=== PATIENT | female | born 1955 | race Caucasian/White ===

== ENCOUNTER → 2017-04-18 | Outpatient (CLI) | payer MEDICARE ==
--- NOTE | 2017-04-18 15:35 | US ---
EXAMINATION TYPE: US venous doppler duplex LE DATE OF EXAM: 04/18/2017 2:37 PM COMPARISON: Right lower extremity venous ultrasound April 27, 2015 CLINICAL HISTORY: M79.604 Pain In Limb. Patient on Plavix, history of stroke. Wound right anterior sh in near foot for 3 weeks LOWER EXTREMITY VENOUS INSUFFICIENCY SIDE PERFORMED: bilateral 1) Color flow is present and patency is documented in the following vessels. No DVT or SVT is noted . EIV Common Femoral Vein Deep Femoral Vein Femoral Vein Popliteal Vein Proximal Calf Veins Greater Saph Vein Upper Small Saph Vein 2) There is venous reflux noted at the following venous levels: no evidence of reflux IMPRESSION: No ultrasound evidence for acute DVT or SVT in either lower extremity. No venous reflux o bserved bilaterally.
--- NOTE | 2017-04-25 10:07 | P.ARTDOP ---
Arterial Doppler LOWER EXTREMITY ARTERIAL DOPPLER: DATE OF SERVICE: 04/18/2017 Reason for study: Right lower leg ulcer. Doppler waveforms: Multiphasic bilaterally throughout. Pulse volume recording: Normal configuration. Pressure gradients: None except at the foot level. Ankle-brachial indices: Greater than 1 on the right and 0.97 on the left.. Toe pressures: 67 on the right, 74 on the left Impression: Fairly mild distal disease. Perfusion probably adequate for healing..
== END | disposition home or self-care (01) ==
LOC: RADUSWWP 13:55
PROVIDERS: ATTEND Internal Medicine Infectious Disease
DX: M79.604 Pain in right leg (principal)
CPT/HCPCS: 93923; 93970

== ENCOUNTER → 2017-12-19 | Outpatient (CLI) | payer MEDICARE ==
--- NOTE | 2017-12-20 12:15 | MR ---
EXAMINATION TYPE: MR lumbar spine wo con DATE OF EXAM: 12/19/2017 COMPARISON: HISTORY: low back pain TECHNIQUE: Multiplanar, multisequence images of the lumbar spine were acquired. L1-L2: Normal disc appearance without desiccation. No herniation, protrusion or disc bulging. No ca nal stenosis is present. There is facet arthropathy with hypertrophy of the ligamentum flavum encroac tremaine on the lateral recesses. Foramina are patent bilaterally. L2-L3: Normal disc appearance without desiccation. No herniation, protrusion or disc bulging. No ca nal stenosis is present. There is facet arthropathy with hypertrophy of the ligamentum flavum encroac tremaine on the lateral recesses. Foramina are patent bilaterally. L3-L4: Loss of disc height and signal is present, there is vacuum phenomenon. Extruded fragment is pr esent in the right posterior paracentral location extending posterior to the L4 vertebral body and to wards the right neural foramen of L4, there is anterior mass effect on the thecal sac. Fragment measu res a partially 17 x 11 x 16 mm. There is facet arthropathy hypertrophy ligamentum flavum causing pos terior lateral mass effect on the thecal sac, encroachment on the lateral recesses. There is mild par acentral stenosis of the canal, trefoil appearance. Anterolisthesis grade 1 L3-4. L4-L5: Vacuum phenomenon present in L4-5 level. There is loss of disc desiccation. Facet arthropathy with hypertrophy ligamentum flavum encroaches on the lateral recesses, right-sided foraminal encroach ment due to sequestered disc fragment. L5-S1: Normal disc appearance without desiccation. No herniation, protrusion or disc bulging. No ca nal stenosis is present. Foramina are patent bilaterally. Lumbar segments are intact. No paraspinal masses are identified. Conus medullaris has a normal appe arance. Multilevel spondylosis with endplate discogenic marrow signal change is noted. Mild spinal cu rvature. IMPRESSION: Sequestered disc fragment as described extending towards the right L4 neural foramen and likely origi nating at the L3-4 disc space. Degenerative disc disease.
== END | disposition home or self-care (01) ==
LOC: RADMRIMAIN 17:25
PROVIDERS: ATTEND Internal Medicine
DX: M51.16 Intervertebral disc disorders with radiculopathy, lumbar region (principal)
CPT/HCPCS: 72148

== ENCOUNTER → 2018-02-13 | Outpatient (CLI) | payer MEDICARE ==
[2018-02-12 17:00] VITALS: BMI 28.8
[2018-02-13 14:18] VITALS: BP 157/93; PULSE 98; RESP 16
--- NOTE | 2018-02-13 15:04 | P.PAINPG ---
Subjective Progress Note Date: 02/13/18 Principal diagnosis: Back pain, right buttock pain, right leg pain This a very pleasant 52-year-old woman with a history of back pain right buttock pain and right leg pain. She presents today for evaluation. She was referred by her spine surgeon to our clinic for epidural steroid injections. She reports that she began experiencing pain in August for no clear inciting reason. She has trialed conservative management since marked including 2 rounds of physical therapy as well as treatment with a chiropractor and using ice and heat. None of these have significantly helped her. She does take Plavix and aspirin secondary to having 4 different strokes. It was concluded that she does have some sort of coagulation disorder and is hypercoagulable. She feels as though her strength is decreased. She did have pain in her back which radiated down her leg and into her anterior rosales and foot however the radicular component has mostly resolved except for pain radiating into her buttock and upper leg. She does report having some urgency with urination that is new however she denies any loss of control of her bladder. She denies any loss of bowel control. Objective - Vital Signs Vital signs: Vital Signs Temp Pulse 98 02/13/18 14:07 Resp 16 02/13/18 14:07 BP 157/93 02/13/18 14:07 Pulse Ox 95 02/13/18 14:07 Intake & Output 02/12/18 02/13/18 02/13/18 18:59 06:59 18:59 Weight 88.451 kg - Exam General: The patient is alert and oriented. Patient is not sedated Patient answers all question appropriately. She is frequently tearful during this conversation. She does walk with a walker for assistance. Cardiac: Heart is regular in rate and rhythm Respiratory: Clear to auscultation. No audible wheezes. Abdomen: Soft nontender nondistended. Lower extremities: Strength is normal bilaterally. Sensation is normal bilaterally. Reflexes are preserved and symmetric bilaterally. Straight leg raise is positive on the right. Assessment and Plan Plan: Plan of Care 1. Medications: She will continue with her Isaac for radicular symptom control. 2. Interventions: I had a long conversation with the patient and her family regarding anticoagulants and the risks of discontinuing them for an elective procedure in someone who has had 4 different strokes. I told her I'm very concerned that she may have severe complications. I think she should exhaust all conservative measures first. I have encouraged him to dissipate in a water therapy program to help with strengthening and pain reduction. 3. Referrals: I refer them to physical therapy for water therapy. 4. Testing: Patient does have an MRI of her lumbar spine dated 12/19/2017 which reveals a herniated disc with extruded fragment at L3 4. There is anterior mass effect on the thecal sac. There is also encroachment of the lateral recess and right foraminal encroachment due to the sequestered disc fragment at L4 5. 5. Follow-up: The patient will follow up in 1 month to discuss results of her water therapy. We will also have a discussion regarding moving forward with lumbar epidural steroid injection. PQRS Measure Charge Sheet Measure #130: Documentation of Current Meds in Medical Chart: Patient's medications documented in chart Measure #226: Tobacco Use: Screen & Cessation Intervention: Pt not a tobacco user Measure #111: Pneumonia Vaccination: Pneumococcal vaccine NOT administered or previously given Measure #47: Advance Care Plan: Advance care planning discussed & documented, pt chose/unable to give Measure #412: Opioid Treatment Agreement: No documentation of signed opioid treatment agreement Measure #408: Opioid Therapy Follow-up Evaluation: Patient had NO f/u eval minimum every 3 months during opioid therapy Measure #317: Preventitive Care & Scrn High Bld Press & F/U: Normal blood pressure, f/u not required Measure #128: Body Mass Index (BMI) Screening & Follow-up: BMI documented ABOVE normal parameters - f/u documented Measure #131: Pain Assessment & Follow-up: Pain positive & plan documented Measure #431: Unhealthy Alcohol Use Preventative Care & Scrn: Patient not identified as an unhealthy alcohol user PQRS Narrative: Smoking Status Never smoker Do You Want the Pneumonia No Vaccine AT THIS TIME? Blood Pressure 157/93 Pain Intensity [Lower Back] 8 Scale Used Numeric (1 - 10) Hx Alcohol Use (MH) No Home Medications: Ambulatory Orders Atorvastatin [Lipitor] 5 mg PO HS 08/14/15 Ca/D3/Mag/Zinc/Carl/Tye/Mgbor [Caltrate 600+D3+Min Chew Tab] 1 tab PO DAILY 05/19 Cholecalciferol [Vitamin D3] 600 unit PO DAILY 08/14/15 Clopidogrel [Plavix] 75 mg PO DAILY 08/14/15 Enalapril [Vasotec] 10 mg PO DAILY 08/14/15 Folic Acid 0.4 mg PO DAILY 08/14/15 Insulin Aspart [NovoLOG (formulary)] 25 unit SQ TID 08/14/15 Insulin Glargine [Lantus] 30 unit SQ HS 08/14/15 Levothyroxine Sodium [Tirosint] 150 mcg PO DAILY 04/05/17 Aspirin 81 mg PO DAILY 02/12/18 Dextromethorphan HBr/Quinidine [Nuedexta 20-10 mg Capsule] 1 each PO DAILY 02/12 Pregabalin [Lyrica] 100 mg PO HS 02/12/18 Controlled Substance Measures - Controlled Substance Measures Is patient prescribed a controlled substance at discharge?: No
== END | disposition home or self-care (01) ==
LOC: PNWHC3 13:22
PROVIDERS: ATTEND Pain Medicine Pain Medicine
DX: M51.26 Other intervertebral disc displacement, lumbar region (principal); G95.89 Other specified diseases of spinal cord; Z86.73 Personal history of transient ischemic attack (TIA), and cerebral infarction without residual deficits; Z79.02 Long term (current) use of antithrombotics/antiplatelets; Z79.82 Long term (current) use of aspirin
CPT/HCPCS: 99211

== ENCOUNTER 2018-06-25 10:31 | Observation (INO) | payer MEDICARE ==
--- NOTE | 2018-06-25 11:06 | ED ---
General Adult HPI - General Chief complaint: Weakness Stated complaint: Fall,weakness, poss UTI Time Seen by Provider: 06/25/18 10:35 Source: patient, EMS, RN notes reviewed Mode of arrival: EMS Limitations: no limitations - History of Present Illness Initial comments: This is a 62-year-old female presents emergency department for generalized weakness. Patient states he got up to go to bathroom and her legs got weak and she slowly went to the ground. Patient denies any injury. Patient states she has no pain anywhere else. Patient denies any headache denies lightheadedness or dizziness. Patient denies chest pain or palpitations. Patient denies any difficulty breathing first breath. Patient denies abdominal pain patient denies nausea vomiting diarrhea. Patient states for the last 3 weeks she has had a little bit of a cold and a cough but no sputum production. Patient states she's not short of breath either. Patient states she has been on an antibiotic. Patient denies any swelling to the legs or calf tenderness. Patient states while she is lying in bed she feels okay. - Related Data Home Medications Medication Instructions Recorded Confirmed Atorvastatin [Lipitor] 10 mg PO HS 08/14/15 06/25/18 Ca/D3/Mag/Zinc/Carl/Tye/Mgbor 1 tab PO DAILY 08/14/15 06/25/18 [Caltrate 600-D3-Min Chew Tab] Clopidogrel [Plavix] 75 mg PO DAILY 08/14/15 06/25/18 Enalapril [Vasotec] 10 mg PO DAILY 08/14/15 06/25/18 Insulin Aspart [NovoLOG 25 unit SQ AC-TID 08/14/15 06/25/18 (formulary)] Insulin Glargine [Lantus] 35 unit SQ QAM 08/14/15 06/25/18 Levothyroxine Sodium [Tirosint] 150 mcg PO DAILY 04/05/17 06/25/18 Aspirin 81 mg PO DAILY 02/12/18 06/25/18 Dextromethorphan HBr/Quinidine 1 cap PO DAILY 02/12/18 06/25/18 [Nuedexta 20-10 mg Capsule] Folic Acid 1 mg PO DAILY 06/25/18 06/25/18 Pregabalin [Lyrica] 150 mg PO HS 06/25/18 06/25/18 Solifenacin Succinate [Vesicare] 5 mg PO DAILY 06/25/18 06/25/18 Allergies Allergy/AdvReac Type Severity Reaction Status Date / Time ibuprofen [From Motrin] Allergy Unknown Verified 06/25/18 11:07 naproxen [From Aleve] Allergy Unknown Verified 06/25/18 11:07 Review of Systems ROS Statement: Those systems with pertinent positive or pertinent negative responses have been documented in the HPI. ROS Other: All systems not noted in ROS Statement are negative. Past Medical History Past Medical History: Cancer, CVA/TIA, Diabetes Mellitus, Hyperlipidemia, Hypertension, Skin Disorder, Thyroid Disorder Additional Past Medical History / Comment(s): hx CVA -problems with balance. hx thyroid cancer History of Any Multi-Drug Resistant Organisms: None Reported Past Surgical History: Hysterectomy, Orthopedic Surgery Additional Past Surgical History / Comment(s): thyroidectomy, parotid gland surgery, left shoulder (rotator cuff sx) Past Anesthesia/Blood Transfusion Reactions: Postoperative Nausea & Vomiting ( PONV) Past Psychological History: No Psychological Hx Reported Smoking Status: Never smoker Past Alcohol Use History: None Reported Past Drug Use History: None Reported - Past Family History Mother Family Medical History: No Reported History Father Family Medical History: Cancer Additional Family Medical History / Comment(s): open heart surgery when he was 48, aortic aneurysm when he was around 63 General Exam - General Exam Comments Initial Comments: GENERAL: Patient is well-developed and well-nourished. Patient is nontoxic and well- hydrated and is in no acute distress. ENT: Neck is soft and supple. No significant lymphadenopathy is noted. Oropharynx is clear. Moist mucous membranes. Neck has full range of motion without eliciting any pain. EYES: The sclera were anicteric and conjunctiva were pink and moist. Extraocular movements were intact and pupils were equal round and reactive to light. Eyelids were unremarkable. PULMONARY: Unlabored respirations. Good breath sounds bilaterally. No audible rales rhonchi or wheezing was noted. CARDIOVASCULAR: There is a regular rate and rhythm without any murmurs gallops or rubs. ABDOMEN: Soft and nontender with normal bowel sounds. No palpable organomegaly was noted. There is no palpable pulsatile mass. SKIN: Skin is clear with no lesions or rashes and otherwise unremarkable. NEUROLOGIC: Patient is alert and oriented x3. Cranial nerves II through XII are grossly intact. Motor and sensory are also intact. Normal speech, volume and content. Symmetrical smile. MUSCULOSKELETAL: Normal extremities with adequate strength and full range of motion. No lower extremity swelling or edema. No calf tenderness. LYMPHATICS: No significant lymphadenopathy is noted PSYCHIATRIC: Normal psychiatric evaluation. Limitations: no limitations Course Vital Signs 06/25/18 06/25/18 06/25/18 10:33 11:30 12:00 Temperature 98.5 F Pulse Rate 89 Pulse Rate [ Right Sitting Highway Commissioner ] Pulse Rate [ Right Standing Highway Commissioner ] Pulse Rate [ Right Supine Highway Commissioner ] Respiratory 18 18 18 Rate Blood Pressure 127/69 128/75 104/56 Blood Pressure [Right Arm Sitting] Blood Pressure [Right Arm Standing] Blood Pressure [Right Arm Supine] O2 Sat by Pulse 97 98 98 Oximetry 06/25/18 06/25/18 06/25/18 12:30 13:00 13:30 Temperature Pulse Rate 85 Pulse Rate [ Right Sitting Highway Commissioner ] Pulse Rate [ Right Standing Highway Commissioner ] Pulse Rate [ Right Supine Highway Commissioner ] Respiratory 18 18 Rate Blood Pressure 107/61 112/77 112/77 Blood Pressure [Right Arm Sitting] Blood Pressure [Right Arm Standing] Blood Pressure [Right Arm Supine] O2 Sat by Pulse 95 99 99 Oximetry 06/25/18 06/25/18 06/25/18 13:40 14:00 14:30 Temperature Pulse Rate 87 81 Pulse Rate [ [address] ] Pulse Rate [ [address] ] Pulse Rate [ [address] ] Respiratory 18 18 Rate Blood Pressure 143/71 109/80 Blood Pressure 138/72 [Right Arm Sitting] Blood Pressure 145/75 [Right Arm Standing] Blood Pressure 121/61 [Right Arm Supine] O2 Sat by Pulse Oximetry Medical Decision Making - Medical Decision Making EKG shows normal sinus rhythm at 80 bpm GA interval 172 QRS is 90 QT interval 382 QTC is 440. Patient's EKG shows no ST segment elevation or depression or T wave normalities are noted. came in later and indicated to me that the patient fallen 3 times the last couple of weeks. He also states she seems to be much weaker with exertion. Chest x-ray shows no acute abnormality. Dr. Daniels accepted the patient's admission. I wrote admitting orders - Lab Data Result diagrams: 06/25/18 12:07 06/25/18 12:07 Lab Results 06/25/18 06/25/18 06/25/18 Range/Units 12:07 12:07 12:07 WBC 10.1 (3.8-10.6) k/uL RBC 4.74 (3.80-5.40) m/uL Hgb 14.2 (11.4-16.0) gm/dL Hct 43.7 (34.0-46.0) % MCV 92.2 (80.0-100.0) fL MCH 30.1 (25.0-35.0) pg MCHC 32.6 (31.0-37.0) g/dL RDW 14.0 (11.5-15.5) % Plt Count 219 (150-450) k/uL Neutrophils % 69 % Lymphocytes % 22 % Monocytes % 5 % Eosinophils % 2 % Basophils % 1 % Neutrophils # 7.0 (1.3-7.7) k/uL Lymphocytes # 2.2 (1.0-4.8) k/uL Monocytes # 0.5 (0-1.0) k/uL Eosinophils # 0.2 (0-0.7) k/uL Basophils # 0.1 (0-0.2) k/uL PT (9.0-12.0) sec INR (<1.2) APTT (22.0-30.0) sec Sodium 141 (137-145) mmol/L Potassium 4.5 (3.5-5.1) mmol/L Chloride 107 (98-107) mmol/L Carbon Dioxide 27 (22-30) mmol/L Anion Gap 7 mmol/L BUN 25 H (7-17) mg/dL Creatinine 0.47 L (0.52-1.04) mg/dL Est GFR (CKD-EPI)AfAm >90 (>60 ml/min/1.73 sqM) Est GFR (CKD-EPI)NonAf >90 (>60 ml/min/1.73 sqM) Glucose 119 H (74-99) mg/dL POC Glucose (mg/dL) (75-99) mg/dL POC Glu Extractions Technologist ID Plasma Lactic Acid Hilario (0.7-2.0) mmol/L Calcium 9.3 (8.4-10.2) mg/dL Magnesium 1.9 (1.6-2.3) mg/dL Total Bilirubin 1.3 (0.2-1.3) mg/dL AST 43 H (14-36) U/L ALT 28 (9-52) U/L Alkaline Phosphatase 71 (38-126) U/L Total Creatine Kinase 78 (30-135) U/L CK-MB (CK-2) 1.2 (0.0-2.4) ng/mL CK-MB (CK-2) Rel Index 1.5 Troponin I <0.012 (0.000-0.034) ng/mL NT-Pro-B Natriuret Pep pg/mL Total Protein 7.4 (6.3-8.2) g/dL Albumin 4.3 (3.5-5.0) g/dL Urine Color Urine Appearance (Clear) Urine pH (5.0-8.0) Ur Specific [place] (1.001-1.035) Urine Protein (Negative) Urine Glucose (UA) (Negative) Urine Ketones (Negative) Urine Blood (Negative) Urine Nitrite (Negative) Urine Bilirubin (Negative) Urine Urobilinogen (<2.0) mg/dL Ur Leukocyte Esterase (Negative) Urine WBC (0-5) /hpf Ur Squamous Epith Cells (0-4) /hpf Urine Bacteria (None) /hpf Urine Mucus (None) /hpf 06/25/18 06/25/18 06/25/18 Range/Units 12:07 12:07 12:07 WBC (3.8-10.6) k/uL RBC (3.80-5.40) m/uL Hgb (11.4-16.0) gm/dL Hct (34.0-46.0) % MCV (80.0-100.0) fL MCH (25.0-35.0) pg MCHC (31.0-37.0) g/dL RDW (11.5-15.5) % Plt Count (150-450) k/uL Neutrophils % % Lymphocytes % % Monocytes % % Eosinophils % % Basophils % % Neutrophils # (1.3-7.7) k/uL Lymphocytes # (1.0-4.8) k/uL Monocytes # (0-1.0) k/uL Eosinophils # (0-0.7) k/uL Basophils # (0-0.2) k/uL PT 10.6 (9.0-12.0) sec INR 1.0 (<1.2) APTT 22.2 (22.0-30.0) sec Sodium (137-145) mmol/L Potassium (3.5-5.1) mmol/L Chloride (98-107) mmol/L Carbon Dioxide (22-30) mmol/L Anion Gap mmol/L BUN (7-17) mg/dL Creatinine (0.52-1.04) mg/dL Est GFR (CKD-EPI)AfAm (>60 ml/min/1.73 sqM) Est GFR (CKD-EPI)NonAf (>60 ml/min/1.73 sqM) Glucose (74-99) mg/dL POC Glucose (mg/dL) (75-99) mg/dL POC Glu Extractions Technologist ID Plasma Lactic Acid Hilario 1.7 (0.7-2.0) mmol/L Calcium (8.4-10.2) mg/dL Magnesium (1.6-2.3) mg/dL Total Bilirubin (0.2-1.3) mg/dL AST (14-36) U/L ALT (9-52) U/L Alkaline Phosphatase (38-126) U/L Total Creatine Kinase (30-135) U/L CK-MB (CK-2) (0.0-2.4) ng/mL CK-MB (CK-2) Rel Index Troponin I (0.000-0.034) ng/mL NT-Pro-B Natriuret Pep 34 pg/mL Total Protein (6.3-8.2) g/dL Albumin (3.5-5.0) g/dL Urine Color Urine Appearance (Clear) Urine pH (5.0-8.0) Ur Specific [place] (1.001-1.035) Urine Protein (Negative) Urine Glucose (UA) (Negative) Urine Ketones (Negative) Urine Blood (Negative) Urine Nitrite (Negative) Urine Bilirubin (Negative) Urine Urobilinogen (<2.0) mg/dL Ur Leukocyte Esterase (Negative) Urine WBC (0-5) /hpf Ur Squamous Epith Cells (0-4) /hpf Urine Bacteria (None) /hpf Urine Mucus (None) /hpf 06/25/18 06/25/18 Range/Units 12:14 13:56 WBC (3.8-10.6) k/uL RBC (3.80-5.40) m/uL Hgb (11.4-16.0) gm/dL Hct (34.0-46.0) % MCV (80.0-100.0) fL MCH (25.0-35.0) pg MCHC (31.0-37.0) g/dL RDW (11.5-15.5) % Plt Count (150-450) k/uL Neutrophils % % Lymphocytes % % Monocytes % % Eosinophils % % Basophils % % Neutrophils # (1.3-7.7) k/uL Lymphocytes # (1.0-4.8) k/uL Monocytes # (0-1.0) k/uL Eosinophils # (0-0.7) k/uL Basophils # (0-0.2) k/uL PT (9.0-12.0) sec INR (<1.2) APTT (22.0-30.0) sec Sodium (137-145) mmol/L Potassium (3.5-5.1) mmol/L Chloride (98-107) mmol/L Carbon Dioxide (22-30) mmol/L Anion Gap mmol/L BUN (7-17) mg/dL Creatinine (0.52-1.04) mg/dL Est GFR (CKD-EPI)AfAm (>60 ml/min/1.73 sqM) Est GFR (CKD-EPI)NonAf (>60 ml/min/1.73 sqM) Glucose (74-99) mg/dL POC Glucose (mg/dL) 127 H (75-99) mg/dL POC Glu Extractions Technologist ID Lithia Abraham Plasma Lactic Acid Hilario (0.7-2.0) mmol/L Calcium (8.4-10.2) mg/dL Magnesium (1.6-2.3) mg/dL Total Bilirubin (0.2-1.3) mg/dL AST (14-36) U/L ALT (9-52) U/L Alkaline Phosphatase (38-126) U/L Total Creatine Kinase (30-135) U/L CK-MB (CK-2) (0.0-2.4) ng/mL CK-MB (CK-2) Rel Index Troponin I (0.000-0.034) ng/mL NT-Pro-B Natriuret Pep pg/mL Total Protein (6.3-8.2) g/dL Albumin (3.5-5.0) g/dL Urine Color Yellow Urine Appearance Cloudy H (Clear) Urine pH 5.5 (5.0-8.0) Ur Specific [place] 1.024 (1.001-1.035) Urine Protein Trace H (Negative) Urine Glucose (UA) Negative (Negative) Urine Ketones Negative (Negative) Urine Blood Negative (Negative) Urine Nitrite Positive H (Negative) Urine Bilirubin Negative (Negative) Urine Urobilinogen <2.0 (<2.0) mg/dL Ur Leukocyte Esterase Moderate H (Negative) Urine WBC 33 H (0-5) /hpf Ur Squamous Epith Cells 1 (0-4) /hpf Urine Bacteria Many H (None) /hpf Urine Mucus Moderate H (None) /hpf Disposition Clinical Impression: Urinary tract infection, Generalized weakness, Multiple falls Disposition: ADMITTED IP TO THIS HOSP Referrals: Xu Hatfield MD [Primary Care Provider] - 1-2 days Time of Disposition: 15:46
[2018-06-25] MEDS ORDERED: SODIUM CHLORIDE 0.9% 500 ML 500 ML IV STA (11:57)
[2018-06-25 12:18] LABS: Glucose,Whole Blood 127 mg/dL (75-99)
[2018-06-25 12:42] LABS: Basophils # (A) 0.1 k/uL (0-0.2); Basophils % (A) 1 %; Eosinophils # (A) 0.2 k/uL (0-0.7); Eosinophils % (A) 2 %; HCT 43.7 % (34.0-46.0); HGB 14.2 gm/dL (11.4-16.0); Lymphocytes # (A) 2.2 k/uL (1.0-4.8); Lymphocytes % (A) 22 %; MCH 30.1 pg (25.0-35.0); MCHC 32.6 g/dL (31.0-37.0); MCV 92.2 fL (80.0-100.0); Mean Platelet Volume 8.3; Monocytes # (A) 0.5 k/uL (0-1.0); Monocytes % (A) 5 %; Neutrophils % (A) 69 %; Platelet Count 219 k/uL (150-450); RBC 4.74 m/uL (3.80-5.40); WBC 10.1 k/uL (3.8-10.6)
--- NOTE | 2018-06-25 12:53 | XR ---
EXAMINATION TYPE: XR chest 2V DATE OF EXAM: 06/25/2018 COMPARISON: Prior chest x-ray 08/14/2015 HISTORY: Weakness TECHNIQUE: Frontal and lateral views of the chest are obtained. FINDINGS: Lung volumes are low, patient is rotated. There is no focal air space opacity, pleural effu yair, or pneumothorax seen. The cardiac silhouette size is stable accounting for differences in tech nique. The osseous structures are intact. IMPRESSION: No acute cardiopulmonary process.
[2018-06-25 12:55] LABS: Partial Thromboplastin Time 22.2 sec (22.0-30.0); Prothrombin Time 10.6 sec (9.0-12.0)
[2018-06-25 13:02] LABS: ALT 28 U/L (9-52); AST 43 U/L (14-36); Albumin 4.3 g/dL (3.5-5.0); Alkaline Phosphatase 71 U/L (38-126); Anion Gap 7 mmol/L; Blood Urea Nitrogen 25 mg/dL (7-17); Calcium 9.3 mg/dL (8.4-10.2); Carbon Dioxide 27 mmol/L (22-30); Chloride 107 mmol/L (98-107); Glucose 119 mg/dL (74-99); Magnesium 1.9 mg/dL (1.6-2.3); Sodium 141 mmol/L (137-145); Total Bilirubin 1.3 mg/dL (0.2-1.3); Total Protein 7.4 g/dL (6.3-8.2)
[2018-06-25 13:04] LABS: Creatine Kinase 78 U/L (30-135)
[2018-06-25 13:11] LABS: Potassium 4.5 mmol/L (3.5-5.1)
[2018-06-25 13:16] LABS: Creatine Kinase MB 1.2 ng/mL (0.0-2.4); Troponin I <0.012 ng/mL (0.000-0.034)
[2018-06-25 14:28] LABS: Appearance,Urine Cloudy (Clear); Bacteria,Urine Many /hpf; Bilirubin,Urine Negative (Negative); Blood,Urine Negative (Negative); Color,Urine Yellow; Glucose,Urine (UA) Negative (Negative); Ketones,Urine Negative (Negative); Leukocyte Esterase,Urine Moderate (Negative); Mucus,Urine Moderate /hpf; Nitrite,Urine Positive (Negative); PH, Urine 5.5 (5.0-8.0); Protein,Urine Trace (Negative); Specific Gravity,Urine 1.024 (1.001-1.035); Squamous Epithelial Cell,Urine 1 /hpf (0-4); Urobilinogen,Urine <2.0 mg/dL (<2.0); WBC,Urine 33 /hpf (0-5)
[2018-06-25] MEDS ORDERED: SODIUM CHLORIDE 0.9% 1,000 ML IV ONE (15:47)
[2018-06-25 17:51] LABS: Glucose,Whole Blood 95 mg/dL (75-99)
[2018-06-25] MEDS ORDERED: ONDANSETRON 4 MG/2 ML VIAL IVP PRN (18:00)
[2018-06-25] MEDS ORDERED: SODIUM CHLORIDE 0.9% 1,000 ML IV SCH (18:00)
[2018-06-25] MEDS ORDERED: NALOXONE 0.4 MG/ML 1 ML VIAL IV PRN (18:00)
--- NOTE | 2018-06-25 18:22 | P.HPIM ---
History of Present Illness H&P Date: 06/25/18 Chief Complaint: weakness Patient is a 62-year-old female past medical history of multiple strokes including one hemorrhagic, hypertension, diabetes, prior thyroid cancer , and arthritis who is the emergency department after a fall. In the emergency department she underwent an extensive evaluation. Her initial vital signs were within normal limits. Initial laboratory analysis showed slightly elevated BUN of 25. EKG was unremarkable. Chest x-ray was negative. She was found to have a urinary tract infection with treatment dose of Rocephin. She had positive orthostatic vital signs was started on IV fluids. Arrangements were made for admission for observation. Patient seen and examined at bedside emergency department. She states that she has been having generalized weakness and falls. She has fallen 3 times total. She does not believe that she fainted passes out becomes off balance and trips or lowers herself to the ground. She states that for the last 2-3 weeks she has been struggling with a cold. She went to the urgent care approximately a week ago was told she had a virus. There she was started on a steroid pack, Mucinex, and one additional medication. She reports that she initially had a productive cough with sputum but now has a dry cough. She felt feverish but has not taken her temperature. She initially desired shortness of breath however family reports that she's been extremely winded with walking and wheezes. Patient denies wheezing. She states that she has noticed dark urine but denied any changes in her urine such as dysuria, urinary frequency, and incontinence. After a long discussion with her daughter patient has been struggling with urinary incontinence at home. She does report that her appetite has been decreased with her illness. She states that today her blood sugar was in the 90s at 4 PM which is very low for her and she feels symptomatic with anything less than 100. She states she thinks her last A1c was 7 and that her sugars have been running around 200. Her steroid pack and it yesterday. She denies any focal neuro deficits. She states she just feels as though both her legs are weak. She does have some chronic left upper extremity weakness from a prior stroke which is unchanged, she denies any numbness or tingling. She has struggled with disequilibrium her quite some time since her last stroke. She denies any other changes. She was started on Vesicare approximately 3 months ago but has had no other medication changes recently. Daughter reports that she has not been checking her sugars at home frequently. She also reports that she has tried home health in the past and has not had success. She has had continual downhill decline over the last 3 months. Has been using a walker recently but used to have a cane. Has a life alert system in place. Review of Systems Pertinent positives and negatives as discussed in HPI, a complete review of systems was performed and all other systems are negative. 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 hx thyroid cancer. MTHFR. History of Any Multi-Drug Resistant Organisms: None Reported Past Surgical History: Hysterectomy, Orthopedic Surgery Additional Past Surgical History / Comment(s): thyroidectomy, parotid gland surgery, left shoulder (rotator cuff sx) X 2 Past Anesthesia/Blood Transfusion Reactions: Postoperative Nausea & Vomiting ( PONV) Past Psychological History: No Psychological Hx Reported Smoking Status: Never smoker Past Alcohol Use History: None Reported Past Drug Use History: None Reported Additional History: Lives with her , uses a walker and a cane at baseline , has a life alert system. Daughter comes out 3-4 times weekly and is a nurse. - Past Family History Mother Family Medical History: No Reported History Father Family Medical History: Cancer Additional Family Medical History / Comment(s): open heart surgery when he was 50, aortic aneurysm when he was around 63 Medications and Allergies Home Medications Medication Instructions Recorded Confirmed Type RX: Atorvastatin [Lipitor] 10 mg PO HS 08/14/15 06/25/18 History RX: Ca/D3/Mag/Zinc/Carl/Tye/Mgbor 1 tab PO DAILY 08/14/15 06/25/18 History [Caltrate 600-D3-Min Chew Tab] RX: Clopidogrel [Plavix] 75 mg PO DAILY 08/14/15 06/25/18 History RX: Enalapril [Vasotec] 10 mg PO DAILY 08/14/15 06/25/18 History RX: Insulin Aspart [NovoLOG 25 unit SQ AC-TID 08/14/15 06/25/18 History (formulary)] RX: Insulin Glargine [Lantus] 35 unit SQ QAM 08/14/15 06/25/18 History Levothyroxine Sodium [Tirosint] 150 mcg PO DAILY 04/05/17 06/25/18 History Dextromethorphan HBr/Quinidine 1 cap PO DAILY 02/12/18 06/25/18 History [Nuedexta 20-10 mg Capsule] RX: Aspirin 81 mg PO DAILY 02/12/18 06/25/18 History Folic Acid 1 mg PO DAILY 06/25/18 06/25/18 History Pregabalin [Lyrica] 150 mg PO HS 06/25/18 06/25/18 History Solifenacin Succinate [Vesicare] 5 mg PO DAILY 06/25/18 06/25/18 History Allergies Allergy/AdvReac Type Severity Reaction Status Date / Time ibuprofen [From Motrin] Allergy Unknown Verified 06/25/18 11:07 naproxen [From Aleve] Allergy Unknown Verified 06/25/18 11:07 Physical Exam Osteopathic Statement: *. No significant issues noted on an osteopathic structural exam other than those noted in the History and Physical/Consult. Vitals: Vital Signs Temp Pulse Pulse Pulse Pulse Resp BP 06/25/18 17:30 98 18 139/63 06/25/18 14:30 81 18 109/80 06/25/18 14:00 87 18 143/71 06/25/18 13:40 98 113 H 88 06/25/18 13:30 85 18 112/77 06/25/18 13:00 18 112/77 06/25/18 12:30 107/61 06/25/18 12:00 18 104/56 06/25/18 11:30 18 128/75 06/25/18 10:33 98.5 F 89 18 127/69 BP BP BP Pulse Ox 06/25/18 17:30 06/25/18 14:30 06/25/18 14:00 06/25/18 13:40 138/72 145/75 121/61 06/25/18 13:30 99 06/25/18 13:00 99 06/25/18 12:30 95 06/25/18 12:00 98 06/25/18 11:30 98 06/25/18 10:33 97 Intake and Output 01/22/19 01/22/19 01/22/19 06:59 14:59 22:59 Other: Weight 88.451 kg General: non toxic, no distress, appears at stated age, Obese Derm: no unusual rashes/lesions no unusual ecchymoses, warm, dry Head: atraumatic, normocephalic, symmetric Eyes: EOMI, no lid lag, anicteric sclera, pupils equal round reactive to light ENT: Nose and ears atraumatic, no thrush, + pharyngeal erythema Neck: No thyromegaly, no cervical lymphadenopathy, trachea midline, supple Mouth: no lip lesion, mucus membranes dry Cardiovascular: S1S2 irreg, no murmur, positive posterior tibial pulse bilateral , no edema, capillary refill less than 2 seconds Lungs: CTA bilateral, no rhonchi, no rales , no accessory muscle use Abdominal: soft, nontender to palpation, no guarding, no appreciable organomegaly, normal bowel sounds Ext: no gross muscle atrophy, muscle strength 5 out of 5 in all RUE, LLE, and RLE grossly- 4/5 in LUE, no contractures, Neuro: CN II-XI grossly intact, light touch intact all 4 extremities, finger to nose within normal limits, Psych: Alert, oriented, appropriate affect Results CBC & Chem 7: 06/25/18 12:07 06/25/18 12:07 Labs: Abnormal Lab Results - Last 24 Hours (Table) 06/25/18 06/25/18 06/25/18 Range/Units 12:07 12:14 13:56 BUN 25 H (7-17) mg/dL Creatinine 0.47 L (0.52-1.04) mg/dL Glucose 119 H (74-99) mg/dL POC Glucose (mg/dL) 127 H (75-99) mg/dL AST 43 H (14-36) U/L Urine Appearance Cloudy H (Clear) Urine Protein Trace H (Negative) Urine Nitrite Positive H (Negative) Ur Leukocyte Esterase Moderate H (Negative) Urine WBC 33 H (0-5) /hpf Urine Bacteria Many H (None) /hpf Urine Mucus Moderate H (None) /hpf Comments: EKG- NSR at 80, IA 172, QRS 90, QTC 440 Chest x-ray: report reviewed, image reviewed Thrombosis Risk Factor Assmnt - DVT/VTE Prophylaxis DVT/VTE Prophylaxis: Mechanical Prophylaxis ordered Assessment and Plan Assessment: UTI, POA - rocephin - await cultures - hold vesicar DM 2 with relative symptomatic hypoglycemia - SSI, Decreased scheduled novolog, Levemir - Check A1c - Accucheck ACHS and 2 am Dehydration with prerenal azotemia - IVF - repeat orthostaics in AM (+ for increased HR) Weakness with frequent falls - likely related to UTI, but could be progression of prior stroke symptoms vs valvular disease - echo, tele - fall precautions - PT/OT consult - May benefit from rehab placement, family states that home health with ineffective Urinary incontinence/freequency - resume vesicare once TX for UTI - Out patient urology consult HTN, controlled - enalapril - follow BP HLD - statin Hx of multiple CVA - ASA and plavix - Nudexta for pseudobulbar sx The patient is admitted as inpatient with an anticipated greater than 2 midnight stay for UTI, weakness and falls. Surrogate decision maker: Tha and daughter Olivia CODE STATUS:Full DVT prophylaxis: SCDs Discussed with: Patient, family, nursing, Anticipated discharge date: 1-[address]: A total of [] minutes was spent on the care of this complex patient more than 50 % of the time was spent in counseling and care coordination.
[2018-06-25 20:52] LABS: Glucose,Whole Blood 144 mg/dL (75-99)
[2018-06-25] MEDS: INSULIN ASPART 100 UNIT/ML 1 ML 10 ML VIAL SQ SCH (20:55)
[2018-06-25] MEDS: PREGABALIN 75 MG CAP PO SCH (21:01)
[2018-06-25] MEDS: ATORVASTATIN 10 MG TAB PO SCH (21:01)
[2018-06-26 02:41] LABS: Glucose,Whole Blood 107 mg/dL (75-99)
[2018-06-26] MEDS: LEVOTHYROXINE 75 MCG TAB PO SCH (05:40)
[2018-06-26] MEDS: ACETAMINOPHEN TAB 325 MG TAB PO PRN ×2 (05:40→21:50)
[2018-06-26 06:41] LABS: Glucose,Whole Blood 156 mg/dL (75-99)
[2018-06-26] MEDS ORDERED: INSULIN ASPART 100 UNIT/ML 1 ML 10 ML VIAL SQ SCH (07:30)
[2018-06-26] MEDS: CLOPIDOGREL 75 MG TAB PO SCH (08:28)
[2018-06-26] MEDS: ASPIRIN 81 MG PO SCH (08:28)
[2018-06-26] MEDS: LISINOPRIL 20 MG TAB PO SCH (08:28)
[2018-06-26] MEDS: INSULIN DETEMIR 100 UNIT/ML 10 ML VIAL SQ SCH (08:28)
[2018-06-26] MEDS: INSULIN ASPART 100 UNIT/ML 1 ML 10 ML VIAL SQ SCH ×7 (08:29→21:51)
[2018-06-26 09:07] LABS: Anion Gap 8 mmol/L; Blood Urea Nitrogen 16 mg/dL (7-17); Calcium 8.4 mg/dL (8.4-10.2); Carbon Dioxide 28 mmol/L (22-30); Chloride 106 mmol/L (98-107); Glucose 173 mg/dL (74-99); Magnesium 1.8 mg/dL (1.6-2.3); Potassium 4.3 mmol/L (3.5-5.1); Sodium 142 mmol/L (137-145)
[2018-06-26] MEDS: QUINIDINE PO SCH (09:15)
[2018-06-26] MEDS: DEXTROMETHORPHAN HBR PO SCH (09:15)
[2018-06-26 09:16] LABS: HCT 42.1 % (34.0-46.0); HGB 13.6 gm/dL (11.4-16.0); MCH 30.3 pg (25.0-35.0); MCHC 32.4 g/dL (31.0-37.0); MCV 93.5 fL (80.0-100.0); Mean Platelet Volume 8.2; Platelet Count 210 k/uL (150-450); RDW 14.1 % (11.5-15.5); WBC 9.8 k/uL (3.8-10.6)
--- NOTE | 2018-06-26 10:14 | ECHOF ---
Referral Reason:shortness of breath MEASUREMENTS -------- HEIGHT: 175.3 cm WEIGHT: 88.5 kg BP: RVIDd: 2.7 cm (< 3.3) IVSd: 1.3 cm (0.6 - 1.1) LVIDd: 3.8 cm (3.9 - 5.3) LVPWd: 1.3 cm (0.6 - 1.1) IVSs: 1.5 cm LVIDs: 2.3 cm LVPWs: 1.6 cm LA Diam: 3.5 cm (2.7 - 3.8) Ao Diam: 2.7 cm (2.0 - 3.7) AV Cusp: 1.5 cm (1.5 - 2.6) LA Diam: 4.6 cm (2.7 - 3.8) EPSS: 0.6 cm MV E Alexx: 0.37 m/s MV DecT: 194 ms MV A Alexx: 0.59 m/s MV E/A Ratio: 0.62 RAP: 5.00 mmHg RVSP: 15.39 mmHg MV EF SLOPE: 62.46 mm/s (70 - 150) MV EXCURSION: 1.50 cm (> 18.000) FINDINGS -------- Sinus rhythm. This was a technically good study. The left ventricular size is normal. There is mild concentric left ventricular hypertrophy. Overa ll left ventricular systolic function is normal with, an EF between 55 - 60 %. The right ventricle is normal in size. The left atrial size is normal. The right atrial size is normal. The aortic valve is trileaflet, and appears structurally normal. No aortic stenosis or regurgitation. Mild mitral annular calcification present. No mitral regurgitation. Mild tricuspid regurgitation present. There is no evidence of pulmonary hypertension. The right v entricular systolic pressure, as measured by Doppler, is 15.39mmHg. There is no pulmonic regurgitation present. The aortic root size is normal. There is no pericardial effusion. CONCLUSIONS -------- 1. The left ventricular size is normal. 2. There is mild concentric left ventricular hypertrophy. 3. Overall left ventricular systolic function is normal with, an EF between 55 - 60 %. 4. The right ventricle is normal in size. 5. The left atrial size is normal. 6. The right atrial size is normal. 7. The aortic valve is trileaflet, and appears structurally normal. No aortic stenosis or regurgitati on. 8. Mild mitral annular calcification present. 9. No mitral regurgitation. 10. Mild tricuspid regurgitation present. 11. There is no evidence of pulmonary hypertension. 12. The right ventricular systolic pressure, as measured by Doppler, is 15.39mmHg. 13. There is no pulmonic regurgitation present. 14. The aortic root size is normal. 15. There is no pericardial effusion. BOOK ILLUSTRATOR: Lisa Durán RDCS
[2018-06-26 10:52] LABS: Glucose,Whole Blood 214 mg/dL (75-99)
--- NOTE | 2018-06-26 12:37 | P.PN ---
Subjective Progress Note Date: 06/26/18 Principal diagnosis: weakness Patient is a 62-year-old female past medical history of multiple strokes including one hemorrhagic, hypertension, diabetes, prior thyroid cancer , and arthritis who is the emergency department after a fall. In the emergency department she underwent an extensive evaluation. Her initial vital signs were within normal limits. Initial laboratory analysis showed slightly elevated BUN of 25. EKG was unremarkable. Chest x-ray was negative. She was found to have a urinary tract infection with treatment dose of Rocephin. She had positive orthostatic vital signs was started on IV fluids. Arrangements were made for admission. She was maintained on IV fluids due to prerenal azotemia and signs of clinical dehydration. The next morning her BUN improved and she was feeling better. She worked with physical therapy who recommended subacute rehab. She underwent an echocardiogram which showed mild LVH but no significant valvular disease. Patient seen and examined at bedside. She reports she is feeling about the same as yesterday. She reports that she was able to walk with physical therapy and her balance seems somewhat better. She denies any chest pain or shortness of breath. She is still having her chronic cough. She has no other complaints currently. Objective - Vital Signs Vital signs: Vital Signs Temp 98.2 F 06/26/18 11:40 Pulse 82 06/26/18 11:40 Resp 18 06/26/18 05:27 BP 123/63 06/26/18 11:40 Pulse Ox 94 L 06/26/18 11:40 Intake & Output 06/25/18 06/26/18 06/26/18 18:59 06:59 18:59 Intake Total 1680 Balance 1680 Weight 88.451 kg Intake: Intake, IV Titration 1200 Amount Sodium Chloride 0.9% 1, 1200 000 ml @ 100 mls/hr IV . Q10H ONE Rx#:[id number] Oral 480 Other: Voiding Method Toilet Bedside Commode Incontinent # Voids 2 - Labs CBC & Chem 7: 06/26/18 08:35 06/26/18 08:35 Labs: Abnormal Lab Results - Last 24 Hours (Table) 06/25/18 06/25/18 06/25/18 Range/Units 12:07 13:56 20:50 BUN 25 H (7-17) mg/dL Creatinine 0.47 L (0.52-1.04) mg/dL Glucose 119 H (74-99) mg/dL POC Glucose (mg/dL) 144 H (75-99) mg/dL AST 43 H (14-36) U/L Urine Appearance Cloudy H (Clear) Urine Protein Trace H (Negative) Urine Nitrite Positive H (Negative) Ur Leukocyte Esterase Moderate H (Negative) Urine WBC 33 H (0-5) /hpf Urine Bacteria Many H (None) /hpf Urine Mucus Moderate H (None) /hpf 06/26/18 06/26/18 06/26/18 Range/Units 02:39 06:40 08:35 BUN (7-17) mg/dL Creatinine (0.52-1.04) mg/dL Glucose 173 H (74-99) mg/dL POC Glucose (mg/dL) 107 H 156 H (75-99) mg/dL AST (14-36) U/L Urine Appearance (Clear) Urine Protein (Negative) Urine Nitrite (Negative) Ur Leukocyte Esterase (Negative) Urine WBC (0-5) /hpf Urine Bacteria (None) /hpf Urine Mucus (None) /hpf 06/26/18 Range/Units 10:51 BUN (7-17) mg/dL Creatinine (0.52-1.04) mg/dL Glucose (74-99) mg/dL POC Glucose (mg/dL) 214 H (75-99) mg/dL AST (14-36) U/L Urine Appearance (Clear) Urine Protein (Negative) Urine Nitrite (Negative) Ur Leukocyte Esterase (Negative) Urine WBC (0-5) /hpf Urine Bacteria (None) /hpf Urine Mucus (None) /hpf Microbiology - Last 24 Hours (Table) 06/25/18 15:25 Urine Culture - Preliminary Urine,Voided Assessment and Plan Assessment: UTI, POA - rocephin - await cultures - hold vesicar DM 2 with relative symptomatic hypoglycemia - SSI, scheduled novolog, Levemir - A1c pending - Accucheck ACHS and 2 am Dehydration with prerenal azotemia, improved - stop iVF - repeat orthostatic negative Weakness with frequent falls - likely related to UTI, but could be progression of prior stroke symptoms - echo with mild LVH, tele - fall precautions - PT/OT recs - May benefit from rehab placement, family states that home health was ineffective Urinary incontinence/freequency - resume vesicare once [place] for UTI - Out patient urology consult HTN, controlled - enalapril - follow BP HLD - statin Hx of multiple CVA - ASA and plavix - Nudexta for pseudobulbar sx Left message for daughter glo DVT prophylaxis: SCDs, hsx of hemorrhagic stroke Discussed with: Patient, family, nursing, Anticipated discharge date: [address]: A total of [35] minutes was spent on the care of this complex patient more than 50% of the time was spent in counseling and care coordination.
[2018-06-26] MEDS: CALCIUM CARB-VIT D 500MG-200UN 1 EACH TAB PO SCH (12:52)
[2018-06-26] MEDS: FOLIC ACID 1 MG TAB PO SCH (12:52)
[2018-06-26 17:08] LABS: Glucose,Whole Blood 65 mg/dL (75-99)
[2018-06-26 17:21] LABS: Glucose,Whole Blood 81 mg/dL (75-99)
[2018-06-26 17:32] LABS: Hemoglobin A1C 7.9 % (4.0-6.0)
[2018-06-26 20:40] LABS: Glucose,Whole Blood 225 mg/dL (75-99)
[2018-06-26] MEDS: ATORVASTATIN 10 MG TAB PO SCH (21:49)
[2018-06-26] MEDS: PREGABALIN 75 MG CAP PO SCH (21:50)
[2018-06-27 02:11] LABS: Glucose,Whole Blood 128 mg/dL (75-99)
[2018-06-27] MEDS: LEVOTHYROXINE 75 MCG TAB PO SCH (05:54)
[2018-06-27 06:02] VITALS: RESP 16
[2018-06-27 07:03] LABS: Glucose,Whole Blood 203 mg/dL (75-99)
[2018-06-27] MEDS: ASPIRIN 81 MG PO SCH (07:57)
[2018-06-27] MEDS: INSULIN DETEMIR 100 UNIT/ML 10 ML VIAL SQ SCH (07:57)
[2018-06-27] MEDS: CLOPIDOGREL 75 MG TAB PO SCH (07:58)
[2018-06-27] MEDS: LISINOPRIL 20 MG TAB PO SCH (07:58)
[2018-06-27] MEDS: INSULIN ASPART 100 UNIT/ML 1 ML 10 ML VIAL SQ SCH ×7 (08:10→21:05)
[2018-06-27] MEDS ORDERED: INSULIN ASPART 100 UNIT/ML 1 ML 10 ML VIAL SQ ONE ×2 (09:03→17:54)
[2018-06-27 10:47] LABS: Glucose,Whole Blood 227 mg/dL (75-99)
[2018-06-27 12:47] LABS: Glucose,Whole Blood 239 mg/dL (75-99)
[2018-06-27] MEDS: CALCIUM CARB-VIT D 500MG-200UN 1 EACH TAB PO SCH (12:59)
[2018-06-27] MEDS: FOLIC ACID 1 MG TAB PO SCH (12:59)
[2018-06-27] MEDS: DEXTROMETHORPHAN HBR PO SCH (14:21)
[2018-06-27] MEDS: QUINIDINE PO SCH (14:21)
--- NOTE | 2018-06-27 15:30 | P.PN ---
Subjective Progress Note Date: 06/27/18 Principal diagnosis: weakness Patient is a 62-year-old female past medical history of multiple strokes including one hemorrhagic, hypertension, diabetes, prior thyroid cancer , and arthritis who is the emergency department after a fall. In the emergency department she underwent an extensive evaluation. Her initial vital signs were within normal limits. Initial laboratory analysis showed slightly elevated BUN of 25. EKG was unremarkable. Chest x-ray was negative. She was found to have a urinary tract infection with treatment dose of Rocephin. She had positive orthostatic vital signs was started on IV fluids. Arrangements were made for admission. She was maintained on IV fluids due to prerenal azotemia and signs of clinical dehydration. The next morning her BUN improved and she was feeling better. She worked with physical therapy who recommended subacute rehab. She underwent an echocardiogram which showed mild LVH but no significant valvular disease. She improved with IVF. Patient seen and examined at bedside. Feeling better than yesterday. Patient was able to feel when her sugar was slightly low. States that she thinks her sugars go low in the afternoon. She has not been good about maintaining a regular diet and fixed times of insulin injections. States that while she was slightly easier today. No dysuria, urine is lightening. No nausea, vomiting, or diarrhea. No chest pain or shortness of breath. Breathing was easier when she was up and walking. Objective - Vital Signs Vital signs: Vital Signs Temp 97.1 F L 06/27/18 13:37 Pulse 83 06/27/18 13:37 Resp 16 06/27/18 13:37 BP 134/60 06/27/18 13:37 Pulse Ox 95 06/27/18 13:37 Intake & Output 06/26/18 06/27/18 06/27/18 18:59 06:59 18:59 Intake Total 1780 1080 240 Balance 1780 1080 240 Intake: Intake, IV Titration 600 Amount Sodium Chloride 0.9% 1, 600 000 ml @ 100 mls/hr IV . Q10H ONE Rx#:[id number] Oral 1180 1080 240 Other: Voiding Method Bedside Commode Bedside Commode Bedside Commode # Voids 1 2 3 - Exam General: non toxic, no distress, appears older than stated age, obese Derm: warm, dry Head: atraumatic, normocephalic, symmetric Eyes: EOMI, no lid lag, anicteric sclera Mouth: no lip lesion, mucus membranes moist Cardiovascular: S1S2 reg, no murmur, faint posterior tibial pulse bilateral, Lungs: decreased bs bilateral, no rhonchi, no rales , no accessory muscle use Abdominal: soft, nontender to palpation, no guarding, no appreciable organomegaly Ext: no gross muscle atrophy, no edema, no contractures Neuro: CN II-XI grossly intact, no focal neuro deficits Psych: Alert, oriented, appropriate affect - Labs CBC & Chem 7: 06/26/18 08:35 06/26/18 08:35 Labs: Abnormal Lab Results - Last 24 Hours (Table) 06/26/18 06/26/18 06/26/18 Range/Units 08:35 17:03 20:37 POC Glucose (mg/dL) 65 L 225 H (75-99) mg/dL Hemoglobin A1c 7.9 H (4.0-6.0) % 06/27/18 06/27/18 06/27/18 Range/Units 02:09 07:02 10:45 POC Glucose (mg/dL) 128 H 203 H 227 H (75-99) mg/dL Hemoglobin A1c (4.0-6.0) % 06/27/18 Range/Units 12:35 POC Glucose (mg/dL) 239 H (75-99) mg/dL Hemoglobin A1c (4.0-6.0) % Microbiology - Last 24 Hours (Table) 06/25/18 15:25 Urine Culture - Preliminary Urine,Voided Gram Neg Bacilli Aerococcus urinae 06/25/18 15:15 Blood Culture - Preliminary Blood No Growth after 24 hours Assessment and Plan Assessment: Aerococcus Urinae and gram negative UTI, POA - rocephin - await sensitivities - hold vesicar DM 2 with relative symptomatic hypoglycemia again on 06/27 - SSI, scheduled novolog decreased, Levemir - A1c 7.9 - Accucheck ACHS and 2 am Weakness with frequent falls - likely related to UTI, but could be progression of prior stroke symptoms - echo with mild LVH, tele without incident - fall precautions - PT/OT recs Urinary incontinence/frequency - resume vesicare once [place] for UTI - Out patient urology consult HTN, controlled - enalapril - follow BP HLD - statin Hx of multiple CVA - ASA and plavix - Nudexta for pseudobulbar sx Dehydration with prerenal azotemia, improved DVT prophylaxis: SCDs, hsx of hemorrhagic stroke Discussed with: Patient, family, nursing, Anticipated discharge date: [address]: A total of 35 minutes was spent on the care of this complex patient more than 50 % of the time was spent in counseling and care coordination.
[2018-06-27 17:18] LABS: Glucose,Whole Blood 137 mg/dL (75-99)
[2018-06-27 19:56] LABS: Glucose,Whole Blood 249 mg/dL (75-99)
[2018-06-27] MEDS: ATORVASTATIN 10 MG TAB PO SCH (21:04)
[2018-06-27] MEDS: PREGABALIN 75 MG CAP PO SCH (21:04)
[2018-06-28 03:12] LABS: Glucose,Whole Blood 151 mg/dL (75-99)
[2018-06-28] MEDS: LEVOTHYROXINE 75 MCG TAB PO SCH (05:35)
[2018-06-28 05:37] VITALS: BP 135/74; TEMP 97.7
[2018-06-28 06:45] LABS: Glucose,Whole Blood 211 mg/dL (75-99)
[2018-06-28] MEDS ORDERED: INSULIN ASPART 100 UNIT/ML 1 ML 10 ML VIAL SQ SCH ×2 (07:30→12:30)
[2018-06-28 07:38] VITALS: PULSE 72
[2018-06-28] MEDS: INSULIN ASPART 100 UNIT/ML 1 ML 10 ML VIAL SQ SCH ×2 (08:28→12:08)
[2018-06-28] MEDS: QUINIDINE PO SCH (08:29)
[2018-06-28] MEDS: ASPIRIN 81 MG PO SCH (08:29)
[2018-06-28] MEDS: DEXTROMETHORPHAN HBR PO SCH (08:29)
[2018-06-28] MEDS: LISINOPRIL 20 MG TAB PO SCH (08:29)
[2018-06-28] MEDS: CLOPIDOGREL 75 MG TAB PO SCH (08:29)
[2018-06-28] MEDS: CALCIUM CARB-VIT D 500MG-200UN 1 EACH TAB PO SCH (08:32)
[2018-06-28] MEDS: FOLIC ACID 1 MG TAB PO SCH (08:32)
[2018-06-28] MEDS ORDERED: INSULIN DETEMIR 100 UNIT/ML 10 ML VIAL SQ SCH (09:00)
[2018-06-28 11:08] LABS: Glucose,Whole Blood 328 mg/dL (75-99)
--- NOTE | 2018-06-28 12:13 | P.DS ---
Providers Date of admission: 06/25/18 16:00 Expected date of discharge: 06/28/18 Attending physician: Mamie Daniels DO Primary care physician: Xu Hatfield [facility] Course: Discharge Diagnosis: Aerococcus Urinae and Kelbsiella PNA UTI, POA DM 2 with hypoglycemia Weakness with frequent falls Urinary incontinence with frequency HTN, controlled HLD HX of recurrent multiple CVA Hospital Course: Patient is a 62-year-old female past medical history of multiple strokes including one hemorrhagic, hypertension, diabetes, prior thyroid cancer , and arthritis who is the emergency department after a fall. In the emergency department she underwent an extensive evaluation. Her initial vital signs were within normal limits. Initial laboratory analysis showed slightly elevated BUN of 25. EKG was unremarkable. Chest x-ray was negative. She was found to have a urinary tract infection with treatment dose of Rocephin. She had positive orthostatic vital signs was started on IV fluids. Arrangements were made for admission. She was maintained on IV fluids due to prerenal azotemia and signs of clinical dehydration. The next morning her BUN improved and she was feeling better. She worked with physical therapy who recommended subacute rehab. She underwent an echocardiogram which showed mild LVH but no significant valvular disease. She improved with IVF. She continued to struggle with urinary frequency and liable blood sugars throughout her hospitalization. Adjustments were made in her insulin regiments throughout her stay. She was determine stable to discharge to SNF. She will complete oral augment therapy and get a dose of diflucan on her last day of antibiotics. She will stay off vesicare until augment is complete. I have recommended for her to follow with urology. She will need accucheck QACHS and 2 am to optimize her insulin regiment. She will also follow with her PCP after discharge from [facility]. Patient seen and examined at bedside. Feeling much improved. breathing is better , urine is getting top collar baster in color. Still very weak and having a hard time standing. Vital signs reviewed and stable. General: non toxic, no distress, appears at stated age Derm: warm, dry Head: atraumatic, normocephalic, symmetric Eyes: EOMI, no lid lag, anicteric sclera Mouth: no lip lesion, mucus membranes moist Cardiovascular: S1S2 reg, no murmur, positive posterior tibial pulse bilateral, Lungs: CTA bilateral, no rhonchi, no rales , no accessory muscle use Abdominal: soft, nontender to palpation, no guarding, no appreciable organomegaly Ext: no gross muscle atrophy, no edema, no contractures Neuro: CN II-XI grossly intact, no focal neuro deficits Psych: Alert, oriented, appropriate affect A total of 25 minutes of time were spent preparing this complex discharge summary . Pertinent Studies: ECHO- EF 55-60% Patient Condition at Discharge: Stable Plan - Discharge Summary Discharge Rx Participant: No New Discharge Prescriptions: New Amoxic-Pot Clav 875-125Mg [Augmentin 875-125] 1 tab PO Q12HR #4 tablet Insulin Aspart [NovoLOG (formulary)] 12 unit SQ AC-TID #0 vial Insulin Aspart [NovoLOG (formulary)] 0 unit SQ ACHS vial Continue Ca/D3/Mag/Zinc/Carl/Tye/Mgbor [Caltrate 600-D3-Min Chew Tab] 1 tab PO DAILY Clopidogrel [Plavix] 75 mg PO DAILY Atorvastatin [Lipitor] 10 mg PO HS Enalapril [Vasotec] 10 mg PO DAILY Levothyroxine Sodium [Tirosint] 150 mcg PO DAILY Dextromethorphan HBr/Quinidine [Nuedexta 20-10 mg Capsule] 1 cap PO DAILY Aspirin 81 mg PO DAILY Folic Acid 1 mg PO DAILY Pregabalin [Lyrica] 150 mg PO HS Changed Insulin Glargine [Lantus] 38 unit SQ QAM #0 Discontinued Insulin Aspart [NovoLOG (formulary)] 25 unit SQ AC-TID Solifenacin Succinate [Vesicare] 5 mg PO DAILY Discharge Medication List Atorvastatin [Lipitor] 10 mg PO HS 08/14/15 [History] Ca/D3/Mag/Zinc/Carl/Tye/Mgbor [Caltrate 600-D3-Min Chew Tab] 1 tab PO DAILY 05/19 [History] Clopidogrel [Plavix] 75 mg PO DAILY 08/14/15 [History] Enalapril [Vasotec] 10 mg PO DAILY 08/14/15 [History] Levothyroxine Sodium [Tirosint] 150 mcg PO DAILY 04/05/17 [History] Aspirin 81 mg PO DAILY 02/12/18 [History] Dextromethorphan HBr/Quinidine [Nuedexta 20-10 mg Capsule] 1 cap PO DAILY [History] Folic Acid 1 mg PO DAILY 06/25/18 [History] Pregabalin [Lyrica] 150 mg PO HS 06/25/18 [History] Amoxic-Pot Clav 875-125Mg [Augmentin 875-125] 1 tab PO Q12HR #4 tablet 06/28/18 [Rx] Insulin Aspart [NovoLOG (formulary)] 0 unit SQ ACHS vial 06/28/18 [Rx] Insulin Aspart [NovoLOG (formulary)] 12 unit SQ AC-TID #0 vial 06/28/18 [Rx] Insulin Glargine [Lantus] 38 unit SQ QAM #0 06/28/18 [Rx] Follow up Appointment(s)/Referral(s): Xu Hatfield MD [Primary Care Provider] - 1-2 days Facundo Donaldson MD [STAFF PHYSICIAN] - 1 Week Activity/Diet/Wound Care/Special Instructions: Carb consistent diet Activity as tolerated fall precuations Accucheck qACHS and 2 am Recheck Urinalysis in 1 week DX: UTI Administer diflucan on last day of antibiotic therapy. Discharge Disposition: TRANSFER TO SNF/ECF
== END 2018-06-28 14:37 ==
LOC: EC 10:31 → 3NMEDONC 16:00
PROVIDERS: ADMIT Internal Medicine; ATTEND Internal Medicine
DX: N39.0 Urinary tract infection, site not specified (principal); B96.1 Klebsiella pneumoniae [K. pneumoniae] as the cause of diseases classified elsewhere; B96.89 Other specified bacterial agents as the cause of diseases classified elsewhere; E11.649 Type 2 diabetes mellitus with hypoglycemia without coma; R29.6 Repeated falls; R32 Unspecified urinary incontinence; R35.0 Frequency of micturition; E86.0 Dehydration; I10 Essential (primary) hypertension; E78.5 Hyperlipidemia, unspecified; J00 Acute nasopharyngitis [common cold]; R06.2 Wheezing; E89.0 Postprocedural hypothyroidism; W19.XXXA Unspecified fall, initial encounter; Z79.02 Long term (current) use of antithrombotics/antiplatelets; Z79.4 Long term (current) use of insulin; Z79.82 Long term (current) use of aspirin; Z79.890 Hormone replacement therapy; Z79.899 Other long term (current) drug therapy; Z85.850 Personal history of malignant neoplasm of thyroid; Z88.8 Allergy status to other drugs, medicaments and biological substances; Z82.49 Family history of ischemic heart disease and other diseases of the circulatory system; Z80.9 Family history of malignant neoplasm, unspecified; I69.354 Hemiplegia and hemiparesis following cerebral infarction affecting left non-dominant side; E87.8 Other disorders of electrolyte and fluid balance, not elsewhere classified; E72.12 Methylenetetrahydrofolate reductase deficiency; E66.9 Obesity, unspecified; Z68.28 Body mass index [BMI] 28.0-28.9, adult; R79.89 Other specified abnormal findings of blood chemistry
CPT/HCPCS: 96361 ×3; 96366 ×2; 96365; 99285; 36415; 93005; 93306; 97116 ×2; 97162; 97535 ×2; 97166; 83880; 80053; 80048; 84443; 82607; 82550; 82553; 83605; 83735 ×2; 84484; 85025; 85027; 85610; 85730; 81001; 87040; 87086; 87077; 87186; 83036; 71046; G0378 ×4; J0696 ×3

== ENCOUNTER 2018-11-29 14:19 | Emergency (ER) | payer MEDICARE ==
[2018-11-29] MEDS ORDERED: SODIUM CHLORIDE 0.9% 1,000 ML IV STA (15:27)
--- NOTE | 2018-11-29 15:53 | ED ---
Dizziness HPI - General Chief Complaint: Dizziness Stated Complaint: Dizziness, confusion, sent by Dr Pruitt Seen by Provider: 11/29/18 15:11 Source: patient Mode of arrival: ambulatory Limitations: no limitations - History of Present Illness Initial Comments: Patient is a 63-year-old female presenting to the emergency Department with complaints of dizziness 2 days. Patient's daughter is here with her now. Patient has medical history of multiple CVA episodes with the last one being in 2016, currently on Plavix. Patient does admit to falling last week onto both knees and hurting her right foot. Patient admits to walking with a walker. Patient denies hitting her head, but daughter states that she has been keeping information from her daughter, such as the fall. Patient went to urgent care today for her right foot pain and then found evidence of UTI, so they sent her here. Patient reports that the x-rays were negative for fractures in her right foot/ankle. Patient states that there has been increase in redness of her right foot the last 24 hours. Patient's daughter states that her mother has been having dizzy episodes for the last week, mostly when she turns her head fast, and states that the last 24 hours she has not been herself. Patient denies any fever, chills, abdominal pain, no urinary symptoms, chest pain, shortness of b reath. Patient has no other complaints at this time. - Related Data Home Medications Medication Instructions Recorded Confirmed Atorvastatin [Lipitor] 10 mg PO HS 08/14/15 11/29/18 Ca/D3/Mag/Zinc/Carl/Tye/Mgbor 1 tab PO DAILY 08/14/15 11/29/18 [Caltrate 600-D3-Min Chew Tab] Clopidogrel [Plavix] 75 mg PO DAILY 08/14/15 11/29/18 Enalapril [Vasotec] 10 mg PO DAILY 08/14/15 11/29/18 Aspirin 81 mg PO DAILY 02/12/18 11/29/18 Dextromethorphan HBr/Quinidine 1 cap PO DAILY 02/12/18 11/29/18 [Nuedexta 20-10 mg Capsule] Folic Acid 1 mg PO DAILY 06/25/18 11/29/18 Pregabalin [Lyrica] 150 mg PO HS 06/25/18 11/29/18 INSULIN ASPART (NovoLOG) [NovoLOG 25 unit SQ AC-TID 11/29/18 11/29/18 (formulary)] Insulin Glargine [Lantus] 35 unit SQ HS 11/29/18 11/29/18 Levothyroxine Sodium [Synthroid] 150 mcg PO DAILY 11/29/18 11/29/18 Previous Rx's Medication Instructions Recorded Cephalexin [Keflex] 500 mg PO Q12HR 7 Days #14 cap 11/29/18 Fluconazole [Diflucan] 150 mg PO ONCE #2 tab 11/29/18 Allergies Allergy/AdvReac Type Severity Reaction Status Date / Time ibuprofen [From Motrin] AdvReac Unknown Verified 11/29/18 15:35 naproxen [From Aleve] AdvReac Unknown Verified 11/29/18 15:35 NSAIDS (Non-Steroidal AdvReac Unknown Verified 11/29/18 15:35 Anti-Inflamma Review of Systems ROS Statement: Those systems with pertinent positive or pertinent negative responses have been documented in the HPI. ROS Other: All systems not noted in ROS Statement are negative. 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 hx thyroid cancer. MTHFR. History of Any Multi-Drug Resistant Organisms: None Reported Past Surgical History: Hysterectomy, Orthopedic Surgery Additional Past Surgical History / Comment(s): thyroidectomy, parotid gland surgery, left shoulder (rotator cuff sx) X 2 Past Anesthesia/Blood Transfusion Reactions: Postoperative Nausea & Vomiting (PONV) Past Psychological History: No Psychological Hx Reported Smoking Status: Never smoker Past Alcohol Use History: None Reported Past Drug Use History: None Reported - Past Family History Mother Family Medical History: No Reported History Father Family Medical History: Cancer Additional Family Medical History / Comment(s): open heart surgery when he was 50, aortic aneurysm when he was around 63 General Exam - General Exam Comments Initial Comments: GENERAL: Well-appearing, well-nourished and in no acute distress. HEAD: Atraumatic, normocephalic. EYES: Pupils equal round and reactive to light, extraocular movements intact, sclera anicteric, conjunctiva are normal. ENT: TMs normal, nares patent, oropharynx clear without exudates. Moist mucous membranes. NECK: Normal range of motion, supple without lymphadenopathy or JVD. LUNGS: Breath sounds clear to auscultation bilaterally and equal. No wheezes rales or rhonchi. HEART: Regular rate and rhythm without murmurs, rubs or gallops. ABDOMEN: Soft, nontender, normoactive bowel sounds. No guarding, no rebound. No masses appreciated. : Deferred EXTREMITIES: Right foot has erythema from the toes up to the ankle. Patient reports pain upon palpation of the right foot. There is bruising and to the right toes and along the lateral aspect of the foot. There is mild swelling ar ound the ankle joint. NEUROLOGICAL: Cranial nerves II through XII grossly intact. Normal speech. No ataxia. PSYCH: Normal mood, normal affect. SKIN: Warm, Dry, normal turgor, no rashes or lesions noted. Limitations: no limitations Neurological exam: Present: alert, oriented X3 Expanded Cranial nerves: EOM's Intact: Normal, Facial Sensation: Normal Course Vital Signs 11/29/18 11/29/18 15:03 19:17 Temperature 98.3 F 97.8 F Pulse Rate 96 83 Respiratory 18 17 Rate Blood Pressure 117/63 135/73 O2 Sat by Pulse 93 L 96 Oximetry Medical Decision Making - Medical Decision Making Patient is a 63-year-old female who was sent to the ER by urgent care after they found a UTI with patient complains of dizziness. Patient went to urgent care for right foot pain after falling 1 week ago onto both knees. Patient denies hitting her head. Patient states x-rays were negative for right foot fractures but then they found evidence of UTI. Patient states there has been an increase in redness of her right foot in the last 24 hours. Patient started here with her and states that she seems "off and not her normal self" for the last 24 hours. Patient has no complaints other than feeling dizzy when she moves her head too fast. Patient is afebrile. Patient's exam is unremarkable except for ecchymosis, mild swelling, erythema of her right foot. CBC shows slightly elevated white count of 11, likely reactive. Lactic acid is 2.5. UA reveals positive nitrate, trace protein, 3+ glucose, 1+ ketones, moderate leukocyte Estrace, 55 WBC. Blood cultures and urine cultures were obtained. Patient was given 2 g of Rocephin and fluids. CT of the brain reveals no acute bleeds. Case was discussed with Dr. Cervantes. Patient feels improvement. Vital signs have been stable during her stay. There are no signs of ataxia. Patient will be discharged home with keflex. Patient and daughter feel comfortable with this plan. - Lab Data Result diagrams: 11/29/18 16:03 11/29/18 16:03 Lab Results 11/29/18 11/29/18 11/29/18 Range/Units 16:03 16:03 16:03 WBC 11.0 H (3.8-10.6) k/uL RBC 4.56 (3.80-5.40) m/uL Hgb 13.5 (11.4-16.0) gm/dL Hct 42.5 (34.0-46.0) % MCV 93.1 (80.0-100.0) fL MCH 29.7 (25.0-35.0) pg MCHC 31.9 (31.0-37.0) g/dL RDW 14.6 (11.5-15.5) % Plt Count 267 (150-450) k/uL Neutrophils % 74 % Lymphocytes % 18 % Monocytes % 4 % Eosinophils % 2 % Basophils % 0 % Neutrophils # 8.1 H (1.3-7.7) k/uL Lymphocytes # 2.0 (1.0-4.8) k/uL Monocytes # 0.4 (0-1.0) k/uL Eosinophils # 0.2 (0-0.7) k/uL Basophils # 0.0 (0-0.2) k/uL PT 10.1 (9.0-12.0) sec INR 0.9 (<1.2) APTT 23.8 (22.0-30.0) sec Sodium 140 (137-145) mmol/L Potassium 4.5 (3.5-5.1) mmol/L Chloride 101 (98-107) mmol/L Carbon Dioxide 28 (22-30) mmol/L Anion Gap 11 mmol/L BUN 18 H (7-17) mg/dL Creatinine 0.59 (0.52-1.04) mg/dL Est GFR (CKD-EPI)AfAm >90 (>60 ml/min/1.73 sqM) Est GFR (CKD-EPI)NonAf >90 (>60 ml/min/1.73 sqM) Glucose 224 H (74-99) mg/dL Lactic Ac Sepsis Rflx Plasma Lactic Acid Hilario (0.7-2.0) mmol/L Calcium 9.2 (8.4-10.2) mg/dL Total Bilirubin 1.1 (0.2-1.3) mg/dL AST 40 H (14-36) U/L ALT 17 (9-52) U/L Alkaline Phosphatase 85 (38-126) U/L Total Protein 7.5 (6.3-8.2) g/dL Albumin 4.5 (3.5-5.0) g/dL Urine Color Urine Appearance (Clear) Urine pH (5.0-8.0) Ur Specific [place] (1.001-1.035) Urine Protein (Negative) Urine Glucose (UA) (Negative) Urine Ketones (Negative) Urine Blood (Negative) Urine Nitrite (Negative) Urine Bilirubin (Negative) Urine Urobilinogen (<2.0) mg/dL Ur Leukocyte Esterase (Negative) Urine RBC (0-5) /hpf Urine WBC (0-5) /hpf Ur Squamous Epith Cells (0-4) /hpf Urine Bacteria (None) /hpf Urine Mucus (None) /hpf 11/29/18 11/29/18 11/29/18 Range/Units 16:03 16:45 16:47 WBC (3.8-10.6) k/uL RBC (3.80-5.40) m/uL Hgb (11.4-16.0) gm/dL Hct (34.0-46.0) % MCV (80.0-100.0) fL MCH (25.0-35.0) pg MCHC (31.0-37.0) g/dL RDW (11.5-15.5) % Plt Count (150-450) k/uL Neutrophils % % Lymphocytes % % Monocytes % % Eosinophils % % Basophils % % Neutrophils # (1.3-7.7) k/uL Lymphocytes # (1.0-4.8) k/uL Monocytes # (0-1.0) k/uL Eosinophils # (0-0.7) k/uL Basophils # (0-0.2) k/uL PT (9.0-12.0) sec INR (<1.2) APTT (22.0-30.0) sec Sodium (137-145) mmol/L Potassium (3.5-5.1) mmol/L Chloride (98-107) mmol/L Carbon Dioxide (22-30) mmol/L Anion Gap mmol/L BUN (7-17) mg/dL Creatinine (0.52-1.04) mg/dL Est GFR (CKD-EPI)AfAm (>60 ml/min/1.73 sqM) Est GFR (CKD-EPI)NonAf (>60 ml/min/1.73 sqM) Glucose (74-99) mg/dL Lactic Ac Sepsis Rflx Y Plasma Lactic Acid Hilario 2.5 H* (0.7-2.0) mmol/L Calcium (8.4-10.2) mg/dL Total Bilirubin (0.2-1.3) mg/dL AST (14-36) U/L ALT (9-52) U/L Alkaline Phosphatase (38-126) U/L Total Protein (6.3-8.2) g/dL Albumin (3.5-5.0) g/dL Urine Color Yellow Urine Appearance Cloudy H (Clear) Urine pH 5.5 (5.0-8.0) Ur Specific [place] 1.032 (1.001-1.035) Urine Protein Trace H (Negative) Urine Glucose (UA) 3+ H (Negative) Urine Ketones 1+ H (Negative) Urine Blood Negative (Negative) Urine Nitrite Positive H (Negative) Urine Bilirubin Negative (Negative) Urine Urobilinogen <2.0 (<2.0) mg/dL Ur Leukocyte Esterase Moderate H (Negative) Urine RBC 1 (0-5) /hpf Urine WBC 55 H (0-5) /hpf Ur Squamous Epith Cells 4 (0-4) /hpf Urine Bacteria Few H (None) /hpf Urine Mucus Moderate H (None) /hpf Disposition Clinical Impression: Dehydration, Urinary tract infection, Dizzy spells Disposition: HOME SELF-CARE Condition: Stable Instructions (If sedation given, give patient instructions): Urinary Tract Infection in Older Adults (ED) Additional Instructions: Please return to the Emergency Department if symptoms worsen or any other co ncerns. Follow-up with PCP. Prescriptions: Fluconazole [Diflucan] 150 mg PO ONCE #2 tab Cephalexin [Keflex] 500 mg PO Q12HR 7 Days #14 cap Is patient prescribed a controlled substance at d/c from ED?: No Referrals: Klaus Ramires DO [Primary Care Provider] - 1-2 days
[2018-11-29 16:19] LABS: Basophils % (A) 0 %; Eosinophils # (A) 0.2 k/uL (0-0.7); Eosinophils % (A) 2 %; HCT 42.5 % (34.0-46.0); HGB 13.5 gm/dL (11.4-16.0); Lymphocytes % (A) 18 %; MCH 29.7 pg (25.0-35.0); MCHC 31.9 g/dL (31.0-37.0); MCV 93.1 fL (80.0-100.0); Mean Platelet Volume 8.2; Monocytes # (A) 0.4 k/uL (0-1.0); Monocytes % (A) 4 %; Neutrophils # (A) 8.1 k/uL (1.3-7.7); Neutrophils % (A) 74 %; Platelet Count 267 k/uL (150-450); RBC 4.56 m/uL (3.80-5.40); RDW 14.6 % (11.5-15.5)
[2018-11-29 16:29] LABS: INR 0.9 (<1.2); Partial Thromboplastin Time 23.8 sec (22.0-30.0); Prothrombin Time 10.1 sec (9.0-12.0)
[2018-11-29 16:31] LABS: ALT 17 U/L (9-52); AST 40 U/L (14-36); African American GFR (CKD) >90 (>60 ml/min/1.73 sqM); Albumin 4.5 g/dL (3.5-5.0); Alkaline Phosphatase 85 U/L (38-126); Anion Gap 11 mmol/L; Blood Urea Nitrogen 18 mg/dL (7-17); Calcium 9.2 mg/dL (8.4-10.2); Carbon Dioxide 28 mmol/L (22-30); Chloride 101 mmol/L (98-107); Glucose 224 mg/dL (74-99); Potassium 4.5 mmol/L (3.5-5.1); Sodium 140 mmol/L (137-145); Total Bilirubin 1.1 mg/dL (0.2-1.3); Total Protein 7.5 g/dL (6.3-8.2)
[2018-11-29 17:14] LABS: Appearance,Urine Cloudy (Clear); Bacteria,Urine Few /hpf; Bilirubin,Urine Negative (Negative); Blood,Urine Negative (Negative); Color,Urine Yellow; Glucose,Urine (UA) 3+ (Negative); Ketones,Urine 1+ (Negative); Leukocyte Esterase,Urine Moderate (Negative); Mucus,Urine Moderate /hpf; Nitrite,Urine Positive (Negative); PH, Urine 5.5 (5.0-8.0); Protein,Urine Trace (Negative); RBC,Urine 1 /hpf (0-5); Specific Gravity,Urine 1.032 (1.001-1.035); Squamous Epithelial Cell,Urine 4 /hpf (0-4); Urobilinogen,Urine <2.0 mg/dL (<2.0)
--- NOTE | 2018-11-29 17:25 | CT ---
EXAMINATION: CT brain wo con DATE AND TIME: 11/29/2018 4:55 PM CLINICAL INDICATION: PHH; fall, thinners, dizzy TECHNIQUE: Standard departmental protocol.; ; COMPARISON: 08/14/2015 FINDINGS: The calvarium is intact. There is no intracranial hemorrhage. There is no intracranial mass or mass e ffect. No definite new intra-axial attenuation defect. The previously seen danielson radiata and centrum semiovale nonspecific low attenuation is redemonstrated, greater on the right. The paranasal sinuses, middle ear cavities, and mastoid sinus air cells are clear. The orbits are unremarkable. IMPRESSION: No definite acute process.
[2018-11-29 19:20] VITALS: BP 135/73; PULSE 83; RESP 17; TEMP 97.8
== END 2018-11-29 19:59 | disposition home or self-care (01) ==
LOC: EC 14:19
DX: E86.0 Dehydration (principal); N39.0 Urinary tract infection, site not specified; R42 Dizziness and giddiness; M79.671 Pain in right foot; E11.9 Type 2 diabetes mellitus without complications; E78.5 Hyperlipidemia, unspecified; I10 Essential (primary) hypertension; E07.9 Disorder of thyroid, unspecified; Z85.850 Personal history of malignant neoplasm of thyroid; Z79.4 Long term (current) use of insulin; Z79.82 Long term (current) use of aspirin; Z79.01 Long term (current) use of anticoagulants; Z79.899 Other long term (current) drug therapy; Z88.6 Allergy status to analgesic agent; Z88.5 Allergy status to narcotic agent
CPT/HCPCS: 36415; 80053; 83605; 85025; 85610; 85730; 81001; 87040; 87086; 70450; 99284; 96365; 96361 ×3; J0696

== ENCOUNTER → 2019-04-09 | Outpatient (CLI) | payer MEDICARE ==
--- NOTE | 2019-04-09 13:48 | MM ---
Reason for exam: screening (asymptomatic). Last mammogram was performed 3 years ago. History: Patient is postmenopausal and has history of other cancer at age 56. Took estrogen for 5 years 4 months. Physical Findings: A clinical breast exam by your physician is recommended on an annual basis and results should be correlated with mammographic findings. MG 3D Screening Mammo W/Cad Bilateral CC and MLO view(s) were taken. Prior study comparison: March 30, 2016, bilateral MG 3d screening mammo w/cad. March 19, 2015, bilateral MG screening mammo w CAD. There are scattered fibroglandular densities. No suspicious abnormality. No significant changes when compared with prior studies. ASSESSMENT: Negative, BI-RAD 1 RECOMMENDATION: Routine screening mammogram of both breasts in 1 year.
== END | disposition home or self-care (01) ==
LOC: RADMAMWWP 10:42
PROVIDERS: ATTEND Family Medicine
DX: Z12.31 Encounter for screening mammogram for malignant neoplasm of breast (principal)
CPT/HCPCS: 77063; 77067

== ENCOUNTER → 2019-07-23 | Outpatient (CLI) | payer MEDICARE ==
--- NOTE | 2019-07-23 12:15 | FL ---
MODIFIED SWALLOW / DEGLUTITION STUDY DATE OF EXAM: 07/23/2019 CLINICAL HISTORY: 64-year-old female dysphasia, possible strokes and change in swallowing. Assess for aspiration. TECHNIQUE: Deglutition study is performed utilizing thin liquid barium, honey and nectar thick liqui d barium, barium thick applesauce, and barium coated cracker. COMPARISON: None. FINDINGS: There is delayed AP transit of bolus and delayed initiation of swallow. Inconsistent transient penetration of thin liquids is noted with one episode of deep penetration to t he level of the vocal cords. No improvement with chin tuck maneuver. No other penetration or aspiration seen with the other tested consistencies. Mild vallecular residuals with solid consistency. IMPRESSION: 1. Delayed AP transit and delayed initiation of swallow. 2. Inconsistent transient penetration of thin liquids with one episode of deep penetration to the voc al folds. 3. No aspiration seen. Please refer to speech therapist notes for further details if necessary.
== END | disposition home or self-care (01) ==
LOC: RADFLMAIN 11:00
PROVIDERS: ATTEND Family Medicine
DX: R13.10 Dysphagia, unspecified (principal)
CPT/HCPCS: 74230

== ENCOUNTER → 2019-10-23 | Outpatient (CLI) | payer MEDICARE ==
--- NOTE | 2019-10-23 09:57 | US ---
LOWER EXTREMITY VENOUS INSUFFICIENCY CLINICAL HISTORY: E11.621 Type 2 diabetes mellitus with foot ulcer. Non healing wound left great toe SIDE PERFORMED: Bilateral 1) Color flow is present and patency is documented in the following vessels. No DVT or SVT is noted . EIV Common Femoral Vein Deep Femoral Vein Femoral Vein Popliteal Vein Proximal Calf Veins Greater Saph Vein Upper Small Saph Vein 2) There is venous reflux noted at the following venous levels: no reflux seen IMPRESSION: 1. Left lower extremity ultrasound negative for significant venous reflux.
== END | disposition home or self-care (01) ==
LOC: RADUSWWP 07:50
PROVIDERS: ATTEND Thoracic Surgery (Cardiothoracic Vascular Surgery)
DX: E11.621 Type 2 diabetes mellitus with foot ulcer (principal); L89.892 Pressure ulcer of other site, stage 2
CPT/HCPCS: 93923; 93970

== ENCOUNTER → 2019-10-30 | Outpatient (CLI) | payer MEDICARE ==
--- NOTE | 2019-10-30 12:11 | XR ---
Left toes HISTORY: Nonhealing wound great toe 3 views of the toes Bone mineralization is reduced, digits are flexed which may limit sensitivity. The first digit shows soft tissue swelling. No periostitis to suggest osteomyelitis is evident. Degenerative change present at the interphalangeal joint. IMPRESSION: Osteopenia, osteoarthritis, soft tissue swelling, correlate for cellulitis.
== END | disposition home or self-care (01) ==
LOC: RADXRMAIN 11:33
PROVIDERS: ATTEND Family Medicine
DX: E11.621 Type 2 diabetes mellitus with foot ulcer (principal); L89.892 Pressure ulcer of other site, stage 2; E11.65 Type 2 diabetes mellitus with hyperglycemia

== ENCOUNTER → 2019-10-31 | Outpatient (CLI) | payer MEDICARE | END | disposition home or self-care (01) | LOC: LABWHC1 11:10 | PROVIDERS: ATTEND Family Medicine | DX: E11.621 Type 2 diabetes mellitus with foot ulcer (principal); L97.509 Non-pressure chronic ulcer of other part of unspecified foot with unspecified severity | CPT/HCPCS: 36415; 84134 ==

== ENCOUNTER 2019-12-01 19:04 | Inpatient (IN) | payer BC, MEDICARE ==
[2019-12-01 19:50] LABS: Glucose,Whole Blood 168 mg/dL (75-99)
[2019-12-01] MEDS ORDERED: SODIUM CHLORIDE 0.9% 500 ML 500 ML IV ONE (22:10)
[2019-12-01 22:32] LABS: Basophils # (A) 0.1 k/uL (0-0.2); Basophils % (A) 1 %; Eosinophils # (A) 0.4 k/uL (0-0.7); Eosinophils % (A) 3 %; HCT 40.5 % (34.0-46.0); HGB 12.5 gm/dL (11.4-16.0); Lymphocytes # (A) 2.9 k/uL (1.0-4.8); Lymphocytes % (A) 25 %; MCH 28.1 pg (25.0-35.0); MCHC 30.8 g/dL (31.0-37.0); MCV 91.2 fL (80.0-100.0); Mean Platelet Volume 8.2; Monocytes # (A) 0.7 k/uL (0-1.0); Monocytes % (A) 6 %; Neutrophils # (A) 7.4 k/uL (1.3-7.7); Neutrophils % (A) 64 %; Platelet Count 262 k/uL (150-450); RBC 4.44 m/uL (3.80-5.40); RDW 13.9 % (11.5-15.5); WBC 11.7 k/uL (3.8-10.6)
[2019-12-01 22:40] LABS: Appearance,Urine Cloudy (Clear); Bacteria,Urine Few /hpf; Bilirubin,Urine Negative (Negative); Blood,Urine Negative (Negative); Color,Urine Yellow; Glucose,Urine (UA) Negative (Negative); Ketones,Urine Negative (Negative); Leukocyte Esterase,Urine Large (Negative); Mucus,Urine Few /hpf; Nitrite,Urine Positive (Negative); PH, Urine 5.5 (5.0-8.0); Protein,Urine Trace (Negative); RBC,Urine 2 /hpf (0-5); Specific Gravity,Urine 1.032 (1.001-1.035); Squamous Epithelial Cell,Urine 3 /hpf (0-4); Urobilinogen,Urine <2.0 mg/dL (<2.0); WBC,Urine 122 /hpf (0-5)
[2019-12-01 22:42] LABS: ALT 17 U/L (4-34); AST 45 U/L (14-36); African American GFR (CKD) >90 (>60 ml/min/1.73 sqM); Albumin 4.4 g/dL (3.5-5.0); Alkaline Phosphatase 88 U/L (38-126); Anion Gap 10 mmol/L; Blood Urea Nitrogen 21 mg/dL (7-17); Calcium 8.9 mg/dL (8.4-10.2); Carbon Dioxide 27 mmol/L (22-30); Chloride 101 mmol/L (98-107); Glucose 184 mg/dL (74-99); Non-African American GFR(CKD) >90 (>60 ml/min/1.73 sqM); Sodium 138 mmol/L (137-145); Total Bilirubin 1.6 mg/dL (0.2-1.3); Total Protein 8.2 g/dL (6.3-8.2)
--- NOTE | 2019-12-01 23:49 | XR ---
EXAMINATION TYPE: XR toes LT DATE OF EXAM: 12/01/2019 COMPARISON: NONE HISTORY: Big toe infection TECHNIQUE: 3 views FINDINGS: There is some destructive changes involving the mid and distal aspect of the distal phalanx of the big toe. There is mild soft tissue swelling of the big toe. The metatarsals are intact. IMPRESSION: Destructive changes of the distal phalanx consistent with osteomyelitis of the big toe le ft foot.
--- NOTE | 2019-12-02 00:11 | ED ---
Skin/Abscess/FB HPI - General Chief complaint: Skin/Abscess/Foreign Body Stated complaint: toe injury Time Seen by Provider: 12/01/19 21:55 Source: patient, family Mode of arrival: wheelchair Limitations: no limitations - History of Present Illness Initial comments: 64-year-old female patient presents to the emergency department today for evaluation of pain, swelling, redness to the left great toe. Patient has been being treated at the wound care center for a wound to the left toe for the last few weeks. States that she was starting to have some redness and swelling a few days ago and did have a wound culture. She comes in tonight because symptoms seem to be worsening. She did have mildly elevated temperature at 99.3 upon arrival. She denies any known fever or chills at home. States she is having increased pain to the area. There is some drainage from the toe. The wound to the toe and originally developed after she had a procedure done cutting the tendons of the left second and third toes causing increased pressure to the toe. She does have a history of diabetes. She also has history of frequent urinary tract infections, urine has been dark and odorous. Patient denies any recent rash, cough, shortness of breath, chest pain, abdominal pain, nausea, vomiting, diarrhea, constipation, back pain, numbness, tingling, dizziness, weakness, headache, visual changes, or any other complaints. - Related Data Home Medications Medication Instructions Recorded Confirmed Atorvastatin [Lipitor] 10 mg PO HS 08/14/15 12/01/19 Ca/D3/Mag/Zinc/Carl/Tye/Mgbor 1 tab PO DAILY 08/14/15 12/01/19 [Caltrate 600-D3-Min Chew Tab] Clopidogrel [Plavix] 75 mg PO DAILY 08/14/15 12/01/19 Enalapril [Vasotec] 10 mg PO DAILY 08/14/15 12/01/19 Aspirin 81 mg PO DAILY 02/12/18 12/01/19 Dextromethorphan HBr/Quinidine 1 cap PO DAILY 02/12/18 12/01/19 [Nuedexta 20-10 mg Capsule] Insulin Glargine [Lantus] 30 unit SQ BID 11/29/18 12/01/19 Levothyroxine Sodium [Synthroid] 150 mcg PO DAILY 11/29/18 12/01/19 Folic Acid 0.4 mg PO DAILY 12/01/19 12/01/19 Insulin Aspart [NovoLOG Flexpen] 25 units SQ DAILY 12/01/19 12/01/19 Allergies Allergy/AdvReac Type Severity Reaction Status Date / Time ibuprofen [From Motrin] AdvReac Unknown Verified 12/01/19 23:44 naproxen [From Aleve] AdvReac Unknown Verified 12/01/19 23:44 NSAIDS (Non-Steroidal AdvReac Unknown Verified 12/01/19 23:44 Anti-Inflamma Review of Systems ROS Statement: Those systems with pertinent positive or pertinent negative responses have been documented in the HPI. ROS Other: All systems not noted in ROS Statement are negative. 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 hx thyroid cancer. MTHFR. History of Any Multi-Drug Resistant Organisms: None Reported Past Surgical History: Hysterectomy, Orthopedic Surgery Additional Past Surgical History / Comment(s): thyroidectomy, parotid gland surgery, left shoulder (rotator cuff sx) X 2 Past Anesthesia/Blood Transfusion Reactions: Postoperative Nausea & Vomiting (PONV) Past Psychological History: No Psychological Hx Reported Smoking Status: Never smoker Past Alcohol Use History: None Reported Past Drug Use History: None Reported - Past Family History Mother Family Medical History: No Reported History Father Family Medical History: Cancer Additional Family Medical History / Comment(s): open heart surgery when he was 50, aortic aneurysm when he was around 63 General Exam Limitations: no limitations General appearance: alert, in no apparent distress, other (Physical well- developed, well-nourished adult female patient in no acute distress. Vital signs upon presentation are temperature 99.2F, pulse 91, respirations 18, blood pressure 124/65, pulse ox 96% on room air.) Eye exam: Present: normal appearance, PERRL, EOMI. Absent: scleral icterus, conjunctival injection, periorbital swelling ENT exam: Present: normal exam, normal oropharynx, mucous membranes moist Respiratory exam: Present: normal lung sounds bilaterally. Absent: respiratory distress, wheezes, rales, rhonchi, stridor Cardiovascular Exam: Present: regular rate, normal rhythm, normal heart sounds. Absent: systolic murmur, diastolic murmur, rubs, gallop, clicks GI/Abdominal exam: Present: soft, normal bowel sounds. Absent: distended, tenderness, guarding, rebound, rigid Extremities exam: Present: full ROM, tenderness (Over the left great toe), normal capillary refill, other (There is also noted to the pad of the toe measuring approximately 2.5 x 2 cm. There is yellow drainage noted. There is surrounding swelling and erythema over the left great toe. There is left foot swelling noted. Foot is warm to touch.). Absent: normal inspection, pedal darek ma, joint swelling, calf tenderness Neurological exam: Present: alert, oriented X3, CN II-XII intact Psychiatric exam: Present: normal affect, normal mood Skin exam: Present: warm, dry, intact, normal color. Absent: rash Course Vital Signs 12/01/19 12/01/19 12/01/19 19:42 22:33 23:10 Temperature 99.2 F Pulse Rate 91 87 89 Respiratory 18 18 18 Rate Blood Pressure 124/65 140/77 127/80 O2 Sat by Pulse 96 98 93 L Oximetry Medical Decision Making - Medical Decision Making 64 year-old female patient presented to the emergency department today for evaluation of possible infection to the left great toe. Physical examination did reveal a ulcer to the left toe with surrounding erythema and swelling. There is swelling of the left foot as well. Labs reviewed and reveal mildly elevated white blood cell count. Urinalysis is positive for infection. We did send an additional culture of the toe. X-ray of the toe does reveal possible osteomyelitis. We will start Rocephin and vancomycin. Patient will be admitted to the hospital for further evaluation by wound care. - Lab Data Result diagrams: 12/01/19 22:24 12/01/19 22:24 Lab Results 12/01/19 12/01/19 12/01/19 Range/Units 19:48 22:24 22:24 WBC 11.7 H (3.8-10.6) k/uL RBC 4.44 (3.80-5.40) m/uL Hgb 12.5 (11.4-16.0) gm/dL Hct 40.5 (34.0-46.0) % MCV 91.2 (80.0-100.0) fL MCH 28.1 (25.0-35.0) pg MCHC 30.8 L (31.0-37.0) g/dL RDW 13.9 (11.5-15.5) % Plt Count 262 (150-450) k/uL Neutrophils % 64 % Lymphocytes % 25 % Monocytes % 6 % Eosinophils % 3 % Basophils % 1 % Neutrophils # 7.4 (1.3-7.7) k/uL Lymphocytes # 2.9 (1.0-4.8) k/uL Monocytes # 0.7 (0-1.0) k/uL Eosinophils # 0.4 (0-0.7) k/uL Basophils # 0.1 (0-0.2) k/uL Sodium (137-145) mmol/L Potassium (3.5-5.1) mmol/L Chloride (98-107) mmol/L Carbon Dioxide (22-30) mmol/L Anion Gap mmol/L BUN (7-17) mg/dL Creatinine (0.52-1.04) mg/dL Est GFR (CKD-EPI)AfAm (>60 ml/min/1.73 sqM) Est GFR (CKD-EPI)NonAf (>60 ml/min/1.73 sqM) Glucose (74-99) mg/dL POC Glucose (mg/dL) 168 H (75-99) mg/dL POC Glu Motor Operator ID Megan Vazquez Plasma Lactic Acid Hilario (0.7-2.0) mmol/L Calcium (8.4-10.2) mg/dL Total Bilirubin (0.2-1.3) mg/dL AST (14-36) U/L ALT (4-34) U/L Alkaline Phosphatase (38-126) U/L Total Protein (6.3-8.2) g/dL Albumin (3.5-5.0) g/dL Urine Color Yellow Urine Appearance Cloudy H (Clear) Urine pH 5.5 (5.0-8.0) Ur Specific [place] 1.032 (1.001-1.035) Urine Protein Trace H (Negative) Urine Glucose (UA) Negative (Negative) Urine Ketones Negative (Negative) Urine Blood Negative (Negative) Urine Nitrite Positive H (Negative) Urine Bilirubin Negative (Negative) Urine Urobilinogen <2.0 (<2.0) mg/dL Ur Leukocyte Esterase Large H (Negative) Urine RBC 2 (0-5) /hpf Urine WBC 122 H (0-5) /hpf Ur Squamous Epith Cells 3 (0-4) /hpf Urine Bacteria Few H (None) /hpf Urine Mucus Few H (None) /hpf 12/01/19 12/01/19 Range/Units 22:24 22:24 WBC (3.8-10.6) k/uL RBC (3.80-5.40) m/uL Hgb (11.4-16.0) gm/dL Hct (34.0-46.0) % MCV (80.0-100.0) fL MCH (25.0-35.0) pg MCHC (31.0-37.0) g/dL RDW (11.5-15.5) % Plt Count (150-450) k/uL Neutrophils % % Lymphocytes % % Monocytes % % Eosinophils % % Basophils % % Neutrophils # (1.3-7.7) k/uL Lymphocytes # (1.0-4.8) k/uL Monocytes # (0-1.0) k/uL Eosinophils # (0-0.7) k/uL Basophils # (0-0.2) k/uL Sodium 138 (137-145) mmol/L Potassium 4.0 (3.5-5.1) mmol/L Chloride 101 (98-107) mmol/L Carbon Dioxide 27 (22-30) mmol/L Anion Gap 10 mmol/L BUN 21 H (7-17) mg/dL Creatinine 0.47 L (0.52-1.04) mg/dL Est GFR (CKD-EPI)AfAm >90 (>60 ml/min/1.73 sqM) Est GFR (CKD-EPI)NonAf >90 (>60 ml/min/1.73 sqM) Glucose 184 H (74-99) mg/dL POC Glucose (mg/dL) (75-99) mg/dL POC Glu Motor Operator ID Plasma Lactic Acid Hilario 1.3 (0.7-2.0) mmol/L Calcium 8.9 (8.4-10.2) mg/dL Total Bilirubin 1.6 H (0.2-1.3) mg/dL AST 45 H (14-36) U/L ALT 17 (4-34) U/L Alkaline Phosphatase 88 (38-126) U/L Total Protein 8.2 (6.3-8.2) g/dL Albumin 4.4 (3.5-5.0) g/dL Urine Color Urine Appearance (Clear) Urine pH (5.0-8.0) Ur Specific [place] (1.001-1.035) Urine Protein (Negative) Urine Glucose (UA) (Negative) Urine Ketones (Negative) Urine Blood (Negative) Urine Nitrite (Negative) Urine Bilirubin (Negative) Urine Urobilinogen (<2.0) mg/dL Ur Leukocyte Esterase (Negative) Urine RBC (0-5) /hpf Urine WBC (0-5) /hpf Ur Squamous Epith Cells (0-4) /hpf Urine Bacteria (None) /hpf Urine Mucus (None) /hpf - Radiology Data Radiology results: report reviewed, image reviewed 3 views of the left toe was obtained. Report reviewed in its entirety. Impression by Dr. Hendricks shows instructed changes of the distal phalanx consistent with osteomyelitis of the big toe left foot. Disposition Clinical Impression: Osteomyelitis of great toe of left foot, Cellulitis of great toe, left, Open wound of left great toe, Urinary tract infection Disposition: ADMITTED IP TO THIS [facility] Condition: Serious Referrals: Klaus Ramires DO [Primary Care Provider] - 1-2 days Decision to Admit Reason: Admit from EC Decision Date: 12/02/19 Decision Time: 00:11
[2019-12-02] MEDS ORDERED: NALOXONE 0.4 MG/ML 1 ML VIAL IV PRN (01:16)
[2019-12-02] MEDS ORDERED: HYDROmorphone 0.5 MG/0.5 ML SYRINGE IVP PRN (01:16)
[2019-12-02] MEDS ORDERED: VANCOMYCIN IV PER PHARMACY 1 EACH MISC MISCELLANE PRN (01:18)
[2019-12-02] MEDS ORDERED: VANCOMYCIN 1,500 MG in SODIUM CHLORIDE 0.9% 250 ML IVPB STA (01:23)
[2019-12-02] MEDS ORDERED: PIPERACILLIN-TAZOBACTAM 3.375 GM in SODIUM CHLORIDE 0.9% 100 ML IVPB SCH (09:00)
[2019-12-02] MEDS ORDERED: PANTOPRAZOLE 40 MG/10 ML VIAL IVP SCH (11:00)
--- NOTE | 2019-12-02 11:19 | P.CONS ---
History of Present Illness - Reason for Consult Consult date: 12/02/19 wound care - History of Present Illness This is a 64-year-old pleasant female known to the wound care center being seen in the ER holding for nonhealing ulceration to the left great toe plantar aspect. Patient has had the ulceration for approximately 6 months. She was recently started seen in the wound care center approximately one month ago. Patient's last hemoglobin A1c was 7.1. Patient has noticed increased callus around the ulceration prior to visiting the wound care center. Patient's past medical history significant for CVA with balance abnormalities, diabetes mellitus, hyperlipidemia, hypertension, thyroid cancer. Patient is a nonsmoker. Patient did recently undergo a tendon release to her second and third digit of the left foot. On November 12 patient was treated for a positive culture. Review of Systems Review Of Systems: Constitutional: No fever, no chills, no night sweats. No weight change. No weakness, fatigue or lethargy. No daytime sleepiness. Integumentary:reports wounds, no lesions. No rash or pruritus. No unusual bruising. No change in hair or nails. 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 hx thyroid cancer. MTHFR. History of Any Multi-Drug Resistant Organisms: None Reported Past Surgical History: Hysterectomy, Orthopedic Surgery Additional Past Surgical History / Comment(s): thyroidectomy, parotid gland surgery, left shoulder (rotator cuff sx) X 2 Past Anesthesia/Blood Transfusion Reactions: Postoperative Nausea & Vomiting (PONV) Past Psychological History: No Psychological Hx Reported Smoking Status: Never smoker Past Alcohol Use History: None Reported Past Drug Use History: None Reported - Past Family History Mother Family Medical History: No Reported History Father Family Medical History: Cancer Additional Family Medical History / Comment(s): open heart surgery when he was 50, aortic aneurysm when he was around 65 Medications and Allergies Home Medications Medication Instructions Recorded Confirmed Type Atorvastatin [Lipitor] 10 mg PO HS 08/14/15 12/01/19 History Ca/D3/Mag/Zinc/Carl/Tye/Mgbor 1 tab PO DAILY 08/14/15 12/01/19 History [Caltrate 600-D3-Min Chew Tab] Clopidogrel [Plavix] 75 mg PO DAILY 08/14/15 12/01/19 History Enalapril [Vasotec] 10 mg PO DAILY 08/14/15 12/01/19 History Aspirin 81 mg PO DAILY 02/12/18 12/01/19 History Dextromethorphan HBr/Quinidine 1 cap PO DAILY 02/12/18 12/01/19 History [Nuedexta 20-10 mg Capsule] Insulin Glargine [Lantus] 30 unit SQ BID 11/29/18 12/01/19 History Levothyroxine Sodium [Synthroid] 150 mcg PO DAILY 11/29/18 12/01/19 History Folic Acid 0.4 mg PO DAILY 12/01/19 12/01/19 History Insulin Aspart [NovoLOG Flexpen] 25 units SQ DAILY 12/01/19 12/01/19 History Allergies Allergy/AdvReac Type Severity Reaction Status Date / Time ibuprofen [From Motrin] AdvReac Unknown Verified 12/01/19 23:44 naproxen [From Aleve] AdvReac Unknown Verified 12/01/19 23:44 NSAIDS (Non-Steroidal AdvReac Unknown Verified 12/01/19 23:44 Anti-Inflamma Physical Exam Vitals: Vital Signs Temp Pulse Resp BP Pulse Ox 12/02/19 10:36 75 16 124/66 96 12/02/19 07:24 98.4 F 89 16 150/82 97 12/02/19 05:34 99 F 74 18 119/59 95 12/02/19 01:28 99 F 76 18 103/52 95 12/01/19 23:10 89 18 127/80 93 L 12/01/19 22:33 87 18 140/77 98 12/01/19 19:42 99.2 F 91 18 124/65 96 Intake and Output 12/01/19 12/02/19 12/02/19 22:59 06:59 14:59 Other: Weight 86.183 kg Physical exam: General Appearance: Alert, cooperative, no distress, appears stated age. Skin: Grade 2 diabetic ulcer with pressure component of the left great toe plantar aspect. Measuring approximately 0.4 x 0.6 x 0.3 cm. There is fat layer exposure, no tunneling or undermining, there is a small amount of serosangu ineous drainage. The wound margin is thickened. There is a large amount of pink granulation within the wound bed. A small amount of necrotic tissue including adherent Slough. The periwound exhibits callus maceration and erythema. All other Skin color, texture, tugor normal, no rashes or lesions. Neurologic: Alert oriented x3 Results CBC & Chem 7: 12/01/19 22:24 12/01/19 22:24 Labs: Abnormal Lab Results - Last 24 Hours (Table) 12/01/19 12/01/19 12/01/19 Range/Units 19:48 22:24 22:24 WBC 11.7 H (3.8-10.6) k/uL MCHC 30.8 L (31.0-37.0) g/dL BUN (7-17) mg/dL Creatinine (0.52-1.04) mg/dL Glucose (74-99) mg/dL POC Glucose (mg/dL) 168 H (75-99) mg/dL Total Bilirubin (0.2-1.3) mg/dL AST (14-36) U/L Urine Appearance Cloudy H (Clear) Urine Protein Trace H (Negative) Urine Nitrite Positive H (Negative) Ur Leukocyte Esterase Large H (Negative) Urine WBC 122 H (0-5) /hpf Urine Bacteria Few H (None) /hpf Urine Mucus Few H (None) /hpf 12/01/19 Range/Units 22:24 WBC (3.8-10.6) k/uL MCHC (31.0-37.0) g/dL BUN 21 H (7-17) mg/dL Creatinine 0.47 L (0.52-1.04) mg/dL Glucose 184 H (74-99) mg/dL POC Glucose (mg/dL) (75-99) mg/dL Total Bilirubin 1.6 H (0.2-1.3) mg/dL AST 45 H (14-36) U/L Urine Appearance (Clear) Urine Protein (Negative) Urine Nitrite (Negative) Ur Leukocyte Esterase (Negative) Urine WBC (0-5) /hpf Urine Bacteria (None) /hpf Urine Mucus (None) /hpf Assessment and Plan (1) Diabetic foot ulcer associated with type 2 diabetes mellitus, with fat layer exposed Current Visit: Yes Status: Acute Code(s): E11.621 - TYPE 2 DIABETES MELLITUS WITH FOOT ULCER; L97.502 - NON-PRS CHRONIC ULCER OTH PRT UNSP FOOT W FAT LAYER EXPOSED SNOMED Code(s): 6522992714511 (2) Osteomyelitis of great toe of left foot Current Visit: Yes Status: Acute Code(s): M86.9 - OSTEOMYELITIS, UNSPECIFIED SNOMED Code(s): 795378807 Plan: Apply collagen silver, family moistened gauze, dry gauze, rolled gauze secured with paper tape. Change Sunday. Minimal weightbearing to the left forefoot. Discussed with patient that possible HBO therapy may be considered when return to the wound care center. Appointment to the wound care centers December 10 at 11:15 Thank you, for the consultation. Any questions please contact the wound care center . DNP note has been reviewed and discussed with Dr. Walls and the impression and plan of care has been directed as dictated.
[2019-12-02 11:38] LABS: Glucose,Whole Blood 315 mg/dL (75-99)
[2019-12-02] MEDS: LEVOTHYROXINE 75 MCG TAB PO SCH (11:56)
[2019-12-02] MEDS: ASPIRIN 81 MG PO SCH (12:00)
[2019-12-02] MEDS: CALCIUM CARB-VIT D 500MG-200UN 1 EACH TAB PO SCH (12:00)
[2019-12-02] MEDS: INSULIN DETEMIR (LEVEMIR) 100 UNIT/ML SYR SQ SCH ×2 (12:17→21:04)
[2019-12-02] MEDS: INSULIN ASPART (NovoLOG) 100 UNIT/ML VIAL SQ SCH ×4 (12:19→21:02)
[2019-12-02] MEDS: FOLIC ACID 1 MG TAB PO SCH (12:21)
[2019-12-02] MEDS: CLOPIDOGREL 75 MG TAB PO SCH (12:26)
[2019-12-02] MEDS: lisinopriL 20 MG TAB PO SCH (12:30)
[2019-12-02] MEDS: VANCOMYCIN 1,500 MG in SODIUM CHLORIDE 0.9% 250 ML IVPB SCH ×3 (12:45→21:11)
--- NOTE | 2019-12-02 16:31 | P.HPIM ---
History of Present Illness H&P Date: 12/02/19 This is a 64-year-old female with history of diabetes, hypertension, CVAs, recurrent UTIs, gait dysfunction, who follows in the wound care center for nonhealing wound of left great toe, plantar aspect, presented to the ER with wound worsening, accompanied by increased tenderness, pain, edema, redness. On admission T-max 99.3, mildly elevated WBC deny fevers or chills. X-ray suggestive of possible osteomyelitis, wound culture sent. Patient states wound occurred after undergoing a tendon release procedure. Denies any chest pain, palpitations or shortness of breath. Denies lightheadedness, dizziness or focal deficits. Positive UA. Gentle IV fluid hydration and antibiotics of Rocephin and vancomycin initiated. Review of Systems ROS Statement: Those systems with pertinent positive or pertinent negative responses have been documented in the HPI. ROS Other: All systems not noted in ROS Statement are negative. 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 hx thyroid cancer. MTHFR. History of Any Multi-Drug Resistant Organisms: None Reported Past Surgical History: Hysterectomy, Orthopedic Surgery Additional Past Surgical History / Comment(s): thyroidectomy, parotid gland surgery, left shoulder (rotator cuff sx) X 2 Past Anesthesia/Blood Transfusion Reactions: Postoperative Nausea & Vomiting (PONV) Past Psychological History: No Psychological Hx Reported Smoking Status: Never smoker Past Alcohol Use History: None Reported Past Drug Use History: None Reported - Past Family History Mother Family Medical History: No Reported History Father Family Medical History: Cancer Additional Family Medical History / Comment(s): open heart surgery when he was 50, aortic aneurysm when he was around 65 Medications and Allergies Home Medications Medication Instructions Recorded Confirmed Type Atorvastatin [Lipitor] 10 mg PO HS 08/14/15 12/01/19 History Ca/D3/Mag/Zinc/Carl/Tye/Mgbor 1 tab PO DAILY 08/14/15 12/01/19 History [Caltrate 600-D3-Min Chew Tab] Clopidogrel [Plavix] 75 mg PO DAILY 08/14/15 12/01/19 History Enalapril [Vasotec] 10 mg PO DAILY 08/14/15 12/01/19 History Aspirin 81 mg PO DAILY 02/12/18 12/01/19 History Dextromethorphan HBr/Quinidine 1 cap PO DAILY 02/12/18 12/01/19 History [Nuedexta 20-10 mg Capsule] Insulin Glargine [Lantus] 30 unit SQ BID 11/29/18 12/01/19 History Levothyroxine Sodium [Synthroid] 150 mcg PO DAILY 11/29/18 12/01/19 History Folic Acid 0.4 mg PO DAILY 12/01/19 12/01/19 History Insulin Aspart [NovoLOG Flexpen] 25 units SQ DAILY 12/01/19 12/01/19 History Allergies Allergy/AdvReac Type Severity Reaction Status Date / Time ibuprofen [From Motrin] AdvReac Unknown Verified 12/01/19 23:44 naproxen [From Aleve] AdvReac Unknown Verified 12/01/19 23:44 NSAIDS (Non-Steroidal AdvReac Unknown Verified 12/01/19 23:44 Anti-Inflamma Physical Exam Vitals: Vital Signs Temp Pulse Resp BP Pulse Ox 12/02/19 07:24 98.4 F 89 16 150/82 97 12/02/19 05:34 99 F 74 18 119/59 95 12/02/19 01:28 99 F 76 18 103/52 95 12/01/19 23:10 89 18 127/80 93 L 12/01/19 22:33 87 18 140/77 98 12/01/19 19:42 99.2 F 91 18 124/65 96 Intake and Output 12/01/19 12/02/19 12/02/19 22:59 06:59 14:59 Other: Weight 86.183 kg PHYSICAL EXAM: VITAL SIGNS: As above GENERAL: Pleasant 64-year-old female sitting up on stretcher, no acute distress HEENT: Conjunctivae normal. eyes normal. Moist nasal mucosa, no thrush NECK: Supple, No JVD. No significant thyroid enlargement. No significant LNs CARDIOVASCULAR: S1, S2 regular. No murmur, rub or click. RESPIRATION: Breath sounds diminished in the bases. No rhonchi or crackles. No bronchial breathing. ABDOMEN: Soft, nontender . No guarding. no masses palpable. No ascites, No hepatosplenomegaly.Bowel sounds heard. LEGS: No edema. no swelling PSYCHIATRY: Alert and oriented X3, mood and affect normal. NERVOUS SYSTEM: Cranial N 2-12 grossly normal. Moves all 4 limbs. Diffuse weakness No focal deficits. Strength and sensation grossly intact.. Skin: Warm and dry, left foot warm, edematous, with left toe dressing clean and dry and intact/plantar aspect of left great toe, wound measuring 2.5 x 2 cm, yellow drainage, positive redness, tenderness, erythema Lymphatic system. No LN neck axilla. Results CBC & Chem 7: 12/01/19 22:24 12/01/19 22:24 Labs: Abnormal Lab Results - Last 24 Hours (Table) 12/01/19 12/01/19 12/01/19 Range/Units 19:48 22:24 22:24 WBC 11.7 H (3.8-10.6) k/uL MCHC 30.8 L (31.0-37.0) g/dL BUN (7-17) mg/dL Creatinine (0.52-1.04) mg/dL Glucose (74-99) mg/dL POC Glucose (mg/dL) 168 H (75-99) mg/dL Total Bilirubin (0.2-1.3) mg/dL AST (14-36) U/L Urine Appearance Cloudy H (Clear) Urine Protein Trace H (Negative) Urine Nitrite Positive H (Negative) Ur Leukocyte Esterase Large H (Negative) Urine WBC 122 H (0-5) /hpf Urine Bacteria Few H (None) /hpf Urine Mucus Few H (None) /hpf 12/01/19 Range/Units 22:24 WBC (3.8-10.6) k/uL MCHC (31.0-37.0) g/dL BUN 21 H (7-17) mg/dL Creatinine 0.47 L (0.52-1.04) mg/dL Glucose 184 H (74-99) mg/dL POC Glucose (mg/dL) (75-99) mg/dL Total Bilirubin 1.6 H (0.2-1.3) mg/dL AST 45 H (14-36) U/L Urine Appearance (Clear) Urine Protein (Negative) Urine Nitrite (Negative) Ur Leukocyte Esterase (Negative) Urine WBC (0-5) /hpf Urine Bacteria (None) /hpf Urine Mucus (None) /hpf Assessment and Plan Assessment: Cellulitis with worsening chronic left great toe, plantar aspect wound,possible osteomyelitis , culture pending Acute UTI, present on admission in a patient with history of recurrent UTIs, culture pending Gait dysfunction Dehydration Diabetes mellitus type 2 Hypertension hyperlipidemia History of CVAs, involving MCA, brainstem History of thyroid cancer Plan: Continue on current medication regime ,monitoring and symptomatic treatment. Antibiotics adjusted to Zosyn for antibiotic coverage of both UTI and wound. ID consulted, with concern for osteomyelitis. PT/OT consulted r/t gait dysfunction. Home meds have been reviewed and resumed.GI and DVT prophylaxis in place. Close monitoring of blood sugars, NovoLog scale, pre-meal insulin and Levemir in place. The impression and plan of care has been dictated as directed. : I performed a history and examination of this patient, discussed the same with the dictator. I agree with the dictator's note ,documented as a scribe. Any additional findings or plans will be noted.
[2019-12-02 17:32] LABS: Glucose,Whole Blood 204 mg/dL (75-99)
[2019-12-02] MEDS: AMPICILLIN-SULBACTAM 3 GM in SODIUM CHLORIDE 0.9% 100 ML IVPB SCH (18:43)
[2019-12-02 20:26] LABS: Glucose,Whole Blood 196 mg/dL (75-99)
[2019-12-02] MEDS: ATORVASTATIN 10 MG TAB PO SCH (21:02)
[2019-12-02] MEDS: ACETAMINOPHEN TAB 325 MG TAB PO PRN (21:32)
--- NOTE | 2019-12-02 23:24 | P.CONS ---
History of Present Illness - Reason for Consult Consult date: 12/02/19 Left big toe osteomyelitis Requesting physician: Klaus Ramires - Chief Complaint Left big toe nonhealing wound more swelling and redness x the last few day - History of Present Illness Patient is a 64-year-old female with a past medical history significant for diabetes mellitus in this patient who did have chronic nonhealing wound on the plantar aspect of left big toe apparently started after the patient did have a tendon release surgery by podiatry, patient has been following at [facility] for her left big toe wound apparently recently patient was noticed to have increasing swelling redness and some discomfort more of a dull aching pain 2-3 out of 10 and no radiation patient recently did have cultures done in October was MSSA and last week has been enterococcus faecalis however it is not clear if the patient has received any antibiotics for it as a daughter mentioned no antibiotics were prescribed, with worsening symptoms the patient has been brought into the ER last night on arrival to the ER the patient did have low-grade fever of 99F patient did have elevated white count of 11.7 patient did have x-rays of her left big toe did show destructive changes in the distal phalanx suggestive of osteomyelitis patient did have local wound cultures obtained patient has been started on Rocephin and vancomycin and infectious disease was consulted for further management of antibiotic therapy Review of Systems Positive point has been mentioned in the HPI rest of the systems are negative Past Medical History Past Medical History: Cancer, CVA/TIA, Diabetes Mellitus, Hyperlipidemia, Hypertension, Skin Disorder, Thyroid Disorder Additional Past Medical History / Comment(s): hx CVA 4 with one hemorrhagic in the [place]armila area and one frontal -problems with balance. hx thyroid cancer. MTHFR. History of Any Multi-Drug Resistant Organisms: None Reported Past Surgical History: Hysterectomy, Orthopedic Surgery Additional Past Surgical History / Comment(s): thyroidectomy, parotid gland surgery, left shoulder (rotator cuff sx) X 2 Past Anesthesia/Blood Transfusion Reactions: Postoperative Nausea & Vomiting (PONV) Past Psychological History: No Psychological Hx Reported Smoking Status: Never smoker Past Alcohol Use History: None Reported Past Drug Use History: None Reported - Past Family History Mother Family Medical History: No Reported History Additional Family Medical History / Comment(s): Mother was healthy Father Family Medical History: Cancer Additional Family Medical History / Comment(s): open heart surgery when he was 48, aortic aneurysm when he was around 63 Medications and Allergies Home Medications Medication Instructions Recorded Confirmed Type Atorvastatin [Lipitor] 10 mg PO HS 08/14/15 12/01/19 History Ca/D3/Mag/Zinc/Carl/Tye/Mgbor 1 tab PO DAILY 08/14/15 12/01/19 History [Caltrate 600-D3-Min Chew Tab] Clopidogrel [Plavix] 75 mg PO DAILY 08/14/15 12/01/19 History Enalapril [Vasotec] 10 mg PO DAILY 08/14/15 12/01/19 History Aspirin 81 mg PO DAILY 02/12/18 12/01/19 History Dextromethorphan HBr/Quinidine 1 cap PO DAILY 02/12/18 12/01/19 History [Nuedexta 20-10 mg Capsule] Insulin Glargine [Lantus] 30 unit SQ BID 11/29/18 12/01/19 History Levothyroxine Sodium [Synthroid] 150 mcg PO DAILY 11/29/18 12/01/19 History Folic Acid 0.4 mg PO DAILY 12/01/19 12/01/19 History Insulin Aspart [NovoLOG Flexpen] 25 units SQ DAILY 12/01/19 12/01/19 History Allergies Allergy/AdvReac Type Severity Reaction Status Date / Time ibuprofen [From Motrin] AdvReac Unknown Verified 12/01/19 23:44 naproxen [From Aleve] AdvReac Unknown Verified 12/01/19 23:44 NSAIDS (Non-Steroidal AdvReac Unknown Verified 12/01/19 23:44 Anti-Inflamma Physical Exam Vitals: Vital Signs Temp Pulse Pulse Resp BP BP Pulse Ox 12/02/19 20:37 98.0 F 69 18 106/67 95 12/02/19 15:28 98.0 F 77 16 110/54 96 12/02/19 10:36 75 16 124/66 96 12/02/19 07:24 98.4 F 89 16 150/82 97 12/02/19 05:34 99 F 74 18 119/59 95 12/02/19 01:28 99 F 76 18 103/52 95 Intake and Output 12/02/19 12/02/19 12/03/19 14:59 22:59 06:59 Intake Total 220 Balance 220 Intake: Oral 220 Other: # Voids 1 Weight 86.183 kg GENERAL DESCRIPTION: An elderly female lying in bed, no distress. No tachypnea or accessory muscle of respiration use. HEENT: Shows Pallor , no scleral icterus. Oral mucous membrane is dry. No pharyngeal erythema or thrush NECK: Trachea central, no thyromegaly. LUNGS: Unlabored breathing. Clear to auscultation anteriorly. No wheeze or crackle. HEART: S1, S2, regular rate and rhythm. No loud murmur ABDOMEN: Soft, no tenderness , guarding or rigidity, no organomegaly EXTREMITIES: Left big toe did have significant swelling redness with a wound on the plantar aspect minimal drainage. SKIN: No rash, no masses palpable. NEUROLOGICAL: The patient is awake, alert, oriented x3, mood and affect normal. Results CBC & Chem 7: 12/01/19 22:24 12/01/19 22:24 Labs: Abnormal Lab Results - Last 24 Hours (Table) 12/02/19 12/02/19 12/02/19 Range/Units 11:34 17:29 20:25 POC Glucose (mg/dL) 315 H 204 H 196 H (75-99) mg/dL Microbiology - Last 24 Hours (Table) 12/01/19 22:33 Gram Stain - Preliminary Toe - Left First Wound Culture - Preliminary 12/01/19 22:24 Urine Culture - Preliminary Urine,Voided Assessment and Plan Assessment: 1- patient with left diabetic foot infection concerning for underlying osteomyelitis in this patient did have a chronic nonhealing wound to the plantar aspect of her left big toe recent culture has been positive for MSSA and enterococcus faecalis likely same pathogen responsible for this episode of Osteomyelitis (1) Diabetic foot ulcer associated with type 2 diabetes mellitus, with fat layer exposed Current Visit: Yes Status: Acute Code(s): E11.621 - TYPE 2 DIABETES MELLITUS WITH FOOT ULCER; L97.502 - NON-PRS CHRONIC ULCER OTH PRT UNSP FOOT W FAT LAYER EXPOSED SNOMED Code(s): 4051623126254 (2) Osteomyelitis of great toe of left foot Current Visit: Yes Status: Acute Code(s): M86.9 - OSTEOMYELITIS, UNSPECIFIED SNOMED Code(s): 822885745 Plan: 1- discontinue Rocephin 2-start the patient Unasyn 3 g every 6 hours 3-Vancomycin pharmacy to dose target trough of 15 while watching his kidney function and Vanco trough closely Patient and daughter currently do not want to have any surgical amputation and right to go for IV antibiotic therapy and possible rehab placement is discussed further with the shelter case manager with a surgical debridement on the basis of culture report We will follow on clinical condition and cultures to further adjust medication if needed Thank you for this consultation will follow this patient with you Time with Patient: Greater than 30
[2019-12-02 23:55] LABS: Hemoglobin A1C 6.3 % (4.0-6.0)
[2019-12-03] MEDS: AMPICILLIN-SULBACTAM 3 GM in SODIUM CHLORIDE 0.9% 100 ML IVPB SCH ×4 (00:09→17:19)
[2019-12-03] MEDS: VANCOMYCIN 1,500 MG in SODIUM CHLORIDE 0.9% 250 ML IVPB SCH ×2 (04:13→14:34)
[2019-12-03 06:58] LABS: Glucose,Whole Blood 121 mg/dL (75-99)
[2019-12-03 08:02] LABS: Basophils # (A) 0.1 k/uL (0-0.2); Basophils % (A) 1 %; Eosinophils # (A) 0.3 k/uL (0-0.7); Eosinophils % (A) 5 %; HGB 11.5 gm/dL (11.4-16.0); Lymphocytes # (A) 1.9 k/uL (1.0-4.8); Lymphocytes % (A) 24 %; MCH 29.5 pg (25.0-35.0); MCV 92.1 fL (80.0-100.0); Mean Platelet Volume 8.4; Monocytes # (A) 0.5 k/uL (0-1.0); Monocytes % (A) 6 %; Neutrophils # (A) 4.8 k/uL (1.3-7.7); Neutrophils % (A) 63 %; Platelet Count 208 k/uL (150-450); RDW 13.9 % (11.5-15.5); WBC 7.6 k/uL (3.8-10.6)
[2019-12-03] MEDS: INSULIN ASPART (NovoLOG) 100 UNIT/ML VIAL SQ SCH ×7 (08:03→21:58)
[2019-12-03 08:13] LABS: African American GFR (CKD) >90 (>60 ml/min/1.73 sqM); Anion Gap 5 mmol/L; Blood Urea Nitrogen 10 mg/dL (7-17); Calcium 8.2 mg/dL (8.4-10.2); Carbon Dioxide 29 mmol/L (22-30); Chloride 107 mmol/L (98-107); Glucose 108 mg/dL (74-99); Non-African American GFR(CKD) >90 (>60 ml/min/1.73 sqM); Potassium 3.9 mmol/L (3.5-5.1); Sodium 141 mmol/L (137-145)
[2019-12-03] MEDS ORDERED: Potassium Replacement Protocol 1 EACH MISC MISCELLANE PRN (08:16)
[2019-12-03] MEDS ORDERED: ASPIRIN 81 MG PO SCH (09:00)
[2019-12-03] MEDS ORDERED: CLOPIDOGREL 75 MG TAB PO SCH (09:00)
[2019-12-03] MEDS: CALCIUM CARB-VIT D 500MG-200UN 1 EACH TAB PO SCH (09:08)
[2019-12-03] MEDS: ASPIRIN 81 MG PO SCH (09:08)
[2019-12-03] MEDS: CLOPIDOGREL 75 MG TAB PO SCH (09:08)
[2019-12-03] MEDS: INSULIN DETEMIR (LEVEMIR) 100 UNIT/ML SYR SQ SCH ×2 (09:09→21:59)
[2019-12-03] MEDS: LEVOTHYROXINE 75 MCG TAB PO SCH ×2 (09:09→09:11)
[2019-12-03] MEDS: lisinopriL 20 MG TAB PO SCH (09:09)
[2019-12-03] MEDS: FOLIC ACID 1 MG TAB PO SCH (09:09)
[2019-12-03] MEDS: PANTOPRAZOLE 40 MG TABLET PO SCH (09:09)
[2019-12-03] MEDS: ACETAMINOPHEN TAB 325 MG TAB PO PRN ×2 (10:57→21:57)
[2019-12-03 11:35] LABS: Glucose,Whole Blood 184 mg/dL (75-99)
--- NOTE | 2019-12-03 11:42 | P.PN ---
Subjective Progress Note Date: 12/03/19 This is a 64-year-old female with history of diabetes, hypertension, CVAs, recurrent UTIs, gait dysfunction, who follows in the wound care center for nonhealing wound of left great toe, plantar aspect, presented to the ER with wound worsening, accompanied by increased tenderness, pain, edema, redness. On admission T-max 99.3, mildly elevated WBC deny fevers or chills. X-ray suggestive of possible osteomyelitis, wound culture sent. Patient states wound occurred after undergoing a tendon release procedure. Denies any chest pain, palpitations or shortness of breath. Denies lightheadedness, dizziness or focal deficits. Positive UA. Gentle IV fluid hydration and antibiotics of Rocephin and vancomycin initiated. 12/02/2014 on IV antibiotics, evaluated by infectious disease with recommendations noted and appreciated. Afebrile, normal WBC. Cultures pending. Blood sugars better controlled. Denies chest pain, palpitations or shortness of breath. Objective - Vital Signs Vital signs: Vital Signs Temp 98.1 F 12/03/19 07:00 Pulse 69 12/03/19 07:53 Resp 18 12/03/19 07:53 BP 104/67 12/03/19 07:00 Pulse Ox 95 12/03/19 07:00 Intake & Output 12/02/19 12/03/19 12/03/19 18:59 06:59 18:59 Intake Total 220 Balance 220 Weight 86.183 kg Intake: Oral 220 Other: Voiding Method Toilet Toilet # Voids 1 1 - Exam VITAL SIGNS: As above GENERAL: Pleasant 64-year-old female sitting up in bed, no acute distress HEENT: Conjunctivae normal. eyes normal. Moist nasal mucosa NECK: Supple, No JVD. No significant thyroid enlargement. No significant LNs CARDIOVASCULAR: S1, S2 regular. No murmur, rub or click. RESPIRATION: Breath sounds diminished in the bases. No rhonchi or crackles. No bronchial breathing. ABDOMEN: Soft, nontender . No guarding. no masses palpable. No ascites, No hepatosplenomegaly.Bowel sounds heard. LEGS: No edema. no swelling PSYCHIATRY: Alert and oriented X3, mood and affect normal. NERVOUS SYSTEM: Cranial N 2-12 grossly normal. Moves all 4 limbs. Diffuse weakness No focal deficits. Strength and sensation grossly intact.. Skin: Warm and dry, left foot warm, edematous, with left toe tenderness with dressing clean,dry and intact(plantar aspect of left great toe, wound measuring 2.5 x 2 cm) - Labs CBC & Chem 7: 12/03/19 07:04 12/03/19 07:04 Labs: Abnormal Lab Results - Last 24 Hours (Table) 12/01/19 12/02/19 12/02/19 Range/Units 22:24 11:34 17:29 Creatinine (0.52-1.04) mg/dL Glucose (74-99) mg/dL POC Glucose (mg/dL) 315 H 204 H (75-99) mg/dL Hemoglobin A1c 6.3 H (4.0-6.0) % Calcium (8.4-10.2) mg/dL 12/02/19 12/03/19 12/03/19 Range/Units 20:25 06:57 07:04 Creatinine 0.49 L (0.52-1.04) mg/dL Glucose 108 H (74-99) mg/dL POC Glucose (mg/dL) 196 H 121 H (75-99) mg/dL Hemoglobin A1c (4.0-6.0) % Calcium 8.2 L (8.4-10.2) mg/dL Microbiology - Last 24 Hours (Table) 12/01/19 22:33 Blood Culture - Preliminary Blood No Growth after 24 hours 12/01/19 22:33 Gram Stain - Preliminary Toe - Left First Wound Culture - Preliminary 12/01/19 22:24 Urine Culture - Preliminary Urine,Voided Assessment and Plan Assessment: Cellulitis with worsening chronic left great toe, plantar aspect wound,possible osteomyelitis , culture pending Acute UTI, present on admission in a patient with history of recurrent UTIs, culture pending Gait dysfunction Dehydration Diabetes mellitus type 2 Hypertension hyperlipidemia History of CVAs, involving MCA, brainstem History of thyroid cancer Plan: Continue on current medication regime ,monitoring and symptomatic t reatment. Antibiotics as per ID . Potential bone scan, defer to ID. PT/OT. consulted r/t gait dysfunction. Close monitoring of blood sugars. The impression and plan of care has been dictated as directed. : I performed a history and examination of this patient, discussed the same with the dictator. I agree with the dictator's note ,documented as a scribe. Any additional findings or plans will be noted.
[2019-12-03] MEDS: NON FORMULARY DRUG (Dextromethorphan Hbr/Quinidine [Nuedexta 20-10 Mg Capsule] 1 CAP) PO SCH (13:44)
[2019-12-03 14:54] VITALS: BMI 28.0
[2019-12-03 16:38] LABS: Glucose,Whole Blood 101 mg/dL (75-99)
[2019-12-03] MEDS ORDERED: VANCOMYCIN TROUGH DUE 1 EACH MISC MISCELLANE ONE (20:00)
[2019-12-03] MEDS ORDERED: VANCOMYCIN 1,250 MG in SODIUM CHLORIDE 0.9% 250 ML IVPB SCH ×2 (21:00→23:00)
[2019-12-03 21:42] LABS: Glucose,Whole Blood 140 mg/dL (75-99)
[2019-12-03] MEDS: ATORVASTATIN 10 MG TAB PO SCH (21:57)
--- NOTE | 2019-12-03 23:09 | PN ---
PROGRESS NOTE DATE OF SERVICE: 12/03/2019 REASON FOR FOLLOWUP: Left big toe osteomyelitis, Gram-negative. INTERVAL HISTORY: The patient is currently afebrile. The patient is breathing comfortably. The patient denies having any chest pain or shortness of breath or cough. No nausea or vomiting. No abdominal pain or pain to the left big toe. PHYSICAL EXAMINATION: Blood pressure 116/72 with a pulse of 63, temperature 98.4. She is 95% on room air. General description is an elderly female lying in bed in no distress. RESPIRATORY SYSTEM: Unlabored breathing. Clear to auscultation anteriorly. HEART: S1, S2. Regular rate and rhythm. ABDOMEN: Soft. No tenderness. Left foot big toe is currently dressed up. No obvious drainage on the dressing. LABS: White count of 7.6. Wound culture now showing Gram-negative bacilli. DIAGNOSTIC IMPRESSION AND PLAN: Patient with left big toe osteomyelitis, failing outpatient antibiotic therapy. Culture now showing Gram-negative. We will discontinue the Unasyn and the vancomycin and Zosyn, with the final discharge antibiotic depending upon the culture report and clinical response. Continue with supportive care. MMODL / IJN: [id number] /
[2019-12-04] MEDS: PIPERACILLIN-TAZOBACTAM 3.375 GM in SODIUM CHLORIDE 0.9% 100 ML IVPB SCH ×3 (00:26→15:45)
[2019-12-04 07:38] LABS: Glucose,Whole Blood 99 mg/dL (75-99)
[2019-12-04] MEDS: INSULIN ASPART (NovoLOG) 100 UNIT/ML VIAL SQ SCH ×7 (07:54→21:15)
[2019-12-04] MEDS: CALCIUM CARB-VIT D 500MG-200UN 1 EACH TAB PO SCH (08:25)
[2019-12-04] MEDS: FOLIC ACID 1 MG TAB PO SCH (08:25)
[2019-12-04] MEDS: PANTOPRAZOLE 40 MG TABLET PO SCH (08:25)
[2019-12-04] MEDS: lisinopriL 20 MG TAB PO SCH (08:25)
[2019-12-04] MEDS: ASPIRIN 81 MG PO SCH (08:26)
[2019-12-04] MEDS: CLOPIDOGREL 75 MG TAB PO SCH (08:26)
[2019-12-04] MEDS: LEVOTHYROXINE 75 MCG TAB PO SCH (08:27)
[2019-12-04] MEDS: INSULIN DETEMIR (LEVEMIR) 100 UNIT/ML SYR SQ SCH ×2 (08:27→21:20)
[2019-12-04] MEDS: NON FORMULARY DRUG (Dextromethorphan Hbr/Quinidine [Nuedexta 20-10 Mg Capsule] 1 CAP) PO SCH (08:28)
--- NOTE | 2019-12-04 09:28 | P.PN ---
Subjective Progress Note Date: 12/04/19 This is a 64-year-old female with history of diabetes, hypertension, CVAs, recurrent UTIs, gait dysfunction, who follows in the wound care center for nonhealing wound of left great toe, plantar aspect, presented to the ER with wound worsening, accompanied by increased tenderness, pain, edema, redness. On admission T-max 99.3, mildly elevated WBC deny fevers or chills. X-ray suggestive of possible osteomyelitis, wound culture sent. Patient states wound occurred after undergoing a tendon release procedure. Denies any chest pain, palpitations or shortness of breath. Denies lightheadedness, dizziness or focal deficits. Positive UA. Gentle IV fluid hydration and antibiotics of Rocephin and vancomycin initiated. 12/02/2014 on IV antibiotics, evaluated by infectious disease with recommendations noted and appreciated. Afebrile, normal WBC. Cultures pending. Blood sugars better controlled. Denies chest pain, palpitations or shortness of breath. 12/04/2019 antibiotics adjusted, currently on Zosyn as per infectious disease. Denies any nausea, vomiting or abdominal pain. wound culture reporting gram- positive cocci in clusters, urine culture gram-negative bacilli, final results/sensitivities pending. Afebrile, WBC pending, preliminary blood cultures no growth at 48 hours. Vital signs stable, maintaining O2 sats in the 90s on room air. Denies any chest pain, palpitations or shortness of breath. Nurse reported patient had depression. Upon questioning patient about her depression, she started crying but did not disclose details. Discussed initiating antidepressant Lexapro, patient was in agreement with. Objective - Vital Signs Vital signs: Vital Signs Temp 98.3 F 12/04/19 07:00 Pulse 68 12/04/19 07:00 Resp 18 12/04/19 08:38 BP 130/73 12/04/19 07:00 Pulse Ox 94 L 12/04/19 07:00 Intake & Output 12/03/19 12/04/19 12/04/19 18:59 06:59 18:59 Intake Total 550 100 440 Balance 550 100 440 Weight 86.183 kg Intake: Intake, IV Titration 100 Amount Piperacillin-Tazobactam 3 100 .375 gm In Sodium Chloride 0.9% 100 ml @ 25 mls/hr IVPB Q8HR [facility] Rx# :[id number] Oral 550 440 Other: Voiding Method Toilet Toilet Toilet # Voids 3 2 - Exam VITAL SIGNS: As above GENERAL: Pleasant 64-year-old female sitting up in chair, no acute distress, teary-eyed HEENT: Conjunctivae normal. eyes normal. Moist nasal mucosa NECK: Supple, No JVD. No significant thyroid enlargement. No significant LNs CARDIOVASCULAR: S1, S2 regular. No murmur, rub or click. RESPIRATION: Breath sounds diminished in the bases. No rhonchi or crackles. No wheezing. ABDOMEN: Soft, nontender . No guarding. no masses palpable. Bowel sounds heard. LEGS: No edema. no swelling PSYCHIATRY: Alert and oriented X3, mood and affect depressed NERVOUS SYSTEM: Cranial N 2-12 grossly normal. Moves all 4 limbs. Diffuse weakness, No focal deficits. Strength and sensation grossly intact.. Skin: Warm and dry, left foot warm, edematous, with left toe tenderness with dressing clean,dry and intact. - Labs CBC & Chem 7: 12/03/19 07:04 12/03/19 07:04 Labs: Abnormal Lab Results - Last 24 Hours (Table) 12/03/19 12/03/19 12/03/19 Range/Units 11:34 16:37 21:41 POC Glucose (mg/dL) 184 H 101 H 140 H (75-99) mg/dL Microbiology - Last 24 Hours (Table) 12/01/19 22:33 Blood Culture - Preliminary Blood No Growth after 48 hours 12/01/19 22:24 Urine Culture - Preliminary Urine,Voided Gram Neg Bacilli Assessment and Plan Assessment: Cellulitis with worsening chronic left great toe, plantar aspect osteomyelitis , failed outpatient treatment. culture reporting gram-positive cocci in clusters, final results pending Acute UTI, gram-negative bacilli, present on admission in a patient with history of recurrent UTIs Depression, Lexapro initiated. Gait dysfunction Dehydration Diabetes mellitus type 2, hemoglobin A1c 6.3 Hypertension hyperlipidemia History of CVAs, involving MCA, brainstem History of thyroid cancer Plan: Continue on current medication regime ,monitoring and symptomatic treatment. Discharge planning in progress pending final culture results. Antibiotics as per ID . Lexapro initiated for newly identified depression. Evaluated by PT/OT with home with home care recommended at discharge. PT/OT. Maintain tight control of blood sugars. The impression and plan of care has been dictated as directed. : I performed a history and examination of this patient, discussed the same with the dictator. I agree with the dictator's note ,documented as a scribe. Any additional findings or plans will be noted.
[2019-12-04] MEDS: ESCITALOPRAM 10 MG TAB PO SCH (09:47)
[2019-12-04 11:34] LABS: Basophils # (A) 0.1 k/uL (0-0.2); Basophils % (A) 1 %; Eosinophils # (A) 0.4 k/uL (0-0.7); Eosinophils % (A) 5 %; HGB 11.8 gm/dL (11.4-16.0); Lymphocytes % (A) 24 %; MCH 28.8 pg (25.0-35.0); MCV 92.8 fL (80.0-100.0); Mean Platelet Volume 8.6; Monocytes # (A) 0.4 k/uL (0-1.0); Monocytes % (A) 5 %; Neutrophils # (A) 5.5 k/uL (1.3-7.7); Neutrophils % (A) 64 %; Platelet Count 257 k/uL (150-450); RDW 13.8 % (11.5-15.5); WBC 8.6 k/uL (3.8-10.6)
[2019-12-04 11:36] LABS: Glucose,Whole Blood 176 mg/dL (75-99)
[2019-12-04 11:43] LABS: African American GFR (CKD) >90 (>60 ml/min/1.73 sqM); Anion Gap 6 mmol/L; Blood Urea Nitrogen 12 mg/dL (7-17); Calcium 8.3 mg/dL (8.4-10.2); Carbon Dioxide 29 mmol/L (22-30); Chloride 105 mmol/L (98-107); Glucose 176 mg/dL (74-99); Non-African American GFR(CKD) >90 (>60 ml/min/1.73 sqM); Potassium 3.9 mmol/L (3.5-5.1); Sodium 140 mmol/L (137-145)
[2019-12-04 16:47] LABS: Glucose,Whole Blood 164 mg/dL (75-99)
[2019-12-04 20:21] LABS: Glucose,Whole Blood 129 mg/dL (75-99)
[2019-12-04] MEDS: ATORVASTATIN 10 MG TAB PO SCH (21:20)
--- NOTE | 2019-12-04 23:26 | PN ---
PROGRESS NOTE DATE OF SERVICE: 12/04/2019 REASON FOR FOLLOWUP: Left big toe osteomyelitis. INTERVAL HISTORY: The patient is currently afebrile. The patient is breathing comfortably. The patient denies having any chest pain or shortness of breath or cough. No abdominal pain or diarrhea. PHYSICAL EXAMINATION: Blood pressure 122/70 with a pulse of 79, temperature 99.1. She is 94% on room air. General description is an elderly female lying in bed in no distress. RESPIRATORY SYSTEM: Unlabored breathing. Clear to auscultation anteriorly. HEART: S1, S2. Regular rate and rhythm. ABDOMEN: Soft. No tenderness. Left big toe swelling and redness have improved. DIAGNOSTIC IMPRESSION AND PLAN: Patient with left big toe osteomyelitis. Cultures came back negative. This patient previously has grown MSSA Enterococcus faecalis. Culture this admission has been negative. Will plan on Unasyn 3 grams for outpatient antibiotics, for which a PICC line will be placed and close outpatient followup. MMODL / IJN: [id number] /
[2019-12-05] MEDS: PIPERACILLIN-TAZOBACTAM 3.375 GM in SODIUM CHLORIDE 0.9% 100 ML IVPB SCH ×2 (00:38→08:02)
[2019-12-05 07:36] LABS: Glucose,Whole Blood 134 mg/dL (75-99)
[2019-12-05] MEDS: INSULIN ASPART (NovoLOG) 100 UNIT/ML VIAL SQ SCH ×7 (08:00→20:05)
[2019-12-05] MEDS: lisinopriL 20 MG TAB PO SCH (08:01)
[2019-12-05] MEDS: FOLIC ACID 1 MG TAB PO SCH (08:01)
[2019-12-05] MEDS: CLOPIDOGREL 75 MG TAB PO SCH (08:01)
[2019-12-05] MEDS: ASPIRIN 81 MG PO SCH (08:01)
[2019-12-05] MEDS: CALCIUM CARB-VIT D 500MG-200UN 1 EACH TAB PO SCH (08:01)
[2019-12-05] MEDS: PANTOPRAZOLE 40 MG TABLET PO SCH (08:01)
[2019-12-05] MEDS: LEVOTHYROXINE 75 MCG TAB PO SCH (08:01)
[2019-12-05] MEDS: NON FORMULARY DRUG (Dextromethorphan Hbr/Quinidine [Nuedexta 20-10 Mg Capsule] 1 CAP) PO SCH ×2 (08:03→09:00)
[2019-12-05] MEDS: INSULIN DETEMIR (LEVEMIR) 100 UNIT/ML SYR SQ SCH ×2 (08:04→20:05)
[2019-12-05] MEDS: ESCITALOPRAM 10 MG TAB PO SCH (08:04)
[2019-12-05 12:03] LABS: Glucose,Whole Blood 155 mg/dL (75-99)
--- NOTE | 2019-12-05 16:39 | PN ---
PROGRESS NOTE DATE OF SERVICE: 12/05/2019 REASON FOR FOLLOWUP: Left big toe diabetic foot infection. INTERVAL HISTORY: Patient is currently afebrile. The patient is breathing comfortably. Denies having any chest pain. No shortness of breath or cough. No nausea, no vomiting, no abdominal pain or pain to the left big toe. PHYSICAL EXAMINATION: Blood pressure 119/73, pulse 73, temperature 98.1, she is 92% on room air. The patient is an elderly female up in the chair in no distress. Respiratory system: Unlabored breathing, clear to auscultation anteriorly. Heart S1, S2. Regular rate and rhythm. Abdomen is soft, no tenderness. LABS: No new labs have been obtained today. DIAGNOSTIC IMPRESSION AND PLAN: Patient with left big toe diabetic foot infection. Culture this admission has been negative. Previous cultures were positive for MSSA, Enterococcus faecalis. We will plan on switching over to Unasyn 3 grams q.6 hours to continue in the outpatient setting for a total of 6 weeks and close outpatient followup. ( ) consult has been also obtained. MMODL / IJN: [id number] /
[2019-12-05 16:58] LABS: Glucose,Whole Blood 107 mg/dL (75-99)
[2019-12-05] MEDS: AMPICILLIN-SULBACTAM 3 GM in SODIUM CHLORIDE 0.9% 100 ML IVPB SCH ×2 (17:25→23:26)
[2019-12-05 19:58] LABS: Glucose,Whole Blood 154 mg/dL (75-99)
[2019-12-05] MEDS: ATORVASTATIN 10 MG TAB PO SCH (20:04)
[2019-12-05] MEDS: HEPARIN SODIUM,PORCINE 5,000 UNIT/ML 1 ML VIAL SQ SCH (20:04)
--- NOTE | 2019-12-05 20:51 | PN ---
PROGRESS NOTE DATE OF SERVICE: 12/05/2019 I am covering for Dr. Ramires. This 64-year-old woman was admitted with cellulitis and possible osteomyelitis of the great toe on the left, had failed outpatient treatment. Dr. Fraire is planning a PICC line and outpatient antibiotics. The patient also confused. Patient has significant gait dysfunction also. Urine culture showed E coli and the wound culture showed multiple organisms including Enterococcus faecalis, Staph aureus, diphtheroid ( ) and multiple other organisms. Previous urine culture showed E coli and Citrobacter and Klebsiella as well. Currently the patient is on Unasyn. Dr. Fraire, as mentioned, is planning prolonged antibiotic treatment at this time. PAST MEDICAL HISTORY: Reviewed. REVIEW OF SYSTEMS: CARDIOVASCULAR SYSTEM: No angina. RESPIRATORY: As mentioned earlier. GI: As mentioned earlier. : No dysuria or retention. NERVOUS SYSTEM: No numbness or weakness. CURRENT MEDICATIONS: 1. Tylenol 650 q.6h p.r.n. 2. Unasyn 3 g q.6h. 3. Aspirin 81 mg. 4. Lipitor 10 mg. 5. Os-Jone with vitamin D daily. 6. Plavix 75 mg p.o. daily. 7. Lexapro 10 mg daily. 8. Folic acid. 9. Dilaudid. 10.Levemir 30 units subcu b.i.d. 11.Synthroid 150 mcg. 12.Zestril 20 mg p.o. daily. 13.Narcan 0.2 q.2 p.r.n. 14.Protonix 40 mg p.o. daily. PHYSICAL EXAM: Patient is alert, oriented x3. Pulse 65, blood pressure 130/70, respirations 16, temperature 98.2, pulse ox 94% on room air. HEENT: Conjunctivae normal. Oral mucosa moist. NECK: No jugular venous distention. No lymph node enlargement. CARDIOVASCULAR: S1, S2, muffled. No S3, no S4, RESPIRATORY: Diminished breath sounds at the bases. A few scattered rhonchi, no crackles. ABDOMEN: Soft, nontender. LEGS: Left great toe tenderness and pain, osteomyelitis present. NERVOUS SYSTEM: No focal motor or sensory deficits. LABS: Sodium 140, glucose noted. UA noted. Cultures noted. COVID is negative. ASSESSMENT: 1. Acute osteomyelitis of the left great toe with surrounding cellulitis with failure of outpatient treatment, prolonged antibiotics. 2. Acute urinary tract infection secondary to E coli ,present on admission. 3. History of recurrent urinary tract infection with multiple organisms. 4. Depression. 5. Gait dysfunction. 6. Change in mental status, metabolic encephalopathy, acute, multifactorial. 7. Dehydration, present on admission. 8. Diabetes mellitus type 2. 9. Hypertension. 10.Hyperlipidemia. 11.History of cerebrovascular accidents including middle cerebral artery and as well as pontine hemorrhage in 2016. 12.Elevated blood glucose a glucose. 13.Elevated bilirubin. 14.Increased AST. 15.Increased WBC. 16.History of degenerative joint disease. 17.History of parotid gland surgery. 18.FULL CODE. RECOMMENDATIONS AND DISCUSSION: In this 64-year-old woman who presented with multiple medical issues, at this time we will monitor the patient closely, continue the current management, continue symptomatic treatment. Otherwise at this time, continue the IV antibiotics, plan PICC line, repeat labs. PT/OT evaluation, DVT prophylaxis. The patient has significant gait dysfunction and change in mental status also. I would supplement vitamins. The patient will definitely require PT/OT evaluation and evaluation for the ECF considering the social situation as well. Prognosis guarded. Discussed with the family at length, discussed with the patient, discussed with staff. See orders for details. Further recommendations to follow. MMODL / IJN: [id number] /
[2019-12-06] MEDS: AMPICILLIN-SULBACTAM 3 GM in SODIUM CHLORIDE 0.9% 100 ML IVPB SCH ×4 (05:29→23:29)
[2019-12-06 06:51] LABS: Glucose,Whole Blood 124 mg/dL (75-99)
[2019-12-06] MEDS: INSULIN ASPART (NovoLOG) 100 UNIT/ML VIAL SQ SCH ×7 (08:01→20:32)
[2019-12-06] MEDS: ASPIRIN 81 MG PO SCH (08:12)
[2019-12-06] MEDS: lisinopriL 20 MG TAB PO SCH (08:12)
[2019-12-06] MEDS: LEVOTHYROXINE 75 MCG TAB PO SCH (08:12)
[2019-12-06] MEDS: CLOPIDOGREL 75 MG TAB PO SCH (08:12)
[2019-12-06] MEDS: PANTOPRAZOLE 40 MG TABLET PO SCH (08:12)
[2019-12-06] MEDS: FOLIC ACID 1 MG TAB PO SCH (08:13)
[2019-12-06] MEDS: HEPARIN SODIUM,PORCINE 5,000 UNIT/ML 1 ML VIAL SQ SCH ×2 (08:14→20:30)
[2019-12-06] MEDS: CALCIUM CARB-VIT D 500MG-200UN 1 EACH TAB PO SCH (08:14)
[2019-12-06] MEDS: NON FORMULARY DRUG (Dextromethorphan Hbr/Quinidine [Nuedexta 20-10 Mg Capsule] 1 CAP) PO SCH (08:14)
[2019-12-06] MEDS: ESCITALOPRAM 10 MG TAB PO SCH (08:14)
[2019-12-06] MEDS: INSULIN DETEMIR (LEVEMIR) 100 UNIT/ML SYR SQ SCH ×2 (08:15→20:31)
--- NOTE | 2019-12-06 09:08 | XR ---
EXAMINATION TYPE: XR chest 1V portable DATE OF EXAM: 12/06/2019 COMPARISON: 06/25/2018 INDICATION: CHF TECHNIQUE: Single frontal view of the chest is obtained. FINDINGS: The heart size is normal. The pulmonary vasculature is normal. The lungs are clear. No suspicious infiltrates are evident IMPRESSION: 1. No acute pulmonary process.
[2019-12-06 09:21] LABS: Basophils # (A) 0.1 k/uL (0-0.2); Basophils % (A) 1 %; Eosinophils # (A) 0.4 k/uL (0-0.7); Eosinophils % (A) 4 %; HCT 41.3 % (34.0-46.0); HGB 13.5 gm/dL (11.4-16.0); Lymphocytes # (A) 1.8 k/uL (1.0-4.8); Lymphocytes % (A) 22 %; MCH 30.4 pg (25.0-35.0); MCHC 32.7 g/dL (31.0-37.0); MCV 93.2 fL (80.0-100.0); Mean Platelet Volume 8.5; Monocytes # (A) 0.4 k/uL (0-1.0); Monocytes % (A) 5 %; Neutrophils # (A) 5.6 k/uL (1.3-7.7); Neutrophils % (A) 68 %; Platelet Count 282 k/uL (150-450); RBC 4.43 m/uL (3.80-5.40); RDW 13.9 % (11.5-15.5); WBC 8.3 k/uL (3.8-10.6)
[2019-12-06 09:44] LABS: African American GFR (CKD) >90 (>60 ml/min/1.73 sqM); Anion Gap 6 mmol/L; Blood Urea Nitrogen 11 mg/dL (7-17); Calcium 8.6 mg/dL (8.4-10.2); Carbon Dioxide 31 mmol/L (22-30); Chloride 102 mmol/L (98-107); Glucose 168 mg/dL (74-99); Non-African American GFR(CKD) >90 (>60 ml/min/1.73 sqM); Potassium 3.8 mmol/L (3.5-5.1); Sodium 139 mmol/L (137-145)
[2019-12-06 11:33] LABS: Glucose,Whole Blood 151 mg/dL (75-99)
[2019-12-06] MEDS: MULTIVITAMINS, THERA 1 EACH TAB PO SCH (12:05)
[2019-12-06 16:49] LABS: Glucose,Whole Blood 96 mg/dL (75-99)
[2019-12-06 20:21] LABS: Glucose,Whole Blood 151 mg/dL (75-99)
[2019-12-06] MEDS: ATORVASTATIN 10 MG TAB PO SCH (20:30)
--- NOTE | 2019-12-06 21:33 | PN ---
PROGRESS NOTE DATE OF SERVICE: 12/06/2019 I am covering for Dr. Ramires. This 64-year-old woman who was admitted with significant osteomyelitis, being closely monitored. Patient started on IV antibiotics. Urine culture showed E coli. Dr. Fraire is planning a PICC line and outpatient antibiotics. The patient also had gait dysfunction also. No chest pain. No palpitations. No fever. PHYSICAL EXAMINATION: Alert and oriented x3. Pulse 62, blood pressure 116/70, respiration 17, temperature 98.2, pulse ox 94% on room air. HEENT: Conjunctivae normal. Oral mucosa moist. NECK: No jugular venous distention. No lymph node enlargement. CARDIOVASCULAR: S1, S2, muffled. No S3, no S4, RESPIRATORY: Diminished breath sounds at the bases. A few scattered rhonchi and crackles. ABDOMEN: Soft, nontender. LEGS: No edema, no swelling. Otherwise, osteomyelitis of the left big toe. NERVOUS SYSTEM: No focal motor or sensory deficits. Accu-Cheks 124, 168. ASSESSMENT: 1. Acute osteomyelitis of the left great toe with surrounding cellulitis with failure of outpatient treatment with prolonged antibiotics. 2. Acute urinary tract infection secondary to Escherichia coli, present on admission. 3. History of recurrent urinary tract infection with multiple organisms. 4. Depression. 5. Gait dysfunction. 6. Change in mental status, metabolic encephalopathy, acute, multifactorial. 7. Dehydration, present on admission. 8. Diabetes mellitus type 2. 9. Hypertension. 10.Hyperlipidemia. 11.History of cerebrovascular accident including the middle cerebral artery as well as a pontine hemorrhage in 2016. 12.Gait dysfunction. 13.Elevated glucose. 14.Elevated bilirubin. 15.Increased AST. 16.Increased WBC. 17.History of degenerative joint disease. 18.History of parotid gland surgery. 19.FULL CODE. RECOMMENDATIONS AND DISCUSSION: Recommend to continue current management and continue symptomatic treatment. Continue antibiotics. Otherwise, closely monitor. PT/OT evaluation, possible ECF rehab and long- term antibiotics. Patient has multiple medical issues as mentioned earlier. Guarded prognosis. Further recommendations to follow. MMODL / IJN: [id number] /
--- NOTE | 2019-12-06 22:18 | PN ---
PROGRESS NOTE DATE OF SERVICE: 12/06/2019 REASON FOR FOLLOWUP: Left big toe diabetic foot infection. INTERVAL HISTORY: Patient is currently afebrile. The patient is breathing comfortably. The patient denies having any chest pain. No shortness of breath or cough. No nausea, vomiting, abdominal pain. Pain to the left foot. PHYSICAL EXAMINATION: Blood pressure 131/70 with a pulse of 71, temperature 98.5. She is 94% on room air. General description is an elderly female up in the chair in no distress. Respiratory system: Unlabored breathing, clear to auscultation anteriorly. Heart S1, S2. Regular rate and rhythm. Abdomen soft, no tenderness. Left foot is currently dressed up. No obvious drainage on the dressing. LABS: Hemoglobin 13.5, white count 8.3, creatinine 0.61. DIAGNOSTIC IMPRESSION AND PLAN: Patient with left big toe diabetic foot infection with underlying osteomyelitis. The patient at this time responding to Unasyn to continue for a total of 6 weeks. Local wound care and offloading per Surgery. Continue supportive care. MMODL / IJN: [id number] /
[2019-12-07] MEDS: AMPICILLIN-SULBACTAM 3 GM in SODIUM CHLORIDE 0.9% 100 ML IVPB SCH ×4 (05:26→23:35)
[2019-12-07 07:25] LABS: Glucose,Whole Blood 111 mg/dL (75-99)
[2019-12-07] MEDS: INSULIN ASPART (NovoLOG) 100 UNIT/ML VIAL SQ SCH ×7 (07:35→20:34)
[2019-12-07] MEDS: ESCITALOPRAM 10 MG TAB PO SCH (07:48)
[2019-12-07] MEDS: lisinopriL 20 MG TAB PO SCH (07:49)
[2019-12-07] MEDS: CLOPIDOGREL 75 MG TAB PO SCH (07:49)
[2019-12-07] MEDS: NON FORMULARY DRUG (Dextromethorphan Hbr/Quinidine [Nuedexta 20-10 Mg Capsule] 1 CAP) PO SCH (07:49)
[2019-12-07] MEDS: INSULIN DETEMIR (LEVEMIR) 100 UNIT/ML SYR SQ SCH ×2 (07:49→20:34)
[2019-12-07] MEDS: ASPIRIN 81 MG PO SCH (07:49)
[2019-12-07] MEDS: HEPARIN SODIUM,PORCINE 5,000 UNIT/ML 1 ML VIAL SQ SCH ×2 (07:50→21:05)
[2019-12-07] MEDS: LEVOTHYROXINE 75 MCG TAB PO SCH (07:50)
[2019-12-07] MEDS: FOLIC ACID 1 MG TAB PO SCH (07:50)
[2019-12-07] MEDS: PANTOPRAZOLE 40 MG TABLET PO SCH (07:50)
[2019-12-07] MEDS: CALCIUM CARB-VIT D 500MG-200UN 1 EACH TAB PO SCH (07:50)
[2019-12-07 09:51] LABS: Basophils # (A) 0.1 k/uL (0-0.2); Basophils % (A) 1 %; Eosinophils # (A) 0.3 k/uL (0-0.7); Eosinophils % (A) 4 %; HCT 38.4 % (34.0-46.0); HGB 12.1 gm/dL (11.4-16.0); Lymphocytes # (A) 1.7 k/uL (1.0-4.8); Lymphocytes % (A) 21 %; MCH 28.8 pg (25.0-35.0); MCHC 31.5 g/dL (31.0-37.0); MCV 91.5 fL (80.0-100.0); Mean Platelet Volume 8.4; Monocytes # (A) 0.4 k/uL (0-1.0); Monocytes % (A) 5 %; Neutrophils # (A) 5.3 k/uL (1.3-7.7); Neutrophils % (A) 68 %; Platelet Count 257 k/uL (150-450); RBC 4.19 m/uL (3.80-5.40); RDW 13.7 % (11.5-15.5); WBC 7.8 k/uL (3.8-10.6)
[2019-12-07 10:08] LABS: African American GFR (CKD) >90 (>60 ml/min/1.73 sqM); Anion Gap 9 mmol/L; Blood Urea Nitrogen 14 mg/dL (7-17); Calcium 8.6 mg/dL (8.4-10.2); Carbon Dioxide 27 mmol/L (22-30); Chloride 101 mmol/L (98-107); Glucose 205 mg/dL (74-99); Non-African American GFR(CKD) >90 (>60 ml/min/1.73 sqM); Potassium 4.1 mmol/L (3.5-5.1); Sodium 137 mmol/L (137-145)
[2019-12-07 11:31] LABS: Glucose,Whole Blood 134 mg/dL (75-99)
[2019-12-07] MEDS: MULTIVITAMINS, THERA 1 EACH TAB PO SCH (12:02)
[2019-12-07 16:25] LABS: Glucose,Whole Blood 104 mg/dL (75-99)
[2019-12-07 19:55] VITALS: RESP 16
[2019-12-07 20:22] LABS: Glucose,Whole Blood 85 mg/dL (75-99)
[2019-12-07] MEDS: ATORVASTATIN 10 MG TAB PO SCH (21:05)
--- NOTE | 2019-12-08 01:06 | PN ---
PROGRESS NOTE DATE OF SERVICE: 12/07/2019 I am covering for Dr. Ramires. This 64-year-old woman was admitted with significant osteomyelitis as well as gait dysfunction. Being closely monitored. Urine culture showed E coli. The patient is is given broad spectrum IV antibiotics. A portable chest x-ray which was done yesterday showed no acute pulmonary process. PHYSICAL EXAMINATION: On exam, alert and oriented x3. Pulse is 60, blood pressure 102/59, respiration 18, temperature 98 degrees, pulse ox 93% on room. HEENT: Conjunctivae normal. NECK: No jugular venous distention. CARDIOVASCULAR: S1, S2 muffled. RESPIRATORY: Breath sounds diminished at the bases. No rhonchi. No crackles. ABDOMEN: Soft, nontender. LEGS: Osteomyelitis present. NERVOUS SYSTEM: No focal deficits. LABS: CBC within normal limites. Accu-Cheks 205, 134, 104. ASSESSMENT: 1. Acute osteomyelitis of the left great toe with surrounding cellulitis with failure of outpatient treatment with prolonged antibiotics. 2. Acute urinary tract infection secondary to Escherichia coli, present on admission. 3. History of recurrent urinary tract infection with multiple organisms. 4. Depression. 5. Gait dysfunction. 6. Change in mental status, metabolic encephalopathy, acute, multifactorial. 7. Dehydration, present on admission. 8. Diabetes mellitus type 2. 9. Hypertension. 10.Hyperlipidemia. 11.History of cerebrovascular accident including the middle cerebral artery as well as pontine hemorrhage in 2016. 12.Gait dysfunction. 13.Elevated glucose. 14.Elevated bilirubin. 15.Increased AST. 16.Increased WBC. 17.History of degenerative joint disease. 18.History of parotid gland surgery. 19.FULL CODE. RECOMMENDATIONS AND DISCUSSION: In this 64-year-old woman who presented with multiple complex medical issues, at this time I would recommend to continue current medication, continue symptomatic treatment, continue with the antibiotics. PT, OT evaluation, possible ECF rehab. sanitation worker cleaning equipment to address the concerns of family and home situation. Otherwise, the prognosis guarded. Further recommendations to follow. Dr. Ramires will follow tomorrow. MMJIMENEZL / IJN: [id number] /
[2019-12-08 02:46] LABS: Glucose,Whole Blood 144 mg/dL (75-99)
[2019-12-08] MEDS: AMPICILLIN-SULBACTAM 3 GM in SODIUM CHLORIDE 0.9% 100 ML IVPB SCH ×3 (05:03→17:09)
--- NOTE | 2019-12-08 06:31 | PN ---
PROGRESS NOTE DATE OF SERVICE: 12/07/2019 REASON FOR FOLLOWUP: Left big toe diabetic foot infection with underlying osteomyelitis. INTERVAL HISTORY: Patient is currently afebrile. The patient is breathing comfortably. Denies having any chest pain or shortness of breath or cough. No nausea, no vomiting. No abdominal pain or pain to the left big toe. PHYSICAL EXAMINATION: Blood pressure 121/76 with pulse of 73, temperature 98.4. She is 94% on room air. General description is an elderly female up in the chair in no distress. RESPIRATORY SYSTEM: Unlabored breathing, clear to auscultation anteriorly. HEART: S1, S2. Regular rate and rhythm. ABDOMEN: Soft, no tenderness. LABS: No new labs have been obtained today. DIAGNOSTIC IMPRESSION AND PLAN: Patient with left big toe osteomyelitis, previous outpatient culture positive for Enterococcus faecalis and MSSA. Culture since admission has has been negative. Patient has shown overall clinical improvement on Unasyn. We will continue to finish a 6-week course of therapy. Once antibiotic arranged, she will be able to go home from ID standpoint. Local care per wound care team. Continue supportive care. MMODL / IJN: [id number] /
[2019-12-08 07:03] LABS: Glucose,Whole Blood 152 mg/dL (75-99)
[2019-12-08] MEDS: LEVOTHYROXINE 75 MCG TAB PO SCH (07:47)
[2019-12-08] MEDS: lisinopriL 20 MG TAB PO SCH (07:47)
[2019-12-08] MEDS: CALCIUM CARB-VIT D 500MG-200UN 1 EACH TAB PO SCH (07:47)
[2019-12-08] MEDS: FOLIC ACID 1 MG TAB PO SCH (07:47)
[2019-12-08] MEDS: INSULIN DETEMIR (LEVEMIR) 100 UNIT/ML SYR SQ SCH (07:48)
[2019-12-08] MEDS: HEPARIN SODIUM,PORCINE 5,000 UNIT/ML 1 ML VIAL SQ SCH (07:48)
[2019-12-08] MEDS: ASPIRIN 81 MG PO SCH (07:48)
[2019-12-08] MEDS: INSULIN ASPART (NovoLOG) 100 UNIT/ML VIAL SQ SCH ×6 (07:48→17:12)
[2019-12-08] MEDS: CLOPIDOGREL 75 MG TAB PO SCH (07:48)
[2019-12-08] MEDS: PANTOPRAZOLE 40 MG TABLET PO SCH (07:48)
[2019-12-08] MEDS: NON FORMULARY DRUG (Dextromethorphan Hbr/Quinidine [Nuedexta 20-10 Mg Capsule] 1 CAP) PO SCH (07:49)
[2019-12-08] MEDS: ESCITALOPRAM 10 MG TAB PO SCH (07:49)
[2019-12-08 08:16] VITALS: TEMP 98.2
[2019-12-08] MEDS ORDERED: LIDOCAINE 1% INJ 10MG/ML (20 ML MDV) SQ ONE (09:36)
[2019-12-08 09:44] LABS: Basophils # (A) 0.1 k/uL (0-0.2); Basophils % (A) 1 %; Eosinophils # (A) 0.3 k/uL (0-0.7); Eosinophils % (A) 3 %; HCT 39.6 % (34.0-46.0); HGB 12.3 gm/dL (11.4-16.0); Lymphocytes # (A) 1.8 k/uL (1.0-4.8); Lymphocytes % (A) 23 %; MCH 28.4 pg (25.0-35.0); MCV 91.6 fL (80.0-100.0); Mean Platelet Volume 8.2; Monocytes # (A) 0.4 k/uL (0-1.0); Monocytes % (A) 5 %; Neutrophils # (A) 5.2 k/uL (1.3-7.7); Neutrophils % (A) 67 %; Platelet Count 268 k/uL (150-450); RBC 4.32 m/uL (3.80-5.40); RDW 13.8 % (11.5-15.5); WBC 7.9 k/uL (3.8-10.6)
--- NOTE | 2019-12-08 09:55 | IR ---
PICC LINE PLACEMENT: HISTORY: Infection requiring long-term antibiotic therapy PROCEDURE: Ultrasound and fluoroscopic guidance of PICC line placement. COMPLICATIONS: None ANESTHESIA: 1. 1% Lidocaine locally. FINDINGS/TECHNIQUE: The procedure was explained to the patient. The risks, complications, benefits and alternatives were discussed and any questions were answered. Informed consent was obtained. The patient was placed supine on the fluoroscopic table and prepped and draped in the usual sterile fash ion. Utilizing a 21 gauge needle and sonographic and fluoroscopic guidance, access in the left basi lic vein was achieved and there is placement of a 0.018 guidewire. The vein is patent. A 4-F sheath was placed over the guidewire. The guidewire and dilator were removed and a 4-F. PICC line was plac ed through the sheath with the tip at the level of the SVC. The sheath was removed, the catheter was flushed and sutured into position. The patient was stable throughout the procedure and remained sta ble upon discharge from the Department of Radiology. The vein puncture was patent under ultrasound. A hu scale image was obtained to document patency of the vein punctured. All elements of the maximal barrier technique were utilized. FLUOROSCOPY TIME: 0.1 and 1 images submitted IMPRESSION: Successful PICC line placement under ultrasound and fluoroscopic guidance.
[2019-12-08 09:57] LABS: African American GFR (CKD) >90 (>60 ml/min/1.73 sqM); Anion Gap 7 mmol/L; Blood Urea Nitrogen 13 mg/dL (7-17); C Reactive Protein 22.6 mg/L (<10.0); Calcium 8.7 mg/dL (8.4-10.2); Carbon Dioxide 30 mmol/L (22-30); Chloride 101 mmol/L (98-107); Glucose 199 mg/dL (74-99); Non-African American GFR(CKD) >90 (>60 ml/min/1.73 sqM); Potassium 4.1 mmol/L (3.5-5.1); Sodium 138 mmol/L (137-145)
[2019-12-08 11:18] LABS: Erythrocyte Sedimentation Rate 37 mm/hr (0-20)
[2019-12-08 11:42] LABS: Glucose,Whole Blood 142 mg/dL (75-99)
[2019-12-08] MEDS: MULTIVITAMINS, THERA 1 EACH TAB PO SCH (12:26)
--- NOTE | 2019-12-08 15:25 | PN ---
PROGRESS NOTE DATE OF SERVICE: 12/08/2019 REASON FOR FOLLOWUP: Left big toe osteomyelitis. INTERVAL HISTORY: Patient is currently afebrile. The patient is breathing comfortably. The patient denies having any chest pain. No shortness of breath. no cough. No nausea, no vomiting. No abdominal pain. No pain to the left big toe. PHYSICAL EXAMINATION: Blood pressure is 119/69 with a pulse of 72, temperature 98.2, she is 98% on room air. General description is an elderly female, lying in bed in no distress. RESPIRATORY SYSTEM: Unlabored breathing, clear to auscultation anteriorly. HEART: S1, S2. Regular rate and rhythm. ABDOMEN: No significant redness or drainage on the dressing. LABS: Hemoglobin is 12.8, white count 7.9, sed rate of 37, creatinine 0.64. DIAGNOSTIC IMPRESSION AND PLAN: Patient with left big toe osteomyelitis. Previous culture positive for enterococcus and MSSA. Patient on Unasyn. She will continue 3 g q.6 to 8 hours for a total of 6 weeks with weekly monitor CBC, BMP, and sedimentation rate and close outpatient followup. MMODL / IJN: [id number] /
[2019-12-08 16:22] VITALS: BP 126/69; PULSE 63
[2019-12-08 16:54] LABS: Glucose,Whole Blood 91 mg/dL (75-99)
--- NOTE | 2019-12-10 09:49 | CDI ---
Documentation Clarification Form Date: 12/10/19 From: Yecenia Jacques CCS Phone: If you have a question about this query, please contact Eleanor Mehta, High School Director at [phone] between 8am and 5pm. Admit Date: 12/02/19 Discharge Date: 12/08/19 Patient Name: Michelle Shepard Visit Number: [id number] ATTENTION: The Clinical Documentation Specialists (CDI) and [facility] Coding Staff appreciate your assistance in clarifying documentation. Please respond to the clarification below the line at the bottom and electronically sign. The CDI & [facility] Coding staff will review the response and follow-up if needed. Please note: Queries are made part of the Legal Health Record. If you have any questions, please contact the author of this message via ITS. Dear Dr. Ramires, The patient has diabetes with elevated glucose, as indicated on progress note 12/04-12/06: History/Risk Factors: DM, Osteomyelitis, Cellulitis, HTN Clinical Indicators: Diabetes with complications, continuous churn buttermaker insulin Glucose: 176, 168, 205, 199 Treatment: Insulin 10 unit SQ ACHS In order to capture the severity of Illness and necessary documentation specificity, please clarify: DM Type II uncontrolled with hyperglycemia Elevated glucose Other, please specify Unable to Determine Diabetes type 2 uncontrolled with hyperglycemia MTDD
--- NOTE | 2019-12-24 21:01 | P.DS ---
Providers Date of admission: 12/02/19 00:03 Expected date of discharge: 12/08/19 Attending physician: Klaus Ramires Consults: 12/02/19 08:45 Consult Physician Routine Consulting Provider: Mansoor Fraire Consult Reason/Comments: ulcer,r/o osteo Do you want consulting provider notified?: Yes Primary care physician: Klaus Ramires - Discharge Diagnosis(es) (1) Depression determined by examination Status: Acute (2) CVA (cerebral vascular accident) Status: Acute Onset Date: 08/14/15 (3) Cellulitis of great toe, left Status: Acute (4) Diabetes mellitus Status: Acute (5) Generalized weakness Status: Acute (6) History of ischemic vertebrobasilar artery brainstem stroke Status: Acute (7) Sepsis due to urinary tract infection Status: Acute (8) Diabetic foot ulcer associated with type 2 diabetes mellitus, with fat layer exposed Status: Acute Hospital Course: Patient was admitted for the above diagnosis he was treated with IV antibiotics hydration and infectious disease consultation. This felt that patient could be followed up as outpatient after being cleared by infectious disease to return to wound care. Patient Condition at Discharge: Serious Plan - Discharge Summary Discharge Rx Participant: No New Discharge Prescriptions: New Ampicillin-Sulbactam [Unasyn] 3 gm IVPB Q6HR 42 Days vial No Action Ca/D3/Mag/Zinc/Carl/Tye/Mgbor [Caltrate 600-D3-Min Chew Tab] 1 tab PO DAILY Clopidogrel [Plavix] 75 mg PO DAILY Atorvastatin [Lipitor] 10 mg PO HS Enalapril [Vasotec] 10 mg PO DAILY Dextromethorphan HBr/Quinidine [Nuedexta 20-10 mg Capsule] 1 cap PO DAILY Aspirin 81 mg PO DAILY Levothyroxine Sodium [Synthroid] 150 mcg PO DAILY Insulin Glargine [Lantus] 30 unit SQ BID Folic Acid 0.4 mg PO DAILY Insulin Aspart [NovoLOG Flexpen] 25 units SQ DAILY Discharge Medication List Atorvastatin [Lipitor] 10 mg PO HS 08/14/15 [History] Ca/D3/Mag/Zinc/Carl/Tye/Mgbor [Caltrate 600-D3-Min Chew Tab] 1 tab PO DAILY 08/14/15 [History] Clopidogrel [Plavix] 75 mg PO DAILY 08/14/15 [History] Enalapril [Vasotec] 10 mg PO DAILY 08/14/15 [History] Aspirin 81 mg PO DAILY 02/12/18 [History] Dextromethorphan HBr/Quinidine [Nuedexta 20-10 mg Capsule] 1 cap PO DAILY 02/12/18 [History] Insulin Glargine [Lantus] 30 unit SQ BID 11/29/18 [History] Levothyroxine Sodium [Synthroid] 150 mcg PO DAILY 11/29/18 [History] Folic Acid 0.4 mg PO DAILY 12/01/19 [History] Insulin Aspart [NovoLOG Flexpen] 25 units SQ DAILY 12/01/19 [History] Ampicillin-Sulbactam [Unasyn] 3 gm IVPB Q6HR 42 Days vial 12/08/19 [Rx] Follow up Appointment(s)/Referral(s): [facility], [NON-STAFF] - 12/09/19 (Your homecare nurse will be out 1st thing in the AM to start your iv antibiotic infusions.) Klaus Ramires, [Primary Care Provider] - 1-2 days [facility], [REFERRING] - ([facility] will deliver tonight 12/08/19 either at hospital or home, the special events driver will call to verify where you are.) Mansoor Fraire MD [STAFF PHYSICIAN] - 1 Week Patient Instructions/Handouts: Urinary Tract Infection in Women (DC), Type 2 Diabetes in Adults: New Diagnosis (DC), Diabetic Foot Ulcers (DC) Discharge Disposition: HOME WITH HOME HEALTH SERVICES Plan of Treatment: Patient was released after given a PICC line insertion is to receive IV antibiotics for 42 days. She is to follow-up with wound care center Dr. Fraire. He is to continue monitoring her bladder and medicines. Follow-up in one week
--- NOTE | 2019-12-25 09:26 | CDI ---
Documentation Clarification Form Date: 12/25/19 From: Yecenia Jacques CCS Phone: If you have a question about this query, please contact Eleanor Mehta, Steam Drier Operator at [phone] between 8am and 5pm. Admit Date: 12/02/19 Discharge Date:12/08/19 Patient Name: Michelle Shepard Visit Number: [id number] ATTENTION: The Clinical Documentation Specialists (CDI) and [facility] Coding Staff appreciate your assistance in clarifying documentation. Please respond to the clarification below the line at the bottom and electronically sign. The CDI & [facility] Coding staff will review the response and follow-up if needed. Please note: Queries are made part of the Legal Health Record. If you have any questions, please contact the author of this message via ITS. Dear Dr. Ramires, The diagnosis sepsis was documented int the DS but is not noted in previous documentation. History/Risk Factors: Osteomyelitis, Cellulitis, DM, UTI, Foot ulcer, HTN Clinical Indicators: Temp 99.2, RR 18, FL 89 WBC: 11.7, 7.6, 8.6 Lactic Acid: 1.3 Vitals: BP 127/80, RR 18, FL 89, Temp 99.2, O2 Sat 93 Treatment: Rocephin 1 gm IVPB Q 24HR, Zosyn 3.375 gm IVPB Q8HR, Vancomycin 1,500 mg IVPB, Q8H Other: Patient was released after given a PICC line insertion is to receive IV antibiotics for 42 days. Consult: Juno Please clarify if the sepsis was Present on admission Treated and resolved this admission (not POA) Ruled out Other, please specify Clinically unable to determine sepsis was present on adm admission MTDD
== END 2019-12-08 18:01 | disposition home health service (06) | DRG 871 ==
LOC: EC 19:04 → 4SSUR 12-02 00:03
PROVIDERS: ADMIT Family Medicine; ATTEND Family Medicine
PROC: 02HV33Z Insertion of Infusion Device into Superior Vena Cava, Percutaneous Approach (ICD-10-PCS; principal; 2019-12-08 07:30)
DX: A41.9 Sepsis, unspecified organism (principal); G93.41 Metabolic encephalopathy; N39.0 Urinary tract infection, site not specified; M86.172 Other acute osteomyelitis, left ankle and foot; E11.69 Type 2 diabetes mellitus with other specified complication; R17 Unspecified jaundice; Z11.59 Encounter for screening for other viral diseases; E11.621 Type 2 diabetes mellitus with foot ulcer; E11.628 Type 2 diabetes mellitus with other skin complications; Z79.4 Long term (current) use of insulin; E11.65 Type 2 diabetes mellitus with hyperglycemia; L03.032 Cellulitis of left toe; L97.522 Non-pressure chronic ulcer of other part of left foot with fat layer exposed; I10 Essential (primary) hypertension; E78.5 Hyperlipidemia, unspecified; E89.0 Postprocedural hypothyroidism; R26.9 Unspecified abnormalities of gait and mobility; E86.0 Dehydration; F32.9 Major depressive disorder, single episode, unspecified; B96.20 Unspecified Escherichia coli [E. coli] as the cause of diseases classified elsewhere; B95.2 Enterococcus as the cause of diseases classified elsewhere; M19.90 Unspecified osteoarthritis, unspecified site; R53.1 Weakness; B95.61 Methicillin susceptible Staphylococcus aureus infection as the cause of diseases classified elsewhere; Z71.3 Dietary counseling and surveillance; Z79.02 Long term (current) use of antithrombotics/antiplatelets; Z79.899 Other long term (current) drug therapy; Z79.82 Long term (current) use of aspirin; Z79.890 Hormone replacement therapy; Z87.440 Personal history of urinary (tract) infections; Z86.73 Personal history of transient ischemic attack (TIA), and cerebral infarction without residual deficits; Z98.890 Other specified postprocedural states; Z85.850 Personal history of malignant neoplasm of thyroid; Z90.710 Acquired absence of both cervix and uterus; Z88.6 Allergy status to analgesic agent; Z80.9 Family history of malignant neoplasm, unspecified; Z82.49 Family history of ischemic heart disease and other diseases of the circulatory system
CPT/HCPCS: 36415; 36573; 71045; 80048; 80053; 80202; 81001; 83036; 83605; 85025; 85652; 86140; 87040; 87070; 87077; 87086; 87186; 87205; 96365; 96366; 96367; 96375; 99285

== ENCOUNTER 2020-05-05 12:28 | Inpatient (IN) | payer MEDICARE ==
[2020-05-05] MEDS ORDERED: SODIUM CHLORIDE 0.9% 500 ML 500 ML IV ONE (12:53)
[2020-05-05] MEDS ORDERED: DIAZEPAM 5 MG/ML 2 ML INJ IVP STA (12:53)
[2020-05-05] MEDS ORDERED: MECLIZINE 25 MG TAB PO STA (12:53)
--- NOTE | 2020-05-05 13:05 | ED ---
General Adult HPI - General Chief complaint: Nausea/Vomiting/Diarrhea Stated complaint: Nausea&Vomiting Time Seen by Provider: 05/05/20 12:35 Source: patient, EMS, RN notes reviewed, old records reviewed Mode of arrival: EMS Limitations: no limitations - History of Present Illness Initial comments: This is a 64-year-old female presents emergency Department stating that yesterday around noon she started becoming very dizzy and then started vomiting. Patient believes the vomiting is secondary to her being very dizzy. Patient denies any similar appearance in the past. Patient states movement of her head seems to make the symptoms worse. Patient states she feels unsteady when she walks. Patient states she stairs at one spot is much improved. Patient denies any headache patient denies any blurred vision. Patient denies any chest pain palpitations difficulty breathing shortness of breath. Patient denies any recent fever chills or cough. Patient denies any abdominal pain. Patient denies any back pain. - Related Data Home Medications Medication Instructions Recorded Confirmed Atorvastatin [Lipitor] 5 mg PO HS 08/14/15 05/05/20 Ca/D3/Mag/Zinc/Carl/Tye/Mgbor 1 tab PO DAILY 08/14/15 05/05/20 [Caltrate 600-D3-Min Chew Tab] Clopidogrel [Plavix] 75 mg PO DAILY 08/14/15 05/05/20 Enalapril [Vasotec] 10 mg PO DAILY 08/14/15 05/05/20 Aspirin 81 mg PO DAILY 02/12/18 05/05/20 Dextromethorphan HBr/Quinidine 1 cap PO DAILY 02/12/18 05/05/20 [Nuedexta 20-10 mg Capsule] Levothyroxine Sodium [Synthroid] 150 mcg PO DAILY 11/29/18 05/05/20 Insulin Aspart [NovoLOG Flexpen] 25 units SQ AC-TID 12/01/19 05/05/20 Aricept (Unknown Dose) 1 tab PO DIRECTED 05/05/20 05/05/20 Escitalopram [Lexapro] 5 mg PO DAILY 05/05/20 05/05/20 Folic Acid 1 mg PO DAILY 05/05/20 05/05/20 Insulin Glargine,Hum.rec.anlog 40 unit SQ DAILY 05/05/20 05/05/20 [Lantus Solostar] Memantine [Namenda] 10 mg PO BID 05/05/20 05/05/20 Pregabalin [Lyrica] 150 mg PO DIRECTED 05/05/20 05/05/20 Allergies Allergy/AdvReac Type Severity Reaction Status Date / Time ibuprofen [From Motrin] AdvReac "BLOOD Verified 05/05/20 13:21 THINS TOO MUCH" naproxen [From Aleve] AdvReac "BLOOD Verified 05/05/20 13:21 THINS TOO MUCH" NSAIDS (Non-Steroidal AdvReac Unknown Verified 05/05/20 13:21 Anti-Inflamma Review of Systems ROS Statement: Those systems with pertinent positive or pertinent negative responses have been documented in the HPI. ROS Other: All systems not noted in ROS Statement are negative. 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 hx thyroid cancer. MTHFR. History of Any Multi-Drug Resistant Organisms: None Reported Past Surgical History: Hysterectomy, Orthopedic Surgery Additional Past Surgical History / Comment(s): thyroidectomy, parotid gland surgery, left shoulder (rotator cuff sx) X 2 Past Anesthesia/Blood Transfusion Reactions: Postoperative Nausea & Vomiting (PONV) Past Psychological History: No Psychological Hx Reported Smoking Status: Never smoker Past Alcohol Use History: None Reported Past Drug Use History: None Reported - Past Family History Mother Family Medical History: No Reported History Additional Family Medical History / Comment(s): Mother was healthy Father Family Medical History: Cancer Additional Family Medical History / Comment(s): open heart surgery when he was 48, aortic aneurysm when he was around 63 General Exam - General Exam Comments Initial Comments: GENERAL: Patient is well-developed and well-nourished. Patient is nontoxic and well- hydrated and is in mild distress. ENT: Neck is soft and supple. No significant lymphadenopathy is noted. Oropharynx is clear. Moist mucous membranes. Neck has full range of motion without eliciting any pain. EYES: The sclera were anicteric and conjunctiva were pink and moist. Extraocular movements were intact and pupils were equal round and reactive to light. Eyelids were unremarkable. PULMONARY: Unlabored respirations. Good breath sounds bilaterally. No audible rales rhonchi or wheezing was noted. CARDIOVASCULAR: There is a regular rate and rhythm without any murmurs gallops or rubs. ABDOMEN: Soft and nontender with normal bowel sounds. SKIN: Skin is clear with no lesions or rashes and otherwise unremarkable. NEUROLOGIC: Patient is alert and oriented x3. Cranial nerves II through XII are grossly intact. Motor and sensory are also intact. Normal speech, volume and content. Symmetrical smile. Finger to nose testing is normal bilaterally MUSCULOSKELETAL: Normal extremities with adequate strength and full range of motion. LYMPHATICS: No significant lymphadenopathy is noted PSYCHIATRIC: Normal psychiatric evaluation. Limitations: no limitations Course Vital Signs 05/05/20 05/05/20 05/05/20 12:32 12:41 15:38 Temperature 98.0 F Pulse Rate 87 82 Respiratory 16 16 Rate Blood Pressure 156/75 149/76 O2 Sat by Pulse 88 L 94 L 93 L Oximetry 05/05/20 18:40 Temperature Pulse Rate 91 Respiratory 16 Rate Blood Pressure 116/73 O2 Sat by Pulse 95 Oximetry Medical Decision Making - Medical Decision Making EKG shows a normal sinus rhythm at 84 bpm AR interval 284 QRS is 96 QT interval 392 QTC is 463. Patient's EKG shows no ST segment elevation or depression. CT shows bilateral infiltrates no PAC at this point time the patient was diagnosed with pneumonia and sepsis patient already received Rocephin. I spoke with Dr. Ramires he agreed to admit the patient admitted the patient wrote admitting orders - Lab Data Result diagrams: 05/05/20 13:07 05/05/20 13:07 Lab Results 05/05/20 05/05/20 05/05/20 Range/Units 13:07 13:07 13:07 WBC 12.0 H (3.8-10.6) k/uL RBC 4.73 (3.80-5.40) m/uL Hgb 14.8 (11.4-16.0) gm/dL Hct 44.0 (34.0-46.0) % MCV 93.0 (80.0-100.0) fL MCH 31.3 (25.0-35.0) pg MCHC 33.6 (31.0-37.0) g/dL RDW 13.8 (11.5-15.5) % Plt Count 268 (150-450) k/uL MPV 7.7 Neutrophils % 85 % Lymphocytes % 10 % Monocytes % 4 % Eosinophils % 0 % Basophils % 0 % Neutrophils # 10.2 H (1.3-7.7) k/uL Lymphocytes # 1.2 (1.0-4.8) k/uL Monocytes # 0.4 (0-1.0) k/uL Eosinophils # 0.1 (0-0.7) k/uL Basophils # 0.1 (0-0.2) k/uL PT 10.1 (9.0-12.0) sec INR 1.0 (<1.2) APTT 22.8 (22.0-30.0) sec D-Dimer (<0.60) mg/L FEU Sodium 135 L (137-145) mmol/L Potassium 4.3 (3.5-5.1) mmol/L Chloride 96 L (98-107) mmol/L Carbon Dioxide 29 (22-30) mmol/L Anion Gap 10 mmol/L BUN 17 (7-17) mg/dL Creatinine 0.53 (0.52-1.04) mg/dL Est GFR (CKD-EPI)AfAm >90 (>60 ml/min/1.73 sqM) Est GFR (CKD-EPI)NonAf >90 (>60 ml/min/1.73 sqM) Glucose 278 H (74-99) mg/dL Lactic Ac Sepsis Rflx Plasma Lactic Acid Hilario (0.7-2.0) mmol/L Calcium 8.9 (8.4-10.2) mg/dL Magnesium 1.7 (1.6-2.3) mg/dL Total Bilirubin 1.8 H (0.2-1.3) mg/dL AST 27 (14-36) U/L ALT 21 (4-34) U/L Alkaline Phosphatase 87 (38-126) U/L Troponin I (0.000-0.034) ng/mL Total Protein 7.9 (6.3-8.2) g/dL Albumin 4.6 (3.5-5.0) g/dL Urine Color Urine Appearance (Clear) Urine pH (5.0-8.0) Ur Specific Carver (1.001-1.035) Urine Protein (Negative) Urine Glucose (UA) (Negative) Urine Ketones (Negative) Urine Blood (Negative) Urine Nitrite (Negative) Urine Bilirubin (Negative) Urine Urobilinogen (<2.0) mg/dL Ur Leukocyte Esterase (Negative) Urine RBC (0-5) /hpf Urine WBC (0-5) /hpf Urine WBC Clumps (None) /hpf Urine Bacteria (None) /hpf Urine Mucus (None) /hpf Coronavirus (PCR) (Not Detectd) 05/05/20 05/05/20 05/05/20 Range/Units 13:07 13:27 15:12 WBC (3.8-10.6) k/uL RBC (3.80-5.40) m/uL Hgb (11.4-16.0) gm/dL Hct (34.0-46.0) % MCV (80.0-100.0) fL MCH (25.0-35.0) pg MCHC (31.0-37.0) g/dL RDW (11.5-15.5) % Plt Count (150-450) k/uL MPV Neutrophils % % Lymphocytes % % Monocytes % % Eosinophils % % Basophils % % Neutrophils # (1.3-7.7) k/uL Lymphocytes # (1.0-4.8) k/uL Monocytes # (0-1.0) k/uL Eosinophils # (0-0.7) k/uL Basophils # (0-0.2) k/uL PT (9.0-12.0) sec INR (<1.2) APTT (22.0-30.0) sec D-Dimer (<0.60) mg/L FEU Sodium (137-145) mmol/L Potassium (3.5-5.1) mmol/L Chloride (98-107) mmol/L Carbon Dioxide (22-30) mmol/L Anion Gap mmol/L BUN (7-17) mg/dL Creatinine (0.52-1.04) mg/dL Est GFR (CKD-EPI)AfAm (>60 ml/min/1.73 sqM) Est GFR (CKD-EPI)NonAf (>60 ml/min/1.73 sqM) Glucose (74-99) mg/dL Lactic Ac Sepsis Rflx Plasma Lactic Acid Hilario (0.7-2.0) mmol/L Calcium (8.4-10.2) mg/dL Magnesium (1.6-2.3) mg/dL Total Bilirubin (0.2-1.3) mg/dL AST (14-36) U/L ALT (4-34) U/L Alkaline Phosphatase (38-126) U/L Troponin I <0.012 (0.000-0.034) ng/mL Total Protein (6.3-8.2) g/dL Albumin (3.5-5.0) g/dL Urine Color Light Yellow Urine Appearance Cloudy H (Clear) Urine pH 5.5 (5.0-8.0) Ur Specific Carver 1.012 (1.001-1.035) Urine Protein Trace H (Negative) Urine Glucose (UA) 1+ H (Negative) Urine Ketones 1+ H (Negative) Urine Blood Moderate H (Negative) Urine Nitrite Negative (Negative) Urine Bilirubin Negative (Negative) Urine Urobilinogen <2.0 (<2.0) mg/dL Ur Leukocyte Esterase Large H (Negative) Urine RBC 7 H (0-5) /hpf Urine WBC 41 H (0-5) /hpf Urine WBC Clumps Many H (None) /hpf Urine Bacteria Moderate H (None) /hpf Urine Mucus Rare H (None) /hpf Coronavirus (PCR) Not Detected (Not Detectd) 05/05/20 05/05/20 05/05/20 Range/Units 15:58 15:58 16:44 WBC (3.8-10.6) k/uL RBC (3.80-5.40) m/uL Hgb (11.4-16.0) gm/dL Hct (34.0-46.0) % MCV (80.0-100.0) fL MCH (25.0-35.0) pg MCHC (31.0-37.0) g/dL RDW (11.5-15.5) % Plt Count (150-450) k/uL MPV Neutrophils % % Lymphocytes % % Monocytes % % Eosinophils % % Basophils % % Neutrophils # (1.3-7.7) k/uL Lymphocytes # (1.0-4.8) k/uL Monocytes # (0-1.0) k/uL Eosinophils # (0-0.7) k/uL Basophils # (0-0.2) k/uL PT (9.0-12.0) sec INR (<1.2) APTT (22.0-30.0) sec D-Dimer 1.09 H (<0.60) mg/L FEU Sodium (137-145) mmol/L Potassium (3.5-5.1) mmol/L Chloride (98-107) mmol/L Carbon Dioxide (22-30) mmol/L Anion Gap mmol/L BUN (7-17) mg/dL Creatinine (0.52-1.04) mg/dL Est GFR (CKD-EPI)AfAm (>60 ml/min/1.73 sqM) Est GFR (CKD-EPI)NonAf (>60 ml/min/1.73 sqM) Glucose (74-99) mg/dL Lactic Ac Sepsis Rflx Y Plasma Lactic Acid Hilario 5.1 H* (0.7-2.0) mmol/L Calcium (8.4-10.2) mg/dL Magnesium (1.6-2.3) mg/dL Total Bilirubin (0.2-1.3) mg/dL AST (14-36) U/L ALT (4-34) U/L Alkaline Phosphatase (38-126) U/L Troponin I (0.000-0.034) ng/mL Total Protein (6.3-8.2) g/dL Albumin (3.5-5.0) g/dL Urine Color Urine Appearance (Clear) Urine pH (5.0-8.0) Ur Specific Carver (1.001-1.035) Urine Protein (Negative) Urine Glucose (UA) (Negative) Urine Ketones (Negative) Urine Blood (Negative) Urine Nitrite (Negative) Urine Bilirubin (Negative) Urine Urobilinogen (<2.0) mg/dL Ur Leukocyte Esterase (Negative) Urine RBC (0-5) /hpf Urine WBC (0-5) /hpf Urine WBC Clumps (None) /hpf Urine Bacteria (None) /hpf Urine Mucus (None) /hpf Coronavirus (PCR) (Not Detectd) Critical Care Time Critical Care Time: Yes Total Critical Care Time: 35 Disposition Clinical Impression: Pneumonia, Vertigo, Urinary tract infection, Acute vomiting, Sepsis Disposition: ADMITTED IP TO THIS [facility] Referrals: Klaus Ramires DO [Primary Care Provider] - 1-2 days Time of Disposition: 18:55
[2020-05-05 13:16] LABS: Basophils # (A) 0.1 k/uL (0-0.2); Basophils % (A) 0 %; Eosinophils # (A) 0.1 k/uL (0-0.7); Eosinophils % (A) 0 %; HGB 14.8 gm/dL (11.4-16.0); Lymphocytes # (A) 1.2 k/uL (1.0-4.8); Lymphocytes % (A) 10 %; MCH 31.3 pg (25.0-35.0); MCHC 33.6 g/dL (31.0-37.0); Mean Platelet Volume 7.7; Monocytes # (A) 0.4 k/uL (0-1.0); Monocytes % (A) 4 %; Neutrophils # (A) 10.2 k/uL (1.3-7.7); Neutrophils % (A) 85 %; Platelet Count 268 k/uL (150-450); RBC 4.73 m/uL (3.80-5.40); RDW 13.8 % (11.5-15.5)
[2020-05-05] MEDS: ONDANSETRON 4 MG/2 ML VIAL IVP STA ×2 (13:19→18:43)
[2020-05-05 13:22] LABS: Partial Thromboplastin Time 22.8 sec (22.0-30.0); Prothrombin Time 10.1 sec (9.0-12.0)
[2020-05-05 13:27] LABS: ALT 21 U/L (4-34); AST 27 U/L (14-36); African American GFR (CKD) >90 (>60 ml/min/1.73 sqM); Albumin 4.6 g/dL (3.5-5.0); Alkaline Phosphatase 87 U/L (38-126); Anion Gap 10 mmol/L; Blood Urea Nitrogen 17 mg/dL (7-17); Calcium 8.9 mg/dL (8.4-10.2); Carbon Dioxide 29 mmol/L (22-30); Chloride 96 mmol/L (98-107); Glucose 278 mg/dL (74-99); Magnesium 1.7 mg/dL (1.6-2.3); Non-African American GFR(CKD) >90 (>60 ml/min/1.73 sqM); Potassium 4.3 mmol/L (3.5-5.1); Sodium 135 mmol/L (137-145); Total Bilirubin 1.8 mg/dL (0.2-1.3); Total Protein 7.9 g/dL (6.3-8.2)
--- NOTE | 2020-05-05 14:15 | XR ---
EXAMINATION TYPE: XR chest 2V DATE OF EXAM: 05/05/2020 COMPARISON: 12/06/2019 TECHNIQUE: PA and lateral views submitted. HISTORY: Chest pain FINDINGS: There is a diffuse interstitial pattern. Heart size normal. Elevated right hemidiaphragm with subsegm ental consolidation in both lung bases. Hypertrophic and degenerative change the spine. Postsurgical change right shoulder with arthropathy bilaterally and diffuse osteopenia. IMPRESSION: 1. Central interstitial pattern can be associated with interstitial pneumonitis. Although mild venous congestion is in the differential diagnosis lack of pleural fluid suggests it may be less likely, co rrelate clinically.
--- NOTE | 2020-05-05 14:30 | CT ---
EXAMINATION TYPE: CT brain wo con DATE OF EXAM: 05/05/2020 COMPARISON: 11/29/2018 HISTORY: 63-year-old female Vertigo TECHNIQUE: Examination was done in axial plane without intravenous contrast. Coronal and sagittal r econstructions performed. CT DLP: 1166.4 mGycm Automated exposure control for dose reduction was used. FINDINGS: There is no evidence of acute intracranial hemorrhage, acute ischemic changes, mass, mass-effect, or extra-axial fluid collection. There is no effacement of cerebral sulci or basal subarachnoid cister ns. There is no hydrocephalus. There is no midline shift. Morris-white matter distinction is preserv ed. Mild to moderate cerebral cortical volume loss. Moderate patchy white matter hypodensities in both ce rebral hemispheres. Old lacunar infarcts right basal ganglia and left thalamus. Chronic hypodensities within the sharmila also noted. Similar mild mucosal thickening floor of the left frontal sinus. Mild mucosal thickening posterior fl oor of the right maxillary sinus. Mastoid air cells well pneumatized. Orbits and globes are intact. IMPRESSION: Similar moderate cerebral cortical atrophy and moderate burden of chronic small vessel ischemic disea se. Lacunar infarcts in the right basal ganglia and left thalamus as well as the sharmila are unchanged. No acute intracranial abnormality seen.
[2020-05-05 15:31] LABS: Appearance,Urine Cloudy (Clear); Bacteria,Urine Moderate /hpf; Bilirubin,Urine Negative (Negative); Blood,Urine Moderate (Negative); Color,Urine Light Yellow; Glucose,Urine (UA) 1+ (Negative); Ketones,Urine 1+ (Negative); Leukocyte Esterase,Urine Large (Negative); Mucus,Urine Rare /hpf; Nitrite,Urine Negative (Negative); PH, Urine 5.5 (5.0-8.0); Protein,Urine Trace (Negative); RBC,Urine 7 /hpf (0-5); Specific Gravity,Urine 1.012 (1.001-1.035); Urobilinogen,Urine <2.0 mg/dL (<2.0); WBC,Urine 41 /hpf (0-5)
[2020-05-05] MEDS ORDERED: cefTRIAXone IN SWFI 1,000 MG/10 ML SYRINGE IVP STA (15:48)
[2020-05-05] MEDS ORDERED: SODIUM CHLORIDE 0.9% 2,000 ML IV ONE (16:48)
[2020-05-05] MEDS: SODIUM CHLORIDE 0.9% 1,000 ML IV SCH (17:02)
--- NOTE | 2020-05-05 18:13 | CT ---
EXAMINATION TYPE: CT chest angio for PE DATE OF EXAM: 05/05/2020 COMPARISON: None HISTORY: Dizziness and Vomiting, Elevated D-Dimer CT DLP: 561.4 mGycm Automated exposure control for dose reduction was used. CONTRAST: Performed with IV Contrast, patient injected with 100 mL of Isovue 370. There are 3-D post processed images. There is patchy infiltrate and atelectasis at the lung bases. There is no mediastinal adenopathy. The re are no hilar masses. Thoracic aorta is intact. There is no aneurysm or dissection. The ascending aorta measures 3.6 cm. There is normal contrast opacification of the pulmonary arteries. There are no filling defects. There are small bronchial lymph nodes measuring less than 1 cm. There is intact thoracic spine. There is no compression fracture. IMPRESSION: Lower lobe bilateral pulmonary infiltrates and atelectasis. No evidence of pulmonary embolism.
[2020-05-05] MEDS ORDERED: METOCLOPRAMIDE 5 MG/ML 2 ML VIAL IVP STA (18:56)
[2020-05-05] MEDS ORDERED: VANCOMYCIN IV PER PHARMACY 1 EACH MISC MISCELLANE PRN (18:58)
[2020-05-05] MEDS ORDERED: ONDANSETRON 4 MG/2 ML VIAL IVP PRN (19:01)
[2020-05-05] MEDS ORDERED: VANCOMYCIN 1,500 MG in SODIUM CHLORIDE 0.9% 250 ML IVPB STA (19:07)
[2020-05-05 20:25] LABS: Glucose,Whole Blood 173 mg/dL (75-99)
[2020-05-05] MEDS: INSULIN ASPART (NovoLOG) 100 UNIT/ML VIAL SQ SCH (22:50)
[2020-05-06] MEDS: METOCLOPRAMIDE 5 MG/ML 2 ML VIAL IVP SCH ×4 (02:42→18:01)
[2020-05-06] MEDS: VANCOMYCIN 1,250 MG in SODIUM CHLORIDE 0.9% 250 ML IVPB SCH ×2 (04:12→15:19)
[2020-05-06] MEDS: SODIUM CHLORIDE 0.9% 1,000 ML IV SCH ×4 (04:13→20:55)
[2020-05-06 07:52] LABS: Glucose,Whole Blood 182 mg/dL (75-99)
[2020-05-06] MEDS: INSULIN ASPART (NovoLOG) 100 UNIT/ML VIAL SQ SCH ×4 (08:12→20:55)
[2020-05-06 11:46] LABS: HCT 38.5 % (34.0-46.0); HGB 12.7 gm/dL (11.4-16.0); MCH 30.4 pg (25.0-35.0); MCV 91.9 fL (80.0-100.0); Mean Platelet Volume 7.6; Platelet Count 245 k/uL (150-450); RBC 4.19 m/uL (3.80-5.40); RDW 14.2 % (11.5-15.5)
[2020-05-06 12:08] LABS: African American GFR (CKD) >90 (>60 ml/min/1.73 sqM); Anion Gap 4 mmol/L; Blood Urea Nitrogen 10 mg/dL (7-17); Calcium 8.1 mg/dL (8.4-10.2); Carbon Dioxide 31 mmol/L (22-30); Chloride 103 mmol/L (98-107); Glucose 169 mg/dL (74-99); Magnesium 1.8 mg/dL (1.6-2.3); Non-African American GFR(CKD) >90 (>60 ml/min/1.73 sqM); Potassium 3.7 mmol/L (3.5-5.1); Sodium 138 mmol/L (137-145)
[2020-05-06 12:08] LABS: Glucose,Whole Blood 189 mg/dL (75-99)
[2020-05-06 12:48] LABS: Glucose,Whole Blood 181 mg/dL (75-99)
[2020-05-06] MEDS ORDERED: Magnesium Replacement Protocol 1 EACH MISC MISCELLANE PRN (14:08)
[2020-05-06] MEDS ORDERED: IPRATROPIUM-ALBUTEROL 3 ML NEB INHALATION PRN (14:10)
[2020-05-06] MEDS ORDERED: ARICEPT PO SCH (14:15)
--- NOTE | 2020-05-06 14:21 | P.HPIM ---
History of Present Illness H&P Date: 05/06/20 Chief Complaint: Increasing weakness, status post fall, nausea ,vomiting, di arrhea This is a 64-year-old female with history of diabetes, hypertension, CVAs, recurrent UTIs, gait dysfunction and multiple other medical issues presented to the ER with complaints of nausea vomiting diarrhea that had started the night prior, worsening weakness over the last 2 weeks, sustained a fall the night prior to admission. Reports she had been at [facility] last week. Coronavirus tested negative. Afebrile, WBC 12 on admission, currently 14. Chest x-ray reported central interstitial pattern, possible interstitial pneumonitis, mild venous congestion. Elevated d-dimer, CTA reported bilateral lower lobe pulmonary infiltrates and atelectasis, negative for PE. Brain CT reported no acute intracranial abnormality seen, similar moderate cerebral cortical atrophy, chronic small vessel ischemic disease, unchanged lacunar infarcts in the right basal ganglia and left thalamus as well as the sharmila. EKG normal sinus rhythm, incomplete right bundle branch block, septal infarct, age undetermined. Sodium 135, potassium 4.3 CO2 29, BUN 10, creatinine 0.57, magnesium 1.8, blood sugars ranging 170s to 180s. Patient is a vague historian, majority of information obtained from patient's daughter Olivia, RESPIRATORY THERAPY MANAGER at [facility], and chart. Review of Systems ROS Statement: Those systems with pertinent positive or pertinent negative responses have been documented in the HPI. ROS Other: All systems not noted in ROS Statement are negative. 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 hx thyroid cancer. MTHFR. History of Any Multi-Drug Resistant Organisms: None Reported Past Surgical History: Hysterectomy, Orthopedic Surgery Additional Past Surgical History / Comment(s): thyroidectomy, parotid gland surgery, left shoulder (rotator cuff sx) X 2 Past Anesthesia/Blood Transfusion Reactions: Postoperative Nausea & Vomiting (PONV) Past Psychological History: No Psychological Hx Reported Smoking Status: Never smoker Past Alcohol Use History: None Reported Past Drug Use History: None Reported - Past Family History Mother Family Medical History: No Reported History Additional Family Medical History / Comment(s): Mother was healthy Father Family Medical History: Cancer Additional Family Medical History / Comment(s): open heart surgery when he was 50, aortic aneurysm when he was around 63 Medications and Allergies Home Medications Medication Instructions Recorded Confirmed Type Atorvastatin [Lipitor] 5 mg PO HS 08/14/15 05/05/20 History Ca/D3/Mag/Zinc/Carl/Tye/Mgbor 1 tab PO DAILY 08/14/15 05/05/20 History [Caltrate 600-D3-Min Chew Tab] Clopidogrel [Plavix] 75 mg PO DAILY 08/14/15 05/05/20 History Enalapril [Vasotec] 10 mg PO DAILY 08/14/15 05/05/20 History Aspirin 81 mg PO DAILY 02/12/18 05/05/20 History Dextromethorphan HBr/Quinidine 1 cap PO DAILY 02/12/18 05/05/20 History [Nuedexta 20-10 mg Capsule] Levothyroxine Sodium [Synthroid] 150 mcg PO DAILY 11/29/18 05/05/20 History Insulin Aspart [NovoLOG Flexpen] 25 units SQ AC-TID 12/01/19 05/05/20 History Aricept (Unknown Dose) 1 tab PO DIRECTED 05/05/20 05/05/20 History Escitalopram [Lexapro] 5 mg PO DAILY 05/05/20 05/05/20 History Folic Acid 1 mg PO DAILY 05/05/20 05/05/20 History Insulin Glargine,Hum.rec.anlog 40 unit SQ DAILY 05/05/20 05/05/20 History [Lantus Solostar] Memantine [Namenda] 10 mg PO BID 05/05/20 05/05/20 History Pregabalin [Lyrica] 150 mg PO DIRECTED 05/05/20 05/05/20 History Allergies Allergy/AdvReac Type Severity Reaction Status Date / Time ibuprofen [From Motrin] AdvReac "BLOOD Verified 05/05/20 13:21 THINS TOO MUCH" naproxen [From Aleve] AdvReac "BLOOD Verified 05/05/20 13:21 THINS TOO MUCH" NSAIDS (Non-Steroidal AdvReac Unknown Verified 05/05/20 13:21 Anti-Inflamma Physical Exam Vitals: Vital Signs Temp Pulse Resp BP Pulse Ox 05/06/20 05:00 83 18 95 05/06/20 04:53 94 18 143/76 95 05/06/20 04:00 94 18 142/80 93 L 05/05/20 23:22 84 18 121/64 96 05/05/20 19:26 96 18 130/67 97 05/05/20 18:40 91 16 116/73 95 05/05/20 15:38 82 16 149/76 93 L 05/05/20 12:41 94 L 05/05/20 12:32 98.0 F 87 16 156/75 88 L PHYSICAL EXAM: VITAL SIGNS: As above GENERAL: Pleasant 64-year-old female sitting up on stretcher, no acute distress HEENT: Conjunctivae normal. eyes normal. Oral mucosa moist.(Denies dizziness when turning head from side to side). NECK: Supple, No JVD. No significant thyroid enlargement. No significant LNs CARDIOVASCULAR: S1, S2 regular. No murmur, rub or click. RESPIRATION: Breath sounds diminished in the bases. No rhonchi or crackles. No bronchial breathing. ABDOMEN: Soft, nontender . No guarding. no masses palpable. No ascites, No hepatosplenomegaly.Bowel sounds heard. LEGS: No edema. no swelling PSYCHIATRY: Alert and oriented X3, mood and affect normal. NERVOUS SYSTEM: Cranial N 2-12 grossly normal. Moves all 4 limbs. Diffuse weakness No focal deficits. Strength and sensation grossly intact.. Skin: Warm and dry, no rash Lymphatic system. No LN neck axilla. Results CBC & Chem 7: 05/06/20 11:12 05/06/20 11:12 Labs: Abnormal Lab Results - Last 24 Hours (Table) 05/05/20 05/05/20 05/05/20 Range/Units 13:07 13:07 15:12 WBC 12.0 H (3.8-10.6) k/uL Neutrophils # 10.2 H (1.3-7.7) k/uL D-Dimer (<0.60) mg/L FEU Sodium 135 L (137-145) mmol/L Chloride 96 L (98-107) mmol/L Glucose 278 H (74-99) mg/dL POC Glucose (mg/dL) (75-99) mg/dL Plasma Lactic Acid Hilario (0.7-2.0) mmol/L Total Bilirubin 1.8 H (0.2-1.3) mg/dL Urine Appearance Cloudy H (Clear) Urine Protein Trace H (Negative) Urine Glucose (UA) 1+ H (Negative) Urine Ketones 1+ H (Negative) Urine Blood Moderate H (Negative) Ur Leukocyte Esterase Large H (Negative) Urine RBC 7 H (0-5) /hpf Urine WBC 41 H (0-5) /hpf Urine WBC Clumps Many H (None) /hpf Urine Bacteria Moderate H (None) /hpf Urine Mucus Rare H (None) /hpf 05/05/20 05/05/20 05/05/20 Range/Units 15:58 15:58 20:24 WBC (3.8-10.6) k/uL Neutrophils # (1.3-7.7) k/uL D-Dimer 1.09 H (<0.60) mg/L FEU Sodium (137-145) mmol/L Chloride (98-107) mmol/L Glucose (74-99) mg/dL POC Glucose (mg/dL) 173 H (75-99) mg/dL Plasma Lactic Acid Hilario 5.1 H* (0.7-2.0) mmol/L Total Bilirubin (0.2-1.3) mg/dL Urine Appearance (Clear) Urine Protein (Negative) Urine Glucose (UA) (Negative) Urine Ketones (Negative) Urine Blood (Negative) Ur Leukocyte Esterase (Negative) Urine RBC (0-5) /hpf Urine WBC (0-5) /hpf Urine WBC Clumps (None) /hpf Urine Bacteria (None) /hpf Urine Mucus (None) /hpf 05/06/20 Range/Units 07:50 WBC (3.8-10.6) k/uL Neutrophils # (1.3-7.7) k/uL D-Dimer (<0.60) mg/L FEU Sodium (137-145) mmol/L Chloride (98-107) mmol/L Glucose (74-99) mg/dL POC Glucose (mg/dL) 182 H (75-99) mg/dL Plasma Lactic Acid Hilario (0.7-2.0) mmol/L Total Bilirubin (0.2-1.3) mg/dL Urine Appearance (Clear) Urine Protein (Negative) Urine Glucose (UA) (Negative) Urine Ketones (Negative) Urine Blood (Negative) Ur Leukocyte Esterase (Negative) Urine RBC (0-5) /hpf Urine WBC (0-5) /hpf Urine WBC Clumps (None) /hpf Urine Bacteria (None) /hpf Urine Mucus (None) /hpf Microbiology - Last 24 Hours (Table) 05/05/20 15:12 Urine Culture - Preliminary Urine,Voided Assessment and Plan Assessment: Sepsis secondary to bilateral lower lobe pneumonia, acute recurrent UTI, nausea ,vomiting. Coronavirus not detected. Possible BPV, nystatin is from turning head from side to side but complains of dizziness upon standing, changing positions. Status post fall Gait dysfunction Dehydration Diabetes mellitus type 2 Hypertension hyperlipidemia History of CVAs, involving MCA, brainstem History of thyroid cancer Plan: Continue current medication regime, monitoring and symptomatic treatment. Maintain IV fluid hydration, antibiotics, antiemetics. Urine culture pending. Pulmonary, PT/OT consulted. Orthostatic vital signs every shift. Close monitoring of Accu-Cheks. The impression and plan of care has been dictated as directed. : I performed a history and examination of this patient, discussed the same with the dictator. I agree with the dictator's note ,documented as a scribe. Any additional findings or plans will be noted.
[2020-05-06 16:40] LABS: Glucose,Whole Blood 129 mg/dL (75-99)
[2020-05-06] MEDS: IPRATROPIUM-ALBUTEROL 3 ML NEB INHALATION SCH ×2 (16:45→19:49)
--- NOTE | 2020-05-06 16:50 | P.CNPUL ---
History of Present Illness Consult date: 05/06/20 Requesting physician: Kirstin Loyola Chief complaint: Nausea, vomiting, diarrhea, worsening weakness, fall at home History of present illness: 64-year-old white female patient of Dr. Klaus Ramires with past medical history of diabetes mellitus type 2, hypertension, hyperlipidemia, hypothyroidism, and his history of thyroid cancer, history of CVA 4 of with one hemorrhagic in the sharmila area and one in the frontal lobe and patient has residual balance issues. Surgical history includes hysterectomy, left shoulder rotator cuff surgery 2, parotid gland surgery, thyroidectomy. Patient is a lifetime nonsmoker. Patient came into the emergency department on 2019 with complaints of feeling dizzy, then she started vomiting. She stated the vomiting is secondary to her being dizzy. Patient dates the dizziness is worse with the movement of her head. She feels very unsteady when she walks. She denied any urinary symptoms other than increased frequency, no diarrhea, no abdominal pain, no shortness of breath cough or congestion, chest x-ray showed the central interstitial pattern, hypoventilatory lungs, mild venous congestion. Brain CT showed similar moderate cerebral cortical atrophy and moderate burden of chronic small vessel ischemic disease, lacunar infarcts in the right basal ganglia and left thalamus as well as the sharmila are unchanged, no acute intracranial abnormality seen. Laboratory data showed mild leukocytosis with a white blood cell count of 12.0, hemoglobin was 14.8, INR was 1.0, d-dimer was 1.09, sodium was 135, potassium is 4.3, chloride is 96, the rest of electrolytes and renal profile were unremarkable, but sugar was 278, lactic acid is elevated at 5.1, troponin was negative at 0. 012, proBNP was normal at 94, urinalysis showed cloudy urine, with ketones, glucose, moderate blood, large amount of leuks, and increased levels of white blood cells, positive for urinary tract infection, coronavirus PCR was negative. CTA chest was obtained doing lower lobe bilateral pulmonary infi ltrates/atelectasis, no evidence of pulmonary embolism. She was fluid resuscitated, she was started on antibiotics in the form of Rocephin and vancomycin. She is feeling better today, she is currently on 2 L of oxygen and the pulse ox of 94%, breathing comfortably, no cough, no congestion, no whee zing, she is currently afebrile, blood culture has been sent, urine culture has been sent, pending at this time. Review of Systems All systems: negative Constitutional: Reports malaise, Reports poor appetite, Reports weakness, Denies chills, Denies fever Eyes: denies blurred vision, denies pain Ears, nose, mouth and throat: Denies headache, Denies sore throat Cardiovascular: Denies chest pain, Denies shortness of breath Respiratory: Reports dyspnea, Denies cough Gastrointestinal: Denies abdominal pain, Denies diarrhea, Denies nausea, Denies vomiting Genitourinary: Denies dysuria, Denies hematuria Musculoskeletal: Denies myalgias Integumentary: Denies pruritus, Denies rash Neurological: Denies numbness, Denies weakness Psychiatric: Denies anxiety, Denies depression Endocrine: Denies fatigue, Denies weight change Past Medical History Past Medical History: Cancer, CVA/TIA, Diabetes Mellitus, Hyperlipidemia, H ypertension, Skin Disorder, Thyroid Disorder Additional Past Medical History / Comment(s): hx CVA 4 with one hemorrhagic in the sharmila area and one frontal -problems with balance. hx thyroid cancer. MTHFR. History of Any Multi-Drug Resistant Organisms: None Reported Past Surgical History: Hysterectomy, Orthopedic Surgery Additional Past Surgical History / Comment(s): thyroidectomy, parotid gland s urgery, left shoulder (rotator cuff sx) X 2 Past Anesthesia/Blood Transfusion Reactions: Postoperative Nausea & Vomiting (PONV) Past Psychological History: No Psychological Hx Reported Smoking Status: Never smoker Past Alcohol Use History: None Reported Past Drug Use History: None Reported - Past Family History Mother Family Medical History: No Reported History Additional Family Medical History / Comment(s): Mother was healthy Father Family Medical History: Cancer Additional Family Medical History / Comment(s): open heart surgery when he was 50, aortic aneurysm when he was around 63 Medications and Allergies Home Medications Medication Instructions Recorded Confirmed Type Atorvastatin [Lipitor] 5 mg PO HS 08/14/15 05/05/20 History Ca/D3/Mag/Zinc/Carl/Tye/Mgbor 1 tab PO DAILY 08/14/15 05/05/20 History [Caltrate 600-D3-Min Chew Tab] Clopidogrel [Plavix] 75 mg PO DAILY 08/14/15 05/05/20 History Enalapril [Vasotec] 10 mg PO DAILY 08/14/15 05/05/20 History Aspirin 81 mg PO DAILY 02/12/18 05/05/20 History Dextromethorphan HBr/Quinidine 1 cap PO DAILY 02/12/18 05/05/20 History [Nuedexta 20-10 mg Capsule] Levothyroxine Sodium [Synthroid] 150 mcg PO DAILY 11/29/18 05/05/20 History Insulin Aspart [NovoLOG Flexpen] 25 units SQ AC-TID 12/01/19 05/05/20 History Aricept (Unknown Dose) 1 tab PO DIRECTED 05/05/20 05/05/20 History Escitalopram [Lexapro] 5 mg PO DAILY 05/05/20 05/05/20 History Folic Acid 1 mg PO DAILY 05/05/20 05/05/20 History Insulin Glargine,Hum.rec.anlog 40 unit SQ DAILY 05/05/20 05/05/20 History [Lantus Solostar] Memantine [Namenda] 10 mg PO BID 05/05/20 05/05/20 History Pregabalin [Lyrica] 150 mg PO DIRECTED 05/05/20 05/05/20 History Allergies Allergy/AdvReac Type Severity Reaction Status Date / Time ibuprofen [From Motrin] AdvReac "BLOOD Verified 05/05/20 13:21 THINS TOO MUCH" naproxen [From Aleve] AdvReac "BLOOD Verified 05/05/20 13:21 THINS TOO MUCH" NSAIDS (Non-Steroidal AdvReac Unknown Verified 05/05/20 13:21 Anti-Inflamma Physical Exam Vitals: Vital Signs Temp Pulse Pulse Resp BP BP Pulse Ox 05/06/20 15:24 89 141/76 94 L 05/06/20 14:00 90 18 05/06/20 12:00 90 18 142/72 93 L 05/06/20 08:00 98.6 F 82 18 143/76 05/06/20 05:00 83 18 95 05/06/20 04:53 94 18 143/76 95 05/06/20 04:00 94 18 142/80 93 L 05/05/20 23:22 84 18 121/64 96 05/05/20 19:26 96 18 130/67 97 05/05/20 18:40 91 16 116/73 95 Intake and Output 05/06/20 05/06/20 05/06/20 06:59 14:59 22:59 Other: Voiding Method Diaper # Voids 3 GENERAL EXAM: Alert, active, 64-year-old white female, on 2 L of oxygen and the pulse ox of 94%, comfortable in no apparent distress. HEAD: Normocephalic/atraumatic. EYES: Normal reaction of pupils, equal size. Conjunctiva pink, sclera white. NOSE: Clear with pink turbinates. THROAT: No erythema or exudates. NECK: No masses, no JVD, no thyroid enlargement, no adenopathy. CHEST: No chest wall deformity. Symmetrical expansion. LUNGS: Equal air entry with no crackles, wheeze, rhonchi or dullness. CVS: Regular rate and rhythm, normal S1 and S2, no gallops, no murmurs, no rubs ABDOMEN: Soft, nontender. No hepatosplenomegaly, normal bowel sounds, no guarding or rigidity. EXTREMITIES: No clubbing, no edema, no cyanosis, 2+ pulses and upper and lower extremities. MUSCULOSKELETAL: Muscle strength and tone normal. SPINE: No scoliosis or deformity SKIN: No rashes CENTRAL NERVOUS SYSTEM: Alert and oriented -3. No focal deficits, tone is normal in all 4 extremities. PSYCHIATRIC: Alert and oriented -3. Appropriate affect. Intact judgment and insight. Results - Laboratory Findings CBC and BMP: 05/06/20 11:12 05/06/20 11:12 PT/INR, D-dimer PT 10.1 sec (9.0-12.0) 05/05/20 13:07 INR 1.0 (<1.2) 05/05/20 13:07 D-Dimer 1.09 mg/L FEU (<0.60) H 05/05/20 15:58 Abnormal lab findings: Abnormal Labs 05/05/20 05/05/20 05/05/20 13:07 13:07 15:12 WBC 12.0 H Neutrophils # 10.2 H D-Dimer Sodium 135 L Chloride 96 L Carbon Dioxide Glucose 278 H POC Glucose (mg/dL) Plasma Lactic Acid Hilario Calcium Total Bilirubin 1.8 H Urine Appearance Cloudy H Urine Protein Trace H Urine Glucose (UA) 1+ H Urine Ketones 1+ H Urine Blood Moderate H Ur Leukocyte Esterase Large H Urine RBC 7 H Urine WBC 41 H Urine WBC Clumps Many H Urine Bacteria Moderate H Urine Mucus Rare H 05/05/20 05/05/20 05/05/20 15:58 15:58 20:24 WBC Neutrophils # D-Dimer 1.09 H Sodium Chloride Carbon Dioxide Glucose POC Glucose (mg/dL) 173 H Plasma Lactic Acid Hilario 5.1 H* Calcium Total Bilirubin Urine Appearance Urine Protein Urine Glucose (UA) Urine Ketones Urine Blood Ur Leukocyte Esterase Urine RBC Urine WBC Urine WBC Clumps Urine Bacteria Urine Mucus 05/06/20 05/06/20 05/06/20 07:50 11:12 11:12 WBC 14.0 H Neutrophils # D-Dimer Sodium Chloride Carbon Dioxide 31 H Glucose 169 H POC Glucose (mg/dL) 182 H Plasma Lactic Acid Hilario Calcium 8.1 L Total Bilirubin Urine Appearance Urine Protein Urine Glucose (UA) Urine Ketones Urine Blood Ur Leukocyte Esterase Urine RBC Urine WBC Urine WBC Clumps Urine Bacteria Urine Mucus 05/06/20 05/06/20 12:07 12:47 WBC Neutrophils # D-Dimer Sodium Chloride Carbon Dioxide Glucose POC Glucose (mg/dL) 189 H 181 H Plasma Lactic Acid Hilario Calcium Total Bilirubin Urine Appearance Urine Protein Urine Glucose (UA) Urine Ketones Urine Blood Ur Leukocyte Esterase Urine RBC Urine WBC Urine WBC Clumps Urine Bacteria Urine Mucus - Diagnostic Findings Chest x-ray: report reviewed, image reviewed CT scan - chest: report reviewed, image reviewed Additional studies: CT of the brain reviewed, EKG reviewed Assessment and Plan Plan: Assessment: #1. Acute hypoxic respiratory failure, likely related to urinary tract infection with sepsis, chest x-ray showed mild interstitial pattern, low lung volumes, no clear evidence of pneumonia, CTA chest negative for evidence of pulmonary embolism, showed atelectasis, no clear evidence of pneumonia. COVID 19 ruled out #2. Acute urinary tract infection, sepsis, and lactic acidosis improved with IV hydration #3. Severe dizziness, vomiting, improved with IV hydration. CT of the brain was completed showing chronic small vessel ischemic disease, lacunar infarcts in the right basal ganglia and left thalamus as well as the sharmila, stable in appearance, no intracranial abnormality was seen #4. Previous history of CVA 4, one with hemorrhagic stroke in the sharmila area, and one in the frontal lobe. Patient has chronic problems with balance #5. History of thyroid cancer status post thyroidectomy #6. Hypertension #7. Hyperlipidemia #8. Diabetes mellitus type 2 #9. Osteoarthritis, his history of rotator cuff surgery 2 #10. History of hysterectomy #11. Never smoker Plan: We'll simplify the antibiotics, patient can remain on Rocephin, will discontinue vancomycin, will await results of the blood and urine cultures, patient is feeling much better with the fluid resuscitation, lactic acid has improved, blood pressure is stable, dizziness has improved. Chest X-ray in the CT chest reviewed showing no clear evidence of pneumonia, and patient is not having any pulmonary symptoms, wean FiO2, and aspiration precautions, encourage deep breathing and coughing, we'll continue to follow I performed a history & physical examination of the patient and discussed their management with my nurse practitioner, Rosalinda Galan. I reviewed the nurse practitioner's note and agree with the documented findings and plan of care. Lung sounds are positive for bibasilar rales. The findings and the impression was discussed with the patient. I attest to the documentation by the nurse practitioner. Time with Patient: Greater than 30
[2020-05-06] MEDS: INSULIN DETEMIR (LEVEMIR) 100 UNIT/ML SYR SQ SCH (18:01)
[2020-05-06] MEDS: CLOPIDOGREL 75 MG TAB PO SCH (18:01)
[2020-05-06] MEDS: FOLIC ACID 1 MG TAB PO SCH (18:01)
[2020-05-06] MEDS: PANTOPRAZOLE 40 MG/10 ML VIAL IVP SCH (18:01)
[2020-05-06 20:06] LABS: Glucose,Whole Blood 326 mg/dL (75-99)
[2020-05-06] MEDS: ATORVASTATIN 10 MG TAB PO SCH (20:56)
[2020-05-06] MEDS: MEMANTINE 10 MG TAB PO SCH (20:56)
[2020-05-07] MEDS: METOCLOPRAMIDE 5 MG/ML 2 ML VIAL IVP SCH ×5 (01:28→23:14)
[2020-05-07 06:18] LABS: Glucose,Whole Blood 129 mg/dL (75-99)
[2020-05-07] MEDS: LEVOTHYROXINE 75 MCG TAB PO SCH (06:40)
[2020-05-07] MEDS: SODIUM CHLORIDE 0.9% 1,000 ML IV SCH ×2 (06:54→18:05)
[2020-05-07] MEDS: INSULIN DETEMIR (LEVEMIR) 100 UNIT/ML SYR SQ SCH (06:55)
[2020-05-07] MEDS: IPRATROPIUM-ALBUTEROL 3 ML NEB INHALATION SCH ×4 (08:31→20:37)
[2020-05-07] MEDS: INSULIN ASPART (NovoLOG) 100 UNIT/ML VIAL SQ SCH ×4 (08:49→21:26)
[2020-05-07] MEDS: FOLIC ACID 1 MG TAB PO SCH (08:50)
[2020-05-07] MEDS: MEMANTINE 10 MG TAB PO SCH ×2 (08:50→21:26)
[2020-05-07] MEDS: ASPIRIN 81 MG PO SCH (08:50)
[2020-05-07] MEDS: CALCIUM CARB-VIT D 500MG-200UN 1 EACH TAB PO SCH (08:50)
[2020-05-07] MEDS: PANTOPRAZOLE 40 MG/10 ML VIAL IVP SCH (08:50)
[2020-05-07] MEDS: CLOPIDOGREL 75 MG TAB PO SCH (08:50)
[2020-05-07] MEDS ORDERED: VANCOMYCIN TROUGH DUE 1 EACH MISC MISCELLANE ONE (11:00)
[2020-05-07 11:20] LABS: Basophils # (A) 0.1 k/uL (0-0.2); Basophils % (A) 1 %; Eosinophils # (A) 0.4 k/uL (0-0.7); Eosinophils % (A) 3 %; HCT 38.4 % (34.0-46.0); Lymphocytes # (A) 1.6 k/uL (1.0-4.8); Lymphocytes % (A) 15 %; MCH 31.1 pg (25.0-35.0); MCHC 33.8 g/dL (31.0-37.0); MCV 92.1 fL (80.0-100.0); Mean Platelet Volume 7.5; Monocytes # (A) 0.6 k/uL (0-1.0); Monocytes % (A) 6 %; Neutrophils # (A) 8.2 k/uL (1.3-7.7); Neutrophils % (A) 75 %; Platelet Count 221 k/uL (150-450); RBC 4.17 m/uL (3.80-5.40); RDW 13.7 % (11.5-15.5); WBC 11.1 k/uL (3.8-10.6)
[2020-05-07 11:28] LABS: Anion Gap 6 mmol/L; Blood Urea Nitrogen 7 mg/dL (7-17); Carbon Dioxide 31 mmol/L (22-30); Chloride 101 mmol/L (98-107); Glucose 214 mg/dL (74-99); Potassium 3.3 mmol/L (3.5-5.1); Sodium 138 mmol/L (137-145)
[2020-05-07 11:29] LABS: African American GFR (CKD) >90 (>60 ml/min/1.73 sqM); Magnesium 1.7 mg/dL (1.6-2.3); Non-African American GFR(CKD) >90 (>60 ml/min/1.73 sqM)
[2020-05-07] MEDS ORDERED: Potassium Replacement Protocol 1 EACH MISC MISCELLANE PRN (11:32)
[2020-05-07 12:02] LABS: Glucose,Whole Blood 171 mg/dL (75-99)
[2020-05-07] MEDS: POTASSIUM CHLORIDE ER 20 MEQ TAB.ER PO SCH ×2 (12:14→18:05)
[2020-05-07] MEDS: OXYBUTYNIN XL 5 MG TAB.ER.24 PO SCH (12:18)
--- NOTE | 2020-05-07 14:02 | P.PN ---
Subjective Progress Note Date: 05/07/20 Principal diagnosis: Nausea vomiting, diarrhea, weakness, dizziness 64-year-old white female patient of Dr. Klaus Ramires with past medical history of diabetes mellitus type 2, hypertension, hyperlipidemia, hypothyroidism, and his history of thyroid cancer, history of CVA 4 of with one hemorrhagic in the sharmila area and one in the frontal lobe and patient has residual balance issues. Surgical history includes hysterectomy, left shoulder rotator cuff surgery 2, parotid gland surgery, thyroidectomy. Patient is a lifetime nonsmoker. Patient came into the emergency department on 2019 with complaints of feeling dizzy, then she started vomiting. She stated the vomiting is secondary to her being dizzy. Patient dates the dizziness is worse with the movement of her head . She feels very unsteady when she walks. She denied any urinary symptoms other than increased frequency, no diarrhea, no abdominal pain, no shortness of breath cough or congestion, chest x-ray showed the central interstitial pattern, hypoventilatory lungs, mild venous congestion. Brain CT showed similar moderate cerebral cortical atrophy and moderate burden of chronic small vessel ischemic disease, lacunar infarcts in the right basal ganglia and left thalamus as well as the sharmila are unchanged, no acute intracranial abnormality seen. Laboratory data showed mild leukocytosis with a white blood cell count of 12.0, hemoglobin was 14.8, INR was 1.0, d-dimer was 1.09, sodium was 135, potassium is 4.3, chloride is 96, the rest of electrolytes and renal profile were unremarkable, but sugar was 278, lactic acid is elevated at 5.1, troponin was negative at 0.012, proBNP was normal at 94, urinalysis showed cloudy urine, with ketones, glucose, moderate blood, large amount of leuks, and increased levels of white blood cells, positive for urinary tract infection, coronavirus PCR was negative. CTA chest was obtained doing lower lobe bilateral pulmonary infiltrates/atelectasis, no evidence of pulmonary embolism. She was fluid resuscitated, she was started on antibiotics in the form of Rocephin and vancomycin. She is feeling better today, she is currently on 2 L of oxygen and the pulse ox of 94%, breathing comfortably, no cough, no congestion, no wheezing, she is currently afebrile, blood culture has been sent, urine culture has been sent, pending at this time. On 05/07/2020 patient seen in follow-up on selective care unit, her dizziness has significantly improved, weakness has improved, she has been stable overnight, on 2 L of oxygen pulse ox is 95%, denies worsening dyspnea, she's been afebrile. Her urine culture is growing a gram-negative bacilli, fungal culture is pending, blood cultures have been negative thus far, patient is covered with Rocephin for antibiotic coverage no acute events overnight, she is tolerating regular diet, remains on point normal seen in rate of 130 ml-per-hour Objective - Vital Signs Vital signs: Vital Signs Temp 99.0 F 05/07/20 08:00 Pulse 84 05/07/20 12:12 Resp 18 05/07/20 08:00 BP 100/66 05/07/20 08:00 Pulse Ox 95 05/07/20 08:00 Intake & Output 05/06/20 05/07/20 05/07/20 18:59 06:59 18:59 Intake Total 120 360 Output Total 550 1300 Balance 120 -550 -940 Weight 84.7 kg Intake: Oral 120 360 Output: Urine 550 1300 Other: Voiding Method Diaper Diaper Diaper # Voids 3 - Exam GENERAL EXAM: Alert, active, 64-year-old white female, on 2 L of oxygen and the pulse ox of 94%, comfortable in no apparent distress. HEAD: Normocephalic/atraumatic. EYES: Normal reaction of pupils, equal size. Conjunctiva pink, sclera white. NOSE: Clear with pink turbinates. THROAT: No erythema or exudates. NECK: No masses, no JVD, no thyroid enlargement, no adenopathy. CHEST: No chest wall deformity. Symmetrical expansion. LUNGS: Equal air entry with no crackles, wheeze, rhonchi or dullness. CVS: Regular rate and rhythm, normal S1 and S2, no gallops, no murmurs, no rubs ABDOMEN: Soft, nontender. No hepatosplenomegaly, normal bowel sounds, no guarding or rigidity. EXTREMITIES: No clubbing, no edema, no cyanosis, 2+ pulses and upper and lower extremities. MUSCULOSKELETAL: Muscle strength and tone normal. SPINE: No scoliosis or deformity SKIN: No rashes CENTRAL NERVOUS SYSTEM: Alert and oriented -3. No focal deficits, tone is normal in all 4 extremities. PSYCHIATRIC: Alert and oriented -3. Appropriate affect. Intact judgment and insight. - Labs CBC & Chem 7: 05/07/20 10:40 05/07/20 10:40 Labs: Abnormal Lab Results - Last 24 Hours (Table) 05/06/20 05/06/20 05/07/20 Range/Units 16:39 20:04 06:16 WBC (3.8-10.6) k/uL Neutrophils # (1.3-7.7) k/uL Potassium (3.5-5.1) mmol/L Carbon Dioxide (22-30) mmol/L Glucose (74-99) mg/dL POC Glucose (mg/dL) 129 H 326 H 129 H (75-99) mg/dL Calcium (8.4-10.2) mg/dL 05/07/20 05/07/20 05/07/20 Range/Units 10:40 10:40 11:58 WBC 11.1 H (3.8-10.6) k/uL Neutrophils # 8.2 H (1.3-7.7) k/uL Potassium 3.3 L (3.5-5.1) mmol/L Carbon Dioxide 31 H (22-30) mmol/L Glucose 214 H (74-99) mg/dL POC Glucose (mg/dL) 171 H (75-99) mg/dL Calcium 8.0 L (8.4-10.2) mg/dL Microbiology - Last 24 Hours (Table) 05/05/20 15:12 Urine Culture - Preliminary Urine,Voided Gram Neg Bacilli 05/05/20 15:58 Blood Culture - Preliminary Blood No Growth after 24 hours Assessment and Plan Plan: Assessment: #1. Acute hypoxic respiratory failure, likely related to urinary tract infection with sepsis, chest x-ray showed mild interstitial pattern, low lung volumes, no clear evidence of pneumonia, CTA chest negative for evidence of pulmonary embolism, showed atelectasis, no clear evidence of pneumonia. COVID 19 ruled out #2. Acute urinary tract infection, sepsis, and lactic acidosis improved with IV hydration, Gram stain showing gram-negative bacilli #3. Severe dizziness, vomiting, improved with IV hydration. CT of the brain was completed showing chronic small vessel ischemic disease, lacunar infarcts in the right basal ganglia and left thalamus as well as the sharmila, stable in appearance, no intracranial abnormality was seen #4. Previous history of CVA 4, one with hemorrhagic stroke in the sharmila area, and one in the frontal lobe. Patient has chronic problems with balance #5. History of thyroid cancer status post thyroidectomy #6. Hypertension #7. Hyperlipidemia #8. Diabetes mellitus type 2 #9. Osteoarthritis, his history of rotator cuff surgery 2 #10. History of hysterectomy #11. Never smoker Plan: Continue current antibiotics, await final cultures, patient is doing well, hemodynamically stable, no acute events overnight, dizziness and weakness are improving. Wean FiO2. Patient has agreed to discharge to subacute rehab at [facility]. From pulmonary perspective patient can be considered for discharge to rehab once cleared by medicine. She can the followed by Dr. Carroll at the [facility] I performed a history & physical examination of the patient and discussed their management with my nurse practitioner, Rosalinda Galan. I reviewed the nurse practitioner's note and agree with the documented findings and plan of care. Lung sounds are positive for bibasilar rales. The findings and the impression w as discussed with the patient. I attest to the documentation by the nurse practitioner. Time with Patient: Less than 30
[2020-05-07] MEDS ORDERED: DEXTROMETHORPHAN HBR PO SCH (15:02)
[2020-05-07] MEDS ORDERED: QUINIDINE PO SCH (15:02)
--- NOTE | 2020-05-07 15:56 | P.PN ---
Subjective Progress Note Date: 05/07/20 This is a 64-year-old female with history of diabetes, hypertension, CVAs, recurrent UTIs, gait dysfunction and multiple other medical issues presented to the ER with complaints of nausea vomiting diarrhea that had started the night prior, worsening weakness over the last 2 weeks, sustained a fall the night prior to admission. Reports she had been at [facility] last week. Coronavirus tested negative. Afebrile, WBC 12 on admission, currently 14. Chest x-ray reported central interstitial pattern, possible interstitial pneumonitis, mild venous congestion. Elevated d-dimer, CTA reported bilateral lower lobe pulmonary infiltrates and atelectasis, negative for PE. Brain CT reported no acute intracranial abnormality seen, similar moderate cerebral cortical atrophy, chronic small vessel ischemic disease, unchanged lacunar infarcts in the right basal ganglia and left thalamus as well as the sharmila. EKG normal sinus rhythm, incomplete right bundle branch block, septal infarct, age undetermined. Sodium 135, potassium 4.3 CO2 29, BUN 10, creatinine 0.57, magnesium 1.8, blood sugars ranging 170s to 180s. Patient is a vague historian, majority of information obtained from patient's daughter Olivia, [employer] at [facility], and chart. 05/07/2020 orthostatic vital signs pending. Continues on gentle IV fluid hydration, Rocephin. Urine culture reporting gram-negative bacilli. Feels better this morning. Potassium 3.3, magnesium 1.7. T-max 99 with WBC improving down to 11.1. Preliminary blood cultures negative. Daughter Olivia,reporting that patient has been incontinent, multiple falls, noncompliant with some of her medications including her Aricept, Lyrica. Patient denies multiple falls ,states her only fall was the night prior to coming in. Denies memory issues, states she doesn't need the Aricept ,only her friends have that problem. Evaluated by PT with subacute rehab recommended at discharge. Objective - Vital Signs Vital signs: Vital Signs Temp 99.0 F 05/07/20 08:00 Pulse 82 05/07/20 08:43 Resp 18 05/07/20 08:00 BP 100/66 05/07/20 08:00 Pulse Ox 95 05/07/20 08:00 Intake & Output 05/06/20 05/07/20 05/07/20 18:59 06:59 18:59 Intake Total 120 Output Total 550 1300 Balance 120 -550 -1300 Weight 84.7 kg Intake: Oral 120 Output: Urine 550 1300 Other: Voiding Method Diaper Diaper Diaper # Voids 3 - Exam PHYSICAL EXAM: VITAL SIGNS: As above GENERAL: Alert and oriented 3 , pleasant 64-year-old female sitting up in bed, no acute distress HEENT: Conjunctivae normal. eyes normal. Oral mucosa moist. NECK: Supple, No JVD. No significant thyroid enlargement. CARDIOVASCULAR: S1, S2 regular. No murmur, rub or click. RESPIRATION: Breath sounds diminished in the bases. No rhonchi or crackles. ABDOMEN: Soft, nontender . No guarding. Positive Bowel sounds. LEGS: No edema. no swelling NERVOUS SYSTEM: Cranial N 2-12 grossly normal. Moves all 4 limbs. Diffuse weakness, No focal deficits. Strength and sensation grossly intact.. Skin: Warm and dry, no rash - Labs CBC & Chem 7: 05/07/20 10:40 05/07/20 10:40 Labs: Abnormal Lab Results - Last 24 Hours (Table) 05/06/20 05/06/20 05/06/20 Range/Units 11:12 11:12 12:07 WBC 14.0 H (3.8-10.6) k/uL Carbon Dioxide 31 H (22-30) mmol/L Glucose 169 H (74-99) mg/dL POC Glucose (mg/dL) 189 H (75-99) mg/dL Calcium 8.1 L (8.4-10.2) mg/dL 05/06/20 05/06/20 05/06/20 Range/Units 12:47 16:39 20:04 WBC (3.8-10.6) k/uL Carbon Dioxide (22-30) mmol/L Glucose (74-99) mg/dL POC Glucose (mg/dL) 181 H 129 H 326 H (75-99) mg/dL Calcium (8.4-10.2) mg/dL 05/07/20 Range/Units 06:16 WBC (3.8-10.6) k/uL Carbon Dioxide (22-30) mmol/L Glucose (74-99) mg/dL POC Glucose (mg/dL) 129 H (75-99) mg/dL Calcium (8.4-10.2) mg/dL Microbiology - Last 24 Hours (Table) 05/05/20 15:12 Urine Culture - Preliminary Urine,Voided Gram Neg Bacilli 05/05/20 15:58 Blood Culture - Preliminary Blood No Growth after 24 hours Assessment and Plan Assessment: Sepsis secondary to early bilateral lower lobe pneumonia, acute recurrent UTI, nausea ,vomiting. Coronavirus not detected. Acute recurrent UTI with gram-negative bacilli Possible BPV, improving Status post fall Gait dysfunction Dehydration Diabetes mellitus type 2 Hypertension hyperlipidemia History of CVAs, involving MCA, brainstem History of thyroid cancer Plan: Continue current medication regime, monitoring and symptomatic treatment. IV fluids decreased. Continue on Rocephin. Final culture results pending. Orthostatic vital signs every shift. Wean oxygen. Discharge planning in progress for subacute rehab. The impression and plan of care has been dictated as directed. : I performed a history and examination of this patient, discussed the same with the dictator. I agree with the dictator's note ,documented as a scribe. Any additional findings or plans will be noted.
[2020-05-07 16:35] LABS: Glucose,Whole Blood 167 mg/dL (75-99)
[2020-05-07] MEDS: QUINIDINE PO SCH (18:05)
[2020-05-07] MEDS: DEXTROMETHORPHAN HBR PO SCH (18:05)
[2020-05-07 20:38] LABS: Glucose,Whole Blood 233 mg/dL (75-99)
[2020-05-07 21:05] LABS: Hemoglobin A1C 8.3 % (4.0-6.0)
[2020-05-07] MEDS: DONEPEZIL 5 MG TAB PO SCH (21:25)
[2020-05-07] MEDS: ATORVASTATIN 10 MG TAB PO SCH (21:26)
[2020-05-08 06:35] LABS: Glucose,Whole Blood 227 mg/dL (75-99)
[2020-05-08] MEDS: INSULIN ASPART (NovoLOG) 100 UNIT/ML VIAL SQ SCH ×4 (06:44→20:53)
[2020-05-08] MEDS: INSULIN DETEMIR (LEVEMIR) 100 UNIT/ML SYR SQ SCH (06:44)
[2020-05-08] MEDS: SODIUM CHLORIDE 0.9% 1,000 ML IV SCH ×2 (06:44→17:06)
[2020-05-08] MEDS: METOCLOPRAMIDE 5 MG/ML 2 ML VIAL IVP SCH ×4 (06:45→23:51)
[2020-05-08] MEDS: LEVOTHYROXINE 75 MCG TAB PO SCH (06:45)
[2020-05-08] MEDS: IPRATROPIUM-ALBUTEROL 3 ML NEB INHALATION SCH ×2 (08:39→12:00)
[2020-05-08] MEDS: ASPIRIN 81 MG PO SCH (09:42)
[2020-05-08] MEDS: CLOPIDOGREL 75 MG TAB PO SCH (09:42)
[2020-05-08] MEDS: FOLIC ACID 1 MG TAB PO SCH (09:42)
[2020-05-08] MEDS: OXYBUTYNIN XL 5 MG TAB.ER.24 PO SCH (09:42)
[2020-05-08] MEDS: MEMANTINE 10 MG TAB PO SCH ×2 (09:42→20:54)
[2020-05-08] MEDS: PANTOPRAZOLE 40 MG/10 ML VIAL IVP SCH (09:42)
[2020-05-08] MEDS: CALCIUM CARB-VIT D 500MG-200UN 1 EACH TAB PO SCH (09:42)
[2020-05-08] MEDS: QUINIDINE PO SCH (09:43)
[2020-05-08] MEDS: DEXTROMETHORPHAN HBR PO SCH (09:43)
[2020-05-08 11:59] LABS: Glucose,Whole Blood 314 mg/dL (75-99)
--- NOTE | 2020-05-08 14:05 | PN ---
PROGRESS NOTE DATE OF SERVICE: May 08, 2020 HISTORY: 64-year-old female that we were asked to see for possible pneumonia. In my opinion, the patient actually did not have pneumonia. She likely had a urinary tract infection. In addition, she was suffering from severe dizziness, likely related to underlying benign positional paroxysmal vertigo. Anyway, the patient is doing much better now. The plan is eventual discharge to a [facility] or a rehab facility such as [facility]. She has no complaints today. She is not wearing any supplemental oxygen. She does have a previous history of CVA x4. 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 PHYSICAL EXAMINATION: VITAL SIGNS: Current vital signs are reviewed. Temperature is 98.8. Heart rate 82, respiratory rate 13. Blood pressure 155/70. Mean is 98 and saturations are 93% on room air. GENERAL: Appears in no acute distress. HEENT: Examination is grossly unremarkable. NECK: Supple. Full range of motion. No adenopathy. Neck veins are flat. CARDIOVASCULAR: Examination reveals regular rhythm and rate. Heart rate 82 beats per minute. S1, S2 normal. LUNGS: Reveal clear breath sounds equal. No wheezes, rhonchi, or crackles. ABDOMEN: Obese. Bowel sounds are heard. EXTREMITIES are intact. No edema. SKIN: Without rash. NEUROLOGIC: Examination is nonfocal. LABS: Reviewed. Nothing more to report today. Microbiology showing Escherichia coli in the urine. No recent chest x-ray to report. CURRENT MEDICATIONS: Include albuterol and Atrovent updrafts, aspirin, Lipitor, Os-Jone, ceftriaxone, Plavix, Aricept, folic acid, NovoLog insulin, Levemir insulin, Synthroid, Namenda, Reglan, magnesium replacement therapy, potassium replacement therapy, Zofran, Ditropan, Protonix, and saline IV. ASSESSMENT: 1. E coli urinary tract infection with sepsis. 2. No evidence of pneumonia either symptomatically or via x-rays and CAT scans. 3. COVID-19 pneumonitis ruled out. 4. Severe dizziness, likely related to underlying benign positional paroxysmal vertigo. 5. Previous cerebrovascular accident x4, with only old changes on CT scan of the brain. 6. History of thyroid cancer, status post thyroidectomy. 7. Hypertension. 8. Hyperlipidemia. 9. Type 2 diabetes. 10.Osteoarthritis. 11.History of hysterectomy. 12.Lifelong nonsmoker. PLAN: The patient is doing well. Apparently they are hoping for discharge to [facility] on the [facility] on Sunday. Clinically, the patient feels well. Denies any shortness of breath. Updrafts will be discontinued. She is on antibiotics for her Escherichia coli urinary tract infection. No additional recommendations are made. Prognosis is guarded. MMODL / IJN: [id number] /
[2020-05-08 16:42] LABS: Glucose,Whole Blood 273 mg/dL (75-99)
[2020-05-08 19:54] LABS: Glucose,Whole Blood 243 mg/dL (75-99)
[2020-05-08] MEDS: DONEPEZIL 5 MG TAB PO SCH (20:54)
[2020-05-08] MEDS: ATORVASTATIN 10 MG TAB PO SCH (20:54)
--- NOTE | 2020-05-08 22:47 | P.PN ---
Subjective Progress Note Date: 05/08/20 Principal diagnosis: UTI Ms. Shepard is a 64-year-old female with history of hypertension, diabetes, CVA, recurrent UTIs, gait dysfunction admitted to the hospital with a chief complaint of nausea vomiting and diarrhea. Patient was also having generalized weakness for 2 weeks and sustained a fall the night prior to admission. Chest x-ray was positive for interstitial pneumonitis and mild vascular congestion. As the patient had elevated D-dimer CTA was done which was showing bilateral lower lobe pulmonary infiltrates, negative for PE. Today the patient was seen and examined on general medical floors. Patient has history of dementia. She is lying comfortably in bed appears to be in no acute distress. She mentions that her dizziness has improved significantly and that her energy levels are getting better. Patient denies having any chest pain or cough. No fever chills or rigors. On reviewing the vitals afebrile, heart rate 92, respiratory rate 18, b lood pressure 159/73, saturating at 92% on room air. Blood sugar slightly running higher. Active Medications Aspirin (Aspirin 81 Mg) 81 mg PO DAILY [facility] Last Admin: 05/08/20 09:42 Dose: 81 mg Documented by: Atorvastatin Calcium (Atorvastatin 10 Mg Tab) 5 mg PO [facility] Last Admin: 05/07/20 21:26 Dose: 5 mg Documented by: Calcium Carbonate (Calcium Carb-Vit D 500mg-200un 1 Each Tab) 1 each PO DAILY [facility] Last Admin: 05/08/20 09:42 Dose: 1 each Documented by: Clopidogrel Bisulfate (Clopidogrel 75 Mg Tab) 75 mg PO DAILY [facility] Last Admin: 05/08/20 09:42 Dose: 75 mg Documented by: Donepezil HCl (Donepezil 5 Mg Tab) 5 mg PO [facility] Last Admin: 05/07/20 21:25 Dose: 5 mg Documented by: Folic Acid (Folic Acid 1 Mg Tab) 1 mg PO DAILY [facility] Last Admin: 05/08/20 09:42 Dose: 1 mg Documented by: Sodium Chloride (Saline 0.9%) 1,000 mls @ 50 mls/hr IV .Q20H [facility] Last Admin: 05/08/20 06:44 Dose: 50 mls/hr Documented by: Ceftriaxone Sodium 1 gm/ (Sodium Chloride) 50 mls @ 100 mls/hr IVPB Q24HR [facility] Last Admin: 05/08/20 09:42 Dose: 100 mls/hr Documented by: Insulin Aspart (Insulin Aspart (Novolog) 100 Unit/Ml Vial) 0 unit SQ ACHS [facility]; Protocol Last Admin: 05/08/20 12:52 Dose: 5 unit Documented by: Insulin Detemir (Insulin Detemir (Levemir) 100 Unit/Ml Syr) 40 unit SQ DAILY@0700 [facility] Last Admin: 05/08/20 06:44 Dose: 40 unit Documented by: Levothyroxine Sodium (Levothyroxine 75 Mcg Tab) 150 mcg PO DAILY@0630 [facility] Last Admin: 05/08/20 06:45 Dose: 150 mcg Documented by: Memantine (Memantine 10 Mg Tab) 10 mg PO BID [facility] Last Admin: 05/08/20 09:42 Dose: 10 mg Documented by: Metoclopramide HCl (Metoclopramide 5 Mg/Ml 2 Ml Vial) 10 mg IVP Q6HR [facility] Last Admin: 05/08/20 12:52 Dose: 10 mg Documented by: Miscellaneous Information (Magnesium Replacement Protocol 1 Each Misc) 1 each MISCELLANE DAILY PRN; Protocol PRN Reason: Per Protocol Miscellaneous Information (Potassium Replacement Protocol 1 Each Misc) 1 each MISCELLANE DAILY PRN; Protocol PRN Reason: Per Protocol Patient's Own ( Dextromethorphan Hbr /Quinidine [Nuedexta 20-10 Mg Capsule] 1 Each Caps 1 cap PO DAILY [facility] Last Admin: 05/08/20 09:43 Dose: 1 cap Documented by: Ondansetron HCl (Ondansetron 4 Mg/2 Ml Vial) 4 mg IVP Q6HR PRN PRN Reason: Nausea And Vomiting Last Admin: 05/06/20 05:44 Dose: 4 mg Documented by: Oxybutynin Chloride (Oxybutynin Xl 5 Mg Tab.Er.24) 5 mg PO DAILY [facility] Last Admin: 05/08/20 09:42 Dose: 5 mg Documented by: Pantoprazole Sodium (Pantoprazole 40 Mg/10 Ml Vial) 40 mg IVP DAILY [facility] Last Admin: 05/08/20 09:42 Dose: 40 mg Documented by: Objective - Vital Signs Vital signs: Vital Signs Temp 98.8 F 05/08/20 08:00 Pulse 82 05/08/20 12:13 Resp 13 05/08/20 12:00 BP 155/70 05/08/20 12:00 Pulse Ox 93 L 05/08/20 12:00 Intake & Output 05/07/20 05/08/20 05/08/20 18:59 06:59 18:59 Intake Total 600 120 Output Total 1301 1500 500 Balance -701 -1500 -380 Weight 99.7 kg Intake: Oral 600 120 Output: Urine 1301 1500 500 Other: Voiding Method Diaper Diaper Diaper - Exam PHYSICAL EXAM: GENERAL: Alert and oriented 2- 3 , sitting up in bed, no acute distress HEENT: Conjunctivae normal. eyes normal. Oral mucosa moist. NECK: Supple, No JVD. No significant thyroid enlargement. CARDIOVASCULAR: S1, S2 regular. No murmur, rub or click. RESPIRATION: Breath sounds diminished in the bases. No rhonchi or crackles. ABDOMEN: Soft, nontender . No guarding. Positive Bowel sounds. LEGS: No edema. no swelling NERVOUS SYSTEM: Moves all 4 limbs. Diffuse weakness, No focal deficits. Skin: Warm and dry, no rash - Labs CBC & Chem 7: 05/07/20 10:40 05/07/20 10:40 Labs: Abnormal Lab Results - Last 24 Hours (Table) 05/07/20 05/07/20 05/07/20 Range/Units 10:40 16:32 20:36 POC Glucose (mg/dL) 167 H 233 H (75-99) mg/dL Hemoglobin A1c 8.3 H (4.0-6.0) % 05/08/20 05/08/20 Range/Units 06:33 11:58 POC Glucose (mg/dL) 227 H 314 H (75-99) mg/dL Hemoglobin A1c (4.0-6.0) % Microbiology - Last 24 Hours (Table) 05/05/20 15:12 Urine Culture - Final Urine,Voided Escherichia coli 05/05/20 15:58 Blood Culture - Preliminary Blood No Growth after 48 hours Assessment and Plan Assessment: ASSESSMENT Acute hypoxic respiratory failure secondary to sepsis secondary to UTI E. coli UTI Generalized weakness and dizziness possibly due to dehydration resolving History of thyroid cancer status post thyroidectomy History of multiple CVAs Hypertension Hyperlipidemia Type II that is mellitus History of hysterectomy PLAN: As the patient's urine culture is positive for E. coli, continue with ceftriaxone. Overall patient's status is improving. Continue with the current medication regimen. disc pad knockout worker currently working for possible rehab placement on Sunday.
[2020-05-09 06:22] LABS: Glucose,Whole Blood 224 mg/dL (75-99)
[2020-05-09] MEDS: INSULIN DETEMIR (LEVEMIR) 100 UNIT/ML SYR SQ SCH (06:43)
[2020-05-09] MEDS: LEVOTHYROXINE 75 MCG TAB PO SCH (06:43)
[2020-05-09] MEDS: METOCLOPRAMIDE 5 MG/ML 2 ML VIAL IVP SCH ×4 (06:44→23:09)
[2020-05-09] MEDS: INSULIN ASPART (NovoLOG) 100 UNIT/ML VIAL SQ SCH ×4 (06:44→21:20)
[2020-05-09 09:08] LABS: Basophils % (A) 0 %; Eosinophils # (A) 0.4 k/uL (0-0.7); Eosinophils % (A) 4 %; HCT 38.4 % (34.0-46.0); HGB 12.4 gm/dL (11.4-16.0); Lymphocytes # (A) 2.2 k/uL (1.0-4.8); Lymphocytes % (A) 24 %; MCH 29.7 pg (25.0-35.0); MCHC 32.2 g/dL (31.0-37.0); MCV 92.4 fL (80.0-100.0); Mean Platelet Volume 7.8; Monocytes # (A) 0.6 k/uL (0-1.0); Monocytes % (A) 7 %; Neutrophils # (A) 5.9 k/uL (1.3-7.7); Neutrophils % (A) 63 %; Platelet Count 230 k/uL (150-450); RBC 4.16 m/uL (3.80-5.40); RDW 13.9 % (11.5-15.5); WBC 9.3 k/uL (3.8-10.6)
[2020-05-09] MEDS: PANTOPRAZOLE 40 MG/10 ML VIAL IVP SCH (09:14)
[2020-05-09] MEDS: MEMANTINE 10 MG TAB PO SCH ×2 (09:14→19:42)
[2020-05-09] MEDS: OXYBUTYNIN XL 5 MG TAB.ER.24 PO SCH (09:14)
[2020-05-09] MEDS: FOLIC ACID 1 MG TAB PO SCH (09:14)
[2020-05-09] MEDS: CLOPIDOGREL 75 MG TAB PO SCH (09:14)
[2020-05-09] MEDS: ASPIRIN 81 MG PO SCH (09:14)
[2020-05-09] MEDS: CALCIUM CARB-VIT D 500MG-200UN 1 EACH TAB PO SCH (09:14)
[2020-05-09] MEDS: QUINIDINE PO SCH (09:15)
[2020-05-09] MEDS: DEXTROMETHORPHAN HBR PO SCH (09:15)
[2020-05-09 09:29] LABS: African American GFR (CKD) >90 (>60 ml/min/1.73 sqM); Anion Gap 6 mmol/L; Blood Urea Nitrogen 8 mg/dL (7-17); Carbon Dioxide 33 mmol/L (22-30); Chloride 99 mmol/L (98-107); Glucose 217 mg/dL (74-99); Non-African American GFR(CKD) >90 (>60 ml/min/1.73 sqM); Potassium 3.4 mmol/L (3.5-5.1); Sodium 138 mmol/L (137-145)
[2020-05-09 12:28] LABS: Glucose,Whole Blood 300 mg/dL (75-99)
--- NOTE | 2020-05-09 16:24 | PN ---
PROGRESS NOTE PULMONARY/CRITICAL CARE PROGRESS NOTE: DATE OF SERVICE: May 09, 2020 This is a 64-year-old female that we were asked to see for possible pneumonia. We did not think the patient had pneumonia. She had no clinical symptoms of pneumonia and her x-rays and CAT scans were not consistent with that diagnosis. She was mostly suffering from urinary tract infection. In addition, she was having severe dizziness, lightheadedness, and vertigo, likely consistent with benign positional paroxysmal vertigo. Currently doing much better. She may be discharged to [facility] on the [facility] tomorrow. Today, she has no new complaints. PHYSICAL EXAMINATION: VITAL SIGNS: Current vital signs are stable. Temperature 97.8, heart rate 77, respiratory rate 17, blood pressure 144/72 and room air saturation 96%. Appears in no acute distress. HEENT: Examination is grossly unremarkable. NECK: Supple, full range of motion. No adenopathy. Neck veins are flat. CARDIOVASCULAR: Examination reveals regular rhythm and rate. Heart rate 77 beats per minute. S1, S2 normal. No S3, S4, or murmur. LUNGS: Reveal mostly clear breath sounds. No wheezes, rhonchi, or crackles. ABDOMEN: Soft, bowel sounds are heard. Abdomen is obese. EXTREMITIES are intact. No edema. SKIN: Without rash. NEUROLOGIC: Examination is nonfocal. LABS: Reviewed. White count 9.3, hemoglobin 12.4, hematocrit 38.4, platelet count 230,000. Sodium 138, potassium 3.4, chloride 99, CO2 33, anion gap is 6. BUN and creatinine were 8 and 0.48. Microbiology showing Escherichia coli in the urine. No recent chest x-ray to review. MEDICATIONS: Reviewed. The patient is on aspirin, Lipitor, Os-Jone, Rocephin, Plavix, Nuedexta capsules, Aricept, folic acid, insulin, levothyroxine, magnesium per protocol, Namenda, Reglan, Zofran, Ditropan, Protonix, potassium and saline at 50 mL an hour. ASSESSMENT: 1. Escherichia coli urinary tract infection with sepsis. 2. No evidence of pneumonia either symptomatically or via x-ray/CT scan. 3. COVID-19 pneumonitis ruled out. 4. Severe dizziness, likely related to underlying benign positional paroxysmal vertigo (BPPV). 5. Previous cerebrovascular accident x4, with only old changes on CT scan of the brain. 6. History of thyroid cancer, status post thyroidectomy. 7. Essential hypertension. 8. Hyperlipidemia. 9. Type 2 diabetes. 10.Osteoarthritis. 11.History of hysterectomy. 12.Lifelong nonsmoker. 13.General medical debility and poor mobility. PLAN: The patient may be discharged to [facility] on the [facility]. I think her daughter will feel better about that. Additional recommendations and suggestions are forthcoming. We will continue to follow. She is on good antibiotics for her E coli urinary tract infection. No additional recommendations are made. Prognosis is guarded. MMODL / IJN: [id number] /
[2020-05-09 16:25] VITALS: RESP 18
[2020-05-09] MEDS: SODIUM CHLORIDE 0.9% 1,000 ML IV SCH (16:45)
[2020-05-09 17:01] LABS: Glucose,Whole Blood 231 mg/dL (75-99)
[2020-05-09] MEDS: ATORVASTATIN 10 MG TAB PO SCH (19:44)
[2020-05-09] MEDS: DONEPEZIL 5 MG TAB PO SCH (19:45)
[2020-05-09 20:01] LABS: Glucose,Whole Blood 303 mg/dL (75-99)
--- NOTE | 2020-05-09 23:52 | P.PN ---
Subjective Progress Note Date: 05/09/20 Principal diagnosis: UTI Ms. Shepard is a 64-year-old female with history of hypertension, diabetes, CVA, recurrent UTIs, gait dysfunction admitted to the hospital with a chief complaint of nausea vomiting and diarrhea. Patient was also having generalized weakness for 2 weeks and sustained a fall the night prior to admission. Chest x-ray was positive for interstitial pneumonitis and mild vascular congestion. As the patient had elevated D-dimer CTA was done which was showing bilateral lower lobe pulmonary infiltrates, negative for PE. Today the patient was seen and examined on general medical floors. Patient has history of dementia. She is lying comfortably in bed appears to be in no acute distress. She mentions that her dizziness has improved significantly and that her energy levels are getting better. Patient denies having any chest pain or cough. No fever chills or rigors. On reviewing the vitals afebrile, heart rate 92, respiratory rate 18, b lood pressure 159/73, saturating at 92% on room air. Blood sugar slightly running higher. On 05/09/2020 -patient was seen and examined. Patient does not have any active complaints. She denies any fevers chills or rigors no abdominal pain nausea vomiting or diarrhea. On reviewing the vitals temperature of 98.8, heart rate of 79, respiratory rate 18, blood pressure 146/72 saturating at 93% on room air. Patient's labs from this morning showing white count of 9.6 hemoglobin 12.4 platelets 230. Sodium 138, potassium 3.4, chloride 99, bicarb 33, BUN 8, creatinine 0.48. Active Medications Aspirin (Aspirin 81 Mg) 81 mg PO DAILY [facility] Last Admin: 05/09/20 09:14 Dose: 81 mg Documented by: Atorvastatin Calcium (Atorvastatin 10 Mg Tab) 5 mg PO [facility] Last Admin: 05/09/20 19:44 Dose: 5 mg Documented by: Calcium Carbonate (Calcium Carb-Vit D 500mg-200un 1 Each Tab) 1 each PO DAILY [facility] Last Admin: 05/09/20 09:14 Dose: 1 each Documented by: Clopidogrel Bisulfate (Clopidogrel 75 Mg Tab) 75 mg PO DAILY [facility] Last Admin: 05/09/20 09:14 Dose: 75 mg Documented by: Donepezil HCl (Donepezil 5 Mg Tab) 5 mg PO [facility] Last Admin: 05/09/20 19:45 Dose: 5 mg Documented by: Folic Acid (Folic Acid 1 Mg Tab) 1 mg PO DAILY [facility] Last Admin: 05/09/20 09:14 Dose: 1 mg Documented by: Sodium Chloride (Saline 0.9%) 1,000 mls @ 50 mls/hr IV .Q20H [facility] Last Admin: 05/09/20 16:45 Dose: Not Given Documented by: Ceftriaxone Sodium 1 gm/ (Sodium Chloride) 50 mls @ 100 mls/hr IVPB Q24HR [facility] Last Admin: 05/09/20 09:14 Dose: 100 mls/hr Documented by: Insulin Aspart (Insulin Aspart (Novolog) 100 Unit/Ml Vial) 0 unit SQ ACHS [facility]; Protocol Last Admin: 05/09/20 21:20 Dose: 5 unit Documented by: Insulin Detemir (Insulin Detemir (Levemir) 100 Unit/Ml Syr) 40 unit SQ DAILY@0700 [facility] Last Admin: 05/09/20 06:43 Dose: 40 unit Documented by: Levothyroxine Sodium (Levothyroxine 75 Mcg Tab) 150 mcg PO DAILY@0630 [facility] Last Admin: 05/09/20 06:43 Dose: 150 mcg Documented by: Memantine (Memantine 10 Mg Tab) 10 mg PO BID [facility] Last Admin: 05/09/20 19:42 Dose: 10 mg Documented by: Metoclopramide HCl (Metoclopramide 5 Mg/Ml 2 Ml Vial) 10 mg IVP Q6HR [facility] Last Admin: 05/09/20 23:09 Dose: 10 mg Documented by: Miscellaneous Information (Magnesium Replacement Protocol 1 Each Misc) 1 each MISCELLANE DAILY PRN; Protocol PRN Reason: Per Protocol Miscellaneous Information (Potassium Replacement Protocol 1 Each Misc) 1 each MISCELLANE DAILY PRN; Protocol PRN Reason: Per Protocol Patient's Own ( Dextromethorphan Hbr /Quinidine [Nuedexta 20-10 Mg Capsule] 1 Each Caps 1 cap PO DAILY [facility] Last Admin: 05/09/20 09:15 Dose: 1 cap Documented by: Ondansetron HCl (Ondansetron 4 Mg/2 Ml Vial) 4 mg IVP Q6HR PRN PRN Reason: Nausea And Vomiting Last Admin: 05/06/20 05:44 Dose: 4 mg Documented by: Oxybutynin Chloride (Oxybutynin Xl 5 Mg Tab.Er.24) 5 mg PO DAILY [facility] Last Admin: 05/09/20 09:14 Dose: 5 mg Documented by: Pantoprazole Sodium (Pantoprazole 40 Mg/10 Ml Vial) 40 mg IVP DAILY [facility] Last Admin: 05/09/20 09:14 Dose: 40 mg Documented by: Objective - Vital Signs Vital signs: Vital Signs Temp 97.8 F 05/09/20 03:25 Pulse 77 05/09/20 12:00 Resp 17 05/09/20 12:00 BP 144/72 05/09/20 12:00 Pulse Ox 95 05/09/20 08:00 Intake & Output 05/08/20 05/09/20 05/09/20 18:59 06:59 18:59 Intake Total 594 180 Output Total 975 1750 Balance -381 -1570 Weight 98.3 kg Intake: Oral 594 180 Output: Urine 975 1750 Other: Voiding Method Diaper Diaper Diaper # Bowel Movements 0 - Exam PHYSICAL EXAM: GENERAL: Alert and oriented 2- 3 , sitting up in bed, no acute distress HEENT: Conjunctivae normal. eyes normal. Oral mucosa moist. NECK: Supple, No JVD. No significant thyroid enlargement. CARDIOVASCULAR: S1, S2 regular. No murmur, rub or click. RESPIRATION: Breath sounds diminished in the bases. No rhonchi or crackles. ABDOMEN: Soft, nontender . No guarding. Positive Bowel sounds. LEGS: No edema. no swelling NERVOUS SYSTEM: Moves all 4 limbs. Diffuse weakness, No focal deficits. Skin: Warm and dry, no rash - Labs CBC & Chem 7: 05/09/20 08:20 05/09/20 08:20 Labs: Abnormal Lab Results - Last 24 Hours (Table) 05/08/20 05/08/20 05/09/20 Range/Units 16:40 19:53 06:20 Potassium (3.5-5.1) mmol/L Carbon Dioxide (22-30) mmol/L Creatinine (0.52-1.04) mg/dL Glucose (74-99) mg/dL POC Glucose (mg/dL) 273 H 243 H 224 H (75-99) mg/dL Calcium (8.4-10.2) mg/dL 05/09/20 05/09/20 Range/Units 08:20 12:27 Potassium 3.4 L (3.5-5.1) mmol/L Carbon Dioxide 33 H (22-30) mmol/L Creatinine 0.48 L (0.52-1.04) mg/dL Glucose 217 H (74-99) mg/dL POC Glucose (mg/dL) 300 H (75-99) mg/dL Calcium 8.0 L (8.4-10.2) mg/dL Microbiology - Last 24 Hours (Table) 05/05/20 15:58 Blood Culture - Preliminary Blood No Growth after 72 hours Assessment and Plan Assessment: ASSESSMENT Acute hypoxic respiratory failure secondary to sepsis secondary to UTI E. coli UTI Generalized weakness and dizziness possibly due to dehydration resolving History of thyroid cancer status post thyroidectomy History of multiple CVAs Hypertension Hyperlipidemia Type II that is mellitus History of hysterectomy PLAN: As the patient's urine culture is positive for E. coli, continue with ceftriaxone. Blood culture - no growth. Overall patient's status is improving. Continue with the current medication regimen. social worker palliative care currently working for possible rehab placement tomorrow. .
[2020-05-10] MEDS: LEVOTHYROXINE 75 MCG TAB PO SCH (05:55)
[2020-05-10] MEDS: METOCLOPRAMIDE 5 MG/ML 2 ML VIAL IVP SCH ×2 (05:55→12:25)
[2020-05-10 06:56] LABS: Glucose,Whole Blood 263 mg/dL (75-99)
[2020-05-10] MEDS: ASPIRIN 81 MG PO SCH (08:30)
[2020-05-10] MEDS: OXYBUTYNIN XL 5 MG TAB.ER.24 PO SCH (08:30)
[2020-05-10] MEDS: PANTOPRAZOLE 40 MG/10 ML VIAL IVP SCH (08:31)
[2020-05-10] MEDS: CLOPIDOGREL 75 MG TAB PO SCH (08:31)
[2020-05-10] MEDS: CALCIUM CARB-VIT D 500MG-200UN 1 EACH TAB PO SCH (08:31)
[2020-05-10] MEDS: MEMANTINE 10 MG TAB PO SCH (08:31)
[2020-05-10] MEDS: INSULIN ASPART (NovoLOG) 100 UNIT/ML VIAL SQ SCH ×2 (08:31→12:25)
[2020-05-10] MEDS: INSULIN DETEMIR (LEVEMIR) 100 UNIT/ML SYR SQ SCH (08:31)
[2020-05-10] MEDS: FOLIC ACID 1 MG TAB PO SCH (08:31)
--- NOTE | 2020-05-10 08:46 | P.PN ---
Subjective Progress Note Date: 05/10/20 64-year-old white female patient of Dr. Klaus Ramires with past medical history of diabetes mellitus type 2, hypertension, hyperlipidemia, hypothyroidism, and his history of thyroid cancer, history of CVA 4 of with one hemorrhagic in the sharmila area and one in the frontal lobe and patient has residual balance issues. Surgical history includes hysterectomy, left shoulder rotator cuff surgery 2, parotid gland surgery, thyroidectomy. Patient is a lifetime nonsmoker. Patient came into the emergency department on 2019 with complaints of feeling dizzy, then she started vomiting. She stated the vomiting is secondary to her being dizzy. Patient dates the dizziness is worse with the movement of her head. She feels very unsteady when she walks. She denied any urinary symptoms other than increased frequency, no diarrhea, no abdominal pain, no shortness of breath cough or congestion, chest x-ray showed the central interstitial pattern, hypoventilatory lungs, mild venous congestion. Brain CT showed similar moderate cerebral cortical atrophy and moderate burden of chronic small vessel ischemic disease, lacunar infarcts in the right basal ganglia and left thalamus as well as the sharmila are unchanged, no acute intracranial abnormality seen. Laboratory data showed mild leukocytosis with a white blood cell count of 12.0, hemoglobin was 14.8, INR was 1.0, d-dimer was 1.09, sodium was 135, potassium is 4.3, chloride is 96, the rest of electrolytes and renal profile were unremarkable, but sugar was 278, lactic acid is elevated at 5.1, troponin was negative at 0.012, proBNP was normal at 94, urinalysis showed cloudy urine, with ketones, glucose, moderate blood, large amount of leuks, and increased levels of white blood cells, positive for urinary tract infection, coronavirus PCR was negative. CTA chest was obtained doing lower lobe bilateral pulmonary infiltrates/atelectasis, no evidence of pulmonary embolism. She was fluid resuscitated, she was started on antibiotics in the form of Rocephin and vancomycin. On 05/10/2020, the patient is being seen for a follow-up. The patient has no clinical symptoms of pneumonia and the patient was diagnosed having a UTI secondary to E. coli. The patient was also complaining of some severe dizziness and lightheadedness and vertigo consistent with BPV. The patient is a group home resident. The patient is covered with IV Rocephin. The patient is to be normal secondary to 50 mL an hour. No significant leukocytosis and the patient' s pulse ox 94% on room air oxygen. Objective - Vital Signs Vital signs: Vital Signs Temp 98.7 F 05/10/20 04:00 Pulse 89 05/10/20 04:00 Resp 18 05/10/20 04:00 BP 157/93 05/10/20 04:00 Pulse Ox 95 05/10/20 04:00 Intake & Output 05/09/20 05/10/20 05/10/20 18:59 06:59 18:59 Intake Total 660 550 Output Total 1950 500 Balance -1290 50 Weight 99.8 kg Intake: Intake, IV Titration 450 Amount Sodium Chloride 0.9% 1, 450 000 ml @ 50 mls/hr IV . Q20H [facility] Rx#:[id number] Oral 660 100 Output: Urine 1950 500 Other: Voiding Method Diaper Diaper # Voids 1 # Bowel Movements 0 - Exam GENERAL EXAM: Alert, active, 64-year-old white female, on 2 L of oxygen and the pulse ox of 94%, comfortable in no apparent distress. HEAD: Normocephalic/atraumatic. EYES: Normal reaction of pupils, equal size. Conjunctiva pink, sclera white. NOSE: Clear with pink turbinates. THROAT: No erythema or exudates. NECK: No masses, no JVD, no thyroid enlargement, no adenopathy. CHEST: No chest wall deformity. Symmetrical expansion. LUNGS: Equal air entry with no crackles, wheeze, rhonchi or dullness. CVS: Regular rate and rhythm, normal S1 and S2, no gallops, no murmurs, no rubs ABDOMEN: Soft, nontender. No hepatosplenomegaly, normal bowel sounds, no guarding or rigidity. EXTREMITIES: No clubbing, no edema, no cyanosis, 2+ pulses and upper and lower extremities. MUSCULOSKELETAL: Muscle strength and tone normal. SPINE: No scoliosis or deformity SKIN: No rashes CENTRAL NERVOUS SYSTEM: Alert and oriented -3. No focal deficits, tone is normal in all 4 extremities. PSYCHIATRIC: Alert and oriented -3. Appropriate affect. Intact judgment and insight. - Labs CBC & Chem 7: 05/09/20 08:20 05/09/20 08:20 Labs: Abnormal Lab Results - Last 24 Hours (Table) 05/09/20 05/09/20 05/09/20 Range/Units 08:20 12:27 17:00 Potassium 3.4 L (3.5-5.1) mmol/L Carbon Dioxide 33 H (22-30) mmol/L Creatinine 0.48 L (0.52-1.04) mg/dL Glucose 217 H (74-99) mg/dL POC Glucose (mg/dL) 300 H 231 H (75-99) mg/dL Calcium 8.0 L (8.4-10.2) mg/dL 05/09/20 05/10/20 Range/Units 19:59 06:55 Potassium (3.5-5.1) mmol/L Carbon Dioxide (22-30) mmol/L Creatinine (0.52-1.04) mg/dL Glucose (74-99) mg/dL POC Glucose (mg/dL) 303 H 263 H (75-99) mg/dL Calcium (8.4-10.2) mg/dL Microbiology - Last 24 Hours (Table) 05/05/20 15:58 Blood Culture - Preliminary Blood No Growth after 96 hours Assessment and Plan Plan: #1. Acute hypoxic respiratory failure, likely related to urinary tract infection secondary to E. coli with sepsis, chest x-ray showed mild interstitial pattern, low lung volumes, no clear evidence of pneumonia, CTA chest negative for evidence of pulmonary embolism, showed atelectasis, no clear evidence of pneumonia. COVID 19 ruled out. The patient is currently on 94% pulse ox on room air oxygen. The patient was diagnosed having E. coli UTI and the patient is currently on IV Rocephin.the patient remains on room air oxygen for now. No signs of any respiratory distress. She'll be provided incentive spirometer. #2. Acute urinary tract infection, sepsis, and lactic acidosis improved with IV hydration, Gram stain showing gram-negative bacilli and final cultures are consistent with E. coli. Blood cultures negative. Urine cultures positive for E. coli. #3. Severe dizziness, vomiting, improved with IV hydration. CT of the brain was completed showing chronic small vessel ischemic disease, lacunar infarcts in the right basal ganglia and left thalamus as well as the sharmila, stable in appearance, no intracranial abnormality was seen #4. Previous history of CVA 4, one with hemorrhagic stroke in the sharmila area, and one in the frontal lobe. Patient has chronic problems with balance #5. History of thyroid cancer status post thyroidectomy #6. Hypertension #7. Hyperlipidemia #8. Diabetes mellitus type 2 #9. Osteoarthritis, his history of rotator cuff surgery 2 #10. History of hysterectomy #11. Never smoker Plan Clinically stable Switch this patient oral antibiotics such as Cipro or Augmentin to complete a 7 day course Home I status is stable and the patient has no significant respiratory distress. We'll sign off the case.
[2020-05-10 08:58] VITALS: BP 163/79; PULSE 90; TEMP 98.9
[2020-05-10 09:34] LABS: African American GFR (CKD) >90 (>60 ml/min/1.73 sqM); Anion Gap 6 mmol/L; Blood Urea Nitrogen 8 mg/dL (7-17); Calcium 8.1 mg/dL (8.4-10.2); Carbon Dioxide 32 mmol/L (22-30); Chloride 98 mmol/L (98-107); Glucose 345 mg/dL (74-99); Non-African American GFR(CKD) >90 (>60 ml/min/1.73 sqM); Potassium 3.5 mmol/L (3.5-5.1); Sodium 136 mmol/L (137-145)
[2020-05-10] MEDS: QUINIDINE PO SCH (10:03)
[2020-05-10] MEDS: DEXTROMETHORPHAN HBR PO SCH (10:03)
--- NOTE | 2020-05-10 11:08 | P.DS ---
Providers Date of admission: 05/05/20 18:59 Expected date of discharge: 05/10/20 Attending physician: Klaus Ramires Consults: 05/06/20 11:13 Consult Physician Routine Consulting Provider: Ildefonso Carroll Reason/Comments: pneumonia Do you want consulting provider notified?: Yes Primary care physician: Klaus Ramires [facility] Course: Final Diagnoses: Sepsis secondary to acute recurrent UTI, nausea ,vomiting. Coronavirus not detected.Bilateral lower lobe pneumonia ruled out, as per pulmonary. Acute recurrent UTI with E. coli with lactic acidosis Possible BPV, improved Status post fall Gait dysfunction Dehydration Diabetes mellitus type 2, uncontrolled, hyperglycemia, hemoglobin A1c 8.3 Hypertension hyperlipidemia History of CVAs, involving MCA, brainstem History of thyroid cancer Hospital course:This is a 64-year-old female with history of diabetes, hypertension, CVAs, recurrent UTIs, gait dysfunction and multiple other medical issues presented to the ER with complaints of nausea vomiting diarrhea that had started the night prior, worsening weakness over the last 2 weeks, sustained a fall the night prior to admission. Reports she had been at [facility]. Coronavirus tested negative. Afebrile, WBC 12 on admission, currently 14. Chest x-ray reported central interstitial pattern, possible interstitial pneumonitis, mild venous congestion. Elevated d-dimer, CTA reported bilateral lower lobe pulmonary infiltrates and atelectasis, negative for PE. Brain CT reported no acute intracranial abnormality seen, similar moderate cerebral cortical atrophy, chronic small vessel ischemic disease, unchanged lacunar infarcts in the right basal ganglia and left thalamus as well as the sharmila. EKG normal sinus rhythm, incomplete right bundle branch block, septal infarct, age undetermined. Sodium 135, potassium 4.3 CO2 29, BUN 10, creatinine 0.57, magnesium 1.8, blood sugars ranging 170s to 180s. Patient is a vague historian, majority of information obtained from patient's daughter Olivia, GUN [employer]OCK [employer]ER at [facility], and chart. 05/07/2020 orthostatic vital signs pending. Continues on gentle IV fluid hydration, Rocephin. Urine culture reporting gram-negative bacilli. Feels better this morning. Potassium 3.3, magnesium 1.7. T-max 99 with WBC improving down to 11.1. Preliminary blood cultures negative. Daughter Olivia,reporting that patient has been incontinent, multiple falls, noncompliant with some of her medications including her Aricept, Lyrica. Patient denies multiple falls ,states her only fall was the night prior to coming in. Denies memory issues, states she doesn't need the Aricept ,only her friends have that problem. Evaluated by PT with subacute rehab recommended at discharge. Maintained on IV antibiotics. Significant clinical improvement. Maintaining O2 sats in the 90s on room air, vital signs stable. Cleared by pulmonary for discharge. Patient will be discharged to [facility] today in a stable condition with guarded prognosis. The impression and plan of care has been dictated as directed. : I performed a history and examination of this patient, discussed the same with the dictator. I agree with the dictator's note ,documented as a scribe. Any additional findings or plans will be noted. Patient Condition at Discharge: Stable Plan - Discharge Summary Discharge Rx Participant: Yes New Discharge Prescriptions: New Mirabegron [Myrbetriq] 25 mg PO DAILY #30 tab Amoxic-Pot Clav 875-125Mg [Augmentin 875-125] 1 tab PO Q12HR 1 Days #14 tab Donepezil [Aricept] 5 mg PO HS tab Pantoprazole Sodium [Protonix] 40 mg PO DAILY #30 tablet. INSULIN LISPRO (HumaLOG) [humaLOG] 0 unit SQ ACHS #1 vial Continue Ca/D3/Mag/Zinc/Carl/Tye/Mgbor [Caltrate 600-D3-Min Chew Tab] 1 tab PO DAILY Clopidogrel [Plavix] 75 mg PO DAILY Atorvastatin [Lipitor] 5 mg PO HS Enalapril [Vasotec] 10 mg PO DAILY Dextromethorphan HBr/Quinidine [Nuedexta 20-10 mg Capsule] 1 cap PO DAILY Aspirin 81 mg PO DAILY Levothyroxine Sodium [Synthroid] 150 mcg PO DAILY Folic Acid 1 mg PO DAILY Memantine [Namenda] 10 mg PO BID Escitalopram [Lexapro] 5 mg PO DAILY Pregabalin [Lyrica] 150 mg PO DIRECTED Changed Insulin Glargine,Hum.rec.anlog [Lantus Solostar] 43 unit SQ DAILY #0 Discontinued Insulin Aspart [NovoLOG Flexpen] 25 units SQ AC-TID Aricept (Unknown Dose) 1 tab PO DIRECTED Discharge Medication List Atorvastatin [Lipitor] 5 mg PO HS 08/14/15 [History] Ca/D3/Mag/Zinc/Carl/Tye/Mgbor [Caltrate 600-D3-Min Chew Tab] 1 tab PO DAILY 08/14/15 [History] Clopidogrel [Plavix] 75 mg PO DAILY 08/14/15 [History] Enalapril [Vasotec] 10 mg PO DAILY 08/14/15 [History] Aspirin 81 mg PO DAILY 02/12/18 [History] Dextromethorphan HBr/Quinidine [Nuedexta 20-10 mg Capsule] 1 cap PO DAILY 02/12/18 [History] Levothyroxine Sodium [Synthroid] 150 mcg PO DAILY 11/29/18 [History] Escitalopram [Lexapro] 5 mg PO DAILY 05/05/20 [History] Folic Acid 1 mg PO DAILY 05/05/20 [History] Memantine [Namenda] 10 mg PO BID 05/05/20 [History] Pregabalin [Lyrica] 150 mg PO DIRECTED 05/05/20 [History] Mirabegron [Myrbetriq] 25 mg PO DAILY #30 tab 05/07/20 [Rx] Amoxic-Pot Clav 875-125Mg [Augmentin 875-125] 1 tab PO Q12HR 1 Days #14 tab 05/10/20 [Rx] Donepezil [Aricept] 5 mg PO HS tab 05/10/20 [Rx] INSULIN LISPRO (HumaLOG) [humaLOG] 0 unit SQ ACHS #1 vial 05/10/20 [Rx] Insulin Glargine,Hum.rec.anlog [Lantus Solostar] 43 unit SQ DAILY #0 05/10/20 [Rx] Pantoprazole Sodium [Protonix] 40 mg PO DAILY #30 tablet. 05/10/20 [Rx] Follow up Appointment(s)/Referral(s): Klaus Ramires DO [Primary Care Provider] - 1 Week (After DC from subacute rehab) Activity/Diet/Wound Care/Special Instructions: [facility]ye [facility] ECF: CBC, BMP in 3 days
[2020-05-10 11:20] LABS: Glucose,Whole Blood 270 mg/dL (75-99)
== END 2020-05-10 14:37 | DRG 871 ==
LOC: EC 12:28 → 3SCARD 18:59
PROVIDERS: ADMIT Family Medicine; ATTEND Family Medicine
DX: A41.51 Sepsis due to Escherichia coli [E. coli] (principal); J96.01 Acute respiratory failure with hypoxia; E87.2 Acidosis; N39.0 Urinary tract infection, site not specified; J98.11 Atelectasis; E89.0 Postprocedural hypothyroidism; E78.5 Hyperlipidemia, unspecified; F03.90 Unspecified dementia, unspecified severity, without behavioral disturbance, psychotic disturbance, mood disturbance, and anxiety; E86.0 Dehydration; Z20.828 Contact with and (suspected) exposure to other viral communicable diseases; H81.10 Benign paroxysmal vertigo, unspecified ear; I10 Essential (primary) hypertension; I45.10 Unspecified right bundle-branch block; M19.90 Unspecified osteoarthritis, unspecified site; R29.6 Repeated falls; E11.65 Type 2 diabetes mellitus with hyperglycemia; J84.89 Other specified interstitial pulmonary diseases; Z79.02 Long term (current) use of antithrombotics/antiplatelets; Z79.82 Long term (current) use of aspirin; Z79.4 Long term (current) use of insulin; Z79.890 Hormone replacement therapy; Z79.899 Other long term (current) drug therapy; Z85.850 Personal history of malignant neoplasm of thyroid; Z88.6 Allergy status to analgesic agent; Z88.8 Allergy status to other drugs, medicaments and biological substances; Z86.73 Personal history of transient ischemic attack (TIA), and cerebral infarction without residual deficits; Z91.14 Patient's other noncompliance with medication regimen; Z90.710 Acquired absence of both cervix and uterus; Z87.440 Personal history of urinary (tract) infections; Z80.9 Family history of malignant neoplasm, unspecified; Z82.49 Family history of ischemic heart disease and other diseases of the circulatory system
CPT/HCPCS: 36415; 70450; 71046; 71275; 80048; 80053; 81001; 83036; 83605; 83735; 83880; 84484; 85025; 85027; 85379; 85610; 85730; 87040; 87077; 87086; 87186; 87635; 93005; 94640; 96361; 96365; 96366; 96375; 99291

== ENCOUNTER 2020-12-20 09:09 | Inpatient (IN) | payer MEDICARE ==
[2020-12-20 09:15] LABS: Glucose,Whole Blood 398 mg/dL (75-99)
--- NOTE | 2020-12-20 09:47 | ED ---
General Adult HPI - General Chief complaint: Weakness Stated complaint: weakness Time Seen by Provider: 12/20/20 09:19 Source: patient, family, EMS, RN notes reviewed Mode of arrival: EMS Limitations: no limitations - History of Present Illness Initial comments: Patient is a pleasant [age]-year-old female presenting to the emergency Department with complaints of generalized weakness. Patient also has urinary problems with increased frequency, history of similar symptoms so she with urinary tract infection. Patient has been more weak over the past several days and falling frequently. Patient denies any head injury however family is present and is concerned that it may have been possible that she struck her head. Patient does have history of previous strokes. Gait has been worsening over the past several days. Family sec comfortable with patient's ability to take care of herself at home. - Related Data Home Medications Medication Instructions Recorded Confirmed Atorvastatin [Lipitor] 5 mg PO HS 08/14/15 05/05/20 Ca/D3/Mag/Zinc/Carl/Tye/Mgbor 1 tab PO DAILY 08/14/15 05/05/20 [Caltrate 600-D3-Min Chew Tab] Clopidogrel [Plavix] 75 mg PO DAILY 08/14/15 05/05/20 Enalapril [Vasotec] 10 mg PO DAILY 08/14/15 05/05/20 Aspirin 81 mg PO DAILY 02/12/18 05/05/20 Dextromethorphan HBr/Quinidine 1 cap PO DAILY 02/12/18 05/05/20 [Nuedexta 20-10 mg Capsule] Levothyroxine Sodium [Synthroid] 150 mcg PO DAILY 11/29/18 05/05/20 Escitalopram [Lexapro] 5 mg PO DAILY 05/05/20 05/05/20 Folic Acid 1 mg PO DAILY 05/05/20 05/05/20 Memantine [Namenda] 10 mg PO BID 05/05/20 05/05/20 Previous Rx's Medication Instructions Recorded Mirabegron [Myrbetriq] 25 mg PO DAILY #30 tab 05/07/20 Amoxic-Pot Clav 875-125Mg 1 tab PO Q12HR 1 Days #14 tab 05/10/20 [Augmentin 875-125] Donepezil [Aricept] 5 mg PO HS tab 05/10/20 INSULIN LISPRO (HumaLOG) [humaLOG] 0 unit SQ ACHS #1 vial 05/10/20 Insulin Glargine,Hum.rec.anlog 43 unit SQ DAILY #0 05/10/20 [Lantus Solostar] Pantoprazole Sodium [Protonix] 40 mg PO DAILY #30 tablet. 05/10/20 Allergies Allergy/AdvReac Type Severity Reaction Status Date / Time ibuprofen [From Motrin] AdvReac "BLOOD Verified 05/05/20 13:21 THINS TOO MUCH" naproxen [From Aleve] AdvReac "BLOOD Verified 05/05/20 13:21 THINS TOO MUCH" NSAIDS (Non-Steroidal AdvReac Unknown Verified 05/05/20 13:21 Anti-Inflamma Review of Systems ROS Statement: Those systems with pertinent positive or pertinent negative responses have been documented in the HPI. ROS Other: All systems not noted in ROS Statement are negative. Constitutional: Denies: fever Eyes: Denies: eye pain ENT: Denies: ear pain Respiratory: Denies: cough Cardiovascular: Denies: chest pain Endocrine: Denies: fatigue Gastrointestinal: Denies: abdominal pain Genitourinary: Reports: frequency Musculoskeletal: Denies: back pain Skin: Denies: rash Neurological: Reports: as per HPI. Denies: headache Past Medical History Past Medical History: Cancer, CVA/TIA, Diabetes Mellitus, Hyperlipidemia, Hypertension, Skin Disorder, Thyroid Disorder Additional Past Medical History / Comment(s): hx CVA 4 with one hemorrhagic in the sharmila area and one frontal -problems with balance. hx thyroid cancer. MTHFR. History of Any Multi-Drug Resistant Organisms: None Reported Past Surgical History: Hysterectomy, Orthopedic Surgery Additional Past Surgical History / Comment(s): thyroidectomy, parotid gland surgery, left shoulder (rotator cuff sx) X 2 Past Anesthesia/Blood Transfusion Reactions: Postoperative Nausea & Vomiting (PONV) Past Psychological History: No Psychological Hx Reported Smoking Status: Never smoker Past Alcohol Use History: None Reported Past Drug Use History: None Reported - Past Family History Mother Family Medical History: No Reported History Additional Family Medical History / Comment(s): Mother was healthy Father Family Medical History: Cancer Additional Family Medical History / Comment(s): open heart surgery when he was 50, aortic aneurysm when he was around 63 General Exam Limitations: no limitations General appearance: alert, in no apparent distress Head exam: Present: atraumatic, normocephalic Eye exam: Present: normal appearance, PERRL ENT exam: Present: normal oropharynx Neck exam: Present: normal inspection. Absent: tenderness Respiratory exam: Present: normal lung sounds bilaterally Cardiovascular Exam: Present: regular rate, normal rhythm GI/Abdominal exam: Present: soft. Absent: tenderness Extremities exam: Present: normal inspection, full ROM, tenderness (Left lateral ankle with moderate no foot tenderness. Distally the extremity is intact.) Back exam: Present: normal inspection. Absent: tenderness, vertebral tenderness Neurological exam: Present: alert, CN II-XII intact. Absent: motor sensory deficit Expanded Motor strength exam: RUE: 5, LUE: 5, RLE: 5, LLE: 5 Psychiatric exam: Present: normal affect, normal mood Skin exam: Present: normal color Course Vital Signs 12/20/20 09:11 Temperature 98.2 F Pulse Rate 95 Respiratory 18 Rate Blood Pressure 146/58 O2 Sat by Pulse 92 L Oximetry EKG Findings - EKG Comments: EKG Findings:: No sinus rhythm with 3-93. MO 176. QRS 94. QT 378. QTC 469. Normal axis. Incomplete right bundle-branch block. Septal Q waves. No acute ST change. Procedures - Orthopedic Splinting/Casting Injury #1 Side: left Lower Extremity Injury Location: short leg, ankle Lower Extremity Immobilizer: posterior splint Medical Decision Making - Medical Decision Making Patient reevaluated and updated. Case was discussed with practitioner Nir who will admit covering Dr. Ramires. - Lab Data Result diagrams: 12/20/20 09:46 12/20/20 09:46 Lab Results 12/20/20 12/20/20 12/20/20 Range/Units 09:13 09:46 09:46 WBC 11.7 H (3.8-10.6) k/uL RBC 4.46 (3.80-5.40) m/uL Hgb 13.2 (11.4-16.0) gm/dL Hct 40.8 (34.0-46.0) % MCV 91.5 (80.0-100.0) fL MCH 29.7 (25.0-35.0) pg MCHC 32.5 (31.0-37.0) g/dL RDW 14.2 (11.5-15.5) % Plt Count 219 (150-450) k/uL MPV 8.2 Neutrophils % 76 % Lymphocytes % 12 % Monocytes % 6 % Eosinophils % 3 % Basophils % 1 % Neutrophils # 8.9 H (1.3-7.7) k/uL Lymphocytes # 1.4 (1.0-4.8) k/uL Monocytes # 0.7 (0-1.0) k/uL Eosinophils # 0.4 (0-0.7) k/uL Basophils # 0.1 (0-0.2) k/uL PT 10.8 (9.0-12.0) sec INR 1.0 (<1.2) APTT 21.9 L (22.0-30.0) sec Sodium (137-145) mmol/L Potassium (3.5-5.1) mmol/L Chloride (98-107) mmol/L Carbon Dioxide (22-30) mmol/L Anion Gap mmol/L BUN (7-17) mg/dL Creatinine (0.52-1.04) mg/dL Est GFR (CKD-EPI)AfAm (>60 ml/min/1.73 sqM) Est GFR (CKD-EPI)NonAf (>60 ml/min/1.73 sqM) Glucose (74-99) mg/dL POC Glucose (mg/dL) 398 H (75-99) mg/dL POC Glu Network Specialist SAMUEL Jorge Birch Plasma Lactic Acid Hilario (0.7-2.0) mmol/L Calcium (8.4-10.2) mg/dL Phosphorus (2.5-4.5) mg/dL Magnesium (1.6-2.3) mg/dL Total Bilirubin (0.2-1.3) mg/dL AST (14-36) U/L ALT (4-34) U/L Alkaline Phosphatase (38-126) U/L Troponin I (0.000-0.034) ng/mL Total Protein (6.3-8.2) g/dL Albumin (3.5-5.0) g/dL TSH (0.465-4.680) mIU/L Urine Color Urine Appearance (Clear) Urine pH (5.0-8.0) Ur Specific Boley (1.001-1.035) Urine Protein (Negative) Urine Glucose (UA) (Negative) Urine Ketones (Negative) Urine Blood (Negative) Urine Nitrite (Negative) Urine Bilirubin (Negative) Urine Urobilinogen (<2.0) mg/dL Ur Leukocyte Esterase (Negative) Urine WBC (0-5) /hpf Urine Bacteria (None) /hpf Urine Mucus (None) /hpf 12/20/20 12/20/20 12/20/20 Range/Units 09:46 09:46 09:46 WBC (3.8-10.6) k/uL RBC (3.80-5.40) m/uL Hgb (11.4-16.0) gm/dL Hct (34.0-46.0) % MCV (80.0-100.0) fL MCH (25.0-35.0) pg MCHC (31.0-37.0) g/dL RDW (11.5-15.5) % Plt Count (150-450) k/uL MPV Neutrophils % % Lymphocytes % % Monocytes % % Eosinophils % % Basophils % % Neutrophils # (1.3-7.7) k/uL Lymphocytes # (1.0-4.8) k/uL Monocytes # (0-1.0) k/uL Eosinophils # (0-0.7) k/uL Basophils # (0-0.2) k/uL PT (9.0-12.0) sec INR (<1.2) APTT (22.0-30.0) sec Sodium 137 (137-145) mmol/L Potassium 4.4 (3.5-5.1) mmol/L Chloride 101 (98-107) mmol/L Carbon Dioxide 28 (22-30) mmol/L Anion Gap 8 mmol/L BUN 14 (7-17) mg/dL Creatinine 0.45 L (0.52-1.04) mg/dL Est GFR (CKD-EPI)AfAm >90 (>60 ml/min/1.73 sqM) Est GFR (CKD-EPI)NonAf >90 (>60 ml/min/1.73 sqM) Glucose 381 H (74-99) mg/dL POC Glucose (mg/dL) (75-99) mg/dL POC Glu Network Specialist ID Plasma Lactic Acid Hilario 2.0 (0.7-2.0) mmol/L Calcium 9.1 (8.4-10.2) mg/dL Phosphorus 3.5 (2.5-4.5) mg/dL Magnesium 1.7 (1.6-2.3) mg/dL Total Bilirubin 1.6 H (0.2-1.3) mg/dL AST 28 (14-36) U/L ALT 13 (4-34) U/L Alkaline Phosphatase 113 (38-126) U/L Troponin I (0.000-0.034) ng/mL Total Protein 6.7 (6.3-8.2) g/dL Albumin 4.1 (3.5-5.0) g/dL TSH 0.685 (0.465-4.680) mIU/L Urine Color Light Yellow Urine Appearance Clear (Clear) Urine pH 6.5 (5.0-8.0) Ur Specific Boley 1.031 (1.001-1.035) Urine Protein Negative (Negative) Urine Glucose (UA) 4+ H (Negative) Urine Ketones 2+ H (Negative) Urine Blood Negative (Negative) Urine Nitrite Negative (Negative) Urine Bilirubin Negative (Negative) Urine Urobilinogen <2.0 (<2.0) mg/dL Ur Leukocyte Esterase Trace H (Negative) Urine WBC 8 H (0-5) /hpf Urine Bacteria Rare H (None) /hpf Urine Mucus Rare H (None) /hpf 12/20/20 Range/Units 09:46 WBC (3.8-10.6) k/uL RBC (3.80-5.40) m/uL Hgb (11.4-16.0) gm/dL Hct (34.0-46.0) % MCV (80.0-100.0) fL MCH (25.0-35.0) pg MCHC (31.0-37.0) g/dL RDW (11.5-15.5) % Plt Count (150-450) k/uL MPV Neutrophils % % Lymphocytes % % Monocytes % % Eosinophils % % Basophils % % Neutrophils # (1.3-7.7) k/uL Lymphocytes # (1.0-4.8) k/uL Monocytes # (0-1.0) k/uL Eosinophils # (0-0.7) k/uL Basophils # (0-0.2) k/uL PT (9.0-12.0) sec INR (<1.2) APTT (22.0-30.0) sec Sodium (137-145) mmol/L Potassium (3.5-5.1) mmol/L Chloride (98-107) mmol/L Carbon Dioxide (22-30) mmol/L Anion Gap mmol/L BUN (7-17) mg/dL Creatinine (0.52-1.04) mg/dL Est GFR (CKD-EPI)AfAm (>60 ml/min/1.73 sqM) Est GFR (CKD-EPI)NonAf (>60 ml/min/1.73 sqM) Glucose (74-99) mg/dL POC Glucose (mg/dL) (75-99) mg/dL POC Glu Network Specialist ID Plasma Lactic Acid Hilario (0.7-2.0) mmol/L Calcium (8.4-10.2) mg/dL Phosphorus (2.5-4.5) mg/dL Magnesium (1.6-2.3) mg/dL Total Bilirubin (0.2-1.3) mg/dL AST (14-36) U/L ALT (4-34) U/L Alkaline Phosphatase (38-126) U/L Troponin I <0.012 (0.000-0.034) ng/mL Total Protein (6.3-8.2) g/dL Albumin (3.5-5.0) g/dL TSH (0.465-4.680) mIU/L Urine Color Urine Appearance (Clear) Urine pH (5.0-8.0) Ur Specific Boley (1.001-1.035) Urine Protein (Negative) Urine Glucose (UA) (Negative) Urine Ketones (Negative) Urine Blood (Negative) Urine Nitrite (Negative) Urine Bilirubin (Negative) Urine Urobilinogen (<2.0) mg/dL Ur Leukocyte Esterase (Negative) Urine WBC (0-5) /hpf Urine Bacteria (None) /hpf Urine Mucus (None) /hpf - Radiology Data Radiology results: report reviewed (Computed tomography scan of the brain reveals no acute process. Chronic), image reviewed (Chest x-ray reveals no acute process left ankle x-ray shows soft tissue swelling. Cannot rule out small avulsion fracture) Disposition Clinical Impression: Multiple falls, Generalized weakness, Urinary tract infection, Hyperglycemia Disposition: ADMITTED IP TO THIS HOSP Is patient prescribed a controlled substance at d/c from ED?: No Referrals: Klaus Ramires DO [Primary Care Provider] - 1-2 days Decision Time: 11:09
[2020-12-20 10:01] LABS: Basophils # (A) 0.1 k/uL (0-0.2); Basophils % (A) 1 %; Eosinophils # (A) 0.4 k/uL (0-0.7); Eosinophils % (A) 3 %; HCT 40.8 % (34.0-46.0); HGB 13.2 gm/dL (11.4-16.0); Lymphocytes # (A) 1.4 k/uL (1.0-4.8); Lymphocytes % (A) 12 %; MCH 29.7 pg (25.0-35.0); MCHC 32.5 g/dL (31.0-37.0); MCV 91.5 fL (80.0-100.0); Mean Platelet Volume 8.2; Monocytes # (A) 0.7 k/uL (0-1.0); Monocytes % (A) 6 %; Neutrophils # (A) 8.9 k/uL (1.3-7.7); Neutrophils % (A) 76 %; Platelet Count 219 k/uL (150-450); RBC 4.46 m/uL (3.80-5.40); RDW 14.2 % (11.5-15.5); WBC 11.7 k/uL (3.8-10.6)
[2020-12-20 10:18] LABS: Prothrombin Time 10.8 sec (9.0-12.0)
[2020-12-20 10:21] LABS: ALT 13 U/L (4-34); AST 28 U/L (14-36); African American GFR (CKD) >90 (>60 ml/min/1.73 sqM); Albumin 4.1 g/dL (3.5-5.0); Alkaline Phosphatase 113 U/L (38-126); Anion Gap 8 mmol/L; Blood Urea Nitrogen 14 mg/dL (7-17); Calcium 9.1 mg/dL (8.4-10.2); Carbon Dioxide 28 mmol/L (22-30); Chloride 101 mmol/L (98-107); Glucose 381 mg/dL (74-99); Magnesium 1.7 mg/dL (1.6-2.3); Non-African American GFR(CKD) >90 (>60 ml/min/1.73 sqM); Phosphorus 3.5 mg/dL (2.5-4.5); Potassium 4.4 mmol/L (3.5-5.1); Sodium 137 mmol/L (137-145); Total Bilirubin 1.6 mg/dL (0.2-1.3); Total Protein 6.7 g/dL (6.3-8.2)
--- NOTE | 2020-12-20 10:31 | XR ---
EXAMINATION TYPE: XR ankle complete LT DATE OF EXAM: 12/20/2020 CLINICAL HISTORY: Fall TECHNIQUE: Frontal, lateral and oblique images of the left ankle are obtained. COMPARISON: None. FINDINGS: There is significant soft tissue swelling about the left ankle with a left ankle joint effu yair. Small bony fragments adjacent to the lateral malleolus are not well seen and may represent avul yair fractures or chronic changes. IMPRESSION: There is significant soft tissue swelling about the left ankle with a left ankle joint effusion. Smal l bony fragments adjacent to the lateral malleolus are not well seen and may represent avulsion fract ures or chronic changes.
--- NOTE | 2020-12-20 10:31 | XR ---
EXAMINATION TYPE: XR chest 2V DATE OF EXAM: 12/20/2020 COMPARISON: 05/05/2020 HISTORY: Weakness TECHNIQUE: Frontal and lateral views of the chest are obtained. FINDINGS: There is no focal air space opacity, pleural effusion, or pneumothorax seen. The cardiac silhouette size is within normal limits. The osseous structures are intact. IMPRESSION: No acute cardiopulmonary process.
[2020-12-20 10:36] LABS: Appearance,Urine Clear (Clear); Bacteria,Urine Rare /hpf; Bilirubin,Urine Negative (Negative); Blood,Urine Negative (Negative); Color,Urine Light Yellow; Glucose,Urine (UA) 4+ (Negative); Leukocyte Esterase,Urine Trace (Negative); Mucus,Urine Rare /hpf; Nitrite,Urine Negative (Negative); PH, Urine 6.5 (5.0-8.0); Protein,Urine Negative (Negative); Specific Gravity,Urine 1.031 (1.001-1.035); Urobilinogen,Urine <2.0 mg/dL (<2.0); WBC,Urine 8 /hpf (0-5)
[2020-12-20 10:40] LABS: Ketones,Urine 2+ (Negative)
[2020-12-20 10:41] LABS: Partial Thromboplastin Time 21.9 sec (22.0-30.0)
[2020-12-20] MEDS: INSULIN ASPART (NovoLOG) 100 UNIT/ML VIAL SQ SCH ×3 (10:47→21:20)
--- NOTE | 2020-12-20 10:50 | CT ---
EXAMINATION TYPE: CT brain wo con DATE OF EXAM: 12/20/2020 COMPARISON: 05/05/2020 INDICATION: weakness DLP: 1098.4 mGycm, Automated exposure control for dose reduction was used. CONTRAST: None CT of the brain is performed utilizing 3 mm thick sections through the posterior fossa and 3 mm thick sections through the remaining calvarium. Study is performed within 24 hours of arrival to the hosp [facility]. No abnormal hyperdensity is present to suggest an acute intracranial hemorrhage. No mass lesion is evident. No acute infarcts are evident. There is periventricular white matter hypodensity greater into the fro ntal lobes is patchy to confluent in can be compatible with chronic white matter ischemic changes. Th woody findings appear stable. Ventricles and sulci are appropriate for the patient age. Paranasal sinuses and mastoid air cells within the [id number] are clear. IMPRESSIONS: 1. Stable chronic appearing periventricular white matter ischemic changes. 2. No acute intracranial process
[2020-12-20] MEDS ORDERED: NALOXONE 0.4 MG/ML 1 ML VIAL IV PRN (11:10)
[2020-12-20 12:06] LABS: Glucose,Whole Blood 334 mg/dL (75-99)
[2020-12-20] MEDS ORDERED: INSULIN ASPART (NovoLOG) 100 UNIT/ML VIAL SQ ONE (12:09)
--- NOTE | 2020-12-20 13:12 | P.CNNES ---
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 Some of the history is obtained from the patient's daughter (Olivia) via phone. Yesterday has a fall in the bathroom but did not have any jerking of any extremities, foaming around the mouth, bowel incontinence. was there and he did not see it but per the daughter the patient denies head trauma and the did not witness any head trauma. She does not have history of seizure. Per the daughter the patient has been declining for the last 4 years in which she generalized weak. She is Slurring speech in the last one year and progressively worsening. She uses a walker for the last at least 1 1/2 years. She had multiple urinary tract infections and per daughter she declines whenever she has UTI. She was at rehab recently but left early because she did not want to be there. She has not followed up with a neurologist because she refuses. Her primary care he deals with her neurological management. She is receiving dementia medication and per the daughter unsure exactly when the her mentation has been off but it fluctuates she has a good long-term memory but sometimes she'll have a good short-term memory and sometimes she would not. Gait is wide. Her speech is getting slurred. She is incontinent at baseline. In the last 3 weeks using a briefs. Some of the patient's home medication consist of aspirin 81 mg daily, Lipitor 5 mg daily at bedtime, Plavix 75 mg daily, Aricept 5 mg daily, enalapril 10 mg daily, Lexapro, NovoLog, Synthroid, was no pill, Namenda 10 mg 1 tablet twice a day, Protonix, Mirabegron. Some other workup in the hospital consisted of: Initial vitals: Blood pressure of 146/58, heart rate of 95, respiratory of 18, temperature of 98.2 Fahrenheit oral pulse ox of 92% room air. CT of the head is reported as stable chronic appearing periventricular white matter ischemic changes. No acute intracranial process. Upon reviewing the CT is seems the patient has encephalomalacia over the left parietal region. Ankle x-ray is reported as there is significant soft tissue swelling about the left ankle with a left ankle joint effusion appeared small bony fragment adjacent to the lateral malleolus are not well seen and may be represent a bulging fracture or chronic changes. CBC with differential is a white blood cells 11.7 thousand slightly elevated neutrophilic otherwise CBC with differential is unremarkable. Chemistry panel is initial POC glucose is 398 which is a elevated and seems uncontrolled that. Otherwise the the total bilirubin 1.6 otherwise the rest of the chemistry panel is unremarkable. TSH is 0.685 which is considered within normal limits, AST of 28 and ALT of 13 which is considered within normal limits. Calcium is 9.1 and the magnesium is 1.7 and phosphorus 3.5 which is within the normal limits. Urinalysis is appears clear, leukocyte esterase is trace, urine white blood cells 8 and urine bacteria was rare. Per the daughter the patient had an initial stroke at age 50 y/o and it was in sharmila initially ischemic that converted to hemorrhagic with residual numbness on forehead and minimal balance issues and balance resolved. Other strokes are ischemic and last stroke was about 4 years and was subacute. Since last stroke declining. She has been using walker at home. Last MRI of the brain in our facility was in the 08/16/2015 inch reported as atrophy changes with prominence of the cortical sulci, ventricles and fissures. Abnormal areas of increased signal along the periventricular white matter of both the cerebral hemispheres and central sharmila consistent with white matter infarcts and small vessel disease appeared lacunar infarct in the right basal ganglia. Abnormal area of increased T2 and FLAIR signal involving the periventricular white matter of the right cerebral hemisphere indicative of white matter infarct. No subdural collection or intracranial bleed. Indeterminate area of diminished signal at the central sharmila sequela of prior infarct. Review of Systems Review of system: The 12 point system was reviewed and apparent positive and negative per HPI. 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 hx thyroid cancer. MTHFR. History of Any Multi-Drug Resistant Organisms: None Reported Past Surgical History: Hysterectomy, Orthopedic Surgery Additional Past Surgical History / Comment(s): thyroidectomy, parotid gland surgery, left shoulder (rotator cuff sx) X 2 Past Anesthesia/Blood Transfusion Reactions: Postoperative Nausea & Vomiting (PONV) Past Psychological History: No Psychological Hx Reported Smoking Status: Never smoker Past Alcohol Use History: None Reported Past Drug Use History: None Reported - Past Family History Mother Family Medical History: No Reported History Additional Family Medical History / Comment(s): Mother was healthy Father Family Medical History: Cancer Additional Family Medical History / Comment(s): open heart surgery when he was 48, aortic aneurysm when he was around 63 Medications and Allergies Home Medications Medication Instructions Recorded Confirmed Type Atorvastatin [Lipitor] 5 mg PO HS 08/14/15 12/20/20 History Clopidogrel [Plavix] 75 mg PO DAILY 08/14/15 12/20/20 History Enalapril [Vasotec] 10 mg PO DAILY 08/14/15 12/20/20 History Aspirin 81 mg PO DAILY 02/12/18 12/20/20 History Dextromethorphan HBr/Quinidine 1 cap PO DAILY 02/12/18 12/20/20 History [Nuedexta 20-10 mg Capsule] Levothyroxine Sodium [Synthroid] 150 mcg PO DAILY 11/29/18 12/20/20 History Escitalopram [Lexapro] 5 mg PO DAILY 05/05/20 12/20/20 History Memantine [Namenda] 10 mg PO BID 05/05/20 12/20/20 History Mirabegron [Myrbetriq] 25 mg PO DAILY #30 tab 05/07/20 12/20/20 Rx Donepezil [Aricept] 5 mg PO HS tab 05/10/20 12/20/20 Rx Pantoprazole Sodium [Protonix] 40 mg PO DAILY #30 tablet. 05/10/20 12/20/20 Rx Insulin Aspart [NovoLOG Flexpen] See Protocol SQ AC-TID 12/20/20 12/20/20 History Insulin Glargine,Hum.rec.anlog 40 unit SQ HS 12/20/20 12/20/20 History [Lantus Solostar] Lisinopril [Prinivil] 10 mg PO DAILY 12/20/20 12/20/20 History Allergies Allergy/AdvReac Type Severity Reaction Status Date / Time ibuprofen [From Motrin] AdvReac "BLOOD Verified 05/05/20 13:21 THINS TOO MUCH" naproxen [From Aleve] AdvReac "BLOOD Verified 05/05/20 13:21 THINS TOO MUCH" NSAIDS (Non-Steroidal AdvReac Unknown Verified 05/05/20 13:21 Anti-Inflamma Physical Examination - Vital Signs Vital Signs: Vital Signs Temp Pulse Resp BP Pulse Ox 12/20/20 09:11 98.2 F 95 18 146/58 92 L Intake and Output 12/19/20 12/20/20 12/20/20 22:59 06:59 14:59 Other: Weight 88.451 kg GENERAL: The patient is lying in bed and is not in acute distress. CHEST: The heart rate is regular rate rhythm. No murmurs to auscultation. No carotid bruit bilaterally. LUNG: Clear to auscultation bilaterally no wheezing noted throughout. Not labored breathing. ABDOMEN/GI: Bowel sounds present in all 4 quadrants. No tenderness to palpation throughout. NEUROLOGICAL: Higher mental function: The patient is awake, alert, oriented to self and place. She stated the current month correctly but stated the year was 2016. She is ab le to identify objects correctly (pen, watch and cup). Patient is following commands. No aphasia and no neglect. Cranial nerves: The pupils are round, equal and reactive to light and accommodation. Visual mccloud are full to confrontation throughout. Extraocular movement is intact no nystagmus is noted. Facial sensation is normal to touch throughout. The facial strength is normal throughout. Hearing is mildly to moderately decreased bilaterally to hand rub. Tongue is midline and moved si de-to-side without any difficulty. Mild dysarthria is noted. Shoulder shrug is normal bilaterally. Motor: Gait is deferred because of patient's pain in her left leg. The strength is 5- over the left upper extremity while bilateral hand electrical instrument maker are 5-. The lowers are limited because cooperation/pain. The right lower proximally is 5/5 while distal is limited but had at least 4+. The left is limited because of pain but had 3/5. Otherwise 5/5. Normal tone and bulk. She has her left lower extremity wrapped because of ankle fracture from knees down to ankle. Cerebellum: Normal finger to nose bilaterally. Sensation: Sensation is normal to touch throughout. Reflexes (right/left): 2+ throughout uppers while lowers are 1+. Plantars are mute bilaterally. Results - Laboratory Findings CBC and BMP: 12/20/20 09:46 12/20/20 09:46 Abnormal Lab Findings: Abnormal Labs 12/20/20 12/20/20 12/20/20 09:13 09:46 09:46 WBC 11.7 H Neutrophils # 8.9 H APTT 21.9 L Creatinine Glucose POC Glucose (mg/dL) 398 H Total Bilirubin Urine Glucose (UA) Urine Ketones Ur Leukocyte Esterase Urine WBC Urine Bacteria Urine Mucus 12/20/20 12/20/20 09:46 09:46 WBC Neutrophils # APTT Creatinine 0.45 L Glucose 381 H POC Glucose (mg/dL) Total Bilirubin 1.6 H Urine Glucose (UA) 4+ H Urine Ketones 2+ H Ur Leukocyte Esterase Trace H Urine WBC 8 H Urine Bacteria Rare H Urine Mucus Rare H Assessment and Plan Assessment: * Progressive Generalized weakness for past 4 years, unsteady gait: Possibly due to recurrent UTI. Rule out stroke subacute/new stroke not seen on her last imaging. Another possibility is metabolic encephalopathy (because of elevated sugar). * Her reported altered mental status seems possibly metabolic encephalopathy. Possibly patient has underlying cognitive impairment/dementia as baseline * Elevated sugar on presentation in high 300's. * Left ankle fracture from a fall (fall does not seem like seizure from history. Patient does not have history of seizure) * History of multiple strokes (X4) (hemorrhagic coversion in sharmila and last stroke was about 4 years ago). * Mild Dysarthria * Diabetes mellitus * Hyperlipidemia * Hypertension * Hypothyroidism * History of recurrent urinary tract infection * Urinary incontinence Plan: I ordered MRI of the brain, vitamin B12, folate levels, vitamin B6 level and repeat MTHFR. HbA1c are ordered by primary team. I ordered a routine EEG. I will not start the patient on antiepileptic drug unless there is epileptiform discharges or seizure on the EEG. Recommend restarting the patient on home medication of aspirin 81 and Plavix 75 mg daily (if cleared by surgery team). I'll increase her home medication of Lipitor from 5 mg to 40 mg daily at bedtime. Ordered the lipid panel and 2-D echo and carotid duplex. Every 4 hours neuro checks Occupation and physical therapy are consulted. I consulted speech therapy. Will defer the rest of the medical management to primary team. Upon discharge the patient needs to follow-up with a neurologist within 12 weeks as an outpatient. The plan is discussed with the patient's daughter (Olivia) via phone. Thank you for the consultation. Jose F Carroll M.D. Neuro-hospitalist Time with Patient: Greater than 30
--- NOTE | 2020-12-20 14:10 | US ---
EXAMINATION TYPE: US carotid duplex BILAT DATE OF EXAM: 12/20/2020 COMPARISON: NONE CLINICAL HISTORY: stroke. Stroke EXAM MEASUREMENTS: RIGHT: Peak Systolic Velocity (PSV) cm/sec ----- Right CCA: 66.7 ----- Right ICA: 58.0 ----- Right ECA: 121 ICA/CCA ratio: 0.9 RIGHT: End Diastole cm/sec ----- Right CCA: 15.9 ----- Right ICA: 14.4 ----- Right ECA: 0 LEFT: Peak Systolic Velocity (PSV) cm/sec ----- Left CCA: 90.3 ----- Left ICA: 85.4 ----- Left ECA: 164.7 ICA/CCA ratio: 0.9 LEFT: End Diastole cm/sec ----- Left CCA: 12.8 ----- Left ICA: 22.5 ----- Left ECA: 0 VERTEBRALS (direction of flow): Right Vertebral: Antegrade Left Vertebral: Antegrade Rhythm: Arrhythmia No significant stenosis seen IMPRESSION: No sonographic evidence for hemodynamically significant stenosis in the bilateral carotid arteries. Criteria for Assigning % of Stenosis / Diameter reduction (Estimation based on the indirect measurements of the internal carotid artery velocities (ICA PSV). 1. Normal (no stenosis)=ICA PSV < 125 cm/s: ratio < 2.0: ICA EDV<40 cm/s. 2. Less than 50% stenosis=ICA PSV < 125 cm/s: ratio < 2.0: ICA EDV<40 cm/s. 3. 50 to 69% stenosis=ICA PSV of 125 to 230 cm/s: ration 2.0 ? 4.0: ICA EDV 40-100 cm/s. 4. Greater than 70% stenosis to near occlusion= ICA PSV > 230 cm/s: ratio > 4.0: ICA EDV > 100 cm/s. 5. Near occlusion= ICA PSV velocities may be low or undetectable: variable ratio and ICA EDV. 6. Total occlusion=unable to detect flow.
--- NOTE | 2020-12-20 14:49 | MR ---
EXAMINATION TYPE: MR brain wo con DATE OF EXAM: 12/20/2020 COMPARISON: 08/16/2015 HISTORY: Altered mental status, dysarthri. R/O acute stroke. CONTRAST: Performed utilizing 0 mL intravenous Gadavist gadolinium contrast. TECHNIQUE: Multiplanar, multiecho imaging on a 3.0 Negar magnet is performed through the brain. Stud y is performed within 24 hours of arrival to the hospital. The craniovertebral junction is normal. The pituitary is normal. Diffusion-weighted imaging is performed. No abnormal hyperintensity is present to suggest an acute i ntracranial infarct or acute ischemic change. Patchy to confluent periventricular white matter hyperintensities present, likely on the basis of chr onic white matter ischemic changes. An old lacunar infarct may be within the left brainstem white mat ter changes are within the brainstem. Findings were present previously. Ventricles and sulci are appropriate for the patient age. Some mild left inferior mastoiditis may be present. IMPRESSIONS: 1. Chronic stable appearing patchy to confluent periventricular and deep white matter changes includi ng the brainstem. 2. There is an old lacunar infarct within the left posterior brain stem
[2020-12-20 17:09] LABS: Glucose,Whole Blood 221 mg/dL (75-99)
[2020-12-20 19:37] LABS: Chol/HDL Ratio 3.84; Cholesterol 173 mg/dL (0-200)
[2020-12-20 20:08] LABS: Folate, Serum >24.0 ng/mL
[2020-12-20 20:23] LABS: Glucose,Whole Blood 271 mg/dL (75-99)
[2020-12-20] MEDS: ATORVASTATIN 40 MG TAB PO SCH (21:20)
[2020-12-20] MEDS ORDERED: ONDANSETRON 4 MG/2 ML VIAL IVP PRN (23:01)
[2020-12-20] MEDS: KETOROLAC 15 MG/ML 1 ML VIAL IVP PRN (23:48)
[2020-12-21] MEDS ORDERED: KETOROLAC 15 MG/ML 1 ML VIAL IVP SCH
[2020-12-21 07:01] LABS: Glucose,Whole Blood 346 mg/dL (75-99)
[2020-12-21] MEDS: INSULIN ASPART (NovoLOG) 100 UNIT/ML VIAL SQ SCH ×5 (07:55→20:46)
[2020-12-21] MEDS ORDERED: ASPIRIN 81 MG PO SCH (09:00)
[2020-12-21] MEDS: Dextromethorphan Hbr/Quinidine [Nuedexta 20-10 Mg Capsule] PO SCH (09:41)
[2020-12-21] MEDS: Mirabegron [Myrbetriq] PO SCH (09:41)
--- NOTE | 2020-12-21 09:42 | P.CNOR ---
History of Present Illness - HPI Consult date: 12/21/20 History of present illness: This is a 65 year-old female who is admitted for weakness. Patient is seen and evaluated at bedside today for evaluation of left ankle pain. Patient states that she fell on Sunday12/19/2020 and rolled her left ankle. Patient reports pain and swelling and difficulty weightbearing. Patient denies any numbness, w eakness or tingling. The patient's past medical history is significant for thyroid cancer, CVA/TIA, diabetes mellitus, hyperlipidemia, hypertension and MTHFR. Review of Systems See HPI. 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 hx thyroid cancer. MTHFR. History of Any Multi-Drug Resistant Organisms: None Reported Past Surgical History: Hysterectomy, Orthopedic Surgery Additional Past Surgical History / Comment(s): thyroidectomy, parotid gland surgery, left shoulder (rotator cuff sx) X 2 Past Anesthesia/Blood Transfusion Reactions: Postoperative Nausea & Vomiting (PONV) Past Psychological History: No Psychological Hx Reported Smoking Status: Never smoker Past Alcohol Use History: None Reported Past Drug Use History: None Reported - Past Family History Mother Family Medical History: No Reported History Additional Family Medical History / Comment(s): Mother was healthy Father Family Medical History: Cancer Additional Family Medical History / Comment(s): open heart surgery when he was 48, aortic aneurysm when he was around 63 Medications and Allergies Home Medications Medication Instructions Recorded Confirmed Type Atorvastatin [Lipitor] 5 mg PO HS 08/14/15 12/20/20 History Clopidogrel [Plavix] 75 mg PO DAILY 08/14/15 12/20/20 History Enalapril [Vasotec] 10 mg PO DAILY 08/14/15 12/20/20 History Aspirin 81 mg PO DAILY 02/12/18 12/20/20 History Dextromethorphan HBr/Quinidine 1 cap PO DAILY 02/12/18 12/20/20 History [Nuedexta 20-10 mg Capsule] Levothyroxine Sodium [Synthroid] 150 mcg PO DAILY 11/29/18 12/20/20 History Escitalopram [Lexapro] 5 mg PO DAILY 05/05/20 12/20/20 History Memantine [Namenda] 10 mg PO BID 05/05/20 12/20/20 History Mirabegron [Myrbetriq] 25 mg PO DAILY #30 tab 05/07/20 12/20/20 Rx Donepezil [Aricept] 5 mg PO HS tab 05/10/20 12/20/20 Rx Pantoprazole Sodium [Protonix] 40 mg PO DAILY #30 tablet. 05/10/20 12/20/20 Rx Insulin Aspart [NovoLOG Flexpen] See Protocol SQ AC-TID 12/20/20 12/20/20 History Insulin Glargine,Hum.rec.anlog 40 unit SQ HS 12/20/20 12/20/20 History [Lantus Solostar] Lisinopril [Prinivil] 10 mg PO DAILY 12/20/20 12/20/20 History Allergies Allergy/AdvReac Type Severity Reaction Status Date / Time ibuprofen [From Motrin] AdvReac "BLOOD Verified 05/05/20 13:21 THINS TOO MUCH" naproxen [From Aleve] AdvReac "BLOOD Verified 05/05/20 13:21 THINS TOO MUCH" NSAIDS (Non-Steroidal AdvReac Unknown Verified 05/05/20 13:21 Anti-Inflamma Physical Examination On exam patient is resting comfortably in bed in no acute distress. Patient is alert and oriented 3. Splint is removed from the left lower extremity revealing swelling and faint ecchymosis over the left ankle. There is tenderness to palpation over the distal fibula and surrounding soft tissues of the lateral ankle. Minimal tenderness to palpation medially. Skin is intact. The left lower extremity is warm and well perfused. Sensation intact. Calf is soft and nontender to palpation. Neurovascular status and circulatory status are intact. Results X-rays of the left ankle reveal soft tissue swelling along with possible avulsion fracture of the distal fibula. Ankle mortise intact. - Labs Labs: Abnormal Lab Results - Last 24 Hours (Table) 12/20/20 12/20/20 12/20/20 Range/Units 09:46 09:46 09:46 WBC 11.7 H (3.8-10.6) k/uL Neutrophils # 8.9 H (1.3-7.7) k/uL APTT 21.9 L (22.0-30.0) sec Creatinine (0.52-1.04) mg/dL Glucose (74-99) mg/dL POC Glucose (mg/dL) (75-99) mg/dL Total Bilirubin (0.2-1.3) mg/dL Triglycerides (0.0-149.0) mg/dL Urine Glucose (UA) 4+ H (Negative) Urine Ketones 2+ H (Negative) Ur Leukocyte Esterase Trace H (Negative) Urine WBC 8 H (0-5) /hpf Urine Bacteria Rare H (None) /hpf Urine Mucus Rare H (None) /hpf 12/20/20 12/20/20 12/20/20 Range/Units 09:46 12:04 13:00 WBC (3.8-10.6) k/uL Neutrophils # (1.3-7.7) k/uL APTT (22.0-30.0) sec Creatinine 0.45 L (0.52-1.04) mg/dL Glucose 381 H (74-99) mg/dL POC Glucose (mg/dL) 334 H (75-99) mg/dL Total Bilirubin 1.6 H (0.2-1.3) mg/dL Triglycerides 175.0 H (0.0-149.0) mg/dL Urine Glucose (UA) (Negative) Urine Ketones (Negative) Ur Leukocyte Esterase (Negative) Urine WBC (0-5) /hpf Urine Bacteria (None) /hpf Urine Mucus (None) /hpf 12/20/20 12/20/20 12/21/20 Range/Units 17:07 20:12 07:00 WBC (3.8-10.6) k/uL Neutrophils # (1.3-7.7) k/uL APTT (22.0-30.0) sec Creatinine (0.52-1.04) mg/dL Glucose (74-99) mg/dL POC Glucose (mg/dL) 221 H 271 H 346 H (75-99) mg/dL Total Bilirubin (0.2-1.3) mg/dL Triglycerides (0.0-149.0) mg/dL Urine Glucose (UA) (Negative) Urine Ketones (Negative) Ur Leukocyte Esterase (Negative) Urine WBC (0-5) /hpf Urine Bacteria (None) /hpf Urine Mucus (None) /hpf Microbiology - Last 24 Hours (Table) 12/20/20 09:46 Urine Culture - Preliminary Urine,Voided H & H 12/20/20 Range/Units 09:46 Hgb 13.2 (11.4-16.0) gm/dL Hct 40.8 (34.0-46.0) % Coagulation 12/20/20 Range/Units 09:46 INR 1.0 (<1.2) Result Diagrams: 12/20/20 09:46 12/20/20 09:46 Assessment and Plan (1) Fracture of distal end of left fibula Current Visit: Yes Status: Acute Code(s): S82.832A - OTH FRACTURE OF UPPER AND LOWER END OF LEFT FIBULA, INIT SNOMED Code(s): 803781557 Plan: 1. Will obtain a premium equalizer boot for the patient. Patient may be weightbearing as tolerated in the boot. Patient is to maintain the boot at all times except for hygiene and skin checks. 2. Recommend rest, ice, compression and elevation. 3. No surgical intervention planned. Patient may follow-up as an outpatient.
[2020-12-21] MEDS: MEMANTINE 10 MG TAB PO SCH ×2 (10:30→20:46)
[2020-12-21] MEDS: LEVOTHYROXINE 75 MCG TAB PO SCH (10:30)
[2020-12-21] MEDS: PANTOPRAZOLE 40 MG TABLET PO SCH (10:30)
[2020-12-21] MEDS: ESCITALOPRAM 5 MG TAB PO SCH (10:30)
[2020-12-21] MEDS: lisinopriL 10 MG TAB PO SCH (10:30)
[2020-12-21 11:20] LABS: Glucose,Whole Blood 368 mg/dL (75-99)
[2020-12-21] MEDS ORDERED: Magnesium Replacement Protocol 1 EACH MISC MISCELLANE PRN (13:44)
[2020-12-21] MEDS ORDERED: CYANOCOBALAMIN 1,000 MCG/ML 1 ML VIAL IM ONE (14:01)
--- NOTE | 2020-12-21 14:03 | P.HPIM ---
History of Present Illness H&P Date: 12/21/20 Chief Complaint: Increasing weakness, fall, altered LOC This is a 65-year-old female with past medical history of diabetes, hypertension, CVAs, recurrent UTIs, gait dysfunction and multiple other medical issues presented to the ER with complaints of worsening generalized weakness, worsened gait with multiple falls sustaining left ankle injury, currently unable to bear weight, increased frequency. Denies nausea vomiting or diarrhea. Denies lightheadedness, dizziness or focal deficits. Denies chest pain, palpitations or shortness of breath. Brain CT reported stable chronic appearing periventricular white matter ischemic changes, no acute intracranial process. EKG reported normal sinus rhythm, incomplete right bundle branch block, septal infarct, age undetermined-present on EKG of last admission. Troponin negative 1. Left ankle x-ray reporting significant soft tissue swelling about the left ankle joint effusion, small bony fragments and sent to the lateral malleolus not well visualized, possible avulsion fractures or chronic changes. Chest x-ray reported no acute cardiopulmonary process. Family reports patient has been using pull-up briefs times about 3 weeks, incontinent of urine. Patient is on Namenda and Aricept .Family also reports patient's dementia is becoming increasingly prevalent; answers questions appropriately but thought process is altered. Fluctuating short-term memory. Family uncomfortable with patient's ability to take care of herself at home, unable to lift patient. Evaluated by neurology with recommendations noted and appreciated.Carotid ultrasound reporting no hemodynamic significant stenosis in bilateral carotid ar teries. Brain MRA reported chronic stable appearing patchy to confluent periventricular, deeply pending changes including the brainstem, old lacunar infarct within the left posterior brainstem. T-max 99.2, WBC 11.7. Magnesium 1.7. Hyperglycemic, hemoglobin A1c pending, T bili 1.6, triglycerides 175. UA reports rare bacteria, trace leukocytes, negative nitrates, 2+ ketones, 4+ glucose. Review of Systems ROS Statement: Those systems with pertinent positive or pertinent negative responses have been documented in the HPI. ROS Other: All systems not noted in ROS Statement are negative. 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 hx thyroid cancer. MTHFR. History of Any Multi-Drug Resistant Organisms: None Reported Past Surgical History: Hysterectomy, Orthopedic Surgery Additional Past Surgical History / Comment(s): thyroidectomy, parotid gland surgery, left shoulder (rotator cuff sx) X 2 Past Anesthesia/Blood Transfusion Reactions: Postoperative Nausea & Vomiting (PONV) Past Psychological History: No Psychological Hx Reported Smoking Status: Never smoker Past Alcohol Use History: None Reported Past Drug Use History: None Reported - Past Family History Mother Family Medical History: No Reported History Additional Family Medical History / Comment(s): Mother was healthy Father Family Medical History: Cancer Additional Family Medical History / Comment(s): open heart surgery when he was 50, aortic aneurysm when he was around 63 Medications and Allergies Home Medications Medication Instructions Recorded Confirmed Type Atorvastatin [Lipitor] 5 mg PO HS 08/14/15 12/20/20 History Clopidogrel [Plavix] 75 mg PO DAILY 08/14/15 12/20/20 History Enalapril [Vasotec] 10 mg PO DAILY 08/14/15 12/20/20 History Aspirin 81 mg PO DAILY 02/12/18 12/20/20 History Dextromethorphan HBr/Quinidine 1 cap PO DAILY 02/12/18 12/20/20 History [Nuedexta 20-10 mg Capsule] Levothyroxine Sodium [Synthroid] 150 mcg PO DAILY 11/29/18 12/20/20 History Escitalopram [Lexapro] 5 mg PO DAILY 05/05/20 12/20/20 History Memantine [Namenda] 10 mg PO BID 05/05/20 12/20/20 History Mirabegron [Myrbetriq] 25 mg PO DAILY #30 tab 05/07/20 12/20/20 Rx Donepezil [Aricept] 5 mg PO HS tab 05/10/20 12/20/20 Rx Pantoprazole Sodium [Protonix] 40 mg PO DAILY #30 tablet. 05/10/20 12/20/20 Rx Insulin Aspart [NovoLOG Flexpen] See Protocol SQ AC-TID 12/20/20 12/20/20 History Insulin Glargine,Hum.rec.anlog 40 unit SQ HS 12/20/20 12/20/20 History [Lantus Solostar] Lisinopril [Prinivil] 10 mg PO DAILY 12/20/20 12/20/20 History Allergies Allergy/AdvReac Type Severity Reaction Status Date / Time ibuprofen [From Motrin] AdvReac "BLOOD Verified 05/05/20 13:21 THINS TOO MUCH" naproxen [From Aleve] AdvReac "BLOOD Verified 05/05/20 13:21 THINS TOO MUCH" NSAIDS (Non-Steroidal AdvReac Unknown Verified 05/05/20 13:21 Anti-Inflamma Physical Exam Vitals: Vital Signs Temp Pulse Pulse Resp BP Pulse Ox 12/21/20 11:46 98.6 F 94 18 140/82 94 L 12/21/20 05:00 99.2 F 102 H 20 129/74 93 L 12/20/20 20:00 87 111 H 20 12/20/20 19:50 93 L 12/20/20 19:10 99.1 F 111 H 20 141/72 94 L 12/20/20 15:00 98.3 F 87 16 134/72 92 L Intake and Output 12/20/20 12/21/20 12/21/20 22:59 06:59 14:59 Intake Total 100 Balance 100 Intake: Oral 100 Other: Voiding Method Diaper Diaper Incontinent Incontinent # Voids 1 3 # Bowel Movements 1 2 Weight 88.451 kg PHYSICAL EXAM: VITAL SIGNS: As above GENERAL: Pleasant 64-year-old female sitting up in bed, no acute distress HEENT: Conjunctivae normal. eyes normal. Oral mucosa moist. NECK: Supple, No JVD. No significant thyroid enlargement. No significant LNs CARDIOVASCULAR: S1, S2 regular. No murmur, rub or click. RESPIRATION: Breath sounds diminished in the bases. No rhonchi or crackles. No bronchial breathing. ABDOMEN: Soft, nontender . No guarding. no masses palpable. No ascites, No hepatosplenomegaly.Bowel sounds heard. LEGS: Swollen, tender Left ankle ,dressing clean dry and intact PSYCHIATRY: Alert and oriented X2, mood and affect normal. NERVOUS SYSTEM: Cranial N 2-12 grossly normal. Moves all 4 limbs. Diffuse weakness No focal deficits. Strength and sensation grossly intact. Skin: Warm and dry, no rash Lymphatic system. No LN neck axilla. Results CBC & Chem 7: 12/20/20 09:46 12/20/20 09:46 Labs: Abnormal Lab Results - Last 24 Hours (Table) 0712/20/20 12/20/20 Range/Units 13:00 17:07 20:12 POC Glucose (mg/dL) 221 H 271 H (75-99) mg/dL Triglycerides 175.0 H (0.0-149.0) mg/dL 12/21/20 12/21/20 Range/Units 07:00 11:16 POC Glucose (mg/dL) 346 H 368 H (75-99) mg/dL Triglycerides (0.0-149.0) mg/dL Microbiology - Last 24 Hours (Table) 12/20/20 09:46 Urine Culture - Preliminary Urine,Voided Thrombosis Risk Factor Assmnt - Choose All That Apply Each Factor Represents 1 point: Obesity (BMI >25), Swollen legs (current) Each Risk Factor Represents 2 Points: Age 61-74 years Other congenital or acquired thrombophilia - If yes, enter type in comment: No Each Risk Factor Represents 5 Points: Hip, pelvis, or leg fracture (< 1 month) Thrombosis Risk Factor Assessment Total Risk Factor Score: 9 Thrombosis Risk Factor Assessment Level: High Risk Assessment and Plan Assessment: Increasing weakness, increasing falls left ankle fracture secondary to fall Acute Metabolic encephalopathy secondary to hyperglycemia as well as underlying dementia Possible recurrent acute UTI, culture pending Incontinence, urinary Gait dysfunction Dehydration Diabetes mellitus type 2, uncontrolled, hyperglycemic Hypertension hyperlipidemia History of CVAs, involving MCA, brainstem History of thyroid cancer, status post thyroidectomy Osteoarthritis Plan: Continue on current medication regime, monitoring and symptomatically treatment. Urine culture pending, maintained on empiric Rocephin. Neurology and orthopedic consults in place, neurology workup in progress. PT/OT/social work consulted for subacute rehab at discharge. Resume Plavix and aspirin once cleared by orthopedic surgeon. The impression and plan of care has been dictated as directed. : I performed a history and examination of this patient, discussed the same with the dictator. I agree with the dictator's note ,documented as a scribe. Any additional findings or plans will be noted.
[2020-12-21] MEDS: CLOPIDOGREL 75 MG TAB PO SCH (14:33)
[2020-12-21] MEDS: ASPIRIN 81 MG PO SCH (14:33)
[2020-12-21] MEDS: INSULIN DETEMIR (LEVEMIR) 100 UNIT/ML SYR SQ SCH (14:34)
--- NOTE | 2020-12-21 15:15 | P.PN ---
Subjective Progress Note Date: 12/21/20 Patient seen at bedside and she stated that she's doing better today compared to her initial presentation. She denies of any new neurological problems. Patient blood sugar continues to be elevated ranging in the range of 200-300. The patient is accompanied by her who is at bedside. Objective - Vital Signs Vital signs: Vital Signs Temp 98.6 F 12/21/20 11:46 Pulse 94 12/21/20 11:46 Resp 18 12/21/20 11:46 BP 140/82 12/21/20 11:46 Pulse Ox 94 L 12/21/20 11:46 Intake & Output 12/20/20 12/21/20 12/21/20 18:59 06:59 18:59 Intake Total 100 Balance 100 Weight 88.451 kg Intake: Oral 100 Other: Voiding Method Diaper Diaper Diaper Incontinent Incontinent # Voids 1 3 # Bowel Movements 2 - Exam GENERAL: The patient is lying in bed and is not in acute distress. NEUROLOGICAL: Higher mental function: The patient is awake, alert, oriented to self and place. She stated the current month correctly but stated the year was 2015. She is able to identify objects correctly (pen, watch and cup). Patient is following commands. No aphasia and no neglect. Cranial nerves: The pupils are round, equal and reactive to light and accommodation. Visual mccloud are full to confrontation throughout. Extraocular movement is intact no nystagmus is noted. Facial sensation is normal to touch throughout. The facial strength is normal throughout. Hearing is mildly to moderately decreased bilaterally to hand rub. Tongue is midline and moved [id number] without any difficulty. Mild dysarthria is noted. Shoulder shrug is normal bilaterally. Motor: Gait is deferred because of patient's pain in her left leg. The strength is 5- over the left upper extremity while bilateral hand control clerk repairs are 5-. The lowers are limited because cooperation/pain. The right lower proximally is 5/5 while distal is limited but had at least 4+. The left is limited because of pain but had 3/5. Normal tone and bulk. She has her left lower extremity wrapped because of ankle fracture from knees down to ankle. Cerebellum: Normal finger to nose bilaterally. Sensation: Sensation is normal to touch throughout. Reflexes (right/left): 2+ throughout uppers while lowers are 1+. Plantars are mute bilaterally. WORK-UP: MRI of the brain is reported as chronic stable appearing patchy to confluent periventricular and deep white matter changes including the brainstem. There is an old lacunar infarct in the left posterior brain stem. Review the MRI and I did not see any acute or subacute stroke. I agree the patient has an old left pontine stroke and small vessel disease as well in the periventricular/basal ganglia region. Carotid duplex was reported as no sonographic evidence for hemodynamically significant stenosis in the bilateral carotid arteries. Lipid panel: Triglyceride 175, cholesterol 173, LDL is 93, HDL is 45. Vitamin B12 is 275 which is considered low normal the normal ranges between 200- 944. Serum folate level is more than 24 which is considered within normal limits. TSH is 0.685 which is considered within normal limits. - Labs CBC & Chem 7: 12/20/20 09:46 12/20/20 09:46 Labs: Abnormal Lab Results - Last 24 Hours (Table) 12/20/20 12/20/20 12/20/20 Range/Units 13:00 17:07 20:12 POC Glucose (mg/dL) 221 H 271 H (75-99) mg/dL Triglycerides 175.0 H (0.0-149.0) mg/dL 12/21/20 12/21/20 Range/Units 07:00 11:16 POC Glucose (mg/dL) 346 H 368 H (75-99) mg/dL Triglycerides (0.0-149.0) mg/dL Microbiology - Last 24 Hours (Table) 12/20/20 09:46 Urine Culture - Preliminary Urine,Voided Assessment and Plan Assessment: * Progressive Generalized weakness for past 4 years: Possibly due to recurrent UTI and uncontrolled sugar and low Vitamin B12. No acute/subacute stroke or new stroke. * Her reported altered mental status seems possibly metabolic encephalopathy. Possibly patient has underlying cognitive impairment/dementia as baseline. Her low Vitamin B12 can affect mentation and cause generalized weakness. * Elevated sugar on presentation in high 300's. * Left ankle fracture from a fall (fall does not seem like seizure from history. Patient does not have history of seizure) * History of multiple strokes (X4) (hemorrhagic coversion in sharmila and last stroke was about 4 years ago). * Mild Dysarthria (chronic) * Diabetes mellitus * History of Dyslipidemia * Hypertension * Hypothyroidism * History of recurrent urinary tract infection * History of Urinary incontinence Plan: * Because of the low vitamin B12 I will start the patient on thousand micrograms IM once today and starting tomorrow by mouth. * Pending vitamin B6 level and repeat MTHFR. * HbA1c are ordered by primary team and is pending. * Routine EEG (preliminary): Mild background slowing. There are no focal slowi ng, epileptiform discharges or seizure on the EEG. * On home medication aspirin 81mg and Plavix 75 mg daily (from a neurological perspective she could be on either aspirin or Plavix and she does not need to be on dual antiplatelets but will defer decision to primary team). Continue Lipitor 40 mg daily at bedtime for secondary stroke prophylaxis. * Pending 2-D echo * Every 4 hours neuro checks * Occupation, physical therapy and speech therapy are consulted.. * Will defer the rest of the medical management to primary team. * Upon discharge the patient needs to follow-up with a neurologist within 1-2 weeks as an outpatient. Possibly consider neuropsych evaluation as an outpatient for evaluation of the patient's memory. The plan is discussed with the patient and her (Jef) who is at bedside. Jose F Carroll M.D. Neuro-hospitalist Time with Patient: Less than 30
[2020-12-21 15:23] LABS: Hemoglobin A1C 8.8 % (4.0-6.0)
--- NOTE | 2020-12-21 15:49 | EEG ---
ELECTROENCEPHALOGRAM REPORT DATE OF SERVICE: 12/21/2020. CLINICAL HISTORY: This is a 65-year-old woman with altered mental status. This video EEG is obtained to evaluate for seizure and epileptiform activity. RELEVANT MEDICATION: The patient is not on any antiepileptic drugs. EEG TYPE: Routine 21 channel EEG is performed with video using the 10/20 electrode placement system. DESCRIPTION: Wakefulness and drowsiness are obtained. During wakefulness, there is a posterior dominant rhythm of low to moderate voltage, well modulated, well sustained of 7 to 7.5 hertz activity. During drowsiness there is slowing and attenuation of the background activity. There is no physiological stage 2 sleep architecture. There is no focal slowing. Interictal and ictal is none. ACTIVATION PROCEDURE: Photic stimulation did not evoke a positive driving response. There is no abnormality during the photic stimulation. Hyperventilation is not performed. CLINICAL INTERPRETATION: This is an abnormal routine EEG. The background slowing is suggestive of mild encephalopathy and can be sen in toxic-metabolic encephalopathy or structural brain abnormality. There are no focal slowing, epileptiform discharges or seizure on the EEG. Clinical correlation is recommended. MMODL / IJN: [id number] / MTDRosa
[2020-12-21 17:03] LABS: Glucose,Whole Blood 398 mg/dL (75-99)
--- NOTE | 2020-12-21 18:37 | ECHOF ---
Referral Reason:stroke MEASUREMENTS -------- HEIGHT: 175.3 cm WEIGHT: 88.5 kg BP: 129/74 RVIDd: 3.0 cm (< 3.3) IVSd: 1.2 cm (0.6 - 1.1) LVIDd: 4.4 cm (3.9 - 5.3) LVPWd: 1.3 cm (0.6 - 1.1) IVSs: 1.9 cm LVIDs: 2.6 cm LVPWs: 1.6 cm LA Diam: 3.1 cm (2.7 - 3.8) LAESV Index (A-L): 22.21 ml/m Ao Diam: 3.5 cm (2.0 - 3.7) AV Cusp: 2.3 cm (1.5 - 2.6) MV EXCURSION: 14.382 mm (> 18.000) MV EF SLOPE: 47 mm/s (70 - 150) EPSS: 1.0 cm MV E Alexx: 0.89 m/s MV DecT: 278 ms MV A Alexx: 1.15 m/s MV E/A Ratio: 0.77 RAP: 5.00 mmHg RVSP: 27.16 mmHg FINDINGS -------- Sinus rhythm. Suboptimal image quality - poor subcostal views. The left ventricular size is normal. There is mild concentric left ventricular hypertrophy. Overa ll left ventricular systolic function is normal with, an EF between 60 - 65 %. The right ventricle is normal in size. Normal LA size by volume 22+/-6 ml/m2. The right atrium is normal in size. The aortic valve is trileaflet, and appears structurally normal. No aortic stenosis or regurgitation. The mitral valve is normal. The tricuspid valve appears structurally normal. Unable to estimate RVSP due to inadequate TR jet s pectral doppler profile. Trace/mild (physiologic) pulmonic regurgitation. The aortic root size is normal. IVC Not well visulized. There is no pericardial effusion. CONCLUSIONS -------- 1. The left ventricular size is normal. 2. There is mild concentric left ventricular hypertrophy. 3. Overall left ventricular systolic function is normal with, an EF between 60 - 65 %. 4. The aortic valve is trileaflet, and appears structurally normal. No aortic stenosis or regurgitati on. 5. Trace/mild (physiologic) pulmonic regurgitation. 6. There is no pericardial effusion. MANAGER LINE: Amy Curry RDCS
[2020-12-21 20:32] LABS: Glucose,Whole Blood 360 mg/dL (75-99)
[2020-12-21] MEDS: ATORVASTATIN 40 MG TAB PO SCH (20:45)
[2020-12-21] MEDS: DONEPEZIL 5 MG TAB PO SCH (20:46)
[2020-12-21] MEDS ORDERED: INSULIN DETEMIR (LEVEMIR) 100 UNIT/ML SYR SQ SCH (21:00)
[2020-12-21] MEDS ORDERED: ATORVASTATIN 10 MG TAB PO SCH (21:00)
[2020-12-21] MEDS: KETOROLAC 15 MG/ML 1 ML VIAL IVP PRN (21:03)
[2020-12-22 05:16] LABS: Basophils # (A) 0.1 k/uL (0-0.2); Basophils % (A) 1 %; Eosinophils # (A) 0.7 k/uL (0-0.7); Eosinophils % (A) 6 %; HCT 39.2 % (34.0-46.0); HGB 12.6 gm/dL (11.4-16.0); Lymphocytes # (A) 2.1 k/uL (1.0-4.8); Lymphocytes % (A) 19 %; MCH 30.2 pg (25.0-35.0); MCHC 32.3 g/dL (31.0-37.0); MCV 93.5 fL (80.0-100.0); Mean Platelet Volume 8.8; Monocytes # (A) 0.7 k/uL (0-1.0); Monocytes % (A) 6 %; Neutrophils # (A) 7.6 k/uL (1.3-7.7); Neutrophils % (A) 67 %; Platelet Count 216 k/uL (150-450); RBC 4.19 m/uL (3.80-5.40); RDW 13.8 % (11.5-15.5); WBC 11.3 k/uL (3.8-10.6)
[2020-12-22] MEDS: LEVOTHYROXINE 75 MCG TAB PO SCH (05:50)
[2020-12-22 06:57] LABS: Glucose,Whole Blood 292 mg/dL (75-99)
[2020-12-22] MEDS: INSULIN DETEMIR (LEVEMIR) 100 UNIT/ML SYR SQ SCH (07:55)
[2020-12-22] MEDS: PANTOPRAZOLE 40 MG TABLET PO SCH (07:56)
[2020-12-22] MEDS: INSULIN ASPART (NovoLOG) 100 UNIT/ML VIAL SQ SCH ×7 (07:56→20:35)
[2020-12-22] MEDS: lisinopriL 10 MG TAB PO SCH (07:57)
[2020-12-22] MEDS: CLOPIDOGREL 75 MG TAB PO SCH (07:57)
[2020-12-22] MEDS: MEMANTINE 10 MG TAB PO SCH ×2 (07:57→20:34)
[2020-12-22] MEDS: ESCITALOPRAM 5 MG TAB PO SCH (07:57)
[2020-12-22] MEDS: ASPIRIN 81 MG PO SCH (07:57)
[2020-12-22] MEDS: CYANOCOBALAMIN 1,000 MCG/ML 1 ML VIAL IM SCH (07:57)
[2020-12-22] MEDS: Dextromethorphan Hbr/Quinidine [Nuedexta 20-10 Mg Capsule] PO SCH (08:05)
[2020-12-22] MEDS: Mirabegron [Myrbetriq] PO SCH (10:01)
[2020-12-22] MEDS ORDERED: lisinopriL 10 MG TAB PO STA (11:12)
[2020-12-22 11:15] LABS: Glucose,Whole Blood 296 mg/dL (75-99)
[2020-12-22] MEDS ORDERED: INSULIN DETEMIR (LEVEMIR) 100 UNIT/ML SYR SQ ONE (11:30)
--- NOTE | 2020-12-22 11:57 | P.DS ---
Providers Date of admission: 12/20/20 11:10 Expected date of discharge: 12/22/20 Attending physician: Klaus Ramires Consults: 12/20/20 10:14 Consult Physician Routine Consulting Provider: Sandy Marina Consult Reason/Comments: mental status changes, bladder incont.X 3 wks, gait dysfx worsening Do you want consulting provider notified?: Yes 12/20/20 11:10 Consult Physician Routine Consulting Provider: Vikas Solis Consult Reason/Comments: Possible avulsion fracture Do you want consulting provider notified?: Yes Primary care physician: Klaus Ramires Hospital Course: Increasing weakness, increasing falls left ankle fracture secondary to fall Acute Metabolic encephalopathy secondary to hyperglycemia as well as underlying dementia. Low vitamin B12 Recurrent acute UTI, culture reporting gram-negative bacilli, finalizing Incontinence, urinary Gait dysfunction Dehydration Diabetes mellitus type 2, uncontrolled, hyperglycemic, hemoglobin A1c 8.8. Hypertension hyperlipidemia History of CVAs, involving MCA, brainstem History of thyroid cancer, status post thyroidectomy Osteoarthritis Hospital course:This is a 65-year-old female with past medical history of diabet es, hypertension, CVAs, recurrent UTIs, gait dysfunction and multiple other medical issues presented to the ER with complaints of worsening generalized weakness, worsened gait with multiple falls sustaining left ankle injury, currently unable to bear weight, increased frequency. Denies nausea vomiting or diarrhea. Denies lightheadedness, dizziness or focal deficits. Denies chest pain, palpitations or shortness of breath. Brain CT reported stable chronic appearing periventricular white matter ischemic changes, no acute intracranial process. EKG reported normal sinus rhythm, incomplete right bundle branch block, septal infarct, age undetermined-present on EKG of last admission. Troponin negative 1. Left ankle x-ray reporting significant soft tissue swelling about the left ankle joint effusion, small bony fragments and sent to the lateral malleolus not well visualized, possible avulsion fractures or chronic changes. Chest x-ray reported no acute cardiopulmonary process. Family reports patient has been using pull-up briefs times about 3 weeks, incontinent of urine. Patient is on Namenda and Aricept .Family also reports patient's dementia is becoming increasingly prevalent; answers questions appropriately but thought process is altered. Fluctuating short-term memory. Family uncomfortable with patient's ability to take care of herself at home, unable to lift patient. Evaluated by neurology with recommendations noted and appreciated.Carotid ultrasound reporting no hemodynamic significant stenosis in bilateral carotid arteries. Brain MRA reported chronic stable appearing patchy to confluent periventricular, deeply pending changes including the brainstem, old lacunar infarct within the left posterior brainstem. T-max 99.2, WBC 11.7. Magnesium 1.7. Hyperglycemic, hemoglobin A1c pending, T bili 1.6, triglycerides 175. UA reports rare bacteria, trace leukocytes, negative nitrates, 2+ ketones, 4+ glucose. Echo reported normal LV function, EF 60-65%, aortic valve trileaflet with no aortic stenosis or regurgitation.Patient's blood sugars trending down but still elevated, in the high 200s, Lantus dose increased, pre-meal insulin dose increased. Close monitoring of Accu-Cheks. Hypertensive with systolic blood pressures 140s to 170s, lisinopril dose increased. Close monitoring of blood pressure. Continues on IV Rocephin, urine culture reporting gram-negative bacilli, sensitivities pending. Afebrile, WBC decreased to 11.3. Neuro workup completed with acute or subacute stroke ruled out as per neurology. At home patient had been on both Plavix and aspirin, neurology recommending patient be maintained on either aspirin or Plavix stating that she does not need to be on dual antiplatelet therapy. Plavix discontinued. Atorvastatin dose increased. Possibly consider neuropsych evaluation as an outpatient for evaluation of the patient's memory.Patient wearing Equalizer boot, which is to be maintained at all times except for hygiene and skin checks as per orthopedic surgery. No surgical intervention recommended at this time. Maintain ice, compression and elevation. Patient will require close monitoring of her blood sugars and her blood pressures with anticipated adjustment in medication regimen. Patient will be discharged today in a stable condition with prognosis to [facility] subacute rehab. in a stable condition with guarded prognosis. The impression and plan of care has been dictated as directed. : I performed a history and examination of this patient, discussed the same with the dictator. I agree with the dictator's note ,documented as a scribe. Any additional findings or plans will be noted. Patient Condition at Discharge: Stable Plan - Discharge Summary Discharge Rx Participant: Yes New Discharge Prescriptions: No Action Atorvastatin [Lipitor] 5 mg PO HS Enalapril [Vasotec] 10 mg PO DAILY Dextromethorphan HBr/Quinidine [Nuedexta 20-10 mg Capsule] 1 cap PO DAILY Aspirin 81 mg PO DAILY Levothyroxine Sodium [Synthroid] 150 mcg PO DAILY Memantine [Namenda] 10 mg PO BID Escitalopram [Lexapro] 5 mg PO DAILY Mirabegron [Myrbetriq] 25 mg PO DAILY #30 tab Donepezil [Aricept] 5 mg PO HS tab Pantoprazole Sodium [Protonix] 40 mg PO DAILY #30 tablet. Insulin Aspart [NovoLOG Flexpen] See Protocol SQ AC-TID Lisinopril [Prinivil] 10 mg PO DAILY Insulin Glargine,Hum.rec.anlog [Lantus Solostar] 40 unit SQ HS Discharge Medication List Atorvastatin [Lipitor] 5 mg PO HS 08/14/15 [History] Enalapril [Vasotec] 10 mg PO DAILY 08/14/15 [History] Aspirin 81 mg PO DAILY 02/12/18 [History] Dextromethorphan HBr/Quinidine [Nuedexta 20-10 mg Capsule] 1 cap PO DAILY 02/12/18 [History] Levothyroxine Sodium [Synthroid] 150 mcg PO DAILY 11/29/18 [History] Escitalopram [Lexapro] 5 mg PO DAILY 05/05/20 [History] Memantine [Namenda] 10 mg PO BID 05/05/20 [History] Mirabegron [Myrbetriq] 25 mg PO DAILY #30 tab 05/07/20 [Rx] Donepezil [Aricept] 5 mg PO HS tab 05/10/20 [Rx] Pantoprazole Sodium [Protonix] 40 mg PO DAILY #30 tablet. 05/10/20 [Rx] Insulin Aspart [NovoLOG Flexpen] See Protocol SQ AC-TID 12/20/20 [History] Insulin Glargine,Hum.rec.anlog [Lantus Solostar] 40 unit SQ HS 12/20/20 [History] Lisinopril [Prinivil] 10 mg PO DAILY 12/20/20 [History] Follow up Appointment(s)/Referral(s): Klaus Ramires DO [Primary Care Provider] - 1-2 days Vikas Solis DO [Doctor of Osteopathic Medicine] - 10 Days Yanelis Flores [NON-STAFF] - 1 Week Activity/Diet/Wound Care/Special Instructions: Pending culture sensitivities [facility] CBC, BMP in 3 days Hemoglobin A1c 8.8, further diabetic education recommended Patient may be weightbearing as tolerated in the equalizer boot. Patient is to maintain the boot at all times except for hygiene and skin checks. Recommend rest, ice, compression and elevation. Please follow up with [facility] and call with any questions or concerns, .
[2020-12-22 13:07] LABS: African American GFR (CKD) 88.4 (60.0-200.0); Anion Gap 9.8 mmol/L (4.00-12.00); Calcium 8.8 mg/dL (8.7-10.3); Carbon Dioxide 29.2 mmol/L (21.6-31.8); Magnesium 1.8 mg/dL (1.5-2.4); Non-African American GFR(CKD) 76.3 (60.0-200.0); Potassium 4.3 mmol/L (3.5-5.5)
--- NOTE | 2020-12-22 16:29 | P.PN ---
Subjective Progress Note Date: 12/22/20 Patient seen at bedside and she feels about the same today compared to yesterday. She denies of any new neurological problems. She is accompanied with her was at bedside and he agrees. Objective - Vital Signs Vital signs: Vital Signs Temp 98.4 F 12/22/20 11:09 Pulse 85 12/22/20 11:09 Resp 18 12/22/20 11:09 BP 129/79 12/22/20 14:00 Pulse Ox 93 L 12/22/20 11:09 Intake & Output 12/21/20 12/22/20 12/22/20 18:59 06:59 18:59 Intake Total 50 240 Balance 50 240 Intake: Intake, IV Titration 50 Amount cefTRIAXone 1 gm In 50 Sodium Chloride 0.9% 50 ml @ 100 mls/hr IVPB Q24HR REPLACED BY [facility] Rx#:[id number] Oral 240 Other: Voiding Method Diaper Diaper Incontinent Incontinent # Voids 1 300 # Bowel Movements 1 - Exam GENERAL: The patient is lying in bed and is not in acute distress. NEUROLOGICAL: Higher mental function: The patient is awake, alert, oriented to self and place. She stated the current month correctly but stated the year was 2015. She is able to identify objects correctly (pen, watch and cup). Patient is following commands. No aphasia and no neglect. Cranial nerves: The pupils are round, equal and reactive to light and accommodation. Visual mccloud are full to confrontation throughout. Extraocular movement is intact no nystagmus is noted. Facial sensation is normal to touch throughout. The facial strength is normal throughout. Hearing is mildly to moderately decreased bilaterally to hand rub. Tongue is midline and moved [id number] without any difficulty. Mild dysarthria is noted. Shoulder shrug is normal bilaterally. Motor: Gait is deferred because of patient's pain in her left leg. The strength is 5- over the left upper extremity while bilateral hand spray operator are 5-. The lowers are limited because cooperation/pain. The right lower proximally is 5/5 while distal is limited but had at least 4+. The left is limited because of pain but had 3/5. Normal tone and bulk. She has her left lower extremity wrapped because of ankle fracture from knees down to ankle. Cerebellum: Normal finger to nose bilaterally. Sensation: Sensation is normal to touch throughout. Reflexes (right/left): 2+ throughout uppers while lowers are 1+. Plantars are mute bilaterally. WORK-UP: MRI of the brain is reported as chronic stable appearing patchy to confluent periventricular and deep white matter changes including the brainstem. There is an old lacunar infarct in the left posterior brain stem. Review the MRI and I did not see any acute or subacute stroke. I agree the patient has an old left pontine stroke and small vessel disease as well in the periventricular/basal ganglia region. Carotid duplex was reported as no sonographic evidence for hemodynamically significant stenosis in the bilateral carotid arteries. Lipid panel: Triglyceride 175, cholesterol 173, LDL is 93, HDL is 45. Vitamin B12 is 275 which is considered low normal the normal ranges between 200- 944. Serum folate level is more than 24 which is considered within normal limits. TSH is 0.685 which is considered within normal limits. Vitamin B6 is 5 Hemoglobin A1c is 8.8 which is uncontrolled normal supposed to be between 4-6. Routine EEG: Mild background slowing. There are no focal slowing, epileptiform discharges or seizure on the EEG. 2-D echo was reported as mild concentric left ventricular hypertrophy. Ejection fraction of 66 5%. Normal left atrial size. - Labs CBC & Chem 7: 12/22/20 04:46 12/22/20 04:46 Labs: Abnormal Lab Results - Last 24 Hours (Table) 12/21/20 12/21/20 12/22/20 Range/Units 16:58 20:30 04:46 WBC (3.8-10.6) k/uL BUN/Creatinine Ratio 30.00 H (12.00-20.00) Ratio Glucose 296 H (70-110) mg/dL POC Glucose (mg/dL) 398 H 360 H (75-99) mg/dL 12/22/20 12/22/20 12/22/20 Range/Units 04:46 06:54 11:12 WBC 11.3 H (3.8-10.6) k/uL BUN/Creatinine Ratio (12.00-20.00) Ratio Glucose (70-110) mg/dL POC Glucose (mg/dL) 292 H 296 H (75-99) mg/dL Microbiology - Last 24 Hours (Table) 12/20/20 09:46 Urine Culture - Preliminary Urine,Voided Gram Neg Bacilli Assessment and Plan Assessment: * Progressive Generalized weakness for past 4 years: Possibly due to recurrent UTI and uncontrolled sugar and low Vitamin B12. No acute/subacute stroke or new strokes per MRI Brain. * Her reported altered mental status seems possibly metabolic encephalopathy. Possibly patient has underlying cognitive impairment/dementia as baseline. Her low Vitamin B12 can affect mentation and cause generalized weakness. * Left ankle fracture from a fall (fall does not seem like seizure from history. Patient does not have history of seizure) * History of multiple strokes (X4) (hemorrhagic coversion in sharmila and last stroke was about 4 years ago). * Mild Dysarthria (chronic) * Uncontrolled Diabetes mellitus (HbA1c: 8.8) and during hospital stay sugars in 300's * History of Dyslipidemia * Hypertension * Hypothyroidism * History of recurrent urinary tract infection * History of Urinary incontinence Plan: * Because of the low vitamin B12 continue 1000mcg daily. I * Pending repeat MTHFR. Patient was notified will defer management and further work-up to her PCP as outpatient. * On home medication aspirin 81mg and Plavix 75 mg daily (from a neurological perspective she could be on either aspirin or Plavix and she does not need to be on dual antiplatelets but will defer decision to primary team). Continue Lipitor 40 mg daily at bedtime for secondary stroke prophylaxis * Every 4 hours neuro checks * Occupation, physical therapy and speech therapy are consulted.. * Will defer the rest of the medical management to primary team. * Upon discharge the patient needs to follow-up with a neurologist within 1-2 weeks as an outpatient. Possibly consider neuropsych evaluation as an outpatient for evaluation of the patient's memory. The plan is discussed with the patient and her (Jef) who is at bedside. There is no further neurological work-up. She is clear from neurological stand point. Jose F Carroll M.D. Neuro-hospitalist Time with Patient: Less than 30
[2020-12-22 17:02] LABS: Glucose,Whole Blood 176 mg/dL (75-99)
[2020-12-22 20:03] LABS: Glucose,Whole Blood 229 mg/dL (75-99)
[2020-12-22 20:27] VITALS: RESP 16
[2020-12-22] MEDS: ATORVASTATIN 40 MG TAB PO SCH (20:33)
[2020-12-22] MEDS: DONEPEZIL 5 MG TAB PO SCH (20:33)
[2020-12-22] MEDS: KETOROLAC 15 MG/ML 1 ML VIAL IVP PRN (21:40)
[2020-12-23 05:06] VITALS: BP 158/75; TEMP 98.3
[2020-12-23] MEDS: LEVOTHYROXINE 75 MCG TAB PO SCH (05:33)
[2020-12-23] MEDS ORDERED: INSULIN DETEMIR (LEVEMIR) 100 UNIT/ML SYR SQ SCH (07:00)
[2020-12-23 07:04] LABS: Glucose,Whole Blood 287 mg/dL (75-99)
[2020-12-23] MEDS: CYANOCOBALAMIN 1,000 MCG/ML 1 ML VIAL IM SCH (08:24)
[2020-12-23] MEDS: MEMANTINE 10 MG TAB PO SCH (08:25)
[2020-12-23] MEDS: CLOPIDOGREL 75 MG TAB PO SCH (08:25)
[2020-12-23] MEDS: ASPIRIN 81 MG PO SCH (08:25)
[2020-12-23] MEDS: ESCITALOPRAM 5 MG TAB PO SCH (08:25)
[2020-12-23] MEDS: PANTOPRAZOLE 40 MG TABLET PO SCH (08:25)
[2020-12-23] MEDS: INSULIN ASPART (NovoLOG) 100 UNIT/ML VIAL SQ SCH ×2 (08:26)
[2020-12-23] MEDS: Dextromethorphan Hbr/Quinidine [Nuedexta 20-10 Mg Capsule] PO SCH (08:27)
[2020-12-23] MEDS: Mirabegron [Myrbetriq] PO SCH (08:28)
[2020-12-23] MEDS ORDERED: lisinopriL 20 MG TAB PO SCH (09:00)
[2020-12-23] MEDS ORDERED: lisinopriL 10 MG TAB PO SCH (09:00)
[2020-12-23 09:30] VITALS: PULSE 87
== END 2020-12-23 11:08 | DRG 689 ==
LOC: EC 09:09 → 5NMEDONC 11:10
PROVIDERS: ADMIT Family Medicine; ATTEND Family Medicine
DX: N39.0 Urinary tract infection, site not specified (principal); G93.41 Metabolic encephalopathy; B96.20 Unspecified Escherichia coli [E. coli] as the cause of diseases classified elsewhere; M19.90 Unspecified osteoarthritis, unspecified site; E11.51 Type 2 diabetes mellitus with diabetic peripheral angiopathy without gangrene; E11.65 Type 2 diabetes mellitus with hyperglycemia; E78.5 Hyperlipidemia, unspecified; E86.0 Dehydration; E89.0 Postprocedural hypothyroidism; F03.90 Unspecified dementia, unspecified severity, without behavioral disturbance, psychotic disturbance, mood disturbance, and anxiety; G93.89 Other specified disorders of brain; R47.81 Slurred speech; I10 Essential (primary) hypertension; Z85.850 Personal history of malignant neoplasm of thyroid; R29.6 Repeated falls; Z86.73 Personal history of transient ischemic attack (TIA), and cerebral infarction without residual deficits; R32 Unspecified urinary incontinence; S82.832A Other fracture of upper and lower end of left fibula, initial encounter for closed fracture; W19.XXXA Unspecified fall, initial encounter; X50.1XXA Overexertion from prolonged static or awkward postures, initial encounter; Z79.02 Long term (current) use of antithrombotics/antiplatelets; Z79.4 Long term (current) use of insulin; Z79.82 Long term (current) use of aspirin; Z79.890 Hormone replacement therapy; Z79.899 Other long term (current) drug therapy; Z87.440 Personal history of urinary (tract) infections; Z90.710 Acquired absence of both cervix and uterus; Z98.890 Other specified postprocedural states; Z88.6 Allergy status to analgesic agent
CPT/HCPCS: 29515; 36415; 70450; 70551; 71046; 80048; 80053; 80061; 81001; 81291; 82607; 82746; 83036; 83605; 83735; 84100; 84207; 84443; 84484; 85025; 85610; 85730; 87077; 87086; 87186; 93005; 93306; 93880; 95816; 96372; 99285

== ENCOUNTER → 2021-02-21 | Outpatient (CLI) | payer MEDICARE ==
--- NOTE | 2021-02-21 11:29 | P.PN ---
Subjective Progress Note Date: 02/21/21 This is a 65-year-old lady with history of chronic lower back pain which used to radiate down the right leg however not anymore. The pain increases when she stands up or walk for a few steps as she states. The patient had mini strokes before and she is coming today with her daughter for assistance. She uses a walker for ambulation usually as she states. She denies any bowel or bladder dysfunction. The patient was seen in our clinic about 2 years ago but at that time she was on Plavix and the procedure were done on her. Her lumbar spine MRIs was done using a 2 years ago showed degenerative disc disease and disc herniation. Patient denies new-onset weakness, bowel/bladder incontinence, or any other signs or symptoms of cauda equina syndrome. There are no signs of acute intoxication, and no indications of medication diversion or overuse. In addition to above, 13-point review of systems is also negative for chest pain, shortness of breath, changes in vision, changes in hearing, new onset weakness, abdominal pain, diarrhea, extreme fatigue, malaise, fever, skin changes, homicidal or suicidal ideation, or bowel or bladder incontinence. Vital Signs: Reviewed in EMR Gen: AAOx3, NAD HEENT: PERRLA,hearing grossly normal Pulm: resp unlabored Neck: supple, trachea midline Neuro exam of the lower extremities: Normal and symmetrical knee reflex is absent ankle reflex bilaterally. Decreased muscle strength to 4 out of 5 bilaterally for knee flexion and extension ankle flexion and extension. Straight leg raising test: Noah's test: Range of motion of the lumbar spine: Facet loading test: Positive on the lumbar area Tenderness in the paravertebral musculature: Positive tenderness in the lumbar paravertebral musculature Neuro: CN II-XII grossly intact, Imaging: Reviewed in EMR/chart Assessment: Lumbar DDD Lumbar spondylosis without myelopathy History of CVA, no anticoagulants at this point except for aspirin 81 mg once a day Plan: 1. Explanation: When patients on opioids, opioid and psychological risk scores were reviewed. Diagnoses, prognoses, and multiple treatment options including but not limited to physical therapy, interventional therapies, adjuvant medical therapies, narcotic medication therapies, and surgery were discussed with the patient and all questions were answered to the patient's satisfaction. 2. Opioid agreement:When patients are prescribed opoids through our clinic, opioid agreement is signed with the patient and the patient is warned not to use opioids while driving or before driving and not to combine opioids with benzodiazepines or alcohol. 3. Counseling: When patient is smoking or obese, the patient was counseled extensively on SMOKING CESSATION, BODY MASS INDEX, EXERCISE. Specifically, the patient was instructed regarding the importance of smoking cessation, obesity, and exercise in the context of both chronic pain and overall health. 4. Procedures: Scheduled for a diagnostic lumbar medial branch block 2. There is good response to this block then we will plan on doing lumbar medial branch RFA in the future. Lumbar medial branch block will be done at L4 5 and L5-S1 levels bilaterally. 5. Consultations: None 6. Investigations: None 7. Medications: None prescribed today 8. Disposition: Proceed with the above-mentioned procedure as soon as possible 9. Maps were reviewed and were appropriate.
[2021-02-21 12:32] VITALS: BP 136/82; PULSE 72; RESP 18
== END | disposition home or self-care (01) ==
LOC: PNWHC3 10:55
PROVIDERS: ATTEND Anesthesiology
DX: M51.26 Other intervertebral disc displacement, lumbar region (principal); M51.36 Other intervertebral disc degeneration, lumbar region; M47.816 Spondylosis without myelopathy or radiculopathy, lumbar region; Z86.73 Personal history of transient ischemic attack (TIA), and cerebral infarction without residual deficits
CPT/HCPCS: 99211

== ENCOUNTER 2021-03-18 06:28 | Day surgery (SDC) | payer MEDICARE ==
[2021-03-16 13:44] VITALS: BMI 28.0
[~2021-03-18 06:28] MED LIST: LACTATED RINGERS 1,000 ML IV SCH
[2021-03-18 07:17] VITALS: RESP 16; TEMP 97.3
[2021-03-18 07:20] LABS: Glucose,Whole Blood 177 mg/dL (75-99)
[2021-03-18] MEDS ORDERED: ROPIVACAINE 5MG/ML 20ML VIAL ONE (07:50)
[2021-03-18] MEDS ORDERED: MIDAZOLAM 2 MG/2 ML VIAL ONE (07:50)
[2021-03-18] MEDS ORDERED: fentaNYL (PF) 50 MCG/ML 2 ML AMP ONE (07:50)
[2021-03-18] MEDS ORDERED: TRIAMCINOLONE ACETONIDE 40 MG/ML 1 ML VIAL ONE (07:50)
--- NOTE | 2021-03-18 08:06 | P.PCN ---
Date of Procedure: 03/18/21 Procedure(s) Performed: PREOPERATIVE DIAGNOSIS : 1- Lumbar spondylosis with Facet Arthropathy without myelopathy . 2- Lumber degenerative disc disease POSTOPERATIVE DIAGNOSIS: 1- Lumbar spondylosis with Facet Arthropathy without myelopathy . 2- Lumber degenerative disc disease PROCEDURE: Diagnostic bilateral L3 , L4 , and L5 medial branch block under fluoroscopy guidance(fluoroscopy images available in the radiology Department ) ( To target the facet joint between L4-5 , and L5-S1 ) ANESTHESIA:, moniterd anesthesia care.. EBL: Minimal COMPLICATION: None PROCEDURE INDICATION: Chronic low back pain secondary to Facet arthropathy unresponsive to conservative treatment. PROCEDURE DESCRIPTION: the patient was seen and identified in the preop holding area , risks and benefits and possible complications of the procedure and alternative were discussed with the patient, and the patient agreed to proceed with the procedure and signed the consent and vital signs monitored during the procedure and fluoroscopy was used to maximize the benefit and accuracy of the needle placement, and sedation was given to decrease patient anxiety, patient was taken to the procedure room and placed in prone position vital signs monitored in the back prepped with chlorhexidine X3 then under strict sterile technique using a right oblique fluoroscopy ,the junction of the transverse process and the superior articulating process of the right L3 , L4 , and L5 vertebra which corresponding to the fluoroscopy image of the eye of the Oh dog on the block side for the medial branches and subsequently , after local infiltration of skin and subcu tissuies with Ropivacaine 0.5 % , one mL at each level ,then 22-gauge Quincke-type needles , 3 needle was used , each one of them placed at the junction of the base of the transverse process and the superior articular process at the appropriate level, and the needle was advanced until the periosteum contacted, needle placement confirmed with AP oblique and lateral view and after appropriate needle placement confirmed, and after negative aspiration for heme and CSF and there was no paresthesia 1-1/2 mL of Ropivacaine 0.5% mixed with 20 mg Kenalog , then half mL injected at each level after negative aspiration the needle subsequently removed and the same procedure repeated for the left side at left side at L3 , L4 and L5 levels. At the end of the procedure and the needles removed and a bandage applied after the skin was cleaned the cleaning solution patient taken to recovery room in stable condition and monitors in the recovery room for 20-30 minutes and d ischarged home in stable condition after discharge criteria met and patient will follow up with the pain clinic in 2-4 weeks
[2021-03-18] MEDS ORDERED: IV FLUID CONTINUATION 550 ML IV ONE (08:12)
[2021-03-18 08:19] LABS: Glucose,Whole Blood 175 mg/dL (75-99)
--- NOTE | 2021-03-18 08:19 | FL ---
EXAMINATION TYPE: FL guided pain mgmt statistic DATE OF EXAM: 03/18/2021 HISTORY: Fluoroscopy time 16 seconds of fluoroscopy provided. IMPRESSION: 1. Fluoroscopy time.
[2021-03-18 09:19] VITALS: BP 113/55; PULSE 80
== END 2021-03-18 09:27 | disposition home or self-care (01) ==
LOC: ORPAIN 06:28
PROVIDERS: ATTEND Specialist
DX: G89.29 Other chronic pain (principal); M47.816 Spondylosis without myelopathy or radiculopathy, lumbar region; I10 Essential (primary) hypertension; E11.9 Type 2 diabetes mellitus without complications; E66.9 Obesity, unspecified; Z68.28 Body mass index [BMI] 28.0-28.9, adult; Z79.4 Long term (current) use of insulin; Z88.6 Allergy status to analgesic agent
CPT/HCPCS: 64493; 64494; J2250; J3301; J3010; J2795

== ENCOUNTER 2021-03-29 13:16 | Observation (INO) | payer MEDICARE ==
[2021-03-29] MEDS ORDERED: SODIUM CHLORIDE 0.9% 500 ML 500 ML IV STA (13:26)
--- NOTE | 2021-03-29 13:28 | ED ---
Weakness HPI - General Stated complaint: weakness Time Seen by Provider: 03/29/21 13:22 - History of Present Illness Initial comments: Patient presents with generalized weakness. Her weakness is nonfocal. She is having more difficulty getting around. She has no chest or belly or back pain. She has no headache, neck pain or stiffness. Her was concerned that her speech seemed slurred for a couple days. She does believe she might have a UTI. She has no vision or hearing changes. She has no fevers or chills. She has not traveled anywhere been around anybody sick recently. Nothing makes her symptoms better or worse. She wasn't doing anything when she began to feel this way. Patient states that she is totally unable to walk at this point because she is so weak. - Related Data Home Medications Medication Instructions Recorded Confirmed Aspirin 81 mg PO DAILY 02/12/18 03/29/21 Dextromethorphan HBr/Quinidine 1 cap PO DAILY 02/12/18 03/29/21 [Nuedexta 20-10 mg Capsule] Escitalopram [Lexapro] 5 mg PO DAILY 05/05/20 03/29/21 Memantine [Namenda] 10 mg PO BID 05/05/20 03/29/21 Jone/D3/Mag11/Zinc/Pals Specialist/Tye/Bor 1 tab PO DAILY 02/18/21 03/29/21 [Caltrate 600+D Plus Tablet] Cranberry With Vit C 168 mg PO DAILY 02/18/21 03/29/21 Folic Acid 1 mg PO DAILY 02/18/21 03/29/21 Insulin Glargine,Hum.rec.anlog 65 unit SQ HS 02/18/21 03/29/21 [Lantus Solostar Pen] Mirabegron [Myrbetriq] 25 mg PO HS 02/18/21 03/29/21 Insulin Aspart [NovoLOG Flexpen] See Protocol SQ TID-W/MEALS PRN 03/16/21 03/29/21 Enalapril [Vasotec] 10 mg PO DAILY 03/29/21 03/29/21 Levothyroxine Sodium [Synthroid] 200 mcg PO DAILY 03/29/21 03/29/21 Previous Rx's Medication Instructions Recorded Donepezil [Aricept] 5 mg PO HS tab 05/10/20 Pantoprazole Sodium [Protonix] 40 mg PO DAILY #30 tablet. 05/10/20 Atorvastatin [Lipitor] 40 mg PO HS tab 12/22/20 Cyanocobalamin (Vitamin B-12) 1,000 mcg PO DAILY #30 tablet 12/22/20 [Vitamin B-12] lisinopriL [Zestril] 20 mg PO DAILY tab 12/22/20 Allergies Allergy/AdvReac Type Severity Reaction Status Date / Time ibuprofen [From Motrin] AdvReac "BLOOD Verified 03/29/21 14:32 THINS TOO MUCH" naproxen [From Aleve] AdvReac "BLOOD Verified 03/29/21 14:32 THINS TOO MUCH" NSAIDS (Non-Steroidal AdvReac Unknown Verified 03/29/21 14:32 Anti-Inflamma Review of Systems ROS Statement: Those systems with pertinent positive or pertinent negative responses have been documented in the HPI. ROS Other: All systems not noted in ROS Statement are negative. Past Medical History Past Medical History: Cancer, CVA/TIA, Diabetes Mellitus, GERD/Reflux, Hyperlipidemia, Hypertension, Musculoskeletal Disorder, Skin Disorder, Thyroid Disorder Additional Past Medical History / Comment(s): HX CVA X4 ., PROBLEMS WITH BA CALIN, HX FALLS, THYROID CANCER.,MTHFR., UTI'S, FX ANKLE DECEMBER 2020-WEARING BRACE AND USING WALKER., STATES BULDGING DISC AND PINCHED NERVE IN LOWER BACK. History of Any Multi-Drug Resistant Organisms: None Reported Past Surgical History: Hysterectomy, Orthopedic Surgery Additional Past Surgical History / Comment(s): thyroidectomy, parotid gland surgery, left shoulder (rotator cuff sx) X 2 Past Anesthesia/Blood Transfusion Reactions: Previous Problems w/ Anesthesia, Postoperative Nausea & Vomiting (PONV) Smoking Status: Never smoker - Past Family History Mother Family Medical History: No Reported History Additional Family Medical History / Comment(s): . Father Family Medical History: Cancer Additional Family Medical History / Comment(s): open heart surgery when he was 50, aortic aneurysm when he was around 65 General Exam General appearance: alert, in no apparent distress Head exam: Present: atraumatic, normocephalic, normal inspection Eye exam: Present: normal appearance, PERRL, EOMI. Absent: scleral icterus, conjunctival injection, periorbital swelling ENT exam: Present: normal exam, mucous membranes moist Neck exam: Present: normal inspection. Absent: tenderness, meningismus, lymphadenopathy Respiratory exam: Present: normal lung sounds bilaterally. Absent: respiratory distress, wheezes, rales, rhonchi, stridor Cardiovascular Exam: Present: regular rate, normal rhythm, normal heart sounds. Absent: systolic murmur, diastolic murmur, rubs, gallop, clicks GI/Abdominal exam: Present: soft, normal bowel sounds. Absent: distended, tenderness, guarding, rebound, rigid Extremities exam: Present: normal inspection, full ROM, normal capillary refill. Absent: tenderness, pedal edema, joint swelling, calf tenderness Back exam: Present: normal inspection Neurological exam: Present: alert, oriented X3, CN II-XII intact Psychiatric exam: Present: normal affect, normal mood Skin exam: Present: warm, dry, intact, normal color. Absent: rash Course Vital Signs 03/29/21 03/29/21 13:31 15:15 Temperature 98.1 F Pulse Rate 84 76 Respiratory 16 16 Rate Blood Pressure 132/109 125/88 O2 Sat by Pulse 95 97 Oximetry Medical Decision Making - Medical Decision Making Patient presents with weakness, possible slurred speech for couple days. I discussed with the patient that her urine is negative, as she was concern for UTI. However she states she started herself on some antibiotics. Also, patient has had a couple episodes of hypoglycemia. Patient also states that she is so profoundly weak that she cannot possibly go home because she can't get around anymore. I spoke with her , who also states that she can't go home because she is too weak to get around and he cannot care for her. I will place a consult neurology. Patient will therefore require admission. - Lab Data Result diagrams: 03/29/21 13:37 03/29/21 13:37 Lab Results 03/29/21 03/29/21 03/29/21 Range/Units 13:37 13:37 13:37 WBC 13.5 H (3.8-10.6) k/uL RBC 4.60 (3.80-5.40) m/uL Hgb 13.6 (11.4-16.0) gm/dL Hct 42.0 (34.0-46.0) % MCV 91.2 (80.0-100.0) fL MCH 29.6 (25.0-35.0) pg MCHC 32.4 (31.0-37.0) g/dL RDW 14.3 (11.5-15.5) % Plt Count 296 (150-450) k/uL MPV 8.1 Neutrophils % 72 % Lymphocytes % 20 % Monocytes % 5 % Eosinophils % 2 % Basophils % 1 % Neutrophils # 9.7 H (1.3-7.7) k/uL Lymphocytes # 2.7 (1.0-4.8) k/uL Monocytes # 0.7 (0-1.0) k/uL Eosinophils # 0.3 (0-0.7) k/uL Basophils # 0.1 (0-0.2) k/uL PT 10.3 (9.0-12.0) sec INR 1.0 (<1.2) APTT 22.3 (22.0-30.0) sec Sodium 139 (137-145) mmol/L Potassium 4.3 (3.5-5.1) mmol/L Chloride 105 (98-107) mmol/L Carbon Dioxide 23 (22-30) mmol/L Anion Gap 11 mmol/L BUN 22 H (7-17) mg/dL Creatinine 0.55 (0.52-1.04) mg/dL Est GFR (CKD-EPI)AfAm >90 (>60 ml/min/1.73 sqM) Est GFR (CKD-EPI)NonAf >90 (>60 ml/min/1.73 sqM) Glucose 113 H (74-99) mg/dL POC Glucose (mg/dL) (75-99) mg/dL POC Glu Director Of Strategic Sales ID Plasma Lactic Acid Hilario (0.7-2.0) mmol/L Calcium 9.3 (8.4-10.2) mg/dL Phosphorus 3.7 (2.5-4.5) mg/dL Magnesium 2.0 (1.6-2.3) mg/dL Total Bilirubin 1.3 (0.2-1.3) mg/dL AST 31 (14-36) U/L ALT 26 (4-34) U/L Alkaline Phosphatase 120 (38-126) U/L Troponin I (0.000-0.034) ng/mL NT-Pro-B Natriuret Pep pg/mL Total Protein 7.4 (6.3-8.2) g/dL Albumin 4.1 (3.5-5.0) g/dL TSH 0.468 (0.465-4.680) mIU/L Urine Color Urine Appearance (Clear) Urine pH (5.0-8.0) Ur Specific Jackson (1.001-1.035) Urine Protein (Negative) Urine Glucose (UA) (Negative) Urine Ketones (Negative) Urine Blood (Negative) Urine Nitrite (Negative) Urine Bilirubin (Negative) Urine Urobilinogen (<2.0) mg/dL Ur Leukocyte Esterase (Negative) 03/29/21 03/29/21 03/29/21 Range/Units 13:37 13:37 13:37 WBC (3.8-10.6) k/uL RBC (3.80-5.40) m/uL Hgb (11.4-16.0) gm/dL Hct (34.0-46.0) % MCV (80.0-100.0) fL MCH (25.0-35.0) pg MCHC (31.0-37.0) g/dL RDW (11.5-15.5) % Plt Count (150-450) k/uL MPV Neutrophils % % Lymphocytes % % Monocytes % % Eosinophils % % Basophils % % Neutrophils # (1.3-7.7) k/uL Lymphocytes # (1.0-4.8) k/uL Monocytes # (0-1.0) k/uL Eosinophils # (0-0.7) k/uL Basophils # (0-0.2) k/uL PT (9.0-12.0) sec INR (<1.2) APTT (22.0-30.0) sec Sodium (137-145) mmol/L Potassium (3.5-5.1) mmol/L Chloride (98-107) mmol/L Carbon Dioxide (22-30) mmol/L Anion Gap mmol/L BUN (7-17) mg/dL Creatinine (0.52-1.04) mg/dL Est GFR (CKD-EPI)AfAm (>60 ml/min/1.73 sqM) Est GFR (CKD-EPI)NonAf (>60 ml/min/1.73 sqM) Glucose (74-99) mg/dL POC Glucose (mg/dL) (75-99) mg/dL POC Glu Director Of Strategic Sales ID Plasma Lactic Acid Hilario 1.4 (0.7-2.0) mmol/L Calcium (8.4-10.2) mg/dL Phosphorus (2.5-4.5) mg/dL Magnesium (1.6-2.3) mg/dL Total Bilirubin (0.2-1.3) mg/dL AST (14-36) U/L ALT (4-34) U/L Alkaline Phosphatase (38-126) U/L Troponin I <0.012 (0.000-0.034) ng/mL NT-Pro-B Natriuret Pep 44 pg/mL Total Protein (6.3-8.2) g/dL Albumin (3.5-5.0) g/dL TSH (0.465-4.680) mIU/L Urine Color Urine Appearance (Clear) Urine pH (5.0-8.0) Ur Specific Jackson (1.001-1.035) Urine Protein (Negative) Urine Glucose (UA) (Negative) Urine Ketones (Negative) Urine Blood (Negative) Urine Nitrite (Negative) Urine Bilirubin (Negative) Urine Urobilinogen (<2.0) mg/dL Ur Leukocyte Esterase (Negative) 03/29/21 03/29/21 03/29/21 Range/Units 15:17 15:18 15:41 WBC (3.8-10.6) k/uL RBC (3.80-5.40) m/uL Hgb (11.4-16.0) gm/dL Hct (34.0-46.0) % MCV (80.0-100.0) fL MCH (25.0-35.0) pg MCHC (31.0-37.0) g/dL RDW (11.5-15.5) % Plt Count (150-450) k/uL MPV Neutrophils % % Lymphocytes % % Monocytes % % Eosinophils % % Basophils % % Neutrophils # (1.3-7.7) k/uL Lymphocytes # (1.0-4.8) k/uL Monocytes # (0-1.0) k/uL Eosinophils # (0-0.7) k/uL Basophils # (0-0.2) k/uL PT (9.0-12.0) sec INR (<1.2) APTT (22.0-30.0) sec Sodium (137-145) mmol/L Potassium (3.5-5.1) mmol/L Chloride (98-107) mmol/L Carbon Dioxide (22-30) mmol/L Anion Gap mmol/L BUN (7-17) mg/dL Creatinine (0.52-1.04) mg/dL Est GFR (CKD-EPI)AfAm (>60 ml/min/1.73 sqM) Est GFR (CKD-EPI)NonAf (>60 ml/min/1.73 sqM) Glucose (74-99) mg/dL POC Glucose (mg/dL) 56 L 55 L 102 H (75-99) mg/dL POC Glu Director Of Strategic Sales ID Gino, Madonna Gino, Madonna Gino, Madonna Plasma Lactic Acid Hilario (0.7-2.0) mmol/L Calcium (8.4-10.2) mg/dL Phosphorus (2.5-4.5) mg/dL Magnesium (1.6-2.3) mg/dL Total Bilirubin (0.2-1.3) mg/dL AST (14-36) U/L ALT (4-34) U/L Alkaline Phosphatase (38-126) U/L Troponin I (0.000-0.034) ng/mL NT-Pro-B Natriuret Pep pg/mL Total Protein (6.3-8.2) g/dL Albumin (3.5-5.0) g/dL TSH (0.465-4.680) mIU/L Urine Color Urine Appearance (Clear) Urine pH (5.0-8.0) Ur Specific Jackson (1.001-1.035) Urine Protein (Negative) Urine Glucose (UA) (Negative) Urine Ketones (Negative) Urine Blood (Negative) Urine Nitrite (Negative) Urine Bilirubin (Negative) Urine Urobilinogen (<2.0) mg/dL Ur Leukocyte Esterase (Negative) 03/29/21 Range/Units 16:19 WBC (3.8-10.6) k/uL RBC (3.80-5.40) m/uL Hgb (11.4-16.0) gm/dL Hct (34.0-46.0) % MCV (80.0-100.0) fL MCH (25.0-35.0) pg MCHC (31.0-37.0) g/dL RDW (11.5-15.5) % Plt Count (150-450) k/uL MPV Neutrophils % % Lymphocytes % % Monocytes % % Eosinophils % % Basophils % % Neutrophils # (1.3-7.7) k/uL Lymphocytes # (1.0-4.8) k/uL Monocytes # (0-1.0) k/uL Eosinophils # (0-0.7) k/uL Basophils # (0-0.2) k/uL PT (9.0-12.0) sec INR (<1.2) APTT (22.0-30.0) sec Sodium (137-145) mmol/L Potassium (3.5-5.1) mmol/L Chloride (98-107) mmol/L Carbon Dioxide (22-30) mmol/L Anion Gap mmol/L BUN (7-17) mg/dL Creatinine (0.52-1.04) mg/dL Est GFR (CKD-EPI)AfAm (>60 ml/min/1.73 sqM) Est GFR (CKD-EPI)NonAf (>60 ml/min/1.73 sqM) Glucose (74-99) mg/dL POC Glucose (mg/dL) (75-99) mg/dL POC Glu Director Of Strategic Sales ID Plasma Lactic Acid Hilario (0.7-2.0) mmol/L Calcium (8.4-10.2) mg/dL Phosphorus (2.5-4.5) mg/dL Magnesium (1.6-2.3) mg/dL Total Bilirubin (0.2-1.3) mg/dL AST (14-36) U/L ALT (4-34) U/L Alkaline Phosphatase (38-126) U/L Troponin I (0.000-0.034) ng/mL NT-Pro-B Natriuret Pep pg/mL Total Protein (6.3-8.2) g/dL Albumin (3.5-5.0) g/dL TSH (0.465-4.680) mIU/L Urine Color Yellow Urine Appearance Clear (Clear) Urine pH 5.5 (5.0-8.0) Ur Specific Jackson 1.028 (1.001-1.035) Urine Protein Negative (Negative) Urine Glucose (UA) Negative (Negative) Urine Ketones Negative (Negative) Urine Blood Negative (Negative) Urine Nitrite Negative (Negative) Urine Bilirubin Negative (Negative) Urine Urobilinogen <2.0 (<2.0) mg/dL Ur Leukocyte Esterase Negative (Negative) Disposition Clinical Impression: Weakness, Hypoglycemia Disposition: ADMITTED IP TO THIS [facility] Condition: Fair Referrals: Klaus Ramires DO [Primary Care Provider] - 1-2 days
[2021-03-29 14:18] LABS: Basophils # (A) 0.1 k/uL (0-0.2); Basophils % (A) 1 %; Eosinophils # (A) 0.3 k/uL (0-0.7); Eosinophils % (A) 2 %; HGB 13.6 gm/dL (11.4-16.0); Lymphocytes # (A) 2.7 k/uL (1.0-4.8); Lymphocytes % (A) 20 %; MCH 29.6 pg (25.0-35.0); MCHC 32.4 g/dL (31.0-37.0); MCV 91.2 fL (80.0-100.0); Mean Platelet Volume 8.1; Monocytes # (A) 0.7 k/uL (0-1.0); Monocytes % (A) 5 %; Neutrophils # (A) 9.7 k/uL (1.3-7.7); Neutrophils % (A) 72 %; Platelet Count 296 k/uL (150-450); RDW 14.3 % (11.5-15.5); WBC 13.5 k/uL (3.8-10.6)
[2021-03-29 14:27] LABS: ALT 26 U/L (4-34); AST 31 U/L (14-36); African American GFR (CKD) >90 (>60 ml/min/1.73 sqM); Albumin 4.1 g/dL (3.5-5.0); Alkaline Phosphatase 120 U/L (38-126); Anion Gap 11 mmol/L; Blood Urea Nitrogen 22 mg/dL (7-17); Calcium 9.3 mg/dL (8.4-10.2); Carbon Dioxide 23 mmol/L (22-30); Chloride 105 mmol/L (98-107); Glucose 113 mg/dL (74-99); Non-African American GFR(CKD) >90 (>60 ml/min/1.73 sqM); Phosphorus 3.7 mg/dL (2.5-4.5); Potassium 4.3 mmol/L (3.5-5.1); Sodium 139 mmol/L (137-145); Total Bilirubin 1.3 mg/dL (0.2-1.3); Total Protein 7.4 g/dL (6.3-8.2)
--- NOTE | 2021-03-29 14:29 | CT ---
EXAMINATION TYPE: CT brain wo con DATE OF EXAM: 03/29/2021 HISTORY: Weakness CT DLP: 1157.4 mGycm. Automated Exposure Control for Dose Reduction was Utilized. TECHNIQUE: CT scan of the head is performed without contrast. COMPARISON: CT brain December 20, 2020. FINDINGS: There is no acute intracranial hemorrhage or midline shift identified. There is mild to m oderate diffuse ventricular and sulcal prominence consistent with diffuse cerebral atrophy greatest w ere bilateral frontal and parietal lobes redemonstrated. There is moderate to severe low-attenuation in the periventricular white matter consistent with chronic small vessel ischemic change redemonstra celso. The globes are intact and the visualized sinuses are clear. IMPRESSION: No acute intracranial hemorrhage or midline shift. There is mild to moderate diffuse ce rebral atrophy and moderate to severe chronic small vessel ischemic change redemonstrated. No signif icant change from recent CT.
[2021-03-29 14:33] LABS: Partial Thromboplastin Time 22.3 sec (22.0-30.0); Prothrombin Time 10.3 sec (9.0-12.0)
--- NOTE | 2021-03-29 14:45 | XR ---
EXAMINATION TYPE: XR chest 1V portable DATE OF EXAM: 03/29/2021 COMPARISON: Chest x-ray December 20, 2020 HISTORY: Cough and congestion. TECHNIQUE: Single AP portable frontal upright view of the chest is obtained. FINDINGS: Low lung volumes redemonstrated. There is no suspicious new focal air space opacity, pleur al effusion, or pneumothorax seen. The cardiac silhouette size is stable and mildly enlarged. The osseous structures remain demineralized. IMPRESSION: Low lung volumes and mild cardiomegaly without acute pulmonary process.
[2021-03-29 15:18] LABS: Glucose,Whole Blood 56 mg/dL (75-99)
[2021-03-29 15:20] LABS: Glucose,Whole Blood 55 mg/dL (75-99)
[2021-03-29 15:42] LABS: Glucose,Whole Blood 102 mg/dL (75-99)
[2021-03-29] MEDS ORDERED: SODIUM CHLORIDE 0.9% 1,000 ML IV STA (16:33)
[2021-03-29 16:54] LABS: Appearance,Urine Clear (Clear); Bilirubin,Urine Negative (Negative); Blood,Urine Negative (Negative); Color,Urine Yellow; Glucose,Urine (UA) Negative (Negative); Ketones,Urine Negative (Negative); Leukocyte Esterase,Urine Negative (Negative); Nitrite,Urine Negative (Negative); PH, Urine 5.5 (5.0-8.0); Protein,Urine Negative (Negative); Specific Gravity,Urine 1.028 (1.001-1.035); Urobilinogen,Urine <2.0 mg/dL (<2.0)
[2021-03-29] MEDS ORDERED: NALOXONE 0.4 MG/ML 1 ML VIAL IV PRN (17:09)
[2021-03-29 17:53] LABS: Glucose,Whole Blood 130 mg/dL (75-99)
[2021-03-29] MEDS ORDERED: INSULIN DETEMIR (LEVEMIR) 100 UNIT/ML SYR SQ SCH (21:00)
[2021-03-29] MEDS: MEMANTINE 10 MG TAB PO SCH (22:22)
[2021-03-29] MEDS: DONEPEZIL 5 MG TAB PO SCH (22:22)
[2021-03-29] MEDS: ATORVASTATIN 40 MG TAB PO SCH (22:22)
[2021-03-29] MEDS: NON FORMULARY DRUG (Mirabegron [Myrbetriq] 25 MG Tablet) PO SCH (22:23)
[2021-03-29 22:47] LABS: Glucose,Whole Blood 183 mg/dL (75-99)
[2021-03-30] MEDS: LEVOTHYROXINE 100 MCG TAB PO SCH (05:54)
[2021-03-30 08:16] LABS: Glucose,Whole Blood 77 mg/dL (75-99)
[2021-03-30] MEDS: lisinopriL 20 MG TAB PO SCH (08:43)
[2021-03-30] MEDS: FOLIC ACID 1 MG TAB PO SCH (08:43)
[2021-03-30] MEDS: ASPIRIN 81 MG PO SCH (08:43)
[2021-03-30] MEDS: CYANOCOBALAMIN 500 MCG TAB PO SCH (08:44)
[2021-03-30] MEDS: PANTOPRAZOLE 40 MG TABLET PO SCH (08:44)
[2021-03-30] MEDS: MEMANTINE 10 MG TAB PO SCH ×2 (08:47→21:22)
[2021-03-30] MEDS: ESCITALOPRAM 5 MG TAB PO SCH (08:47)
[2021-03-30] MEDS: INSULIN ASPART (NovoLOG) 100 UNIT/ML VIAL SQ SCH ×4 (08:52→21:21)
[2021-03-30] MEDS ORDERED: lisinopriL 20 MG TAB PO SCH (09:00)
--- NOTE | 2021-03-30 09:22 | P.CNNES ---
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 Neurology is consulted for dysarthria. According to the patient she she feels her slurred speech has not worsened and this is about the same. She stated that the for the last 1 day prior to presenting to the hospital she feels like her whole body is weak but especially the legs and she could not walk with her walker. She believes she had an urinary tract infection the last 1 week in which her urine the had a foul odor as well as color and was on antibiotic that she had a home. She said that she has frequent urinary tract infection. Regarding her leg weakness she said that the she denies any lower back pain, urinary or bowel the incontinence. She feels her ambulation is back to baseline today compared to yesterday. She denies of any fevers, any neck pain, any difficulty getting her words out, any visual disturbance. As stated above she walks with a walker and denies any focal weakness. Patient is on home medication of aspirin 81 and Lipitor 40 mg daily. Patient is a not following up with a neurologist as I notified on the previous visits. Other home medication consist of enalapril, lisinopril, Namenda, Synthroid, NovoLog, Lantus, folic acid 1 mg daily, Lexapro, Aricept 5 mg daily at bedtime, vitamin B12 at thousand micrograms daily. Of note I seen the patient in the past and she was last seen by me on 12/22/2020 and she had the progressive generalized weakness for the past 4 years and it was felt possibly due to recurrent UTI as well as uncontrolled sugar low vitamin B12. She did not have any acute or subacute stroke or new strokes per MRI of the brain. Patient last MRI of the brain on 12/20/2020 is reported as chronic stable appearing patchy to confluent periventricular and deep white matter changes including the brainstem. There is an old lacunar infarct within the left posterior brainstem. Was recommended for the patient to be on either aspirin or Plavix and she does not need to be on dual antiplatelets and to continue Lipitor 40 mg daily for secondary stroke prophylaxis. I repeated methyl tetrahydrofolate reductase level on 12/20/2020 and it's reported that the individual is heterozygous for that [id number] variant and negative for the [id number] variant gene. This result does not associate with significantly increased risk for coronary artery disease, venous thromboembolism or adverse outcome. Some of the workup in the hospital consisted of: Initial vital signs: Blood pressure 132/109, heart rate of 84, respiratory of 16, temperature of the 98.1 Fahrenheit oral and pulse ox of 95% room air. Initial white blood cell is 13.5 thousand. During this hospital stay patient had a POC glucose twice in the 50s of 56 and 55. Initial serum glucose is 113. Sodium is 139, creatinine is up 0.55, calcium is 9.3, phosphorus 3.7, magnesium 2.0, AST of 31 and ALT of 26. TSH is 0.468 Urinalysis negative for urinary tract infection. [place] virus PCR not detected. CT of the head is reported as no acute intracranial hemorrhage or midline shift. There is mild to moderate diffuse cerebral atrophy and moderate to severe chronic small vessel ischemic changes redemonstrated. No significant change from recent CT. I personally reviewed the CT of the head and I do not ap preciate any acute ischemia. There is no bleed. Review of Systems Review of system: The 12 point system was reviewed and apparent positive and negative per HPI. Past Medical History Past Medical History: Cancer, CVA/TIA, Diabetes Mellitus, GERD/Reflux, Hyperlipidemia, Hypertension, Musculoskeletal Disorder, Skin Disorder, Thyroid Disorder Additional Past Medical History / Comment(s): HX CVA X4 ., PROBLEMS WITH BALANCE, HX FALLS, THYROID CANCER.,MTHFR., UTI'S, FX ANKLE DECEMBER 2020-WEARING BRACE AND USING WALKER., STATES BULDGING DISC AND PINCHED NERVE IN LOWER BACK. History of Any Multi-Drug Resistant Organisms: None Reported Past Surgical History: Hysterectomy, Orthopedic Surgery Additional Past Surgical History / Comment(s): thyroidectomy, parotid gland surgery, left shoulder (rotator cuff sx) X 2 Past Anesthesia/Blood Transfusion Reactions: Previous Problems w/ Anesthesia, Postoperative Nausea & Vomiting (PONV) Past Psychological History: No Psychological Hx Reported Additional Psychological History / Comment(s): . Smoking Status: Never smoker Past Alcohol Use History: None Reported Past Drug Use History: None Reported - Past Family History Mother Family Medical History: No Reported History Additional Family Medical History / Comment(s): . Father Family Medical History: Cancer Additional Family Medical History / Comment(s): open heart surgery when he was 50, aortic aneurysm when he was around 63 Medications and Allergies Home Medications Medication Instructions Recorded Confirmed Type Aspirin 81 mg PO DAILY 02/12/18 03/29/21 History Dextromethorphan HBr/Quinidine 1 cap PO DAILY 02/12/18 03/29/21 History [Nuedexta 20-10 mg Capsule] Escitalopram [Lexapro] 5 mg PO DAILY 05/05/20 03/29/21 History Memantine [Namenda] 10 mg PO BID 05/05/20 03/29/21 History Donepezil [Aricept] 5 mg PO HS tab 05/10/20 03/29/21 Rx Pantoprazole Sodium [Protonix] 40 mg PO DAILY #30 tablet. 05/10/20 03/29/21 Rx Atorvastatin [Lipitor] 40 mg PO HS tab 12/22/20 03/29/21 Rx Cyanocobalamin (Vitamin B-12) 1,000 mcg PO DAILY #30 tablet 12/22/20 03/29/21 Rx [Vitamin B-12] lisinopriL [Zestril] 20 mg PO DAILY tab 12/22/20 03/29/21 Rx Jone/D3/Mag11/Zinc/Attache/Tye/Bor 1 tab PO DAILY 02/18/21 03/29/21 History [Caltrate 600+D Plus Tablet] Cranberry With Vit C 168 mg PO DAILY 02/18/21 03/29/21 History Folic Acid 1 mg PO DAILY 02/18/21 03/29/21 History Insulin Glargine,Hum.rec.anlog 65 unit SQ HS 02/18/21 03/29/21 History [Lantus Solostar Pen] Mirabegron [Myrbetriq] 25 mg PO HS 02/18/21 03/29/21 History Insulin Aspart [NovoLOG Flexpen] See Protocol SQ TID-W/MEALS PRN 03/16/21 03/29/21 History Enalapril [Vasotec] 10 mg PO DAILY 03/29/21 03/29/21 History Levothyroxine Sodium [Synthroid] 200 mcg PO DAILY 03/29/21 03/29/21 History Allergies Allergy/AdvReac Type Severity Reaction Status Date / Time ibuprofen [From Motrin] AdvReac "BLOOD Verified 03/29/21 14:32 THINS TOO MUCH" naproxen [From Aleve] AdvReac "BLOOD Verified 03/29/21 14:32 THINS TOO MUCH" NSAIDS (Non-Steroidal AdvReac Unknown Verified 03/29/21 14:32 Anti-Inflamma Physical Examination - Vital Signs Vital Signs: Vital Signs Temp Pulse Pulse Resp BP BP Pulse Ox 03/30/21 04:28 98.3 F 74 16 120/76 91 L 03/29/21 22:25 68 18 03/29/21 20:00 98.3 F 71 16 122/71 94 L 03/29/21 15:15 76 16 125/88 97 03/29/21 13:31 98.1 F 84 16 132/109 95 Intake and Output 03/29/21 03/30/21 03/30/21 22:59 06:59 14:59 Intake Total 590 Balance 590 Intake: Oral 590 Other: Voiding Method Bedside Commode # Voids 2 Weight 86.183 kg GENERAL: The patient is sitting at side of bed and is not in acute distress. CHEST: The heart rate is regular rate rhythm. No murmurs to auscultation. No carotid bruit bilaterally. LUNG: Clear to auscultation bilaterally no wheezing noted throughout. Not labored breathing. ABDOMEN/GI: Bowel sounds present in all 4 quadrants. No tenderness to palpation throughout. NEUROLOGICAL: Higher mental function: The patient is awake, alert, oriented to self, place and time. Patient is following commands. No aphasia and no neglect. Cranial nerves: The pupils are round, equal and reactive to light and accommodation. Visual mccloud are full to confrontation throughout. Extraocular movement is intact no nystagmus is noted. Facial sensation is normal to touch throughout. The facial strength is normal throughout. Hearing is normal bilaterally to hand rub. Tongue is midline and moved [id number] without any difficulty. Mild dysarthria is noted (chronic). Shoulder shrug is normal bilaterally. Motor: Gait is taking short step using her walker (without to minimal assistance). The strength is 5 over 5 throughout uppers while lowers are 5-. Normal tone and bulk. Cerebellum: Normal finger to nose bilaterally. Sensation: Sensation is normal to touch throughout. Reflexes (right/left)Brachioradilis is 3+ bilaterally, ankles are 1+ bilaterally. Otherwise :2+ throughout. Plantars are mute bilaterally. Results - Laboratory Findings CBC and BMP: 03/29/21 13:37 03/29/21 13:37 Abnormal Lab Findings: Abnormal Labs 03/29/21 03/29/21 03/29/21 13:37 13:37 15:17 WBC 13.5 H Neutrophils # 9.7 H BUN 22 H Glucose 113 H POC Glucose (mg/dL) 56 L 03/29/21 03/29/21 03/29/21 15:18 15:41 17:51 WBC Neutrophils # BUN Glucose POC Glucose (mg/dL) 55 L 102 H 130 H 03/29/21 22:20 WBC Neutrophils # BUN Glucose POC Glucose (mg/dL) 183 H Assessment and Plan Assessment: Generalized weakness (especially lower) is likely due to her hypoglycemic events and her recent UTI--she feel she is doing better today compared to yesterday. History of chronic mild dysarthria and denies any worsening. Hypoglycemia (in the 50's). 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 * Primary team ordered hemoglobin A1c. * Vitamin B12 on 12/20/2020 was 275 and we'll get a repeat vitamin B12. Currently the patient is on vitamin B12 1000 g daily. * On folic acid 1mg daily. * Patient serum folate is more than 24 on December 2020 and does not need to be repeated. * IF Patient has any further worsening weakness of the the the lower extremity consider MRI of the lumbar spine but this time she refuses to have it since she is improving. 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 * Every 4 hours neuro checks * PT and OT are consulted. * Please avoid any further hypoglycemic event and we'll defer that to the primary team. * Upon discharge recommend the patient to follow-up with a neurologist within the 2-3 weeks. The plan is discussed with the patient's nurse. Thank you for the Consultation. Jose F Carroll M.D. Neuro-hospitalist Time with Patient: Greater than 30
[2021-03-30 10:42] LABS: Glucose,Whole Blood 215 mg/dL (75-99)
[2021-03-30 12:32] LABS: Glucose,Whole Blood 174 mg/dL (75-99)
--- NOTE | 2021-03-30 14:45 | P.HPIM ---
History of Present Illness H&P Date: 03/30/21 Chief Complaint: Increased weakness, difficulty urinating This is a 65-year-old female with past medical history of diabetes, hypertension, CVAs, recurrent UTIs, gait dysfunction and multiple other medical issues presented to the ER with complaints of worsening generalized weakness, and thinks that she has a UTI . Reports she had taken an antibiotic at home 1 day, difficulty urinating and that her urine was odiferous-foul odor. UA negative. Denies any cough congestion or fevers. Denies any nausea vomiting or diarrhea. Denies abdominal pain. Tested negative for coronavirus. Denies any chest pain, palpitations or shortness of breath.Denies recent fall. Denies li ghtheadedness, dizziness or focal deficits. Denies chest pain, palpitations or shortness of breath. Vital signs stable, afebrile.CT of the head is reported as no acute intracranial hemorrhage or midline shift. There is mild to moderate diffuse cerebral atrophy and moderate to severe chronic small vessel ischemic changes redemonstrated. No significant change from recent CT. chest x-ray reporting low lung volumes, mild cardiomegaly without acute pulmonary process. EKG normal sinus rhythm, troponin negative 1. Hematology unremarkable with the exception of WBC 13.5, neutrophils 9.7. Coagulation unremarkable, chemistry unremarkable with the exception of BUN 22, (creatinine 0.55), blood sugars - hypoglycemic as low as in the 50s , currently in the 170s. Blood sugars 77 this morning lactic acid 1.4, magnesium 2. Evaluated by urology with recommendations noted and appreciated.Evaluated by PT, recommending subacute rehab at discharge. Review of Systems ROS Statement: Those systems with pertinent positive or pertinent negative responses have been documented in the HPI. ROS Other: All systems not noted in ROS Statement are negative. Past Medical History Past Medical History: Cancer, CVA/TIA, Diabetes Mellitus, GERD/Reflux, Hyperlipidemia, Hypertension, Musculoskeletal Disorder, Skin Disorder, Thyroid Disorder Additional Past Medical History / Comment(s): HX CVA X4 ., PROBLEMS WITH BALANCE, HX FALLS, THYROID CANCER.,MTHFR., UTI'S, FX ANKLE DECEMBER 2020-WEARING BRACE AND USING WALKER., STATES BULDGING DISC AND PINCHED NERVE IN LOWER BACK. History of Any Multi-Drug Resistant Organisms: None Reported Past Surgical History: Hysterectomy, Orthopedic Surgery Additional Past Surgical History / Comment(s): thyroidectomy, parotid gland surgery, left shoulder (rotator cuff sx) X 2 Past Anesthesia/Blood Transfusion Reactions: Previous Problems w/ Anesthesia, Postoperative Nausea & Vomiting (PONV) Past Psychological History: No Psychological Hx Reported Additional Psychological History / Comment(s): . Smoking Status: Never smoker Past Alcohol Use History: None Reported Past Drug Use History: None Reported - Past Family History Mother Family Medical History: No Reported History Additional Family Medical History / Comment(s): . Father Family Medical History: Cancer Additional Family Medical History / Comment(s): open heart surgery when he was 48, aortic aneurysm when he was around 63 Medications and Allergies Home Medications Medication Instructions Recorded Confirmed Type Aspirin 81 mg PO DAILY 02/12/18 03/29/21 History Dextromethorphan HBr/Quinidine 1 cap PO DAILY 02/12/18 03/29/21 History [Nuedexta 20-10 mg Capsule] Escitalopram [Lexapro] 5 mg PO DAILY 05/05/20 03/29/21 History Memantine [Namenda] 10 mg PO BID 05/05/20 03/29/21 History Donepezil [Aricept] 5 mg PO HS tab 05/10/20 03/29/21 Rx Pantoprazole Sodium [Protonix] 40 mg PO DAILY #30 tablet. 05/10/20 03/29/21 Rx Atorvastatin [Lipitor] 40 mg PO HS tab 12/22/20 03/29/21 Rx Cyanocobalamin (Vitamin B-12) 1,000 mcg PO DAILY #30 tablet 12/22/20 03/29/21 Rx [Vitamin B-12] lisinopriL [Zestril] 20 mg PO DAILY tab 12/22/20 03/29/21 Rx Jone/D3/Mag11/Zinc/Pin Chaser/Tye/Bor 1 tab PO DAILY 02/18/21 03/29/21 History [Caltrate 600+D Plus Tablet] Cranberry With Vit C 168 mg PO DAILY 02/18/21 03/29/21 History Folic Acid 1 mg PO DAILY 02/18/21 03/29/21 History Insulin Glargine,Hum.rec.anlog 65 unit SQ HS 02/18/21 03/29/21 History [Lantus Solostar Pen] Mirabegron [Myrbetriq] 25 mg PO HS 02/18/21 03/29/21 History Insulin Aspart [NovoLOG Flexpen] See Protocol SQ TID-W/MEALS PRN 03/16/21 03/29/21 History Enalapril [Vasotec] 10 mg PO DAILY 03/29/21 03/29/21 History Levothyroxine Sodium [Synthroid] 200 mcg PO DAILY 03/29/21 03/29/21 History Allergies Allergy/AdvReac Type Severity Reaction Status Date / Time ibuprofen [From Motrin] AdvReac "BLOOD Verified 03/29/21 14:32 THINS TOO MUCH" naproxen [From Aleve] AdvReac "BLOOD Verified 03/29/21 14:32 THINS TOO MUCH" NSAIDS (Non-Steroidal AdvReac Unknown Verified 03/29/21 14:32 Anti-Inflamma Physical Exam Vitals: Vital Signs Temp Pulse Pulse Resp BP BP Pulse Ox 03/30/21 11:31 98.4 F 82 16 121/70 96 03/30/21 04:28 98.3 F 74 16 120/76 91 L 03/29/21 22:25 68 18 03/29/21 20:00 98.3 F 71 16 122/71 94 L 03/29/21 15:15 76 16 125/88 97 Intake and Output 03/29/21 03/30/21 03/30/21 22:59 06:59 14:59 Intake Total 590 Balance 590 Intake: Oral 590 Other: Voiding Method Bedside Commode Bedside Commode # Voids 2 # Bowel Movements 1 Weight 86.183 kg PHYSICAL EXAM: VITAL SIGNS: As above GENERAL: Pleasant 65-year-old female sitting up in bed, no acute distress HEENT: Conjunctivae normal. eyes normal. Oral mucosa moist. NECK: Supple, No JVD. No significant thyroid enlargement. No significant LNs CARDIOVASCULAR: S1, S2 regular. No murmur, rub or click. RESPIRATION: Breath sounds diminished in the bases. No rhonchi or crackles. No bronchial breathing. ABDOMEN: Soft, nontender . No guarding. no masses palpable. No ascites, No hepatosplenomegaly.Bowel sounds heard. LEGS: Left ankle wrap clean dry and intact PSYCHIATRY: Alert and oriented X3, mood and affect normal. NERVOUS SYSTEM: Cranial N 2-12 grossly normal. Moves all 4 limbs. Diffuse weakness ,No focal deficits. Strength and sensation grossly intact. Skin: Warm and dry, no rash Results CBC & Chem 7: 03/29/21 13:37 03/29/21 13:37 Labs: Abnormal Lab Results - Last 24 Hours (Table) 03/29/21 03/29/21 03/29/21 Range/Units 13:37 13:37 15:17 WBC 13.5 H (3.8-10.6) k/uL Neutrophils # 9.7 H (1.3-7.7) k/uL BUN 22 H (7-17) mg/dL Glucose 113 H (74-99) mg/dL POC Glucose (mg/dL) 56 L (75-99) mg/dL 03/29/21 03/29/21 03/29/21 Range/Units 15:18 15:41 17:51 WBC (3.8-10.6) k/uL Neutrophils # (1.3-7.7) k/uL BUN (7-17) mg/dL Glucose (74-99) mg/dL POC Glucose (mg/dL) 55 L 102 H 130 H (75-99) mg/dL 03/29/21 03/30/21 03/30/21 Range/Units 22:20 10:31 12:31 WBC (3.8-10.6) k/uL Neutrophils # (1.3-7.7) k/uL BUN (7-17) mg/dL Glucose (74-99) mg/dL POC Glucose (mg/dL) 183 H 215 H 174 H (75-99) mg/dL Thrombosis Risk Factor Assmnt - Choose All That Apply Each Factor Represents 1 point: Obesity (BMI >25) Other Risk Factors: Yes Each Risk Factor Represents 2 Points: Age 61-74 years Thrombosis Risk Factor Assessment Total Risk Factor Score: 3 Thrombosis Risk Factor Assessment Level: Moderate Risk Assessment and Plan Assessment: Generalized increased weakness in a patient with history of multiple falls. Denies recent fall, possibly related to hypoglycemia. Recent Left ankle fracture secondary to fall Leukocytosis, mild Urinary incontinence Gait dysfunction Dehydration Diabetes mellitus type 2, uncontrolled, hypoglycemia Hypertension hyperlipidemia History of CVAs, involving MCA, brainstem History of thyroid cancer, status post thyroidectomy Osteoarthritis Plan: Continue current medication regime ,monitoring and symptomatic treatment. Lantus dose decreased , close monitoring of Accu-Cheks. Hemoglobin A1c ordered. Evaluated by physical therapy and subacute rehab recommended at discharge. Social work consult in place. Anticipate discharge tomorrow to subacute rehab. Prognosis guarded given multiple complex medical issues. The impression and plan of care has been dictated as directed. : I performed a history and examination of this patient, discussed the same with the dictator. I agree with the dictator's note ,documented as a scribe. Any additional findings or plans will be noted.
[2021-03-30 17:21] LABS: Glucose,Whole Blood 182 mg/dL (75-99)
[2021-03-30 20:12] LABS: Glucose,Whole Blood 265 mg/dL (75-99)
[2021-03-30] MEDS ORDERED: INSULIN DETEMIR (LEVEMIR) 100 UNIT/ML SYR SQ SCH (21:00)
[2021-03-30] MEDS: DONEPEZIL 5 MG TAB PO SCH (21:21)
[2021-03-30] MEDS: ATORVASTATIN 40 MG TAB PO SCH (21:21)
[2021-03-30] MEDS: NON FORMULARY DRUG (Mirabegron [Myrbetriq] 25 MG Tablet) PO SCH (21:22)
[2021-03-31] MEDS: LEVOTHYROXINE 100 MCG TAB PO SCH (06:16)
[2021-03-31] MEDS: FOLIC ACID 1 MG TAB PO SCH (07:26)
[2021-03-31] MEDS: ASPIRIN 81 MG PO SCH (07:26)
[2021-03-31] MEDS: ESCITALOPRAM 5 MG TAB PO SCH (07:26)
[2021-03-31] MEDS: MEMANTINE 10 MG TAB PO SCH (07:27)
[2021-03-31] MEDS: PANTOPRAZOLE 40 MG TABLET PO SCH (07:27)
[2021-03-31] MEDS: CYANOCOBALAMIN 500 MCG TAB PO SCH (07:27)
[2021-03-31] MEDS: lisinopriL 20 MG TAB PO SCH (07:27)
[2021-03-31 07:38] LABS: Glucose,Whole Blood 126 mg/dL (75-99)
[2021-03-31] MEDS: INSULIN ASPART (NovoLOG) 100 UNIT/ML VIAL SQ SCH ×2 (08:16→12:21)
--- NOTE | 2021-03-31 09:13 | P.DS ---
Providers Date of admission: 03/29/21 17:17 Expected date of discharge: 03/31/21 Attending physician: Klaus Ramires Consults: 03/29/21 17:09 Consult Physician Routine Consulting Provider: Jose F Carroll Consult Reason/Comments: dysarthria Do you want consulting provider notified?: Yes Primary care physician: Klaus Ramires Hospital Course: Final Diagnoses: Generalized increased weakness in a patient with history of multiple falls. Denies recent fall, possibly related to hypoglycemia. Recent Left ankle fracture secondary to fall Leukocytosis, mild Urinary incontinence Gait dysfunction Dehydration Diabetes mellitus type 2, uncontrolled, hypoglycemia, long-acting insulin decreased with no further hypoglycemic episodes Hypertension hyperlipidemia History of CVAs, involving MCA, brainstem History of thyroid cancer, status post thyroidectomy Osteoarthritis Hospital course:This is a 65-year-old female with past medical history of diabetes, hypertension, CVAs, recurrent UTIs, gait dysfunction and multiple other medical issues presented to the ER with complaints of worsening generalized weakness, and thinks that she has a UTI . Reports she had taken an antibiotic at home 1 day, difficulty urinating and that her urine was odiferous-foul odor. UA negative. Denies any cough congestion or fevers. Denies any nausea vomiting or diarrhea. Denies abdominal pain. Tested negative for coronavirus. Denies any chest pain, palpitations or shortness of breath.Denies recent fall. Denies lightheadedness, dizziness or focal deficits. Denies chest pain, palpitations or shortness of breath. Vital signs stable, afebrile.CT of the head is reported as no acute intracranial hemorrhage or midline shift. There is mild to moderate diffuse cerebral atrophy and moderate to severe chronic small vessel ischemic changes redemonstrated. No significant change from recent CT. chest x-ray reporting low lung volumes, mild cardiomegaly without acute pulmonary process. EKG normal sinus rhythm, troponin negative 1. Hematology unremarkable with the exception of WBC 13.5, neutrophils 9.7. Coagulation unremarkable, chemistry unremarkable with the exception of BUN 22, (creatinine 0.55), blood sugars -hypoglycemic as low as in the 50s , currently in the 170s. Blood sugars 77 this morning lactic acid 1.4, magnesium 2. Evaluated by urology with recommendations noted and appreciated.Evaluated by PT, recommending subacute rehab at discharge. Lantus dose decreased, no further episodes of hypoglycemia, a.m. blood sugar 126. Hemoglobin A1c pending .Denies lightheadedness dizziness or focal deficits. Denies chest pain, palpitations or shortness of breath. Vital signs stable, maintaining O2 sats in the 90s on room air, afebrile. Preliminary blood cultures reporting no growth after 24 hours. Significant clinical improvement. Patient will be discharged to [facility] subacute rehab today in a stable condition with guarded prognosis. The impression and plan of care has been dictated as directed. : I performed a history and examination of this patient, discussed the same with the dictator. I agree with the dictator's note ,documented as a scribe. Any additional findings or plans will be noted. Patient Condition at Discharge: Stable Plan - Discharge Summary Discharge Rx Participant: Yes New Discharge Prescriptions: No Action Dextromethorphan HBr/Quinidine [Nuedexta 20-10 mg Capsule] 1 cap PO DAILY Aspirin 81 mg PO DAILY Memantine [Namenda] 10 mg PO BID Escitalopram [Lexapro] 5 mg PO DAILY Donepezil [Aricept] 5 mg PO HS tab Pantoprazole Sodium [Protonix] 40 mg PO DAILY #30 tablet. Insulin Glajaqui,Hum.rec.anlog [Lantus Solostar Pen] 65 unit SQ HS Folic Acid 1 mg PO DAILY Insulin Aspart [NovoLOG Flexpen] See Protocol SQ TID-W/MEALS PRN PRN Reason: ELEVATED BLOOD SUGAR Levothyroxine Sodium [Synthroid] 200 mcg PO DAILY Atorvastatin [Lipitor] 40 mg PO HS tab lisinopriL [Zestril] 20 mg PO DAILY tab Cyanocobalamin (Vitamin B-12) [Vitamin B-12] 1,000 mcg PO DAILY #30 tablet Mirabegron [Myrbetriq] 25 mg PO HS Cranberry With Vit C 168 mg PO DAILY Jone/D3/Mag11/Zinc/Kelly Machine Operator/Tye/Bor [Caltrate 600+D Plus Tablet] 1 tab PO DAILY Enalapril [Vasotec] 10 mg PO DAILY Discharge Medication List Aspirin 81 mg PO DAILY 02/12/18 [History] Dextromethorphan HBr/Quinidine [Nuedexta 20-10 mg Capsule] 1 cap PO DAILY 02/12/18 [History] Escitalopram [Lexapro] 5 mg PO DAILY 12/02/20 [History] Memantine [Namenda] 10 mg PO BID 05/05/20 [History] Donepezil [Aricept] 5 mg PO HS tab 05/10/20 [Rx] Pantoprazole Sodium [Protonix] 40 mg PO DAILY #30 tablet. 05/10/20 [Rx] Atorvastatin [Lipitor] 40 mg PO HS tab 12/22/20 [Rx] Cyanocobalamin (Vitamin B-12) [Vitamin B-12] 1,000 mcg PO DAILY #30 tablet 12/22/20 [Rx] lisinopriL [Zestril] 20 mg PO DAILY tab 12/22/20 [Rx] Jone/D3/Mag11/Zinc/Kelly Machine Operator/Tye/Bor [Caltrate 600+D Plus Tablet] 1 tab PO DAILY 02/18/21 [History] Cranberry With Vit C 168 mg PO DAILY 02/18/21 [History] Folic Acid 1 mg PO DAILY 02/18/21 [History] Insulin Glargine,Hum.rec.anlog [Lantus Solostar Pen] 65 unit SQ HS 02/18/21 [History] Mirabegron [Myrbetriq] 25 mg PO HS 02/18/21 [History] Insulin Aspart [NovoLOG Flexpen] See Protocol SQ TID-W/MEALS PRN 03/16/21 [History] Enalapril [Vasotec] 10 mg PO DAILY 03/29/21 [History] Levothyroxine Sodium [Synthroid] 200 mcg PO DAILY 03/29/21 [History] Follow up Appointment(s)/Referral(s): Klaus Ramires DO [Primary Care Provider] - 3 Days Patient Instructions/Handouts: Foot Care for People with Diabetes (GEN) Activity/Diet/Wound Care/Special Instructions: Isauro CELESTE CBC, BMP in 3 days Discharge/Stand Alone Forms: Who Do I Call?, Community Resources
[2021-03-31 12:06] LABS: Glucose,Whole Blood 196 mg/dL (75-99)
[2021-03-31 12:28] VITALS: BP 111/63; PULSE 79; RESP 18; TEMP 97.5
--- NOTE | 2021-03-31 16:20 | P.PN ---
Subjective Progress Note Date: 03/31/21 The patient is seen at bedside and denies any focal weakness, numbness, visual disturbance or difficulty getting her words out. She feels better than her initial presentation. Objective - Vital Signs Vital signs: Vital Signs Temp 97.5 F L 03/31/21 12:28 Pulse 79 03/31/21 12:28 Resp 18 03/31/21 12:28 BP 111/63 03/31/21 12:28 Pulse Ox 98 03/31/21 12:28 Intake & Output 03/30/21 03/31/21 03/31/21 18:59 06:59 18:59 Intake Total 270 590 Balance 270 590 Intake: Oral 270 590 Other: Voiding Method Bedside Commode Toilet Toilet Bedside Commode Bedside Commode Diaper Diaper # Voids 1 2 # Bowel Movements 1 1 - Exam GENERAL: The patient is sitting at side of bed and is not in acute distress. NEUROLOGICAL: Higher mental function: The patient is awake, alert, oriented to self, place and time. Patient is following commands. No aphasia and no neglect. Cranial nerves: The pupils are round, equal and reactive to light and accommodation. Visual mccloud are full to confrontation throughout. Extraocular movement is intact no nystagmus is noted. Facial sensation is normal to touch throughout. The facial strength is normal throughout. Hearing is normal bilaterally to hand rub. Tongue is midline and moved [id number] without any difficulty. Mild dysarthria is noted (chronic). Shoulder shrug is normal bilaterally. Motor: Gait is deferred. The strength is 5 over 5 throughout uppers while lowers are 5-. Normal tone and bulk. Cerebellum: Normal finger to nose bilaterally. Sensation: Sensation is normal to touch throughout. Reflexes (right/left)Brachioradilis is 3+ bilaterally, ankles are 1+ bilaterall y. Otherwise :2+ throughout. Plantars are mute bilaterally. WORK-UP: TSH is 0.468 Urinalysis negative for urinary tract infection. [place] virus PCR not detected. CT of the head is reported as no acute intracranial hemorrhage or midline shift. There is mild to moderate diffuse cerebral atrophy and moderate to severe chronic small vessel ischemic changes redemonstrated. No significant change from recent CT. I personally reviewed the CT of the head and I do not appreciate any acute ischemia. There is no bleed. - Labs CBC & Chem 7: 03/29/21 13:37 03/29/21 13:37 Labs: Abnormal Lab Results - Last 24 Hours (Table) 03/30/21 03/30/21 03/31/21 Range/Units 17:18 20:08 06:13 POC Glucose (mg/dL) 182 H 265 H (75-99) mg/dL Vitamin B12 986.0 H (200.0-944.0) pg/mL 03/31/21 03/31/21 Range/Units 07:37 12:05 POC Glucose (mg/dL) 126 H 196 H (75-99) mg/dL Vitamin B12 (200.0-944.0) pg/mL Microbiology - Last 24 Hours (Table) 03/29/21 18:45 Blood Culture - Preliminary Blood No Growth after 24 hours 03/29/21 18:30 Blood Culture - Preliminary Blood No Growth after 24 hours Assessment and Plan Assessment: Generalized weakness (especially lower) is likely due to her hypoglycemic events and her recent UTI--she feel she is doing better today compared to yesterday. History of chronic mild dysarthria and denies any worsening. 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 * Vitamin B12 on 12/20/2020 was 275 and repeat on this admission is 986(normal). Currently the patient is on vitamin B12 1000 g daily. * On folic acid 1mg daily. * Patient serum folate is more than 24 on December 2020 and does not need to be repeated. * IF Patient has any further worsening weakness of the the the lower extremity consider MRI of the lumbar spine but this time she refuses to have it since she is improving. 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 * Every 4 hours neuro checks * PT and OT are consulted. * Please avoid any further hypoglycemic event and we'll defer that to the primary team. * Upon discharge recommend the patient to follow-up with a neurologist within the 2-3 weeks. The plan is discussed with the patient and her (who is at bedside). No further neurological work-up. Jose F Carroll M.D. Neuro-hospitalist Time with Patient: Less than 30
== END 2021-03-31 14:40 ==
LOC: EC 13:16 → 6NMEDSUR 17:17 → 5NMEDONC 17:27
PROVIDERS: ADMIT Family Medicine; ATTEND Family Medicine
DX: R53.1 Weakness (principal); E11.649 Type 2 diabetes mellitus with hypoglycemia without coma; E11.41 Type 2 diabetes mellitus with diabetic mononeuropathy; E53.8 Deficiency of other specified B group vitamins; R26.2 Difficulty in walking, not elsewhere classified; D72.829 Elevated white blood cell count, unspecified; R32 Unspecified urinary incontinence; E86.0 Dehydration; K21.9 Gastro-esophageal reflux disease without esophagitis; E78.5 Hyperlipidemia, unspecified; I10 Essential (primary) hypertension; Z91.81 History of falling; E72.12 Methylenetetrahydrofolate reductase deficiency; G58.8 Other specified mononeuropathies; E89.0 Postprocedural hypothyroidism; R47.1 Dysarthria and anarthria; R56.9 Unspecified convulsions; E66.9 Obesity, unspecified; Z68.28 Body mass index [BMI] 28.0-28.9, adult; Z20.822 Contact with and (suspected) exposure to COVID-19; Z86.73 Personal history of transient ischemic attack (TIA), and cerebral infarction without residual deficits; Z87.440 Personal history of urinary (tract) infections; Z87.81 Personal history of (healed) traumatic fracture; Z85.850 Personal history of malignant neoplasm of thyroid; Z79.82 Long term (current) use of aspirin; Z79.899 Other long term (current) drug therapy; Z79.4 Long term (current) use of insulin; Z79.890 Hormone replacement therapy; Z88.8 Allergy status to other drugs, medicaments and biological substances; Z90.710 Acquired absence of both cervix and uterus; Z82.49 Family history of ischemic heart disease and other diseases of the circulatory system; Z80.9 Family history of malignant neoplasm, unspecified
CPT/HCPCS: 96360; 96361; 99285; 36415; 93005; 97116; 97530; 97162; 97535; 97166; 83880; 80053; 82607; 83605; 83735; 84100; 84443; 84484; 85025; 85610; 85730; 81003; 87040; 83036; 87635; 71045; 70450; G0378 ×3

== ENCOUNTER → 2021-04-25 | Outpatient (CLI) | payer MEDICARE ==
--- NOTE | 2021-04-25 13:07 | P.PN ---
Subjective Progress Note Date: 04/25/21 Michelle is a 65-year-old female presented to clinic today for follow-up appointment after a diagnostic lumbar medial branch block at L4 5 and L5-S1. After the procedure she reported 100% pain relief for 3 weeks. However now her pain has returned. She describes it as a sharp aching sensation in her lower back. She reports pain is worse with walking and standing from a seated position. It is better with rest and interventions. Her last intervention allowed her to increase her activity around the home as well as standing up better. She denies any bowel or bladder dysfunction, saddle anesthesia, or any other red flag symptoms. Objective - Exam Physical Examinations : -Constitutional : Cooperative , not in acute distress . Walks with walker -HEENT : nech : supple , no Lymphadenopathy , normal thyroid size . : eyes : no ptosis , no icterus, no photophobia . - neurologic : Cranial nerve II to XII intact , no focal neurological deffecit . -psychatric : alert , oriented X 3 , appropriate affect , intact judgment and insight . -Lymphatic : no Lymphadenopathy . - musculoskeltal : Lumber spine moter stegnth lower extremities ,thigh and legs 5/5 Right side , 5/5 Left side deep tendon reflexes : normal Knee Jerk , normal ankle Jerk lumber facet Loading Test =positive Right , positive Left Range of motion of the lumbar spine Flexion 30 degrees, extension 10 degrees strait leg raising test = positive at 30 degree Fabere test= positive Right , and positive LT . Sever tenderness over the Sacroiliac joint on the Right , and Left sides Gaenslen test= positive right ,and positive left . Seated flexion test= positive right ,and positive Left . Distraction test= positive bilaterally Sacroiliac compression test= positive bilaterally Assessment and Plan Assessment: Assessment and plan Assessment: Lumbar degenerative disc disease Lumbar spondylosis with facet arthropathy without myelopathy History of CVA. However, not on any anticoagulation except for aspirin 81 mg Plan: Schedule patient for confirmatory medial branch block #2 at L45 and L5-S1. If patient has significant relief in her pain and increase her daily activities consider moving forward with bilateral radiofrequency ablation Dr. Zapata was available by phone for consultation during his visit. I have spent 21 minutes on patient care today. The time was used to review the medical records including relevant urine studies and Prescription history (MAPs), review of the available imaging, evaluation and examination of the pa tient, coordination of care with the medical staff and if applicable referring physicians, as well as creation of the medical record. - PQRS measures = - Patient's medications are documented in the chart. -Tobacco use is negative -Patient's has not received pneumococcal vaccine. -Advanced care planning discussed, patient not eligible. -Opiate contract not signed. -Pain positive and follow-up visit/procedure is scheduled. -Patient's blood pressure measured 111/64 , and documented in the record ,and patient will follow up with the primary care. -Patient was not identified as an unhealthy alcohol user Time with Patient: Less than 30
[2021-04-25 13:15] VITALS: BP 111/64; PULSE 91; RESP 18; TEMP 99
== END | disposition home or self-care (01) ==
LOC: PNWHC3 12:42
PROVIDERS: ATTEND Student in an Organized Health Care Education/Training Program
DX: M47.896 Other spondylosis, lumbar region (principal); M51.36 Other intervertebral disc degeneration, lumbar region
CPT/HCPCS: 99211

== ENCOUNTER 2021-07-01 11:40 | Day surgery (SDC) | payer MEDICARE ==
[2021-06-29 11:37] VITALS: BMI 29.5
[2021-07-01 12:03] VITALS: TEMP 96.5
[2021-07-01 12:11] LABS: Glucose,Whole Blood 122 mg/dL (75-99)
[2021-07-01] MEDS ORDERED: ROPIVACAINE 5MG/ML 20ML VIAL ONE (12:47)
[2021-07-01] MEDS ORDERED: fentaNYL (PF) 50 MCG/ML 2 ML AMP ONE (12:47)
[2021-07-01] MEDS ORDERED: methylPREDNISolone ACETATE 40 MG/ML 1 ML VIAL ONE (12:47)
[2021-07-01] MEDS ORDERED: MIDAZOLAM 2 MG/2 ML VIAL ONE (12:47)
--- NOTE | 2021-07-01 13:11 | P.PCN ---
Date of Procedure: 07/01/21 Procedure(s) Performed: PREOPERATIVE DIAGNOSIS : 1- Lumbar spondylosis with Facet Arthropathy without myelopathy . 2- Lumber degenerative disc disease POSTOPERATIVE DIAGNOSIS: 1- Lumbar spondylosis with Facet Arthropathy without myelopathy . 2- Lumber degenerative disc disease PROCEDURE: Diagnostic bilateral L3 , L4 , and L5 medial branch block under fluoroscopy guidance(fluoroscopy images available in the radiology Department ) ( To target the facet joint between Bilateral L4-5 , and L5-S1 )#2nd ANESTHESIA:, moniterd anesthesia care.. EBL: Minimal COMPLICATION: None PROCEDURE INDICATION: Chronic low back pain secondary to Facet arthropathy unresponsive to conservative treatment. PROCEDURE DESCRIPTION: the patient was seen and identified in the preop holding area , risks and benefits and possible complications of the procedure and alternative were discussed with the patient, and the patient agreed to proceed with the procedure and signed the consent and vital signs monitored during the procedure and fluoroscopy was used to maximize the benefit and accuracy of the needle placement, and sedation was given to decrease patient anxiety, patient was taken to the procedure room and placed in prone position vital signs monitored in the back prepped with chlorhexidine X3 then under strict sterile technique using a right oblique fluoroscopy ,the junction of the transverse process and the superior articulating process of the right L3 , L4 , and L5 vertebra which corresponding to the fluoroscopy image of the eye of the Oh dog on the block side for the medial branches and subsequently , after local infiltration of skin and subcu tissuies with Ropivacaine 0.5 % , one mL at each level ,then 22-gauge Quincke-type needles , 3 needle was used , each one of them placed at the junction of the base of the transverse process and the superior articular process at the appropriate level, and the needle was advanced until the periosteum contacted, needle placement confirmed with AP oblique and lateral view and after appropriate needle placement confirmed, and after negative aspiration for heme and CSF and there was no paresthesia 1-1/2 mL of Ropivacaine 0.5% mixed with 20 mg Depo-Medrol then half mL injected at each level after negative aspiration the needle subsequently removed and the same procedure repeated for the left side at left side at L3 , L4 and L5 levels. At the end of the procedure and the needles removed and a bandage applied after the skin was cleaned the cleaning solution patient taken to recovery room in stable condition and monitors in the recovery room for 20-30 minutes and discharged home in stable condition after discharge criteria met and patient will follow up with the pain clinic in 2-4 weeks
[2021-07-01] MEDS ORDERED: IV FLUID CONTINUATION 1,000 ML IV ONE (13:17)
[2021-07-01 13:23] VITALS: RESP 16
[2021-07-01 13:34] VITALS: BP 113/71; PULSE 84
--- NOTE | 2021-07-01 14:39 | FL ---
Fluoroscopy HISTORY: Pain 16 seconds fluoroscopy time supplied to the referring clinician. 4 intraoperative C-arm images docum ent the procedure. See dictated report from anesthesia.
== END 2021-07-01 14:01 | disposition home or self-care (01) ==
LOC: ORPAIN 11:40
PROVIDERS: ATTEND Specialist
DX: G89.29 Other chronic pain (principal); M47.816 Spondylosis without myelopathy or radiculopathy, lumbar region; M51.36 Other intervertebral disc degeneration, lumbar region; Z88.6 Allergy status to analgesic agent; I10 Essential (primary) hypertension; E78.5 Hyperlipidemia, unspecified; E11.9 Type 2 diabetes mellitus without complications; E07.9 Disorder of thyroid, unspecified; Z86.73 Personal history of transient ischemic attack (TIA), and cerebral infarction without residual deficits; K21.9 Gastro-esophageal reflux disease without esophagitis; Z79.890 Hormone replacement therapy; Z79.4 Long term (current) use of insulin; Z79.899 Other long term (current) drug therapy
CPT/HCPCS: 64493; 64494; J2250; J1030; J3010; J2795

== ENCOUNTER → 2021-07-28 | Outpatient (CLI) | payer MEDICARE ==
[2021-07-28 10:37] VITALS: BP 136/63; PULSE 88; RESP 18; TEMP 98.2
--- NOTE | 2021-07-28 10:48 | P.PN ---
Subjective Progress Note Date: 07/28/21 Principal diagnosis: A 66 yr old wheelchair-bound female with at side with a history of severe and chronic low back pain secondary to lumbar degenerative disc diseases and lumbar spondylosis with facet arthropathy presents today for evaluation status post facet block of the medial branches L4-L5, L5-S1 #2. Patient states she expressed 80% pain relief for 2 weeks status post procedure. Pain level is currently at 0 out of 10 in intensity but can escalate as high as 8 out of 10 in intensity by evening, with bending or lifting. Pain is dull/ achy in the lower lumbar spine with radiation of tingling down the lower extremities. Pain is alleviated with medications, injections, stretching, massage and rest. Interventional pain procedures completed include bilateral facet block the medial branches L4-L5, L5-S1 #2 Patient is currently on Tylenol OTC Patient denies any side effects of the medication(s), denies excessive drowsiness or sleepiness, denies suicidal ideation and reports that the current pain medication is helping to control the pain and improve activities of daily living. Patient denies any motor or sensory deficits. Patient denies any fever or night sweats, denies any change in the bowel movements or urination. Physical Examination: -Constitutional: Cooperative. Not in acute distress . -HEENT: Neck is supple. No lymphadenopathy. No thyromegaly. Normal thyroid size. Eyes: No ptosis , no icterus, no photophobia. ENT: No auditory deficits. Normal oropharynx. No Thrush. - Respiratory: Chest clear to auscultations bilaterally. No wheezing. No rhonchi. - Cardiovascular: Regular rate and rhythm. S1 / S2 , no S3 , no S4. - Gastrointestinal: Abdomen soft no tenderness. Bowel sounds positive in all four quadrants. No organomegaly. - Genitourinary: Deferred. - Neurologic: Cranial nerve II to XII intact. No focal neurological deficits. - Psychatric: Alert & oriented x 3. Matching mood & appropriate affect. Judgment and insight intact. - Lymphatic: No Lymphadenopathy. - Musculoskeletal: Cervical spine: Muscle bulk/ tone/ strength in the bilateral upper extremities normal. Facet loading test cervical area positive. Lumbar spine: Motor bulk/ tone/ strength lower extremities , thigh and legs : 5/5 Deep tendon reflexes : Normal Knee Jerk. Normal Ankle Jerk . Vertebral body tenderness to palpation over Lumbar Facet Loading Test positive over L4-L5, L5-S1 with mild paraspinal muscle spasms Straight Leg Raise: positive at 30 degrees right side/ left side Gaenslen's Test positive Sacral spine : Severe tenderness over the Sacroiliac joint: right side / left side Range of motion: Flexion of the lumbar spine <60 degrees Range of motion: Extension of the lumbar spine <20 degrees Gaenslen's Test positive Lor test: positive right side / left side Assessment and plan: Chronic low back pain secondary to lumbar degenerative disc disease , lumbar spondylosis with facet arthropathy without myelopathy Recommendation of bilateral RFA of the L4-L5, L5-S1 Admits to aspirin 81 mg use. We'll have to discontinue 5 days prior to procedure. She also admits to medical history of diabetes. All patient questions answered MAPS reviewed and it was appropriate. I have spent 31 minutes on patient care today. Dr Zapata was available by phone for the evaluation of this patient. The time was used to review the medical records including relevant urine studies and Prescription history (MAPs), review of the available imaging, evaluation and examination of the patient, coordination of care with the medical staff and if applicable referring physicians, as well as creation of the medical record Objective - Vital Signs Vital signs: Vital Signs Temp 98.2 F 07/28/21 10:31 Pulse 88 07/28/21 10:31 Resp 18 07/28/21 10:31 BP 136/63 07/28/21 10:31 Pulse Ox 92 L 07/28/21 10:31 Intake & Output 07/27/21 07/28/21 07/28/21 18:59 06:59 18:59 Weight 90.718 kg PQRS Measure Charge Sheet Mode of Arrival: Wheelchair - Pain Location Lower Back Non-Pharmacological Interventions: Inactivity, Position/Reposition, Sitting Pharmacological Interventions: Block, PRN Medication PQRS Narrative: Smoking Status Never smoker Blood Pressure 136/63 Pain Intensity [Lower Back] 0 Scale Used Numeric (1 - 10) Hx Alcohol Use (MH) No Home Medications: Ambulatory Orders Aspirin 81 mg PO DAILY 02/12/18 Escitalopram [Lexapro] 5 mg PO DAILY 05/05/20 Memantine [Namenda] 10 mg PO BID 05/05/20 Donepezil [Aricept] 5 mg PO HS tab 05/10/20 Pantoprazole Sodium [Protonix] 40 mg PO DAILY #30 tablet. 05/10/20 Atorvastatin [Lipitor] 40 mg PO HS tab 12/22/20 Cyanocobalamin (Vitamin B-12) [Vitamin B-12] 1,000 mcg PO DAILY #30 tablet 12/22/20 lisinopriL [Zestril] 20 mg PO DAILY tab 12/22/20 Jone/D3/Mag11/Zinc/Parliamentary Archivist/Tye/Bor [Caltrate 600+D Plus Tablet] 1 tab PO DAILY 02/18/21 Cranberry With Vit C 168 mg PO DAILY 02/18/21 Folic Acid 1 mg PO DAILY 02/18/21 Mirabegron [Myrbetriq] 25 mg PO HS 02/18/21 Levothyroxine Sodium [Synthroid] 200 mcg PO DAILY 03/29/21 Insulin Glargine,Hum.rec.anlog [Lantus Solostar Pen] 58 unit SQ HS #0 03/31/21 INSULIN LISPRO (HumaLOG) [humaLOG] See Protocol SQ ACHS 06/29/21 Acetaminophen [Tylenol Extra Strength] 1,000 mg PO DIRECTED PRN 07/27/21
== END | disposition home or self-care (01) ==
LOC: PNWHC3 10:14
PROVIDERS: ATTEND Physician Assistant Medical
DX: M47.896 Other spondylosis, lumbar region (principal); M51.36 Other intervertebral disc degeneration, lumbar region
CPT/HCPCS: 99211

== ENCOUNTER 2021-08-26 12:06 | Inpatient (IN) | payer MEDICARE ==
[2021-08-26] MEDS ORDERED: ONDANSETRON 4 MG/2 ML VIAL IVP STA (12:25)
--- NOTE | 2021-08-26 12:29 | ED ---
General Adult HPI - General Chief complaint: Urogenital Stated complaint: poss UTI, weakness Time Seen by Provider: 08/26/21 12:10 Source: patient, family, EMS Mode of arrival: EMS Limitations: no limitations - History of Present Illness Initial comments: Patient presents to the ED by ambulance for evaluation with her at bedside. Patient states that she has felt generally weak and nauseated since yesterday, and she is concerned that she may have a UTI. Patient states that she has had similar symptoms with her UTIs in the past. Patient also admits to having a cough and congestion since yesterday. Patient states that she is fully vaccinated for Covid. Patient's states that the patient has been unable to ambulate or get around very well since yesterday, and he states that she normally ambulates with assistance and with a walker due to a history of several strokes in the past. Patient denies having any pain, fever or chills, headache, focal neuro deficit, visual changes, speech difficulty, chest pain or pressure, dyspnea, hemoptysis, palpitations, dizziness, syncope, abdominal pain, vomiting or diarrhea, bloody or melanotic stool, dysuria/hematuria/urinary frequency/urinary symptoms, leg or calf swelling or pain, or any other symptoms or complaints. - Related Data Home Medications Medication Instructions Recorded Confirmed Aspirin 81 mg PO DAILY 02/12/18 07/28/21 Escitalopram [Lexapro] 5 mg PO DAILY 05/05/20 07/28/21 Memantine [Namenda] 10 mg PO BID 05/05/20 07/28/21 Jone/D3/Mag11/Zinc/Bi Developer/Tye/Bor 1 tab PO DAILY 02/18/21 07/28/21 [Caltrate 600+D Plus Tablet] Cranberry With Vit C 168 mg PO DAILY 02/18/21 07/28/21 Folic Acid 1 mg PO DAILY 02/18/21 07/28/21 Mirabegron [Myrbetriq] 25 mg PO HS 02/18/21 07/28/21 Levothyroxine Sodium [Synthroid] 200 mcg PO DAILY 03/29/21 07/28/21 INSULIN LISPRO (HumaLOG) [humaLOG] See Protocol SQ ACHS 06/29/21 07/28/21 Acetaminophen [Tylenol Extra 1,000 mg PO DIRECTED PRN 07/27/21 07/28/21 Strength] Previous Rx's Medication Instructions Recorded Donepezil [Aricept] 5 mg PO HS tab 05/10/20 Pantoprazole Sodium [Protonix] 40 mg PO DAILY #30 tablet. 05/10/20 Atorvastatin [Lipitor] 40 mg PO HS tab 12/22/20 Cyanocobalamin (Vitamin B-12) 1,000 mcg PO DAILY #30 tablet 12/22/20 [Vitamin B-12] lisinopriL [Zestril] 20 mg PO DAILY tab 12/22/20 Insulin Glargine,Hum.rec.anlog 58 unit SQ HS #0 03/31/21 [Lantus Solostar Pen] Allergies Allergy/AdvReac Type Severity Reaction Status Date / Time ibuprofen [From Motrin] AdvReac "BLOOD Verified 07/27/21 12:36 THINS TOO MUCH" naproxen [From Aleve] AdvReac "BLOOD Verified 07/27/21 12:36 THINS TOO MUCH" NSAIDS (Non-Steroidal AdvReac Unknown Verified 07/27/21 12:36 Anti-Inflamma Review of Systems ROS Statement: Those systems with pertinent positive or pertinent negative responses have been documented in the HPI. ROS Other: All systems not noted in ROS Statement are negative. Past Medical History Past Medical History: Blood Disorder, Cancer, CVA/TIA, Diabetes Mellitus, GERD/Reflux, Hyperlipidemia, Hypertension, Memory Impairment, Musculoskeletal Disorder, Skin Disorder, Thyroid Disorder Additional Past Medical History / Comment(s): HX CVA X4 ., PROBLEMS WITH BALANCE, HX FALLS, THYROID CANCER.,MTHFR., UTI'S, FX ANKLE DECEMBER 2020, USING WALKER., STATES BULGING DISC AND PINCHED NERVE IN LOWER BACK. History of Any Multi-Drug Resistant Organisms: None Reported Past Surgical History: Hysterectomy, Orthopedic Surgery Additional Past Surgical History / Comment(s): thyroidectomy, parotid gland surgery, left shoulder (rotator cuff sx) X 2, PAIN CLINIC PROCEDURES Past Anesthesia/Blood Transfusion Reactions: Previous Problems w/ Anesthesia, Postoperative Nausea & Vomiting (PONV) Past Psychological History: No Psychological Hx Reported Smoking Status: Never smoker Past Alcohol Use History: None Reported Past Drug Use History: None Reported - Past Family History Mother Family Medical History: No Reported History Additional Family Medical History / Comment(s): . Father Family Medical History: Cancer Additional Family Medical History / Comment(s): open heart surgery when he was 50, aortic aneurysm when he was around 63 General Exam Limitations: no limitations General appearance: alert, in no apparent distress Head exam: Present: atraumatic, normocephalic Eye exam: Present: normal appearance, PERRL, EOMI ENT exam: Present: mucous membranes moist Neck exam: Present: other (Trachea is in midline). Absent: tenderness Respiratory exam: Present: normal lung sounds bilaterally. Absent: respiratory distress, wheezes, rales, rhonchi, stridor Cardiovascular Exam: Present: regular rate, normal rhythm, normal heart sounds, other (Normal radial pulses bilaterally) GI/Abdominal exam: Present: soft. Absent: distended, tenderness, guarding Extremities exam: Absent: tenderness, pedal edema, calf tenderness Back exam: Absent: CVA tenderness (R), CVA tenderness (L) Neurological exam: Present: alert, oriented X3, CN II-XII intact. Absent: motor sensory deficit Psychiatric exam: Present: normal affect, normal mood Skin exam: Present: warm, dry, intact, normal color Course Vital Signs 08/26/21 12:09 Temperature 99.1 F Pulse Rate 96 Respiratory 16 Rate Blood Pressure 143/70 O2 Sat by Pulse 95 Oximetry - Reevaluation(s) Reevaluation #1: 08/26/21 14:58 Case, H&P, test results and ED management thus far were discussed with Dr. Hendricks. He accepts hospital admission. He recommends consulting infectious disease for COVID-19 treatment recommendations. He has no further recommendations at this time. 08/26/21 15:02 Patient remains alert and breathing comfortably. Patient denies development of any new symptoms while in the ED. Patient and are aware the patient's test results, and patient agrees with hospital admission at this time. EKG Findings - EKG Comments: EKG Findings:: Normal sinus rhythm, no ectopy, ventricular rate of 90 bpm, normal NV and QRS intervals, normal QT interval, minimal voltage criteria for LVH, normal axis, no ST or T-wave abnormality Medical Decision Making - Medical Decision Making I suspect that the patient's generalized weakness is likely secondary to COVID- 19 infection. Patient's UA is not terribly suggestive of UTI. Patient is afebrile. Patient denies having any chest pain/pressure or dyspnea, and her EKG is fairly unremarkable, but given the patient's elevated troponin, will admit the patient to the hospital for serial troponins and cardiac monitoring. Dr. Hendricks has accepted hospital admission. - Lab Data Result diagrams: 08/26/21 13:05 08/26/21 13:05 Lab Results 08/26/21 08/26/21 08/26/21 Range/Units 13:05 13:05 13:05 WBC 10.9 H (3.8-10.6) k/uL RBC 4.68 (3.80-5.40) m/uL Hgb 13.9 (11.4-16.0) gm/dL Hct 42.4 (34.0-46.0) % MCV 90.8 (80.0-100.0) fL MCH 29.8 (25.0-35.0) pg MCHC 32.8 (31.0-37.0) g/dL RDW 14.4 (11.5-15.5) % Plt Count 219 (150-450) k/uL MPV 8.3 Neutrophils % 83 % Lymphocytes % 7 % Monocytes % 7 % Eosinophils % 1 % Basophils % 1 % Neutrophils # 9.0 H (1.3-7.7) k/uL Lymphocytes # 0.8 L (1.0-4.8) k/uL Monocytes # 0.8 (0-1.0) k/uL Eosinophils # 0.1 (0-0.7) k/uL Basophils # 0.1 (0-0.2) k/uL PT 10.4 (9.0-12.0) sec INR 0.9 (<1.2) APTT 22.0 (22.0-30.0) sec Sodium 135 L (137-145) mmol/L Potassium 4.3 (3.5-5.1) mmol/L Chloride 100 (98-107) mmol/L Carbon Dioxide 26 (22-30) mmol/L Anion Gap 9 mmol/L BUN 11 (7-17) mg/dL Creatinine 0.56 (0.52-1.04) mg/dL Est GFR (CKD-EPI)AfAm >90 (>60 ml/min/1.73 sqM) Est GFR (CKD-EPI)NonAf >90 (>60 ml/min/1.73 sqM) Glucose 182 H (74-99) mg/dL Plasma Lactic Acid Hilario (0.7-2.0) mmol/L Calcium 8.7 (8.4-10.2) mg/dL Magnesium 1.8 (1.6-2.3) mg/dL Total Bilirubin 2.3 H (0.2-1.3) mg/dL AST 29 (14-36) U/L ALT 12 (4-34) U/L Alkaline Phosphatase 105 (38-126) U/L Troponin I (0.000-0.034) ng/mL NT-Pro-B Natriuret Pep pg/mL Total Protein 7.6 (6.3-8.2) g/dL Albumin 4.2 (3.5-5.0) g/dL TSH 0.032 L (0.465-4.680) mIU/L Urine Color Urine Appearance (Clear) Urine pH (5.0-8.0) Ur Specific [place] (1.001-1.035) Urine Protein (Negative) Urine Glucose (UA) (Negative) Urine Ketones (Negative) Urine Blood (Negative) Urine Nitrite (Negative) Urine Bilirubin (Negative) Urine Urobilinogen (<2.0) mg/dL Ur Leukocyte Esterase (Negative) Urine RBC (0-5) /hpf Urine WBC (0-5) /hpf Urine Bacteria (None) /hpf Urine Mucus (None) /hpf Coronavirus (PCR) (Not Detectd) 08/26/21 08/26/21 08/26/21 Range/Units 13:05 13:05 13:05 WBC (3.8-10.6) k/uL RBC (3.80-5.40) m/uL Hgb (11.4-16.0) gm/dL Hct (34.0-46.0) % MCV (80.0-100.0) fL MCH (25.0-35.0) pg MCHC (31.0-37.0) g/dL RDW (11.5-15.5) % Plt Count (150-450) k/uL MPV Neutrophils % % Lymphocytes % % Monocytes % % Eosinophils % % Basophils % % Neutrophils # (1.3-7.7) k/uL Lymphocytes # (1.0-4.8) k/uL Monocytes # (0-1.0) k/uL Eosinophils # (0-0.7) k/uL Basophils # (0-0.2) k/uL PT (9.0-12.0) sec INR (<1.2) APTT (22.0-30.0) sec Sodium (137-145) mmol/L Potassium (3.5-5.1) mmol/L Chloride (98-107) mmol/L Carbon Dioxide (22-30) mmol/L Anion Gap mmol/L BUN (7-17) mg/dL Creatinine (0.52-1.04) mg/dL Est GFR (CKD-EPI)AfAm (>60 ml/min/1.73 sqM) Est GFR (CKD-EPI)NonAf (>60 ml/min/1.73 sqM) Glucose (74-99) mg/dL Plasma Lactic Acid Hilario 1.4 (0.7-2.0) mmol/L Calcium (8.4-10.2) mg/dL Magnesium (1.6-2.3) mg/dL Total Bilirubin (0.2-1.3) mg/dL AST (14-36) U/L ALT (4-34) U/L Alkaline Phosphatase (38-126) U/L Troponin I 0.100 H* (0.000-0.034) ng/mL NT-Pro-B Natriuret Pep 175 pg/mL Total Protein (6.3-8.2) g/dL Albumin (3.5-5.0) g/dL TSH (0.465-4.680) mIU/L Urine Color Urine Appearance (Clear) Urine pH (5.0-8.0) Ur Specific [place] (1.001-1.035) Urine Protein (Negative) Urine Glucose (UA) (Negative) Urine Ketones (Negative) Urine Blood (Negative) Urine Nitrite (Negative) Urine Bilirubin (Negative) Urine Urobilinogen (<2.0) mg/dL Ur Leukocyte Esterase (Negative) Urine RBC (0-5) /hpf Urine WBC (0-5) /hpf Urine Bacteria (None) /hpf Urine Mucus (None) /hpf Coronavirus (PCR) (Not Detectd) 08/26/21 08/26/21 Range/Units 13:05 14:15 WBC (3.8-10.6) k/uL RBC (3.80-5.40) m/uL Hgb (11.4-16.0) gm/dL Hct (34.0-46.0) % MCV (80.0-100.0) fL MCH (25.0-35.0) pg MCHC (31.0-37.0) g/dL RDW (11.5-15.5) % Plt Count (150-450) k/uL MPV Neutrophils % % Lymphocytes % % Monocytes % % Eosinophils % % Basophils % % Neutrophils # (1.3-7.7) k/uL Lymphocytes # (1.0-4.8) k/uL Monocytes # (0-1.0) k/uL Eosinophils # (0-0.7) k/uL Basophils # (0-0.2) k/uL PT (9.0-12.0) sec INR (<1.2) APTT (22.0-30.0) sec Sodium (137-145) mmol/L Potassium (3.5-5.1) mmol/L Chloride (98-107) mmol/L Carbon Dioxide (22-30) mmol/L Anion Gap mmol/L BUN (7-17) mg/dL Creatinine (0.52-1.04) mg/dL Est GFR (CKD-EPI)AfAm (>60 ml/min/1.73 sqM) Est GFR (CKD-EPI)NonAf (>60 ml/min/1.73 sqM) Glucose (74-99) mg/dL Plasma Lactic Acid Hilario (0.7-2.0) mmol/L Calcium (8.4-10.2) mg/dL Magnesium (1.6-2.3) mg/dL Total Bilirubin (0.2-1.3) mg/dL AST (14-36) U/L ALT (4-34) U/L Alkaline Phosphatase (38-126) U/L Troponin I (0.000-0.034) ng/mL NT-Pro-B Natriuret Pep pg/mL Total Protein (6.3-8.2) g/dL Albumin (3.5-5.0) g/dL TSH (0.465-4.680) mIU/L Urine Color Yellow Urine Appearance Cloudy H (Clear) Urine pH 6.0 (5.0-8.0) Ur Specific [place] 1.024 (1.001-1.035) Urine Protein Trace H (Negative) Urine Glucose (UA) Negative (Negative) Urine Ketones 1+ H (Negative) Urine Blood Negative (Negative) Urine Nitrite Positive H (Negative) Urine Bilirubin Negative (Negative) Urine Urobilinogen 2.0 (<2.0) mg/dL Ur Leukocyte Esterase Negative (Negative) Urine RBC 1 (0-5) /hpf Urine WBC 3 (0-5) /hpf Urine Bacteria Rare H (None) /hpf Urine Mucus Occasional H (None) /hpf Coronavirus (PCR) Detected A (Not Detectd) - Radiology Data Chest x-ray: Mild cardiomegaly and low lung volumes with patchy left basilar opacity favoring atelectatic change. Disposition Clinical Impression: Generalized weakness, COVID-19, Elevated troponin Disposition: ADMITTED IP TO THIS HOSP Condition: Stable Is patient prescribed a controlled substance at d/c from ED?: No Referrals: Klaus Ramires DO [Primary Care Provider] - 1-2 days Time of Disposition: 14:59
[2021-08-26 13:16] LABS: Basophils # (A) 0.1 k/uL (0-0.2); Basophils % (A) 1 %; Eosinophils # (A) 0.1 k/uL (0-0.7); Eosinophils % (A) 1 %; HCT 42.4 % (34.0-46.0); HGB 13.9 gm/dL (11.4-16.0); Lymphocytes # (A) 0.8 k/uL (1.0-4.8); Lymphocytes % (A) 7 %; MCH 29.8 pg (25.0-35.0); MCHC 32.8 g/dL (31.0-37.0); MCV 90.8 fL (80.0-100.0); Mean Platelet Volume 8.3; Monocytes # (A) 0.8 k/uL (0-1.0); Monocytes % (A) 7 %; Neutrophils % (A) 83 %; Platelet Count 219 k/uL (150-450); RBC 4.68 m/uL (3.80-5.40); RDW 14.4 % (11.5-15.5); WBC 10.9 k/uL (3.8-10.6)
--- NOTE | 2021-08-26 13:24 | XR ---
EXAMINATION TYPE: XR chest 1V portable DATE OF EXAM: 08/26/2021 COMPARISON: Chest x-ray March 29, 2021 HISTORY: Cough and weakness. TECHNIQUE: Single frontal view of the chest is obtained. FINDINGS: Low lung volumes and chronic parenchymal changes with patchy left basilar opacity. There i s stable mild cardiomegaly. Metallic anchor right humeral head from prior rotator cuff surgery is not ed.. IMPRESSION: Mild cardiomegaly and low lung volumes with patchy left basilar opacity favoring atelect atic change.
[2021-08-26 13:27] LABS: ALT 12 U/L (4-34); AST 29 U/L (14-36); African American GFR (CKD) >90 (>60 ml/min/1.73 sqM); Albumin 4.2 g/dL (3.5-5.0); Alkaline Phosphatase 105 U/L (38-126); Anion Gap 9 mmol/L; Blood Urea Nitrogen 11 mg/dL (7-17); Calcium 8.7 mg/dL (8.4-10.2); Carbon Dioxide 26 mmol/L (22-30); Chloride 100 mmol/L (98-107); Glucose 182 mg/dL (74-99); Magnesium 1.8 mg/dL (1.6-2.3); Non-African American GFR(CKD) >90 (>60 ml/min/1.73 sqM); Potassium 4.3 mmol/L (3.5-5.1); Sodium 135 mmol/L (137-145); Total Bilirubin 2.3 mg/dL (0.2-1.3); Total Protein 7.6 g/dL (6.3-8.2)
[2021-08-26 13:36] LABS: INR 0.9 (<1.2); Prothrombin Time 10.4 sec (9.0-12.0)
[2021-08-26 14:48] LABS: Appearance,Urine Cloudy (Clear); Bacteria,Urine Rare /hpf; Bilirubin,Urine Negative (Negative); Blood,Urine Negative (Negative); Color,Urine Yellow; Glucose,Urine (UA) Negative (Negative); Ketones,Urine 1+ (Negative); Leukocyte Esterase,Urine Negative (Negative); Mucus,Urine Occasional /hpf; Nitrite,Urine Positive (Negative); Protein,Urine Trace (Negative); RBC,Urine 1 /hpf (0-5); Specific Gravity,Urine 1.024 (1.001-1.035); WBC,Urine 3 /hpf (0-5)
[2021-08-26] MEDS ORDERED: ASPIRIN 325 MG TAB PO STA (14:52)
--- NOTE | 2021-08-26 16:00 | HP ---
HISTORY AND PHYSICAL CHIEF COMPLAINTS: Weakness and COVID-19. HISTORY OF PRESENT ILLNESS: This 66-year-old woman with a past medical history of CVA, diabetes mellitus, GERD, back pain, being followed by Dr. Klaus Ramires in the outpatient setting, was complaining of cough and significant weakness for the past couple of days. Her was unable to manage the patient at home. The patient was feeling extremely weak and tired and the patient came to [facility]. COVID-19 was positive. The patient was mildly hyponatremic. Troponins were elevated up to 0.1. The patient was admitted for further evaluation and treatment. There is no history of any fever, rigor or chills. Patient is vaccinated. PAST MEDICAL HISTORY: History of multiple CVAs, diabetes mellitus, GERD, back pain. MEDICATIONS: Medications prior to admission include Zestril, Myrbetriq, Namenda, Protonix. Doses and other medications are reviewed. ALLERGIES: ALLERGIES include IBUPROFEN, NAPROSYN. FAMILY HISTORY: No history of heart disease or strokes in the family. SOCIAL: No history of smoking. No history of alcohol intake. REVIEW OF SYSTEMS: Fourteen-point review of systems negative except as mentioned earlier. The patient is also slightly nauseous. PHYSICAL EXAMINATION: Pulse is 96, blood pressure 143/70, respiration 16. Oral mucosa is dry. NECK: No jugular venous distention. CARDIOVASCULAR: S1, S2 muffled. RESPIRATION: Breath sounds diminished at the bases. A few scattered rhonchi. ABDOMEN: Soft, obese, non-tender. No mass palpable. LEGS: No edema. No swelling. NERVOUS SYSTEM: Diffuse weakness. Back pain present. SKIN: No ulcer, rash, bleeding. JOINTS: No active deforming arthropathy. LABS: Labs are noted. ASSESSMENT: 1. Acute COVID-19 infection with significant weakness and dehydration. 2. Troponin 0.1; rule out acute [id number]-elevation myocardial infarction. 3. Hyponatremia. 4. Increased white count. 5. History of multiple strokes. 6. History of diabetes mellitus, type 2. 7. Hypertension. RECOMMENDATIONS AND DISCUSSION: In this 66-year-old woman who presented with multiple complex medical issues, we will monitor the patient closely. We will hydrate the patient. Will consult Dr. Fraire regarding the feasibility of either remdesivir or monoclonal antibodies. Otherwise, Cardiology will be consulted for the elevated troponin. Resume the home medications. Monitor blood sugars closely. PT/OT evaluation. Overall prognosis is guarded because of multiple complex medical issues. Discussed at length with the patient's at the bedside. Dr. Ramires will follow on Sunday. CURTIS / DEIRDRE: [id number] /
[2021-08-26 16:19] LABS: C Reactive Protein 5.1 mg/dL (<1.0)
[2021-08-26] MEDS: SODIUM CHLORIDE 0.9% 1,000 ML IV SCH (16:51)
[2021-08-26] MEDS: PANTOPRAZOLE 40 MG/10 ML VIAL IVP SCH ×2 (16:51→20:50)
[2021-08-26] MEDS: CHOLECALCIFEROL 25 MCG (1000 IU) TABLET PO SCH (16:51)
[2021-08-26] MEDS: ZINC SULFATE 220 MG CAP PO SCH (16:51)
[2021-08-26] MEDS ORDERED: ALBUTEROL NEBULIZED 2.5 MG/3 ML INHALATION SCH (20:00)
[2021-08-26] MEDS: NON FORMULARY DRUG (Mirabegron [Myrbetriq] 25 MG Tablet) PO SCH (20:41)
[2021-08-26] MEDS ORDERED: LORATADINE 10 MG TAB PO SCH (20:45)
[2021-08-26 20:47] LABS: Glucose,Whole Blood 173 mg/dL (75-99)
[2021-08-26] MEDS: DONEPEZIL 5 MG TAB PO SCH (20:50)
[2021-08-26] MEDS: ATORVASTATIN 40 MG TAB PO SCH (20:50)
[2021-08-26] MEDS: INSULIN DETEMIR (LEVEMIR) 100 UNIT/ML SYR SQ SCH (20:50)
[2021-08-26] MEDS: ASCORBIC ACID 500 MG TAB PO SCH (20:50)
[2021-08-27] MEDS: LEVOTHYROXINE 100 MCG TAB PO SCH (06:27)
[2021-08-27 06:28] LABS: Glucose,Whole Blood 137 mg/dL (75-99)
[2021-08-27] MEDS: SODIUM CHLORIDE 0.9% 1,000 ML IV SCH ×2 (06:28→10:12)
[2021-08-27] MEDS: PANTOPRAZOLE 40 MG/10 ML VIAL IVP SCH (09:43)
[2021-08-27] MEDS: ESCITALOPRAM 5 MG TAB PO SCH (09:44)
[2021-08-27] MEDS: CHOLECALCIFEROL 25 MCG (1000 IU) TABLET PO SCH (09:44)
[2021-08-27] MEDS: ZINC SULFATE 220 MG CAP PO SCH (09:44)
[2021-08-27] MEDS: ASCORBIC ACID 500 MG TAB PO SCH ×2 (09:44→20:59)
[2021-08-27] MEDS: FOLIC ACID 1 MG TAB PO SCH (09:44)
[2021-08-27] MEDS: CYANOCOBALAMIN 500 MCG TAB PO SCH (09:44)
[2021-08-27] MEDS: lisinopriL 20 MG TAB PO SCH (09:44)
[2021-08-27 09:54] LABS: Basophils % (A) 1 %; Eosinophils # (A) 0.1 k/uL (0-0.7); Eosinophils % (A) 1 %; HCT 38.8 % (34.0-46.0); HGB 12.9 gm/dL (11.4-16.0); Lymphocytes # (A) 0.9 k/uL (1.0-4.8); Lymphocytes % (A) 11 %; MCH 30.2 pg (25.0-35.0); MCHC 33.2 g/dL (31.0-37.0); MCV 91.2 fL (80.0-100.0); Mean Platelet Volume 8.6; Monocytes # (A) 0.7 k/uL (0-1.0); Monocytes % (A) 9 %; Neutrophils # (A) 6.1 k/uL (1.3-7.7); Neutrophils % (A) 76 %; Platelet Count 220 k/uL (150-450); RBC 4.26 m/uL (3.80-5.40); RDW 14.9 % (11.5-15.5)
[2021-08-27 10:04] LABS: ALT 11 U/L (4-34); AST 29 U/L (14-36); African American GFR (CKD) >90 (>60 ml/min/1.73 sqM); Albumin 3.6 g/dL (3.5-5.0); Alkaline Phosphatase 85 U/L (38-126); Anion Gap 7 mmol/L; Blood Urea Nitrogen 12 mg/dL (7-17); Carbon Dioxide 28 mmol/L (22-30); Chloride 102 mmol/L (98-107); Glucose 156 mg/dL (74-99); Non-African American GFR(CKD) >90 (>60 ml/min/1.73 sqM); Potassium 4.3 mmol/L (3.5-5.1); Sodium 137 mmol/L (137-145); Total Bilirubin 2.3 mg/dL (0.2-1.3); Total Protein 6.5 g/dL (6.3-8.2)
[2021-08-27] MEDS: BENZOCAINE/MENTHOL LOZENG 1 EACH LOZENGE MUCOUS MEM PRN (10:23)
[2021-08-27] MEDS: ACETAMINOPHEN TAB 325 MG TAB PO PRN (10:23)
[2021-08-27] MEDS: DEXAMETHASONE SOD PHOSPHATE 10 MG/ML 1 ML VIAL IVP SCH (11:19)
[2021-08-27] MEDS ORDERED: REMDESIVIR 200 MG in SODIUM CHLORIDE 0.9% 250 ML IVPB ONE (11:30)
[2021-08-27 12:00] LABS: Glucose,Whole Blood 176 mg/dL (75-99)
--- NOTE | 2021-08-27 12:34 | P.CNPUL ---
History of Present Illness Consult date: 08/27/21 Requesting physician: Jamison Hendricks Reason for consult: dyspnea, abnormal CXR/CT Chief complaint: Generalized weakness and nausea History of present illness: This is a very pleasant 66-year-old female patient who follows with Dr. Ramires as her primary care provider. She has a history of CVA 4, unsteady gait and utilizes a walker, diabetes mellitus, hypertension, hyperlipidemia, hypothyroidism status post thyroidectomy, MTHFR blood dyscrasia, nonsmoker. She presented to the emergency room yesterday with a 2 day history of generalized weakness, nausea, cough and congestion. She had become quite weak and was unable to ambulate without significant assistance from her and walker. Chest x-ray revealed mild cardiomegaly and low lung volumes with patchy left basilar opacity/atelectasis. EKG revealed normal sinus rhythm. Urinalysis was cloudy with positive nitrates. [place] virus by PCR detected. The patient is vaccinated and boosted. White count 8.0. Hemoglobin 12.9. Lymphocytes 0.9. Sodium 137. Potassium 4.3. Bicarb 28. BUN 19. Creatinine 0.64. Glucose 156. Free T4 1 0.69. She is seen today in consultation on the selective care unit. She had initially been on room air in the sun have hypoxemia with O2 saturation of 86 and was placed on 2 L nasal cannula with a O2 saturation currently at 94%. T-max of 99.7. She's been hemodynamically stable. He is currently resting fairly comfortably in bed. Awake and alert in no acute distress. Her main complaint currently is that of a sore throat. She had been initiated on 0.9 normal saline at 75 ML's per hour along with vitamin supplements. Review of Systems REVIEW OF SYSTEMS: CONSTITUTIONAL: Denies weakness. Unsteady gait. Denies any recent significant weight loss or weight gain. EYES: Denies change in vision. EARS, NOSE, MOUTH, THROAT: Denies headaches, positive for sore throat. CARDIOVASCULAR: Denies chest pain, palpitations or syncopal episodes. RESPIRATORY: Positive for shortness of breath, cough, congestion no hemoptysis. GASTROINTESTINAL: Positive for nausea GENITOURINARY: Positive for urinary tract infections. MUSKULOSKELETAL: Denies pain, denies swelling. INTEGUMENTARY: Denies rash, denies eczema. NEUROLOGICAL: Denies recent memory loss, no recent seizure activity. PSYCHIATRIC: Denies anxiety, denies depression. HEMATOLOGIC/LYMPHATIC: Denies anemia, denies enlarged lymph nodes. Past Medical History Past Medical History: Blood Disorder, Cancer, CVA/TIA, Diabetes Mellitus, GERD/Reflux, Hyperlipidemia, Hypertension, Memory Impairment, Musculoskeletal Disorder, Skin Disorder, Thyroid Disorder Additional Past Medical History / Comment(s): CVAs x4 with one being hemorrhagic and left pt with L arm weakness/balance issues, FALLS, MTHFR, thyroid cancer with surgery, recurrent UTIs, occasional urine incontinence, IDDM type II, neuropathy bilateral feet, past diabetic foot ulcer, cellulitis L great toe, chronic low back pain/pinched nerves. History of Any Multi-Drug Resistant Organisms: None Reported Past Surgical History: Hysterectomy, Orthopedic Surgery Additional Past Surgical History / Comment(s): thyroidectomy, parotid gland surgery, left shoulder (rotator cuff sx) X 2, PAIN CLINIC PROCEDURES Past Anesthesia/Blood Transfusion Reactions: Postoperative Nausea & Vomiting (PONV) Smoking Status: Never smoker - Past Family History Mother Family Medical History: No Reported History Additional Family Medical History / Comment(s): . Father Family Medical History: Cancer Additional Family Medical History / Comment(s): open heart surgery when he was 48, aortic aneurysm when he was around 63 Medications and Allergies Home Medications Medication Instructions Recorded Confirmed Type Aspirin 81 mg PO DAILY 02/12/18 08/26/21 History Escitalopram [Lexapro] 5 mg PO DAILY 05/05/20 08/26/21 History Memantine [Namenda] 10 mg PO BID 05/05/20 08/26/21 History Donepezil [Aricept] 5 mg PO HS tab 05/10/20 08/26/21 Rx Pantoprazole Sodium [Protonix] 40 mg PO DAILY #30 tablet. 05/10/20 08/26/21 Rx Atorvastatin [Lipitor] 40 mg PO HS tab 12/22/20 08/26/21 Rx Cyanocobalamin (Vitamin B-12) 1,000 mcg PO DAILY #30 tablet 12/22/20 08/26/21 Rx [Vitamin B-12] lisinopriL [Zestril] 20 mg PO DAILY tab 12/22/20 08/26/21 Rx Jone/D3/Mag11/Zinc/Car Rental Sales Assistant/Tye/Bor 1 tab PO DAILY 02/18/21 08/26/21 History [Caltrate 600+D Plus Tablet] Cranberry With Vit C 2 tab PO BID 02/18/21 08/26/21 History Folic Acid 1 mg PO DAILY 02/18/21 08/26/21 History Mirabegron [Myrbetriq] 25 mg PO HS 02/18/21 08/26/21 History Levothyroxine Sodium [Synthroid] 200 mcg PO DAILY 03/29/21 08/26/21 History Insulin Glargine,Hum.rec.anlog 58 unit SQ HS #0 03/31/21 08/26/21 Rx [Lantus Solostar Pen] INSULIN LISPRO (HumaLOG) [humaLOG] See Protocol SQ ACHS 06/29/21 08/26/21 History Acetaminophen [Tylenol Extra 1,000 mg PO Q6H PRN 07/27/21 08/26/21 History Strength] Dextromethorphan HBr/Quinidine 1 tab PO DAILY 08/26/21 08/26/21 History [Nuedexta 20-10 mg Capsule] Allergies Allergy/AdvReac Type Severity Reaction Status Date / Time ibuprofen [From Motrin] AdvReac "BLOOD Verified 08/26/21 15:07 THINS TOO MUCH" naproxen [From Aleve] AdvReac "BLOOD Verified 08/26/21 15:07 THINS TOO MUCH" NSAIDS (Non-Steroidal AdvReac Unknown Verified 08/26/21 15:07 Anti-Inflamma Physical Exam Vitals: Vital Signs Temp Pulse Pulse Resp BP BP Pulse Ox 08/27/21 11:36 99.3 F 87 22 126/71 94 L 08/27/21 09:58 99.7 F H 95 18 128/66 93 L 08/27/21 04:00 99 F 102 H 20 117/68 93 L 08/27/21 01:44 18 92 L 08/27/21 01:43 98.1 F 18 86 L 08/27/21 01:14 16 08/26/21 23:52 98.9 F 94 16 130/75 90 L 08/26/21 20:00 98.2 F 86 16 128/68 91 L 08/26/21 16:47 98.7 F 90 16 146/79 93 L 08/26/21 16:15 95 16 141/83 95 Intake and Output 08/26/21 08/27/21 08/27/21 22:59 06:59 14:59 Intake Total 240 425 610 Output Total 220 700 500 Balance 20 -275 110 Intake: IV 10 Invasive Line 2 10 Intake, IV Titration 225 600 Amount Sodium Chloride 0.9% 1, 225 600 000 ml @ 75 mls/hr IV . [id number] [facility] Rx#:[id number] Oral 240 200 0 Output: Urine 220 700 500 Other: Voiding Method External Catheter External Catheter External Catheter # Voids 1 Weight 86.183 kg GENERAL EXAM: Alert, alert, very pleasant 66-year-old female patient, on 2 L nasal cannula, fairly comfortable in no apparent distress. HEAD: Normocephalic. EYES: Normal reaction of pupils, equal size. NOSE: Clear with pink turbinates. THROAT: No erythema or exudates. NECK: No masses, no JVD. CHEST: No chest wall deformity. LUNGS: Equal air entry with faint crackles in the posterior bases CVS: S1 and S2 normal with no audible murmur, regular rhythm. ABDOMEN: No hepatosplenomegaly, normal bowel sounds, no guarding or rigidity. SPINE: No scoliosis or deformity SKIN: No rashes CENTRAL NERVOUS SYSTEM: No focal deficits, tone is normal in all 4 extremities. EXTREMITIES: There is no peripheral edema. No clubbing, no cyanosis. Peripheral pulses are intact. Results - Laboratory Findings CBC and BMP: 08/27/21 09:06 08/27/21 09:06 PT/INR, D-dimer PT 10.4 sec (9.0-12.0) 08/26/21 13:05 INR 0.9 (<1.2) 08/26/21 13:05 D-Dimer 0.61 mg/L FEU (<0.60) H 08/26/21 13:05 Abnormal lab findings: Abnormal Labs 08/26/21 08/26/21 08/26/21 13:05 13:05 13:05 WBC 10.9 H Neutrophils # 9.0 H Lymphocytes # 0.8 L ESR D-Dimer Sodium 135 L Glucose 182 H POC Glucose (mg/dL) Calcium Total Bilirubin 2.3 H Lactate Dehydrogenase Troponin I 0.100 H* C-Reactive Protein TSH 0.032 L Urine Appearance Urine Protein Urine Ketones Urine Nitrite Urine Bacteria Urine Mucus Coronavirus (PCR) 08/26/21 08/26/2108/26/22 13:05 13:05 13:05 WBC Neutrophils # Lymphocytes # ESR D-Dimer 0.61 H Sodium Glucose POC Glucose (mg/dL) Calcium Total Bilirubin Lactate Dehydrogenase 626 H Troponin I C-Reactive Protein 5.1 H TSH Urine Appearance Urine Protein Urine Ketones Urine Nitrite Urine Bacteria Urine Mucus Coronavirus (PCR) Detected A 08/26/21 08/26/21 08/26/21 14:15 17:50 17:50 WBC Neutrophils # Lymphocytes # ESR 25 H D-Dimer Sodium Glucose POC Glucose (mg/dL) Calcium Total Bilirubin Lactate Dehydrogenase Troponin I 0.079 H* C-Reactive Protein TSH Urine Appearance Cloudy H Urine Protein Trace H Urine Ketones 1+ H Urine Nitrite Positive H Urine Bacteria Rare H Urine Mucus Occasional H Coronavirus (PCR) 08/26/21 08/26/21 08/27/21 20:39 21:07 06:26 WBC Neutrophils # Lymphocytes # ESR D-Dimer Sodium Glucose POC Glucose (mg/dL) 173 H 137 H Calcium Total Bilirubin Lactate Dehydrogenase Troponin I 0.071 H* C-Reactive Protein TSH Urine Appearance Urine Protein Urine Ketones Urine Nitrite Urine Bacteria Urine Mucus Coronavirus (PCR) 08/27/21 08/27/21 08/27/21 09:06 09:06 11:57 WBC Neutrophils # Lymphocytes # 0.9 L ESR D-Dimer Sodium Glucose 156 H POC Glucose (mg/dL) 176 H Calcium 8.0 L Total Bilirubin 2.3 H Lactate Dehydrogenase Troponin I C-Reactive Protein TSH Urine Appearance Urine Protein Urine Ketones Urine Nitrite Urine Bacteria Urine Mucus Coronavirus (PCR) - Diagnostic Findings Chest x-ray: image reviewed Assessment and Plan Assessment: 1 Acute hypoxemic respiratory failure secondary to acute COVID-19 infection. The patient is vaccinated and boosted. Symptoms started 2 days ago. Initiated on Remdesivir, Decadron, Lovenox, vitamin supplements 2 Acute urinary tract infection suspected 3 Generalized weakness and difficulty with ambulation secondary to above 4 Troponin leak on the echocardiogram pending 5 Diabetes mellitus 6 Hypothyroidism status post thyroidectomy 7 Hypertension 8 Hyperlipidemia 9 Underlying dementia 10 History of CVA 11 History of MTHFR blood dyscrasia Plan: The patient was seen and evaluated Chest x-ray and labs reviewed Initiate Remdesivir, Lovenox and Decadron Continue vitamin supplements Echocardiogram pending Follow-up chest x-ray in a.m. Titrate the FiO2 as tolerated We will continue to follow and make further recommendations based on her clinical status I have personally seen and examined the patient, performed the documentation and the assessment and plan as written. Number of minutes spent on the visit: 20. Time with Patient: Greater than 30
--- NOTE | 2021-08-27 14:39 | P.CRDCN ---
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 She has a history of CVA 4, one was a hemorrhagic stroke in the [place] area and one in the frontal lobe as a result she is not very active and walks with a walker. Also has a history of hypertension, hyperlipidemia and diabetes although she denies history of hypertension hyperlipidemia, history of urinary tract infections in the past. Presented to the emergency department with complaints of generalized weakness and nausea for which she thought she had a UTI. She subsequently comp lained of some cough with congestion. PCR came back to be positive for COVID. We were asked to see the patient in consultation for elevated troponins which came back to be elevated at 0.1, 0.079 and 0.071. SHe denied any complaints of chest discomfort. EKG on admission showed sinus mechanism with no evidence of acute ischemia. Vital signs of been stable. Chest x-ray on admission showed mild cardiomegaly and low lung volumes with patchy left basilar opacity favoring atelectatic changes. A recent echocardiogram from last year showed normal LV systolic function with no segmental wall motion abnormalities. Upon examination patient is resting comfortably in bed. Continues to complain of weakness but continues to deny any chest discomfort. Past Medical History Past Medical History: Blood Disorder, Cancer, CVA/TIA, Diabetes Mellitus, GERD/Reflux, Hyperlipidemia, Hypertension, Memory Impairment, Musculoskeletal Disorder, Skin Disorder, Thyroid Disorder Additional Past Medical History / Comment(s): CVAs x4 with one being hemorrhagic and left pt with L arm weakness/balance issues, FALLS, MTHFR, thyroid cancer with surgery, recurrent UTIs, occasional urine incontinence, IDDM type II, neuropathy bilateral feet, past diabetic foot ulcer, cellulitis L great toe, chronic low back pain/pinched nerves. History of Any Multi-Drug Resistant Organisms: None Reported Past Surgical History: Hysterectomy, Orthopedic Surgery Additional Past Surgical History / Comment(s): thyroidectomy, parotid gland surgery, left shoulder (rotator cuff sx) X 2, PAIN CLINIC PROCEDURES Past Anesthesia/Blood Transfusion Reactions: Postoperative Nausea & Vomiting (PONV) Smoking Status: Never smoker - Past Family History Mother Family Medical History: No Reported History Additional Family Medical History / Comment(s): . Father Family Medical History: Cancer Additional Family Medical History / Comment(s): open heart surgery when he was 50, aortic aneurysm when he was around 63 Medications and Allergies Home Medications Medication Instructions Recorded Confirmed Type Aspirin 81 mg PO DAILY 02/12/18 08/26/21 History Escitalopram [Lexapro] 5 mg PO DAILY 05/05/20 08/26/21 History Memantine [Namenda] 10 mg PO BID 05/05/20 08/26/21 History Donepezil [Aricept] 5 mg PO HS tab 05/10/20 08/26/21 Rx Pantoprazole Sodium [Protonix] 40 mg PO DAILY #30 tablet. 05/10/20 08/26/21 Rx Atorvastatin [Lipitor] 40 mg PO HS tab 12/22/20 08/26/21 Rx Cyanocobalamin (Vitamin B-12) 1,000 mcg PO DAILY #30 tablet 12/22/20 08/26/21 Rx [Vitamin B-12] lisinopriL [Zestril] 20 mg PO DAILY tab 12/22/20 08/26/21 Rx Jone/D3/Mag11/Zinc/Third Shift Lieutenant/Tye/Bor 1 tab PO DAILY 02/18/21 08/26/21 History [Caltrate 600+D Plus Tablet] Cranberry With Vit C 2 tab PO BID 02/18/21 08/26/21 History Folic Acid 1 mg PO DAILY 02/18/21 08/26/21 History Mirabegron [Myrbetriq] 25 mg PO HS 02/18/21 08/26/21 History Levothyroxine Sodium [Synthroid] 200 mcg PO DAILY 03/29/21 08/26/21 History Insulin Glargine,Hum.rec.anlog 58 unit SQ HS #0 03/31/21 08/26/21 Rx [Lantus Solostar Pen] INSULIN LISPRO (HumaLOG) [humaLOG] See Protocol SQ ACHS 06/29/21 08/26/21 History Acetaminophen [Tylenol Extra 1,000 mg PO Q6H PRN 07/27/21 08/26/21 History Strength] Dextromethorphan HBr/Quinidine 1 tab PO DAILY 08/26/21 08/26/21 History [Nuedexta 20-10 mg Capsule] Allergies Allergy/AdvReac Type Severity Reaction Status Date / Time ibuprofen [From Motrin] AdvReac "BLOOD Verified 08/26/21 15:07 THINS TOO MUCH" naproxen [From Aleve] AdvReac "BLOOD Verified 08/26/21 15:07 THINS TOO MUCH" NSAIDS (Non-Steroidal AdvReac Unknown Verified 08/26/21 15:07 Anti-Inflamma Physical Exam Vitals: Vital Signs Temp Pulse Pulse Resp BP BP Pulse Ox 08/27/21 11:36 99.3 F 87 22 126/71 94 L 08/27/21 09:58 99.7 F H 95 18 128/66 93 L 08/27/21 04:00 99 F 102 H 20 117/68 93 L 08/27/21 01:44 18 92 L 08/27/21 01:43 98.1 F 18 86 L 08/27/21 01:14 16 08/26/21 23:52 98.9 F 94 16 130/75 90 L 08/26/21 20:00 98.2 F 86 16 128/68 91 L 08/26/21 16:47 98.7 F 90 16 146/79 93 L 08/26/21 16:15 95 16 141/83 95 Intake and Output 08/26/21 08/27/21 08/27/21 22:59 06:59 14:59 Intake Total 240 425 850 Output Total 220 700 500 Balance 20 -275 350 Intake: IV 10 Invasive Line 2 10 Intake, IV Titration 225 600 Amount Sodium Chloride 0.9% 1, 225 600 000 ml @ 75 mls/hr IV . [id number] [facility] Rx#:[id number] Oral 240 200 240 Output: Urine 220 700 500 Other: Voiding Method External Catheter External Catheter External Catheter # Voids 1 Weight 86.183 kg PHYSICAL EXAMINATION: This is a 66-year-old female in no apparent distress at the time of my examination. VITAL SIGNS: Blood pressure 126/71, heart rate 87, respirations 22, temp 99.3F. Patient is 94 % on 2 liters. HEENT: Head is atraumatic, normocephalic. Pupils are equal, round. Sclerae anicteric. Conjunctivae are clear. Mucous membranes of the mouth are moist. Neck is supple. There is no elevated jugular venous pressure. CHEST EXAMINATION: Clear to auscultation bilaterally. No wheezes rales or rhonchi. Respirations even and nonlabored. HEART EXAMINATION: Heart regular, positive S1 and S2. No S3. No S4. No clicks, rubs or murmurs. ABDOMEN: Soft, nontender. Bowel sounds are heard. No organomegaly noted. EXTREMITIES: 2+ peripheral pulses with no evidence of peripheral edema and no calf tenderness noted. NEUROLOGIC EXAMINATION: Patient is awake, alert and oriented x3. Results 08/27/21 09:06 08/27/21 09:06 Cardiac Enzymes 08/26/21 08/26/21 08/26/21 Range/Units 13:05 13:05 17:50 AST (14-36) U/L Lactate Dehydrogenase 626 H (313-618) U/L Troponin I 0.100 H* 0.079 H* (0.000-0.034) ng/mL 08/26/21 08/27/21 Range/Units 21:07 09:06 AST 29 (14-36) U/L Lactate Dehydrogenase (313-618) U/L Troponin I 0.071 H* (0.000-0.034) ng/mL CBC 08/27/21 Range/Units 09:06 WBC 8.0 (3.8-10.6) k/uL RBC 4.26 (3.80-5.40) m/uL Hgb 12.9 (11.4-16.0) gm/dL Hct 38.8 (34.0-46.0) % Plt Count 220 (150-450) k/uL Comprehensive Metabolic Panel 08/27/21 Range/Units 09:06 Sodium 137 (137-145) mmol/L Potassium 4.3 (3.5-5.1) mmol/L Chloride 102 (98-107) mmol/L Carbon Dioxide 28 (22-30) mmol/L BUN 12 (7-17) mg/dL Creatinine 0.64 (0.52-1.04) mg/dL Glucose 156 H (74-99) mg/dL Calcium 8.0 L (8.4-10.2) mg/dL AST 29 (14-36) U/L ALT 11 (4-34) U/L Alkaline Phosphatase 85 (38-126) U/L Total Protein 6.5 (6.3-8.2) g/dL Albumin 3.6 (3.5-5.0) g/dL Current Medications Generic Name Dose Route Start Last Admin Trade Name Freq PRN Reason Stop Dose Admin Acetaminophen 650 mg 08/27/21 10:12 08/27/21 10:23 Acetaminophen Tab 325 Mg Tab PO 650 mg Q6HR PRN Administration Fever and/ or Pain Ascorbic Acid 500 mg 08/26/21 21:00 08/27/21 09:44 Ascorbic Acid 500 Mg Tab PO 500 mg BID [facility] Administration Aspirin 81 mg 08/28/21 09:00 Aspirin 81 Mg PO DAILY [facility] Atorvastatin Calcium 40 mg 08/26/21 21:00 08/26/21 20:50 Atorvastatin 40 Mg Tab PO 40 mg HS [facility] Administration Benzocaine/Menthol 1 each 08/27/21 10:11 08/27/21 10:23 Benzocaine/Menthol Lozeng 1 Each Lozenge MUCOUS MEM 1 each Q4HR PRN Administration Sore Throat Cholecalciferol 25 mcg 08/26/21 15:45 08/27/21 09:44 Cholecalciferol 25 Mcg (1000 Iu) Tablet PO 25 mcg DAILY [facility] Administration Cyanocobalamin 1,000 mcg 08/27/21 09:00 08/27/21 09:44 Cyanocobalamin 500 Mcg Tab PO 1,000 mcg DAILY [facility] Administration Dexamethasone Sodium Phosphate 6 mg 08/27/21 10:45 08/27/21 11:19 Dexamethasone Sod Phosphate 10 Mg/Ml 1 Ml Vial IVP 6 mg DAILY [facility] Administration Donepezil HCl 5 mg 08/26/21 21:00 08/26/21 20:50 Donepezil 5 Mg Tab PO 5 mg HS [facility] Administration Enoxaparin Sodium 40 mg 08/27/21 13:00 Enoxaparin 40 Mg/0.4 Ml Syringe SQ DAILY [facility] Escitalopram Oxalate 5 mg 08/27/21 09:00 08/27/21 09:44 Escitalopram 5 Mg Tab PO 5 mg DAILY [facility] Administration Folic Acid 1 mg 08/27/21 09:00 08/27/21 09:44 Folic Acid 1 Mg Tab PO 1 mg DAILY [facility] Administration Sodium Chloride 1,000 mls @ 75 mls/hr 08/26/21 15:45 08/27/21 10:12 Saline 0.9% IV Not Given .[id number] [facility] Remdesivir 100 mg/ Sodium 250 mls @ 250 mls/hr 08/28/21 11:00 Chloride IVPB 08/31/21 11:59 DAILY@1100 [facility] Insulin Detemir 58 unit 08/26/21 21:00 08/26/21 20:50 Insulin Detemir (Levemir) 100 Unit/Ml Syr SQ 58 unit HS [facility] Administration Levothyroxine Sodium 200 mcg 08/27/21 06:30 08/27/21 06:27 Levothyroxine 100 Mcg Tab PO 200 mcg DAILY@0630 [facility] Administration Lisinopril 20 mg 08/27/21 09:00 08/27/21 09:44 Lisinopril 20 Mg Tab PO 20 mg DAILY [facility] Administration Non-Formulary Medication 25 mg 08/26/21 21:00 08/26/21 20:41 Mirabegron [Myrbetriq] PO Not Given HS [facility] Pantoprazole Sodium 40 mg 08/26/21 15:43 08/27/21 09:43 Pantoprazole 40 Mg/10 Ml Vial IVP 40 mg BID [facility] Administration Zinc Sulfate 220 mg 08/26/21 15:45 08/27/21 09:44 Zinc Sulfate 220 Mg Cap PO 220 mg DAILY [facility] Administration Intake and Output 08/26/21 08/27/21 08/27/21 22:59 06:59 14:59 Intake Total 240 425 850 Output Total 220 700 500 Balance 20 -275 350 Intake: IV 10 Invasive Line 2 10 Intake, IV Titration 225 600 Amount Sodium Chloride 0.9% 1, 225 600 000 ml @ 75 mls/hr IV . [id number] [facility] Rx#:[id number] Oral 240 200 240 Output: Urine 220 700 500 Other: Voiding Method External Catheter External Catheter External Catheter # Voids 1 Weight 86.183 kg 08/27/21 09:06 08/27/21 09:06 Assessment and Plan Assessment: #1 COVID-19 infection #2 elevated troponin, likely secondary to infection #3 urinary tract infection #4 CVA 4 #5 hypertension #6 hyperlipidemia #7 diabetes Plan: From cardiology perspective we will review the 2-D echo with Doppler. Troponin elevation likely related to underlying infection. If there is no significant abnormalities noted on echo we will plan for further cardiac work up as an outpatient once she's recovered from COVID infection. [employer] note has been reviewed, I agree with a documented findings and plan of care. Patient was seen and examined.
[2021-08-27] MEDS: ENOXAPARIN 40 MG/0.4 ML SYRINGE SQ SCH (15:09)
--- NOTE | 2021-08-27 16:37 | ECHOF ---
Referral Reason:chf MEASUREMENTS -------- HEIGHT: 175.3 cm WEIGHT: 86.2 kg BP: 143/70 IVSd: 1.6 cm (0.6 - 1.1) LVIDd: 3.8 cm (3.9 - 5.3) LVPWd: 1.0 cm (0.6 - 1.1) EDV(Teich): 62 ml IVSs: 2.0 cm LVIDs: 2.0 cm LVPWs: 1.8 cm %IVS Thck: 26 % ESV(Teich): 12 ml EF(Teich): 80 % %FS: 48 % SV(Teich): 50 ml LA Diam: 4.0 cm (2.7 - 3.8) RVIDd: 3.3 cm (< 3.3) FINDINGS -------- Sinus rhythm. This was a technically difficult study with suboptimal views. Limited Study The left ventricular size is normal. There is moderate concentric left ventricular hypertrophy. O verall left ventricular systolic function is normal with, an EF between 55 - 60 %. The right ventricle is mildly enlarged. The left atrium is mildly dilated. The right atrium was not well visualized. 5.0mg of Lumason was utilized for enhancement of images The aortic valve is trileaflet, and appears structurally normal. No aortic stenosis or regurgitation. The mitral valve is normal. There is trace to mild mitral regurgitation. The tricuspid valve appears structurally normal. Mild tricuspid regurgitation present. Right vent ricular systolic pressure is normal at < 35 mmHg. The pulmonic valve was not well visualized. Echo free space represents a pericardial fat pad. CONCLUSIONS -------- 1. This was a technically difficult study with suboptimal views. 2. There is moderate concentric left ventricular hypertrophy. 3. Overall left ventricular systolic function is normal with, an EF between 55 - 60 %. 4. The right ventricle is mildly enlarged. 5. The left atrium is mildly dilated. 6. The aortic valve is trileaflet, and appears structurally normal. No aortic stenosis or regurgitati on. 7. There is trace to mild mitral regurgitation. 8. Mild tricuspid regurgitation present. PRIMARY CARE NURSE PRACTITIONER: Calista Frausto RDCS
--- NOTE | 2021-08-27 16:40 | PN ---
PROGRESS NOTE DATE OF SERVICE: 08/27/2021 This 66-year-old woman who was admitted with significant weakness and acute COVID-19 infection also had elevated troponin. The patient is being closely monitored. D-dimer is elevated. Free T4 is normal. Past medical history reviewed. REVIEW OF SYSTEMS: Fourteen-point review of systems negative except as mentioned earlier. PHYSICAL EXAMINATION: Pulse is 87, blood pressure 126/70, respiration 22. HEENT: Conjunctivae normal. NECK: No jugular venous distention. CARDIOVASCULAR: S1, S2 muffled. RESPIRATION: Breath sounds diminished at the bases. Bilateral scattered rhonchi and crackles. ABDOMEN: Soft. NERVOUS SYSTEM: No focal deficit. LABS: WBC 8. Other labs are noted. ASSESSMENT: 1. Acute COVID-19 infection with significant weakness and dehydration. Rule out COVID- 19 pneumonia. 2. Elevated troponin at 0.1. Rule out acute fus-UA-hohjnjf-elevation myocardial infarction. 3. Hyponatremia. 4. Elevated D-dimer. 5. Increased white count. 6. History of multiple strokes. 7. History of diabetes mellitus, type 2. 8. Hypertension. RECOMMENDATIONS AND DISCUSSION: I recommend to continue current medications, continue with the monitoring, symptomatic treatment. I would recommend a CT angio of the chest. Continue the rest of the medications. Patient is started on remdesivir. Prognosis guarded. Further recommendations to follow. MMODL / IJN: [id number] /
[2021-08-27 16:48] LABS: Glucose,Whole Blood 295 mg/dL (75-99)
--- NOTE | 2021-08-27 18:22 | CT ---
EXAMINATION TYPE: CT angio chest DATE OF EXAM: 08/27/2021 COMPARISON: None HISTORY: Elevated d-dimer, Covid + CT DLP: 678 mGycm Automated exposure control for dose reduction was used. CONTRAST: Performed with IV Contrast, patient injected with 100 mL of Isovue 370. Images obtained from the thoracic inlet to the diaphragm with IV contrast. There are Three-D postproc essed images. There is some mild coarse interstitial density in the lung mccloud. No pulmonary consolidation. No kumar dence of a pulmonary mass. There are no hilar masses. There is no mediastinal adenopathy. Thoracic ao rta is intact. No aneurysm or dissection. The ascending aorta measures 3.5 cm. There is no evidence of filling defect in the pulmonary arteries. There are some mild atelectasis at the lung bases. Thoracic spine is intact. No compression fracture. IMPRESSION: No evidence of pulmonary embolism. Mild interstitial increased density and subsegmental atelectasis. No suspicious pulmonary mass.
--- NOTE | 2021-08-27 18:38 | US ---
EXAMINATION TYPE: US venous doppler duplex LE BI DATE OF EXAM: 08/27/2021 6:31 PM COMPARISON: US CLINICAL HISTORY: pe. Covid, elevated d-dimer SIDE PERFORMED: Bilateral TECHNIQUE: The lower extremity deep venous system is examined utilizing real time linear array sonog ramya with graded compression, doppler sonography and color-flow sonography. VESSELS IMAGED: Common Femoral Vein Deep Femoral Vein Greater Saphenous Vein * Femoral Vein Popliteal Vein Small Saphenous Vein * Proximal Calf Veins (* superficial vessels) Right Leg: Negative for DVT Left Leg: Negative for DVT IMPRESSION: No evidence of deep vein thrombosis in both legs.
[2021-08-27 20:53] LABS: Glucose,Whole Blood 315 mg/dL (75-99)
[2021-08-27] MEDS: PANTOPRAZOLE 40 MG TABLET PO SCH (20:58)
[2021-08-27 20:59] LABS: Glucose,Whole Blood 302 mg/dL (75-99)
[2021-08-27] MEDS: NON FORMULARY DRUG (Mirabegron [Myrbetriq] 25 MG Tablet) PO SCH (20:59)
[2021-08-27] MEDS: INSULIN DETEMIR (LEVEMIR) 100 UNIT/ML SYR SQ SCH (20:59)
[2021-08-27] MEDS: INSULIN ASPART (NovoLOG) 100 UNIT/ML VIAL SQ SCH (20:59)
[2021-08-27] MEDS: ATORVASTATIN 40 MG TAB PO SCH (20:59)
[2021-08-27] MEDS: DONEPEZIL 5 MG TAB PO SCH (21:21)
--- NOTE | 2021-08-27 22:59 | P.CONS ---
History of Present Illness - Reason for Consult Consult date: 08/27/21 Covid 19 pneumonia Requesting physician: Jamison Hendricks - Chief Complaint Generalized weakness 2 days - History of Present Illness Patient is a 66-year-old female partially vaccinated for COVID-19 as has received only 2 doses for the last dose in December 2020 also with a history of diabetes hypertension hyperlipidemia presenting to [facility] ER yesterday for evaluation of generalized weakness nausea cough and congestion symptom has been going on for about 2 days before presentation to the hospital patient become weak and was unable to ambulate without significant assistance from her with the symptom the patient was brought into the ER on arrival to the ER patient did have low-grade fever of 99.1 F patient also have hypoxemia with O2 sats down to 86% after midnight and the patient is currently on 2 L nasal cannula patient did have a normal white count with mild lymphopenia D-dimer was mildly elevated creatinine was normal liver enzymes are normal CRP was 5.1 urine was negative patient did have positive COVID test blood culture negative patient did have a chest x-ray mild cardiomegaly and low lung volumes with patchy left basilar opacity favoring atelectatic changes patient was admitted to the hospital has been started on remdesivir infectious disease was consulted for further management. 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 History of Any Multi-Drug Resistant Organisms: None Reported Past Surgical History: Hysterectomy, Orthopedic Surgery Additional Past Surgical History / Comment(s): thyroidectomy, parotid gland surgery, left shoulder (rotator cuff sx) X 2, PAIN CLINIC PROCEDURES Past Anesthesia/Blood Transfusion Reactions: Postoperative Nausea & Vomiting (PONV) Smoking Status: Never smoker - Past Family History Mother Family Medical History: No Reported History Additional Family Medical History / Comment(s): . Father Family Medical History: Cancer Additional Family Medical History / Comment(s): open heart surgery when he was 48, aortic aneurysm when he was around 63 Medications and Allergies Home Medications Medication Instructions Recorded Confirmed Type Aspirin 81 mg PO DAILY 02/12/18 08/26/21 History Escitalopram [Lexapro] 5 mg PO DAILY 05/05/20 08/26/21 History Memantine [Namenda] 10 mg PO BID 05/05/20 08/26/21 History Donepezil [Aricept] 5 mg PO HS tab 05/10/20 08/26/21 Rx Pantoprazole Sodium [Protonix] 40 mg PO DAILY #30 tablet. 05/10/20 08/26/21 Rx Atorvastatin [Lipitor] 40 mg PO HS tab 12/22/20 08/26/21 Rx Cyanocobalamin (Vitamin B-12) 1,000 mcg PO DAILY #30 tablet 12/22/20 08/26/21 Rx [Vitamin B-12] lisinopriL [Zestril] 20 mg PO DAILY tab 12/22/20 08/26/21 Rx Jone/D3/Mag11/Zinc/Silk Washing Machine Operator/Tye/Bor 1 tab PO DAILY 02/18/21 08/26/21 History [Caltrate 600+D Plus Tablet] Cranberry With Vit C 2 tab PO BID 02/18/21 08/26/21 History Folic Acid 1 mg PO DAILY 02/18/21 08/26/21 History Mirabegron [Myrbetriq] 25 mg PO HS 02/18/21 08/26/21 History Levothyroxine Sodium [Synthroid] 200 mcg PO DAILY 03/29/21 08/26/21 History Insulin Glargine,Hum.rec.anlog 58 unit SQ HS #0 03/31/21 08/26/21 Rx [Lantus Solostar Pen] INSULIN LISPRO (HumaLOG) [humaLOG] See Protocol SQ ACHS 06/29/21 08/26/21 History Acetaminophen [Tylenol Extra 1,000 mg PO Q6H PRN 07/27/21 08/26/21 History Strength] Dextromethorphan HBr/Quinidine 1 tab PO DAILY 08/26/21 08/26/21 History [Nuedexta 20-10 mg Capsule] Allergies Allergy/AdvReac Type Severity Reaction Status Date / Time ibuprofen [From Motrin] AdvReac "BLOOD Verified 08/26/21 15:07 THINS TOO MUCH" naproxen [From Aleve] AdvReac "BLOOD Verified 08/26/21 15:07 THINS TOO MUCH" NSAIDS (Non-Steroidal AdvReac Unknown Verified 08/26/21 15:07 Anti-Inflamma Physical Exam Vitals: Vital Signs Temp Pulse Pulse Resp BP BP Pulse Ox 08/27/21 09:58 99.7 F H 95 18 128/66 93 L 08/27/21 04:00 99 F 102 H 20 117/68 93 L 08/27/21 01:44 18 92 L 08/27/21 01:43 98.1 F 18 86 L 08/27/21 01:14 16 08/26/21 23:52 98.9 F 94 16 130/75 90 L 08/26/21 20:00 98.2 F 86 16 128/68 91 L 08/26/21 16:47 98.7 F 90 16 146/79 93 L 08/26/21 16:15 95 16 141/83 95 08/26/21 12:09 99.1 F 96 16 143/70 95 Intake and Output 08/26/21 08/27/21 08/27/21 22:59 06:59 14:59 Intake Total 240 425 610 Output Total 220 700 500 Balance 20 -275 110 Intake: IV 10 Invasive Line 2 10 Intake, IV Titration 225 600 Amount Sodium Chloride 0.9% 1, 225 600 000 ml @ 75 mls/hr IV . [id number] [facility] Rx#:[id number] Oral 240 200 0 Output: Urine 220 700 500 Other: Voiding Method External Catheter External Catheter External Catheter # Voids 1 Weight 86.183 kg GENERAL DESCRIPTION: An elderly female lying in bed, no distress. No tachypnea or accessory muscle of respiration use. HEENT: Shows Pallor , no scleral icterus. Oral mucous membrane is dry. No pharyngeal erythema or thrush NECK: Trachea central, no thyromegaly. LUNGS: Unlabored breathing. Decreased intensity of breath sounds. No wheeze or crackle. HEART: S1, S2, regular rate and rhythm. No loud murmur ABDOMEN: Soft, no tenderness , guarding or rigidity, no organomegaly EXTREMITIES: No edema of feet. SKIN: No rash, no masses palpable. NEUROLOGICAL: The patient is awake, alert, oriented x3, mood and affect normal. Results CBC & Chem 7: 08/27/21 09:06 08/27/21 09:06 Labs: Abnormal Lab Results - Last 24 Hours (Table) 08/26/21 08/26/21 08/26/21 Range/Units 13:05 13:05 13:05 WBC 10.9 H (3.8-10.6) k/uL Neutrophils # 9.0 H (1.3-7.7) k/uL Lymphocytes # 0.8 L (1.0-4.8) k/uL ESR (0-20) mm/hr D-Dimer (<0.60) mg/L FEU Sodium 135 L (137-145) mmol/L Glucose 182 H (74-99) mg/dL POC Glucose (mg/dL) (75-99) mg/dL Calcium (8.4-10.2) mg/dL Total Bilirubin 2.3 H (0.2-1.3) mg/dL Lactate Dehydrogenase (313-618) U/L Troponin I 0.100 H* (0.000-0.034) ng/mL C-Reactive Protein (<1.0) mg/dL TSH 0.032 L (0.465-4.680) mIU/L Urine Appearance (Clear) Urine Protein (Negative) Urine Ketones (Negative) Urine Nitrite (Negative) Urine Bacteria (None) /hpf Urine Mucus (None) /hpf Coronavirus (PCR) (Not Detectd) 08/26/21 08/26/21 08/26/21 Range/Units 13:05 13:05 13:05 WBC (3.8-10.6) k/uL Neutrophils # (1.3-7.7) k/uL Lymphocytes # (1.0-4.8) k/uL ESR (0-20) mm/hr D-Dimer 0.61 H (<0.60) mg/L FEU Sodium (137-145) mmol/L Glucose (74-99) mg/dL POC Glucose (mg/dL) (75-99) mg/dL Calcium (8.4-10.2) mg/dL Total Bilirubin (0.2-1.3) mg/dL Lactate Dehydrogenase 626 H (313-618) U/L Troponin I (0.000-0.034) ng/mL C-Reactive Protein 5.1 H (<1.0) mg/dL TSH (0.465-4.680) mIU/L Urine Appearance (Clear) Urine Protein (Negative) Urine Ketones (Negative) Urine Nitrite (Negative) Urine Bacteria (None) /hpf Urine Mucus (None) /hpf Coronavirus (PCR) Detected A (Not Detectd) 08/26/21 08/26/21 08/26/21 Range/Units 14:15 17:50 17:50 WBC (3.8-10.6) k/uL Neutrophils # (1.3-7.7) k/uL Lymphocytes # (1.0-4.8) k/uL ESR 25 H (0-20) mm/hr D-Dimer (<0.60) mg/L FEU Sodium (137-145) mmol/L Glucose (74-99) mg/dL POC Glucose (mg/dL) (75-99) mg/dL Calcium (8.4-10.2) mg/dL Total Bilirubin (0.2-1.3) mg/dL Lactate Dehydrogenase (313-618) U/L Troponin I 0.079 H* (0.000-0.034) ng/mL C-Reactive Protein (<1.0) mg/dL TSH (0.465-4.680) mIU/L Urine Appearance Cloudy H (Clear) Urine Protein Trace H (Negative) Urine Ketones 1+ H (Negative) Urine Nitrite Positive H (Negative) Urine Bacteria Rare H (None) /hpf Urine Mucus Occasional H (None) /hpf Coronavirus (PCR) (Not Detectd) 08/26/21 08/26/21 08/27/21 Range/Units 20:39 21:07 06:26 WBC (3.8-10.6) k/uL Neutrophils # (1.3-7.7) k/uL Lymphocytes # (1.0-4.8) k/uL ESR (0-20) mm/hr D-Dimer (<0.60) mg/L FEU Sodium (137-145) mmol/L Glucose (74-99) mg/dL POC Glucose (mg/dL) 173 H 137 H (75-99) mg/dL Calcium (8.4-10.2) mg/dL Total Bilirubin (0.2-1.3) mg/dL Lactate Dehydrogenase (313-618) U/L Troponin I 0.071 H* (0.000-0.034) ng/mL C-Reactive Protein (<1.0) mg/dL TSH (0.465-4.680) mIU/L Urine Appearance (Clear) Urine Protein (Negative) Urine Ketones (Negative) Urine Nitrite (Negative) Urine Bacteria (None) /hpf Urine Mucus (None) /hpf Coronavirus (PCR) (Not Detectd) 08/27/21 08/27/21 Range/Units 09:06 09:06 WBC (3.8-10.6) k/uL Neutrophils # (1.3-7.7) k/uL Lymphocytes # 0.9 L (1.0-4.8) k/uL ESR (0-20) mm/hr D-Dimer (<0.60) mg/L FEU Sodium (137-145) mmol/L Glucose 156 H (74-99) mg/dL POC Glucose (mg/dL) (75-99) mg/dL Calcium 8.0 L (8.4-10.2) mg/dL Total Bilirubin 2.3 H (0.2-1.3) mg/dL Lactate Dehydrogenase (313-618) U/L Troponin I (0.000-0.034) ng/mL C-Reactive Protein (<1.0) mg/dL TSH (0.465-4.680) mIU/L Urine Appearance (Clear) Urine Protein (Negative) Urine Ketones (Negative) Urine Nitrite (Negative) Urine Bacteria (None) /hpf Urine Mucus (None) /hpf Coronavirus (PCR) (Not Detectd) Assessment and Plan (1) COVID-19 Current Visit: Yes Status: Acute Code(s): U07.1 - COVID-19 SNOMED Code(s): 340644565 Plan: 1patient presented to hospital generalized weakness hypoxemia with evidence of pulmonary fted secondary to covid19 infection in this patient has not received the booster and high risk factor for progression to respiratory failure and no evidence of any secondary bacterial pneumonia. 2patient to continue with remdesivir evaluation 5-day course of therapy 3dexamethasone Lovenox zinc and ascorbic acid per protocol 4droplet isolation and respiratory support We will follow on clinical condition and cultures to further adjust medication if needed Thank you for this consultation will follow this patient along with you
[2021-08-27 23:38] LABS: Glucose,Whole Blood 235 mg/dL (75-99)
[2021-08-28 06:11] LABS: Glucose,Whole Blood 222 mg/dL (75-99)
[2021-08-28] MEDS: INSULIN ASPART (NovoLOG) 100 UNIT/ML VIAL SQ SCH ×4 (06:19→21:20)
[2021-08-28] MEDS: PANTOPRAZOLE 40 MG TABLET PO SCH ×2 (06:19→17:22)
[2021-08-28] MEDS: LEVOTHYROXINE 100 MCG TAB PO SCH (06:19)
[2021-08-28] MEDS: SODIUM CHLORIDE 0.9% 1,000 ML IV SCH (06:20)
[2021-08-28] MEDS: CHOLECALCIFEROL 25 MCG (1000 IU) TABLET PO SCH (09:28)
[2021-08-28] MEDS: ZINC SULFATE 220 MG CAP PO SCH (09:28)
[2021-08-28] MEDS: CYANOCOBALAMIN 500 MCG TAB PO SCH (09:28)
[2021-08-28] MEDS: ENOXAPARIN 40 MG/0.4 ML SYRINGE SQ SCH (09:28)
[2021-08-28] MEDS: lisinopriL 20 MG TAB PO SCH (09:28)
[2021-08-28] MEDS: FOLIC ACID 1 MG TAB PO SCH (09:28)
[2021-08-28] MEDS: ESCITALOPRAM 5 MG TAB PO SCH (09:28)
[2021-08-28] MEDS: ASPIRIN 81 MG PO SCH (09:28)
[2021-08-28] MEDS: DEXAMETHASONE SOD PHOSPHATE 10 MG/ML 1 ML VIAL IVP SCH (09:29)
[2021-08-28] MEDS: ASCORBIC ACID 500 MG TAB PO SCH ×2 (09:29→21:19)
[2021-08-28] MEDS: ACETAMINOPHEN TAB 325 MG TAB PO PRN (09:47)
[2021-08-28 09:55] LABS: Basophils % (A) 1 %; Eosinophils % (A) 1 %; HCT 41.5 % (34.0-46.0); HGB 13.3 gm/dL (11.4-16.0); Hypochromasia Slight; Lymphocytes # (A) 1.7 k/uL (1.0-4.8); Lymphocytes % (A) 30 %; MCH 29.8 pg (25.0-35.0); MCV 93.3 fL (80.0-100.0); Mean Platelet Volume 8.8; Monocytes # (A) 0.4 k/uL (0-1.0); Monocytes % (A) 6 %; Neutrophils # (A) 3.3 k/uL (1.3-7.7); Neutrophils % (A) 59 %; Platelet Count 250 k/uL (150-450); RBC 4.45 m/uL (3.80-5.40); RDW 14.7 % (11.5-15.5); WBC 5.6 k/uL (3.8-10.6)
[2021-08-28 10:08] LABS: ALT 12 U/L (4-34); AST 24 U/L (14-36); African American GFR (CKD) >90 (>60 ml/min/1.73 sqM); Albumin 3.4 g/dL (3.5-5.0); Alkaline Phosphatase 79 U/L (38-126); Anion Gap 8 mmol/L; Blood Urea Nitrogen 20 mg/dL (7-17); Calcium 8.3 mg/dL (8.4-10.2); Carbon Dioxide 30 mmol/L (22-30); Chloride 100 mmol/L (98-107); Glucose 219 mg/dL (74-99); Non-African American GFR(CKD) >90 (>60 ml/min/1.73 sqM); Potassium 4.3 mmol/L (3.5-5.1); Sodium 138 mmol/L (137-145); Total Bilirubin 1.4 mg/dL (0.2-1.3); Total Protein 6.4 g/dL (6.3-8.2)
[2021-08-28] MEDS: REMDESIVIR 100 MG in SODIUM CHLORIDE 0.9% 250 ML IVPB SCH (10:38)
[2021-08-28 11:13] LABS: Glucose,Whole Blood 248 mg/dL (75-99)
--- NOTE | 2021-08-28 12:12 | P.PN ---
Subjective Progress Note Date: 08/28/21 This is a 66-year-old female does not follow with a risk management analyst. She has a history of CVA 4, one was a hemorrhagic stroke in the [place] area and one in the frontal lobe as a result she is not very active and walks with a walker. Also has a history of hypertension, hyperlipidemia and diabetes although she denies history of hypertension hyperlipidemia, history of urinary tract infections in the past. Presented to the emergency department with complaints of generalized weakness and nausea for which she thought she had a UTI. She subsequently complained of some cough with congestion. PCR came back to be positive for COVID. We were asked to see the patient in consultation for elevated troponins which came back to be elevated at 0.1, 0.079 and 0.071. SHe denied any complaints of chest discomfort. EKG on admission showed sinus mechanism with no evidence of acute ischemia. Vital signs of been stable. Chest x-ray on admission showed mild cardiomegaly and low lung volumes with patchy left basilar opacity favoring atelectatic changes. A recent echocardiogram from last year showed normal LV systolic function with no segmental wall motion abnormalities. 08/28/2021 Echocardiogram showed normal LV systolic function with an ejection fraction between 55-60% with no sick difficulty and valvular abnormalities and no segmental wall motion abnormalities. Computed tomography scan of the chest showed no evidence for PE and lower extremity duplex study showed no DVTs bilaterally. She is overall feeling that her today. She feels her breathing has improved and she feels more awake today. She continues to cough but this is nonproductive. Denies any chest discomfort, palpitations, dizziness or lightheadedness. She's had no orthopnea or PND. Objective - Vital Signs Vital signs: Vital Signs Temp 98.3 F 08/28/21 10:58 Pulse 75 08/28/21 10:58 Resp 18 08/28/21 10:58 BP 128/65 08/28/21 10:58 Pulse Ox 96 08/28/21 10:58 Intake & Output 08/27/21 08/28/21 08/28/21 18:59 06:59 18:59 Intake Total 968 200 260 Output Total 1150 700 Balance -182 -500 260 Intake: IV 10 10 Invasive Line 2 10 10 Intake, IV Titration 600 250 Amount Remdesivir 200 mg In 250 Sodium Chloride 0.9% 250 ml @ 250 mls/hr IVPB ONCE ONE Rx#:[id number] Sodium Chloride 0.9% 1, 600 000 ml @ 75 mls/hr IV . [id number] [facility] Rx#:[id number] Oral 358 200 Output: Urine 1150 700 Other: Voiding Method External Catheter External Catheter External Catheter # Voids 3 2 - Exam PHYSICAL EXAMINATION: This is a 66-year-old female in no apparent distress. Physical examination was deferred to decrease exposure to COVID-19 VITAL SIGNS: Blood pressure 128/65, heart rate 75, respirations 18, temp 98.3F. Patient is 96 % on 2 liters. - Labs CBC & Chem 7: 08/28/21 08:56 08/28/21 08:56 Labs: Abnormal Lab Results - Last 24 Hours (Table) 08/27/21 08/27/21 08/27/21 Range/Units 16:46 20:51 20:58 BUN (7-17) mg/dL Glucose (74-99) mg/dL POC Glucose (mg/dL) 295 H 315 H 302 H (75-99) mg/dL Calcium (8.4-10.2) mg/dL Total Bilirubin (0.2-1.3) mg/dL Albumin (3.5-5.0) g/dL 08/27/21 08/28/21 08/28/21 Range/Units 23:36 06:10 08:56 BUN 20 H (7-17) mg/dL Glucose 219 H (74-99) mg/dL POC Glucose (mg/dL) 235 H 222 H (75-99) mg/dL Calcium 8.3 L (8.4-10.2) mg/dL Total Bilirubin 1.4 H (0.2-1.3) mg/dL Albumin 3.4 L (3.5-5.0) g/dL 08/28/21 Range/Units 11:12 BUN (7-17) mg/dL Glucose (74-99) mg/dL POC Glucose (mg/dL) 248 H (75-99) mg/dL Calcium (8.4-10.2) mg/dL Total Bilirubin (0.2-1.3) mg/dL Albumin (3.5-5.0) g/dL Microbiology - Last 24 Hours (Table) 08/26/21 12:55 Blood Culture - Preliminary Blood No Growth after 24 hours 08/26/21 12:35 Blood Culture - Preliminary Blood No Growth after 24 hours Assessment and Plan Assessment: #1 COVID-19 infection #2 elevated troponin, likely secondary to infection #3 urinary tract infection #4 CVA 4 #5 hypertension #6 hyperlipidemia #7 diabetes Plan: From cardiology's perspective troponin elevation likely related to underlying infection. We will plan for further cardiac work up as an outpatient once she's recovered from COVID infection. RECORDS ANALYSIS MANAGER note has been reviewed, I agree with a documented findings and plan of care. Patient was seen and examined.
--- NOTE | 2021-08-28 12:21 | P.PN ---
Subjective Progress Note Date: 08/28/21 Principal diagnosis: Acute hypoxic respiratory failure secondary to COVID-19 pneumonia This is a very pleasant 66-year-old female patient who follows with Dr. Ramires as her primary care provider. She has a history of CVA 4, unsteady gait and utilizes a walker, diabetes mellitus, hypertension, hyperlipidemia, hypothyroidism status post thyroidectomy, MTHFR blood dyscrasia, nonsmoker. She presented to the emergency room yesterday with a 2 day history of generalized weakness, nausea, cough and congestion. She had become quite weak and was unable to ambulate without significant assistance from her and walker. Chest x-ray revealed mild cardiomegaly and low lung volumes with patchy left basilar opacity/atelectasis. EKG revealed normal sinus rhythm. Urinalysis was cloudy with positive nitrates. [place] virus by PCR detected. The patient is vaccinated and boosted. White count 8.0. Hemoglobin 12.9. Lymphocytes 0.9. Sodium 137. Potassium 4.3. Bicarb 28. BUN 19. Creatinine 0.64. Glucose 156. Free T4 1 0.69. She is seen today in consultation on the selective care unit. She had initially been on room air in the sun have hypoxemia with O2 saturation of 86 and was placed on 2 L nasal cannula with a O2 saturation currently at 94%. T-max of 99.7. She's been hemodynamically stable. He is currently resting fairly comfortably in bed. Awake and alert in no acute distress. Her main complaint currently is that of a sore throat. She had been initiated on 0.9 normal saline at 75 ML's per hour along with vitamin supplements. Reevaluated today on 08/28/2021, patient seems to be very comfortable, sitting in bed, in no distress. She is on 2 L nasal cannula, her O2 saturation is 96%. CT of the chest shows slight interstitial increased markings possibly related to COVID-19 pneumonia. Nonetheless the patient is doing well, she has no active pulmonary symptoms, remained generally weak, labs are unremarkable today. Renal profile is normal. Remains on the COVID-19 cocktail. Objective - Vital Signs Vital signs: Vital Signs Temp 98.3 F 08/28/21 10:58 Pulse 75 08/28/21 10:58 Resp 18 08/28/21 10:58 BP 128/65 08/28/21 10:58 Pulse Ox 96 08/28/21 10:58 Intake & Output 08/27/21 08/28/21 08/28/21 18:59 06:59 18:59 Intake Total 968 200 260 Output Total 1150 700 Balance -182 -500 260 Intake: IV 10 10 Invasive Line 2 10 10 Intake, IV Titration 600 250 Amount Remdesivir 200 mg In 250 Sodium Chloride 0.9% 250 ml @ 250 mls/hr IVPB ONCE ONE Rx#:[id number] Sodium Chloride 0.9% 1, 600 000 ml @ 75 mls/hr IV . [id number] [facility] Rx#:[id number] Oral 358 200 Output: Urine 1150 700 Other: Voiding Method External Catheter External Catheter External Catheter # Voids 3 2 - Exam Physical Exam revealed a 66-year-old female in no distress on 2 L nasal cannula with O2 sat showed 96% Head: Atraumatic, normocephalic. HEENT:[Neck is supple.] [No neck masses.] [No thyromegaly.] [No JVD.] Chest: [Minimal crackles at the bases, symmetrical chest expansion.] Cardiac Exam: [Normal S1 and S2, no S3 gallop, no murmur.] Abdomen: [Soft, nontender, no megaly, no rebound, no guarding, normal bowel sounds.] Extremities: [No clubbing, no edema, no cyanosis.] Neurological Exam: [No focal neurologic deficit.] Alert oriented 3. Psychiatric: Normal mood affect and normal mental status examination. Skin: No rashes. Musculoskeletal: No deformities and no limitation in range of motion - Labs CBC & Chem 7: 08/28/21 08:56 08/28/21 08:56 Labs: Abnormal Lab Results - Last 24 Hours (Table) 08/27/21 08/27/21 08/27/21 Range/Units 16:46 20:51 20:58 BUN (7-17) mg/dL Glucose (74-99) mg/dL POC Glucose (mg/dL) 295 H 315 H 302 H (75-99) mg/dL Calcium (8.4-10.2) mg/dL Total Bilirubin (0.2-1.3) mg/dL Albumin (3.5-5.0) g/dL 03/26/22 03/27/22 03/27/22 Range/Units 23:36 06:10 08:56 BUN 20 H (7-17) mg/dL Glucose 219 H (74-99) mg/dL POC Glucose (mg/dL) 235 H 222 H (75-99) mg/dL Calcium 8.3 L (8.4-10.2) mg/dL Total Bilirubin 1.4 H (0.2-1.3) mg/dL Albumin 3.4 L (3.5-5.0) g/dL 08/28/21 Range/Units 11:12 BUN (7-17) mg/dL Glucose (74-99) mg/dL POC Glucose (mg/dL) 248 H (75-99) mg/dL Calcium (8.4-10.2) mg/dL Total Bilirubin (0.2-1.3) mg/dL Albumin (3.5-5.0) g/dL Microbiology - Last 24 Hours (Table) 08/26/21 12:55 Blood Culture - Preliminary Blood No Growth after 24 hours 08/26/21 12:35 Blood Culture - Preliminary Blood No Growth after 24 hours Assessment and Plan Assessment: Impression: Acute hypoxic respiratory failure secondary to COVID-19 pneumonia Generalized weakness secondary to above Type 2 diabetes Hypothyroidism Hypertension Dyslipidemia History of CVA History of [place] HFR gene mutation. Recommendation: Continue Remdesivir Continue Decadron Lovenox and COVID-19 cocktail Follow-up chest x-ray in the next 24 hours Consider discharge planning once the Remdesivir course is fully given. We'll continue to follow. Time with Patient: Less than 30
[2021-08-28 16:22] LABS: Glucose,Whole Blood 378 mg/dL (75-99)
--- NOTE | 2021-08-28 17:11 | PN ---
PROGRESS NOTE DATE OF SERVICE: 08/28/2021 This 66-year-old woman who was admitted with severe weakness and COVID infection is being closely monitored at this time. A chest CTA was done because of elevated D-dimer which showed no evidence of any pulmonary embolism. The patient had extensive weakness of both legs. Chest x-ray showed some minimal increase in interstitial shadows that might indicate early COVID pneumonia. Past medical reviewed. REVIEW OF SYSTEMS: Fourteen-point review of systems negative except as mentioned earlier. CURRENT MEDICATIONS: Reviewed. See list. They include Tylenol, vitamin C. Doses and other medications are reviewed. PHYSICAL EXAMINATION: Pulse 75, blood pressure 120/65, respirations 18. CHEST: A few scattered rhonchi and crackles. CARDIOVASCULAR: S1, S2 muffled. ABDOMEN: Soft, nontender. NERVOUS SYSTEM: Significant weakness of the lower legs. LABS: Reviewed. ASSESSMENT: 1. Acute COVID-19 infection with significant weakness and dehydration, possibly early COVID-19 pneumonia. 2. Elevated troponin, 0.1. Rule out acute [id number]-elevation myocardial function or COVID-related. 3. Hyponatremia. 4. Elevated D-dimer. 5. Increased white count. 6. History of multiple strokes. 7. History of diabetes mellitus, type 2. 8. Hypertension. RECOMMENDATIONS AND DISCUSSION: I recommend to continue current medications, continue symptomatic treatment. I recommend PT/OT evaluation. Patient might need rehab. Continue with remdesivir and the rest of the medications. I would also recommend neurology evaluation for continued weakness. Cardiology and Pulmonology are also seeing the patient. See orders for details. Overall prognosis extremely guarded because of the multiple complex medical issues, as listed above. MMODL / IJN: [id number] /
[2021-08-28 21:13] LABS: Glucose,Whole Blood 309 mg/dL (75-99)
[2021-08-28] MEDS: NON FORMULARY DRUG (Mirabegron [Myrbetriq] 25 MG Tablet) PO SCH (21:18)
[2021-08-28] MEDS: ATORVASTATIN 40 MG TAB PO SCH (21:19)
[2021-08-28] MEDS: DONEPEZIL 5 MG TAB PO SCH (21:20)
[2021-08-28] MEDS: INSULIN DETEMIR (LEVEMIR) 100 UNIT/ML SYR SQ SCH (21:27)
--- NOTE | 2021-08-28 22:41 | P.PN ---
Subjective Progress Note Date: 08/28/21 Principal diagnosis: covid 19 pneumonia Patient is a 66 year old female presented to hospital with weakness shortness of breath or cough has been diagnosed with the Covid 19 pneumonia. On today's evaluation that is 08/28/2021, the patient denies having any fever or any chills, the patient is being slightly comfortably, patient denies having any chest pain or worsening cough or sputum production no abdominal pain and no diarrhea Objective - Vital Signs Vital signs: Vital Signs Temp 98.3 F 08/28/21 10:58 Pulse 75 08/28/21 10:58 Resp 18 08/28/21 10:58 BP 128/65 08/28/21 10:58 Pulse Ox 96 08/28/21 10:58 Intake & Output 08/27/21 08/28/21 08/28/21 18:59 06:59 18:59 Intake Total 968 200 260 Output Total 1150 700 Balance -182 -500 260 Intake: IV 10 10 Invasive Line 2 10 10 Intake, IV Titration 600 250 Amount Remdesivir 200 mg In 250 Sodium Chloride 0.9% 250 ml @ 250 mls/hr IVPB ONCE ONE Rx#:[id number] Sodium Chloride 0.9% 1, 600 000 ml @ 75 mls/hr IV . [id number] [facility] Rx#:[id number] Oral 358 200 Output: Urine 1150 700 Other: Voiding Method External Catheter External Catheter External Catheter # Voids 3 2 - Exam GENERAL DESCRIPTION: An elderly female lying in bed in no distress RESPIRATORY SYSTEM: Unlabored breathing , few crackles at the base HEART: S1 S2 regular rate and rhythm , ABDOMEN: Soft , no tenderness EXTREMITIES: No edema feet - Labs CBC & Chem 7: 08/28/21 08:56 08/28/21 08:56 Labs: Abnormal Lab Results - Last 24 Hours (Table) 08/27/21 08/27/21 08/27/21 Range/Units 16:46 20:51 20:58 BUN (7-17) mg/dL Glucose (74-99) mg/dL POC Glucose (mg/dL) 295 H 315 H 302 H (75-99) mg/dL Calcium (8.4-10.2) mg/dL Total Bilirubin (0.2-1.3) mg/dL Albumin (3.5-5.0) g/dL 08/27/21 08/28/21 08/28/21 Range/Units 23:36 06:10 08:56 BUN 20 H (7-17) mg/dL Glucose 219 H (74-99) mg/dL POC Glucose (mg/dL) 235 H 222 H (75-99) mg/dL Calcium 8.3 L (8.4-10.2) mg/dL Total Bilirubin 1.4 H (0.2-1.3) mg/dL Albumin 3.4 L (3.5-5.0) g/dL 08/28/21 Range/Units 11:12 BUN (7-17) mg/dL Glucose (74-99) mg/dL POC Glucose (mg/dL) 248 H (75-99) mg/dL Calcium (8.4-10.2) mg/dL Total Bilirubin (0.2-1.3) mg/dL Albumin (3.5-5.0) g/dL Microbiology - Last 24 Hours (Table) 08/26/21 12:35 Blood Culture - Preliminary Blood No Growth after 48 hours 08/26/21 12:55 Blood Culture - Preliminary Blood No Growth after 48 hours Assessment and Plan (1) COVID-19 Current Visit: Yes Status: Acute Code(s): U07.1 - COVID-19 SNOMED Code(s): 083994650 Plan: 1patient presented to hospital generalized weakness hypoxemia with evidence of pulmonary fted secondary to covid19 infection in this patient has not received the booster and high risk factor for progression to respiratory failure and no evidence of any secondary bacterial pneumonia. 2patient is currently being treated with remdesivir , dexamethasone Lovenox zi nc and ascorbic acid per protocol 3droplet isolation and respiratory support Time with Patient: Less than 30
[2021-08-29] MEDS: SODIUM CHLORIDE 0.9% 1,000 ML IV SCH ×3 (04:19→21:43)
[2021-08-29] MEDS: BENZOCAINE/MENTHOL LOZENG 1 EACH LOZENGE MUCOUS MEM PRN ×2 (04:24→17:56)
[2021-08-29] MEDS: ACETAMINOPHEN TAB 325 MG TAB PO PRN (04:24)
[2021-08-29 06:27] LABS: Glucose,Whole Blood 229 mg/dL (75-99)
[2021-08-29] MEDS: LEVOTHYROXINE 100 MCG TAB PO SCH (06:31)
[2021-08-29] MEDS: INSULIN ASPART (NovoLOG) 100 UNIT/ML VIAL SQ SCH ×4 (06:31→21:09)
[2021-08-29] MEDS: PANTOPRAZOLE 40 MG TABLET PO SCH ×2 (06:31→17:51)
--- NOTE | 2021-08-29 10:45 | P.CNNES ---
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 Neurology team is consulted for lower leg weakness. In this admission the patient has a acute hypoxic respiratory failure due to COVID-19 pneumonia and she had generalized weakness due to the th e COVID-19 pneumonia. Patient stated she has been having bilateral leg weakness for the past 4 years and is intermittent. She felt it got worse in the last couple days to one week. She denies urinary or bowel incontinence. She denies any new numbness or tingling. She felt today her strength is better today compared to yesterday. She denies of upper extremity weakness. She uses a walker at home. She has not followed up with neurologist as outpatient. Patient is known to myself in which I saw patient last on 03/31/2021, and she had a history of generalized weakness in the past especially lower leg weakness and was doing better and was felt was her symptoms were due to her hypoglycemic event and her recent urinary tract infection. I recommended MRI of lumbar spine but she refused since she was feeling better. Please review my note for further details. Some of the work-up during this hospital visit consisted of: Most current vitals: blood pressure is 131/75, heart rate of 65, respiratory of 18, temperature of 98.3 Fahrenheit oral and pulse ox of 96% on 2 L of nasal cannula. Patient recent sugar has been in the range of 200s to 300s. Recent hemoglobin A1c 7.5, calcium is 8.3, AST and ALT is within normal limits Magnesium is 1.8. TSH is 0.032 but the free T4 is 1.69. [place] virus PCR is detected on 08/26/2021 in our facility Review of Systems Review of system: The 12 point system was reviewed and apparent positive and negative per HPI. Past Medical History Past Medical History: Blood Disorder, Cancer, CVA/TIA, Diabetes Mellitus, GERD/Reflux, Hyperlipidemia, Hypertension, Memory Impairment, Musculoskeletal Disorder, Skin Disorder, Thyroid Disorder Additional Past Medical History / Comment(s): CVAs x4 with one being hemorrhagic and left pt with L arm weakness/balance issues, FALLS, MTHFR, thyroid cancer with surgery, recurrent UTIs, occasional urine incontinence, IDDM type II, neuropathy bilateral feet, past diabetic foot ulcer, cellulitis L great toe, chronic low back pain/pinched nerves. History of Any Multi-Drug Resistant Organisms: None Reported Past Surgical History: Hysterectomy, Orthopedic Surgery Additional Past Surgical History / Comment(s): thyroidectomy, parotid gland surgery, left shoulder (rotator cuff sx) X 2, PAIN CLINIC PROCEDURES Past Anesthesia/Blood Transfusion Reactions: Postoperative Nausea & Vomiting (PONV) Smoking Status: Never smoker - Past Family History Mother Family Medical History: No Reported History Additional Family Medical History / Comment(s): . Father Family Medical History: Cancer Additional Family Medical History / Comment(s): open heart surgery when he was 50, aortic aneurysm when he was around 63 Medications and Allergies Home Medications Medication Instructions Recorded Confirmed Type Aspirin 81 mg PO DAILY 02/12/18 08/26/21 History Escitalopram [Lexapro] 5 mg PO DAILY 05/05/20 08/26/21 History Memantine [Namenda] 10 mg PO BID 05/05/20 08/26/21 History Donepezil [Aricept] 5 mg PO HS tab 05/10/20 08/26/21 Rx Pantoprazole Sodium [Protonix] 40 mg PO DAILY #30 tablet. 05/10/20 08/26/21 Rx Atorvastatin [Lipitor] 40 mg PO HS tab 12/22/20 08/26/21 Rx Cyanocobalamin (Vitamin B-12) 1,000 mcg PO DAILY #30 tablet 12/22/20 08/26/21 Rx [Vitamin B-12] lisinopriL [Zestril] 20 mg PO DAILY tab 12/22/20 08/26/21 Rx Jone/D3/Mag11/Zinc/Pinion Polisher/Tye/Bor 1 tab PO DAILY 02/18/21 08/26/21 History [Caltrate 600+D Plus Tablet] Cranberry With Vit C 2 tab PO BID 02/18/21 08/26/21 History Folic Acid 1 mg PO DAILY 02/18/21 08/26/21 History Mirabegron [Myrbetriq] 25 mg PO HS 02/18/21 08/26/21 History Levothyroxine Sodium [Synthroid] 200 mcg PO DAILY 03/29/21 08/26/21 History Insulin Glargine,Hum.rec.anlog 58 unit SQ HS #0 03/31/21 08/26/21 Rx [Lantus Solostar Pen] INSULIN LISPRO (HumaLOG) [humaLOG] See Protocol SQ ACHS 06/29/21 08/26/21 History Acetaminophen [Tylenol Extra 1,000 mg PO Q6H PRN 07/27/21 08/26/21 History Strength] Dextromethorphan HBr/Quinidine 1 tab PO DAILY 08/26/21 08/26/21 History [Nuedexta 20-10 mg Capsule] Allergies Allergy/AdvReac Type Severity Reaction Status Date / Time ibuprofen [From Motrin] AdvReac "BLOOD Verified 08/26/21 15:07 THINS TOO MUCH" naproxen [From Aleve] AdvReac "BLOOD Verified 08/26/21 15:07 THINS TOO MUCH" NSAIDS (Non-Steroidal AdvReac Unknown Verified 08/26/21 15:07 Anti-Inflamma Physical Examination - Vital Signs Vital Signs: Vital Signs Temp Pulse Resp BP Pulse Ox 08/29/21 04:20 98.3 F 65 18 131/75 96 08/29/21 00:44 97.8 F 65 18 111/63 96 08/28/21 21:13 97.6 F 69 20 164/72 95 08/28/21 17:25 98.4 F 72 18 150/72 96 08/28/21 10:58 98.3 F 75 18 128/65 96 08/28/21 09:50 98.1 F 75 137/72 96 Intake and Output 08/28/21 08/29/21 08/29/21 22:59 06:59 14:59 Intake Total 490 Output Total 600 Balance 490 -600 Intake: Intake, IV Titration 250 Amount Remdesivir 100 mg In 250 Sodium Chloride 0.9% 250 ml @ 250 mls/hr IVPB DAILY@1100 [facility] Rx#: [id number] Oral 240 Output: Urine 600 Other: Voiding Method External Catheter External Catheter GENERAL: The patient is lying in bed and is not in acute distress. CHEST: The heart rate is regular rate rhythm. No murmurs to auscultation. No carotid bruit bilaterally. LUNG: Clear to auscultation bilaterally no wheezing noted throughout. Not labored breathing. ABDOMEN/GI: Bowel sounds present in all 4 quadrants. No tenderness to palpation throughout. NEUROLOGICAL: Higher mental function: The patient is awake, alert, oriented to self, place and time. Patient is following commands. No aphasia and no neglect. Cranial nerves: The pupils are round, equal and reactive to light and accommodation. Visual mccloud are full to confrontation throughout. Extraocular movement is intact no nystagmus is noted. Facial sensation is normal to touch throughout. The facial strength is normal throughout. Hearing is normal bilaterally to hand rub. Tongue is midline and moved [id number] without any d ifficulty. No dysarthria is noted. Shoulder shrug is normal bilaterally. Motor: Gait is deferred because of leg weakness. The strength is 5 over 5 throughout upper but lower is proximal is 5-, knee is 4+ and ankles are 4- to +. Normal tone and bulk. Has high arched foot and hammer toes. Cerebellum: Normal finger to nose bilaterally. Sensation: Sensation is normal to touch throughout. Reflexes (right/left): 3+ throughout except triceps are 2+ and ankles are 1+. Plantars are mute bilaterally. Results - Laboratory Findings CBC and BMP: 08/28/21 08:56 08/28/21 08:56 Abnormal Lab Findings: Abnormal Labs 08/26/21 08/26/21 08/26/21 13:05 13:05 13:05 WBC 10.9 H Neutrophils # 9.0 H Lymphocytes # 0.8 L ESR D-Dimer Sodium 135 L BUN Glucose 182 H POC Glucose (mg/dL) Hemoglobin A1c Calcium Total Bilirubin 2.3 H Lactate Dehydrogenase Troponin I 0.100 H* C-Reactive Protein Albumin TSH 0.032 L Urine Appearance Urine Protein Urine Ketones Urine Nitrite Urine Bacteria Urine Mucus Coronavirus (PCR) SARS-CoV-2 Ab,Total 08/26/21 08/26/21 08/26/21 13:05 13:05 13:05 WBC Neutrophils # Lymphocytes # ESR D-Dimer 0.61 H Sodium BUN Glucose POC Glucose (mg/dL) Hemoglobin A1c Calcium Total Bilirubin Lactate Dehydrogenase 626 H Troponin I C-Reactive Protein 5.1 H Albumin TSH Urine Appearance Urine Protein Urine Ketones Urine Nitrite Urine Bacteria Urine Mucus Coronavirus (PCR) Detected A SARS-CoV-2 Ab,Total 08/26/21 08/26/21 08/26/21 14:15 17:50 17:50 WBC Neutrophils # Lymphocytes # ESR 25 H D-Dimer Sodium BUN Glucose POC Glucose (mg/dL) Hemoglobin A1c Calcium Total Bilirubin Lactate Dehydrogenase Troponin I 0.079 H* C-Reactive Protein Albumin TSH Urine Appearance Cloudy H Urine Protein Trace H Urine Ketones 1+ H Urine Nitrite Positive H Urine Bacteria Rare H Urine Mucus Occasional H Coronavirus (PCR) SARS-CoV-2 Ab,Total 08/26/21 08/26/21 08/27/21 20:39 21:07 06:26 WBC Neutrophils # Lymphocytes # ESR D-Dimer Sodium BUN Glucose POC Glucose (mg/dL) 173 H 137 H Hemoglobin A1c Calcium Total Bilirubin Lactate Dehydrogenase Troponin I 0.071 H* C-Reactive Protein Albumin TSH Urine Appearance Urine Protein Urine Ketones Urine Nitrite Urine Bacteria Urine Mucus Coronavirus (PCR) SARS-CoV-2 Ab,Total 08/27/21 08/27/21 08/27/21 09:06 09:06 11:57 WBC Neutrophils # Lymphocytes # 0.9 L ESR D-Dimer Sodium BUN Glucose 156 H POC Glucose (mg/dL) 176 H Hemoglobin A1c Calcium 8.0 L Total Bilirubin 2.3 H Lactate Dehydrogenase Troponin I C-Reactive Protein Albumin TSH Urine Appearance Urine Protein Urine Ketones Urine Nitrite Urine Bacteria Urine Mucus Coronavirus (PCR) SARS-CoV-2 Ab,Total 08/27/21 08/27/21 08/27/21 16:46 20:51 20:58 WBC Neutrophils # Lymphocytes # ESR D-Dimer Sodium BUN Glucose POC Glucose (mg/dL) 295 H 315 H 302 H Hemoglobin A1c Calcium Total Bilirubin Lactate Dehydrogenase Troponin I C-Reactive Protein Albumin TSH Urine Appearance Urine Protein Urine Ketones Urine Nitrite Urine Bacteria Urine Mucus Coronavirus (PCR) SARS-CoV-2 Ab,Total 08/27/21 08/28/21 08/28/21 23:36 06:10 08:56 WBC Neutrophils # Lymphocytes # ESR D-Dimer Sodium BUN Glucose POC Glucose (mg/dL) 235 H 222 H Hemoglobin A1c 7.5 H Calcium Total Bilirubin Lactate Dehydrogenase Troponin I C-Reactive Protein Albumin TSH Urine Appearance Urine Protein Urine Ketones Urine Nitrite Urine Bacteria Urine Mucus Coronavirus (PCR) SARS-CoV-2 Ab,Total 08/28/21 08/28/21 08/28/21 08:56 08:56 11:12 WBC Neutrophils # Lymphocytes # ESR D-Dimer Sodium BUN 20 H Glucose 219 H POC Glucose (mg/dL) 248 H Hemoglobin A1c Calcium 8.3 L Total Bilirubin 1.4 H Lactate Dehydrogenase Troponin I C-Reactive Protein Albumin 3.4 L TSH Urine Appearance Urine Protein Urine Ketones Urine Nitrite Urine Bacteria Urine Mucus Coronavirus (PCR) SARS-CoV-2 Ab,Total Positive A 08/28/21 08/28/21 08/29/21 16:20 21:09 06:20 WBC Neutrophils # Lymphocytes # ESR D-Dimer Sodium BUN Glucose POC Glucose (mg/dL) 378 H 309 H 229 H Hemoglobin A1c Calcium Total Bilirubin Lactate Dehydrogenase Troponin I C-Reactive Protein Albumin TSH Urine Appearance Urine Protein Urine Ketones Urine Nitrite Urine Bacteria Urine Mucus Coronavirus (PCR) SARS-CoV-2 Ab,Total Assessment and Plan Assessment: Acute on chronic bilateral lower extremity weakness: Patient has leg weakness for past 4 years and is intermittent in addition with chronic low back pain. On examination has high arched foot and hammer toes. Rule out Hereditary neuropathy vs [id number] disease. Cannot rule out in addition her Acute COVID-19 pneumonia exacerbated her condition. Today feels is doing better. 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 She stated will consider it as outpatient. PT, OT are consulted Every 4 neuro checks She continues to be on vitamin B12 1000 g daily. As well as folic acid 1 mg daily. Infection disease team is on board Pulmonary team is on board We'll defer the rest of the medical management to the primary team Upon discharge recommend the patient to follow-up with a neurologist within 1-2 weeks. The plan is discussed with patient. Thank you for the consultation Jose F Carroll M.D. Neuro-hospitalist Time with Patient: Greater than 30
[2021-08-29] MEDS: ASCORBIC ACID 500 MG TAB PO SCH ×2 (10:51→21:10)
[2021-08-29] MEDS: ZINC SULFATE 220 MG CAP PO SCH (10:51)
[2021-08-29] MEDS: ASPIRIN 81 MG PO SCH (10:51)
[2021-08-29] MEDS: CYANOCOBALAMIN 500 MCG TAB PO SCH (10:52)
[2021-08-29] MEDS: CHOLECALCIFEROL 25 MCG (1000 IU) TABLET PO SCH (10:52)
[2021-08-29] MEDS: lisinopriL 20 MG TAB PO SCH (10:52)
[2021-08-29] MEDS: ESCITALOPRAM 5 MG TAB PO SCH (10:52)
[2021-08-29] MEDS: FOLIC ACID 1 MG TAB PO SCH (10:52)
[2021-08-29] MEDS: ENOXAPARIN 40 MG/0.4 ML SYRINGE SQ SCH (10:52)
[2021-08-29] MEDS: DEXAMETHASONE SOD PHOSPHATE 10 MG/ML 1 ML VIAL IVP SCH (10:53)
--- NOTE | 2021-08-29 11:26 | P.PN ---
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 She has a history of CVA 4, one was a hemorrhagic stroke in the [place] area and one in the frontal lobe as a result she is not very active and walks with a walker. Also has a history of hypertension, hyperlipidemia and diabetes although she denies history of hypertension hyperlipidemia, history of urinary tract infections in the past. Presented to the emergency department with complaints of generalized weakness and nausea for which she thought she had a UTI. She subsequently complained of some cough with congestion. PCR came back to be positive for COVID. We were asked to see the patient in consultation for elevated troponins which came back to be elevated at 0.1, 0.079 and 0.071. SHe denied any complai nts of chest discomfort. EKG on admission showed sinus mechanism with no evidence of acute ischemia. Vital signs of been stable. Chest x-ray on admission showed mild cardiomegaly and low lung volumes with patchy left basilar opacity favoring atelectatic changes. A recent echocardiogram from last year showed normal LV systolic function with no segmental wall motion abnormalities. 08/28/2021 Echocardiogram showed normal LV systolic function with an ejection fraction between 55-60% with no sick difficulty and valvular abnormalities and no segmental wall motion abnormalities. Computed tomography scan of the chest showed no evidence for PE and lower extremity duplex study showed no DVTs bi laterally. She is overall feeling that her today. She feels her breathing has improved and she feels more awake today. She continues to cough but this is nonproductive. Denies any chest discomfort, palpitations, dizziness or lightheadedness. She's had no orthopnea or PND. 08/29/2021 Patient remains hospitalized on 3S. Spoke with nursing who states patient has had no complaints of chest pain or pressure. She does report a cough. Vital signs are stable. Telemetry reveals sinus mechanism. PHYSICAL EXAM: Thorough physical exam not completed secondary to limited evaluation/examination due to Covid19 ASSESSMENT: #1 COVID-19 infection #2 elevated troponin, likely secondary to infection #3 urinary tract infection #4 CVA 4 #5 hypertension #6 hyperlipidemia #7 diabetes PLAN: Continue current cardiac medications Patient to undergo outpatient stress test when recovered from Covid No further inpatient recommendations from a cardiac standpoint We will sign off. Please reconsult if needed. Nurse practitioner note has been reviewed by physician. Signing provider agrees with the documented findings, assessment, and plan of care. Objective - Vital Signs Vital signs: Vital Signs Temp 98.3 F 08/29/21 04:20 Pulse 65 08/29/21 04:20 Resp 18 08/29/21 04:20 BP 131/75 08/29/21 04:20 Pulse Ox 96 08/29/21 04:20 Intake & Output 08/28/21 08/29/21 08/29/21 18:59 06:59 18:59 Intake Total 750 Output Total 600 Balance 750 -600 Intake: IV 10 Invasive Line 2 10 Intake, IV Titration 500 Amount Remdesivir 100 mg In 250 Sodium Chloride 0.9% 250 ml @ 250 mls/hr IVPB DAILY@1100 [facility] Rx#: [id number] Remdesivir 200 mg In 250 Sodium Chloride 0.9% 250 ml @ 250 mls/hr IVPB ONCE ONE Rx#:[id number] Oral 240 Output: Urine 600 Other: Voiding Method External Catheter External Catheter - Labs CBC & Chem 7: 08/28/21 08:56 08/28/21 08:56 Labs: Abnormal Lab Results - Last 24 Hours (Table) 08/28/21 08/28/21 08/28/21 Range/Units 08:56 08:56 16:20 POC Glucose (mg/dL) 378 H (75-99) mg/dL Hemoglobin A1c 7.5 H (0.0-6.0) % SARS-CoV-2 Ab,Total Positive A (Negative) 08/28/21 08/29/21 Range/Units 21:09 06:20 POC Glucose (mg/dL) 309 H 229 H (75-99) mg/dL Hemoglobin A1c (0.0-6.0) % SARS-CoV-2 Ab,Total (Negative) Microbiology - Last 24 Hours (Table) 08/26/21 12:35 Blood Culture - Preliminary Blood No Growth after 48 hours 08/26/21 12:55 Blood Culture - Preliminary Blood No Growth after 48 hours
[2021-08-29 11:43] LABS: Glucose,Whole Blood 398 mg/dL (75-99)
--- NOTE | 2021-08-29 11:55 | P.PN ---
Subjective Progress Note Date: 08/29/21 Principal diagnosis: Coronavirus infection, weakness. Acute hypoxic respiratory failure secondary to COVID-19 pneumonia This is a very pleasant 66-year-old female patient who follows with Dr. Ramires as her primary care provider. She has a history of CVA 4, unsteady gait and uti lizes a walker, diabetes mellitus, hypertension, hyperlipidemia, hypothyroidism status post thyroidectomy, MTHFR blood dyscrasia, nonsmoker. She presented to the emergency room yesterday with a 2 day history of generalized weakness, nausea, cough and congestion. She had become quite weak and was unable to ambulate without significant assistance from her and walker. Chest x- ray revealed mild cardiomegaly and low lung volumes with patchy left basilar opacity/atelectasis. EKG revealed normal sinus rhythm. Urinalysis was cloudy with positive nitrates. [place] virus by PCR detected. The patient is vaccinated and boosted. White count 8.0. Hemoglobin 12.9. Lymphocytes 0.9. Sodium 137. Potassium 4.3. Bicarb 28. BUN 19. Creatinine 0.64. Glucose 156. Free T4 1 0.69. She is seen today in consultation on the selective care unit. She had initially been on room air in the sun have hypoxemia with O2 saturation of 86 and was placed on 2 L nasal cannula with a O2 saturation currently at 94%. T-max of 99.7. She's been hemodynamically stable. He is currently resting fairly comfortably in bed. Awake and alert in no acute distress. Her main complaint currently is that of a sore throat. She had been initiated on 0.9 normal saline at 75 ML's per hour along with vitamin supplements. Reevaluated today on 08/28/2021, patient seems to be very comfortable, sitting in bed, in no distress. She is on 2 L nasal cannula, her O2 saturation is 96%. CT of the chest shows slight interstitial increased markings possibly related to COVID-19 pneumonia. Nonetheless the patient is doing well, she has no active pulmonary symptoms, remained generally weak, labs are unremarkable today. Renal profile is normal. Remains on the COVID-19 cocktail. Progress note dated 08/29/2021. Currently, the patient's doing well. She remains on O2 at 2 L. She doesn't think that she needs the oxygen. We mentioned this to the nurse, and she will attempt to wean the patient off of oxygen and possible. She has a history of coronavirus infection. She has been fully vaccinated. The patient really is not complaining much of respiratory issues. She was mostly admitted because of profound weakness. No new laboratory data today other than a glucose 398. Doppler studies of the lower extremities were negative. CT angiogram was negative for pulmonary embolism. Objective - Vital Signs Vital signs: Vital Signs Temp 98.3 F 08/29/21 04:20 Pulse 65 08/29/21 04:20 Resp 18 08/29/21 04:20 BP 131/75 08/29/21 04:20 Pulse Ox 96 08/29/21 04:20 Intake & Output 08/28/21 08/29/21 08/29/21 18:59 06:59 18:59 Intake Total 750 Output Total 600 Balance 750 -600 Intake: IV 10 Invasive Line 2 10 Intake, IV Titration 500 Amount Remdesivir 100 mg In 250 Sodium Chloride 0.9% 250 ml @ 250 mls/hr IVPB DAILY@1100 VANE Rx#: [id number] Remdesivir 200 mg In 250 Sodium Chloride 0.9% 250 ml @ 250 mls/hr IVPB ONCE ONE Rx#:[id number] Oral 240 Output: Urine 600 Other: Voiding Method External Catheter External Catheter - Exam No acute distress, oriented 3. Currently, the patient's on 2 L nasal cannula. HEENT examination is grossly unremarkable. Neck supple. Full range of motion. No adenopathy thyromegaly or neck vein distention. Cardiovascular examination reveals regular rhythm rate. S1-S2 normal. No S3 or S4. No discernible murmur noted. Heart rate 65 bpm. Lungs reveal clear breath sounds. Breath sounds are equal bilaterally. No adventitious lung sounds including wheezes rhonchi or crackles. Abdomen soft bowel sounds are heard. No masses or tenderness. Extremities are intact. No cyanosis clubbing or edema. Skin is without rash or lesion. Neurologic examination is brief but nonfocal. - Labs CBC & Chem 7: 08/28/21 08:56 08/28/21 08:56 Labs: Abnormal Lab Results - Last 24 Hours (Table) 08/28/21 08/28/21 08/28/21 Range/Units 08:56 08:56 16:20 POC Glucose (mg/dL) 378 H (75-99) mg/dL Hemoglobin A1c 7.5 H (0.0-6.0) % SARS-CoV-2 Ab,Total Positive A (Negative) 08/28/21 08/29/21 08/29/21 Range/Units 21:09 06:20 11:42 POC Glucose (mg/dL) 309 H 229 H 398 H (75-99) mg/dL Hemoglobin A1c (0.0-6.0) % SARS-CoV-2 Ab,Total (Negative) Microbiology - Last 24 Hours (Table) 08/26/21 12:35 Blood Culture - Preliminary Blood No Growth after 48 hours 08/26/21 12:55 Blood Culture - Preliminary Blood No Growth after 48 hours Assessment and Plan Assessment: Coronavirus infection, with minimal lung involvement/pneumonitis. Generalized weakness and fatigue secondary to coronavirus infection. History of type 2 diabetes mellitus. History of hypothyroidism. History of hypertension. Hyperlipidemia. History of CVA. History of and MTHFR gene mutation. Plan: Plan dated 08/29/2021. The patient's computed tomography scan did show some minimal pneumonitis. He was not overly impressive. The primary team did choose to put her on REM, primarily because of her low saturations. Labs, x-rays, and medications are all reviewed. The patient would like to take the oxygen off. There is no evidence of any pulmonary embolism on CT he [place]. The patient is receiving vitamin C, vitamin D3, and zinc. In addition, she is getting Decadron, and Lovenox. We will continue to follow make recommendations where appropriate. Prognosis is g uarded. Time with Patient: Less than 30
[2021-08-29] MEDS: REMDESIVIR 100 MG in SODIUM CHLORIDE 0.9% 250 ML IVPB SCH (14:01)
[2021-08-29 16:50] LABS: Glucose,Whole Blood 397 mg/dL (75-99)
[2021-08-29 20:05] LABS: Glucose,Whole Blood 356 mg/dL (75-99)
[2021-08-29] MEDS: NON FORMULARY DRUG (Mirabegron [Myrbetriq] 25 MG Tablet) PO SCH (21:01)
[2021-08-29] MEDS: INSULIN DETEMIR (LEVEMIR) 100 UNIT/ML SYR SQ SCH (21:09)
[2021-08-29] MEDS: ATORVASTATIN 40 MG TAB PO SCH (21:10)
[2021-08-29] MEDS: DONEPEZIL 5 MG TAB PO SCH (21:10)
--- NOTE | 2021-08-29 22:19 | P.PN ---
Subjective Progress Note Date: 08/29/21 Principal diagnosis: covid 19 pneumonia Patient is a 66 year old female presented to hospital with weakness shortness of breath or cough has been diagnosed with the Covid 19 pneumonia. On today's evaluation that is 08/29/2021, the patient remains to be afebrile, the patient is breathing comfortably on room air, patient denies having any chest pain or worsening cough or sputum production no abdominal pain and no diarrhea Objective - Vital Signs Vital signs: Vital Signs Temp 98.4 F 08/29/21 09:45 Pulse 66 08/29/21 11:00 Resp 16 08/29/21 11:00 BP 146/75 08/29/21 11:00 Pulse Ox 93 L 08/29/21 11:00 Intake & Output 08/28/21 08/29/21 08/29/21 18:59 06:59 18:59 Intake Total 750 Output Total 600 Balance 750 -600 Intake: IV 10 Invasive Line 2 10 Intake, IV Titration 500 Amount Remdesivir 100 mg In 250 Sodium Chloride 0.9% 250 ml @ 250 mls/hr IVPB DAILY@1100 VANE Rx#: [id number] Remdesivir 200 mg In 250 Sodium Chloride 0.9% 250 ml @ 250 mls/hr IVPB ONCE ONE Rx#:[id number] Oral 240 Output: Urine 600 Other: Voiding Method External Catheter External Catheter External Catheter - Exam GENERAL DESCRIPTION: An elderly female lying in bed in no distress RESPIRATORY SYSTEM: Unlabored breathing , decreased intensity of breath sounds no wheeze She HEART: S1 S2 regular rate and rhythm , ABDOMEN: Soft , no tenderness EXTREMITIES: No edema feet - Labs CBC & Chem 7: 08/28/21 08:56 08/28/21 08:56 Labs: Abnormal Lab Results - Last 24 Hours (Table) 08/28/21 08/28/21 08/28/21 Range/Units 08:56 08:56 16:20 POC Glucose (mg/dL) 378 H (75-99) mg/dL Hemoglobin A1c 7.5 H (0.0-6.0) % SARS-CoV-2 Ab,Total Positive A (Negative) 08/28/21 08/29/21 08/29/21 Range/Units 21:09 06:20 11:42 POC Glucose (mg/dL) 309 H 229 H 398 H (75-99) mg/dL Hemoglobin A1c (0.0-6.0) % SARS-CoV-2 Ab,Total (Negative) Microbiology - Last 24 Hours (Table) 08/26/21 12:35 Blood Culture - Preliminary Blood No Growth after 48 hours 08/26/21 12:55 Blood Culture - Preliminary Blood No Growth after 48 hours Assessment and Plan (1) COVID-19 Current Visit: Yes Status: Acute Code(s): U07.1 - COVID-19 SNOMED Code(s): 520240635 Plan: 1patient presented to hospital generalized weakness hypoxemia with evidence of pulmonary fted secondary to covid19 infection in this patient has not received the booster and high risk factor for progression to respiratory failure and no evidence of any secondary bacterial pneumonia. 2patient seemed to have shown clinical improvement and will continue with remdesivir , dexamethasone Lovenox zinc and ascorbic acid per protocol 3droplet isolation and respiratory support Time with Patient: Less than 30
[2021-08-30 06:14] LABS: Glucose,Whole Blood 158 mg/dL (75-99)
[2021-08-30] MEDS: LEVOTHYROXINE 100 MCG TAB PO SCH (06:57)
[2021-08-30] MEDS: PANTOPRAZOLE 40 MG TABLET PO SCH ×2 (06:57→17:20)
[2021-08-30] MEDS: INSULIN ASPART (NovoLOG) 100 UNIT/ML VIAL SQ SCH ×4 (06:57→22:17)
[2021-08-30] MEDS: DEXAMETHASONE SOD PHOSPHATE 10 MG/ML 1 ML VIAL IVP SCH (08:34)
[2021-08-30] MEDS: ENOXAPARIN 40 MG/0.4 ML SYRINGE SQ SCH (08:34)
[2021-08-30] MEDS: CYANOCOBALAMIN 500 MCG TAB PO SCH (08:35)
[2021-08-30] MEDS: CHOLECALCIFEROL 25 MCG (1000 IU) TABLET PO SCH (08:35)
[2021-08-30] MEDS: ZINC SULFATE 220 MG CAP PO SCH (08:35)
[2021-08-30] MEDS: ASPIRIN 81 MG PO SCH (08:35)
[2021-08-30] MEDS: ESCITALOPRAM 5 MG TAB PO SCH (08:35)
[2021-08-30] MEDS: lisinopriL 20 MG TAB PO SCH (08:35)
[2021-08-30] MEDS: ASCORBIC ACID 500 MG TAB PO SCH ×2 (08:35→22:17)
[2021-08-30] MEDS: FOLIC ACID 1 MG TAB PO SCH (08:35)
--- NOTE | 2021-08-30 11:11 | P.PN ---
Subjective Progress Note Date: 08/30/21 Principal diagnosis: Coronavirus infection, weakness. Acute hypoxic respiratory failure secondary to COVID-19 pneumonia This is a very pleasant 66-year-old female patient who follows with Dr. Ramires as her primary care provider. She has a history of CVA 4, unsteady gait and uti lizes a walker, diabetes mellitus, hypertension, hyperlipidemia, hypothyroidism status post thyroidectomy, MTHFR blood dyscrasia, nonsmoker. She presented to the emergency room yesterday with a 2 day history of generalized weakness, nausea, cough and congestion. She had become quite weak and was unable to ambulate without significant assistance from her and walker. Chest x- ray revealed mild cardiomegaly and low lung volumes with patchy left basilar opacity/atelectasis. EKG revealed normal sinus rhythm. Urinalysis was cloudy with positive nitrates. [place] virus by PCR detected. The patient is vaccinated and boosted. White count 8.0. Hemoglobin 12.9. Lymphocytes 0.9. Sodium 137. Potassium 4.3. Bicarb 28. BUN 19. Creatinine 0.64. Glucose 156. Free T4 1 0.69. She is seen today in consultation on the selective care unit. She had initially been on room air in the sun have hypoxemia with O2 saturation of 86 and was placed on 2 L nasal cannula with a O2 saturation currently at 94%. T-max of 99.7. She's been hemodynamically stable. He is currently resting fairly comfortably in bed. Awake and alert in no acute distress. Her main complaint currently is that of a sore throat. She had been initiated on 0.9 normal saline at 75 ML's per hour along with vitamin supplements. Reevaluated today on 08/28/2021, patient seems to be very comfortable, sitting in bed, in no distress. She is on 2 L nasal cannula, her O2 saturation is 96%. CT of the chest shows slight interstitial increased markings possibly related to COVID-19 pneumonia. Nonetheless the patient is doing well, she has no active pulmonary symptoms, remained generally weak, labs are unremarkable today. Renal profile is normal. Remains on the COVID-19 cocktail. Progress note dated 08/29/2021. Currently, the patient's doing well. She remains on O2 at 2 L. She doesn't think that she needs the oxygen. We mentioned this to the nurse, and she will attempt to wean the patient off of oxygen and possible. She has a history of coronavirus infection. She has been fully vaccinated. The patient really is not complaining much of respiratory issues. She was mostly admitted because of profound weakness. No new laboratory data today other than a glucose 398. Doppler studies of the lower extremities were negative. CT angiogram was negative for pulmonary embolism. Progress note dated 08/30/2021. The patient is again seen in room 370. She is currently on room air. The patient is not receiving any IV fluids. She is doing much better. She is hoping to be discharged soon. She was admitted with a diagnosis of coronavirus infection, and was very weak. She does have help at home should she be discharged. CT angiogram was negative for pulmonary embolism. No new laboratory data today. Objective - Vital Signs Vital signs: Vital Signs Temp 98.2 F 08/30/21 08:00 Pulse 66 08/30/21 08:00 Resp 18 08/30/21 08:00 BP 116/68 08/30/21 08:00 Pulse Ox 93 L 08/30/21 08:00 Intake & Output 08/29/21 08/30/21 08/30/21 18:59 06:59 18:59 Intake Total 538 240 Output Total 300 750 Balance 238 -510 Intake: Oral 538 240 Output: Urine 300 750 Other: Voiding Method External Catheter External Catheter External Catheter - Exam No acute distress, oriented 3. Currently, the patient's on room air. Room air saturation is 94%. HEENT examination is grossly unremarkable. Neck supple. Full range of motion. No adenopathy thyromegaly or neck vein distention. Cardiovascular examination reveals regular rhythm rate. S1-S2 normal. No S3 or S4. No discernible murmur noted. Heart rate 66 bpm. Lungs reveal clear breath sounds. Breath sounds are equal bilaterally. No adventitious lung sounds including wheezes rhonchi or crackles. Abdomen soft bowel sounds are heard. No masses or tenderness. Extremities are intact. No cyanosis clubbing or edema. Skin is without rash or lesion. Neurologic examination is brief but nonfocal. - Labs CBC & Chem 7: 08/28/21 08:56 08/28/21 08:56 Labs: Abnormal Lab Results - Last 24 Hours (Table) 03/28/22 03/28/22 03/28/22 Range/Units 11:42 16:48 20:04 POC Glucose (mg/dL) 398 H 397 H 356 H (75-99) mg/dL 08/30/21 Range/Units 06:12 POC Glucose (mg/dL) 158 H (75-99) mg/dL Microbiology - Last 24 Hours (Table) 08/26/21 12:55 Blood Culture - Preliminary Blood No Growth after 72 hours 08/26/21 12:35 Blood Culture - Preliminary Blood No Growth after 72 hours Assessment and Plan Assessment: Coronavirus infection, with minimal lung involvement/pneumonitis. Generalized weakness and fatigue secondary to coronavirus infection. History of type 2 diabetes mellitus. History of hypothyroidism. History of hypertension. Hyperlipidemia. History of CVA. History of and MTHFR gene mutation. Plan: Plan dated 08/29/2021. The patient's computed tomography scan did show some minimal pneumonitis. He was not overly impressive. The primary team did choose to put her on REM, primarily because of her low saturations. Labs, x-rays, and medications are all reviewed. The patient would like to take the oxygen off. There is no evidence of any pulmonary embolism on CT he [place]. The patient is receiving vitamin C, vitamin D3, and zinc. In addition, she is getting Decadron, and Lovenox. We will continue to follow make recommendations where appropriate. Prognosis is guarded. Plan dated 08/30/2021. Currently, the patient appears to be relatively stable. She's been weaned to room air. She's not short of breath. Her biggest complaint is that of weakness. She is hoping to be discharged soon. She's getting the typical vitamins, as well as Decadron and Lovenox. There was no evidence of pulmonary embolism on CT angiogram. The patient did receive REM. The patient's overall prognosis is guarded. We will continue to follow this patient make recommendations where appropriate. Time with Patient: Less than 30
[2021-08-30 11:31] LABS: Glucose,Whole Blood 267 mg/dL (75-99)
[2021-08-30] MEDS: REMDESIVIR 100 MG in SODIUM CHLORIDE 0.9% 250 ML IVPB SCH (12:49)
--- NOTE | 2021-08-30 14:38 | P.CN ---
Psychiatric Consult - . Consult date: 08/30/21 Consult:: 08/30/21 13:19 IDENTIFYING DATA: This patient is a 58-year-old female who currently lives in a house with her has 3 kids. REASON FOR REFERRAL: Psychiatry was consulted for competency HISTORY OF PRESENT ILLNESS: The patient presented to the hospital on 08/26 via EMS. Apparently patient was weekend having nausea cough and congestion. Patient was found to be positive for covid-19. She was admitted to the medical floors. Her troponins were elevated. Patient was describing weakness and states that since Sunday she tested positive for covid. She was fairly calm and appropriate with data analyst report writer and pleasant. She was future oriented. She spoke about her support from her . She denied any access to guns or weapons. She states that she is feeling better now. She claims that her mood is good and denies any depression or history of depression. She states that she does not have any anxiety at this time. She is hopeful for discharge soon. She states that she is agreeable to do what the treatment plan entails while in the hospital. She did state that she made a passive remark about wanting to kill herself if she was forced to go to rehab but states that it was not what she meant and has no intention or plan to harm herself. She claims that she sleeps fairly at night has a fair appetite. She is alert and oriented 3to spell "world" backwards. Fair attention span. At this time patient denies any suicidal or homical ideations, intent or plan. Patient denies any auditory, visual hallucinations and denies any paranoia or delusions. Patients admits to using no recreational drugs or cigarettes PAST PSYCHIATRIC HISTORY: Patient has a a history of depression. Patient is on Lexapro 5 mg daily however states that her PCP has been prescribing it and states that she does not know why she is taking it. Patient denies any previous psychiatric hospitalizations. Patient denies any psychiatric outpatient follow- up. Patient denies any history of suicide attempts in the past. Past Medical History: Blood Disorder, Cancer, CVA/TIA, Diabetes Mellitus, GERD/Reflux, Hyperlipidemia, Hypertension, Memory Impairment, Musculoskeletal Disorder, Skin Disorder, Thyroid Disorder Additional Past Medical History / Comment(s): HX CVA X4 ., PROBLEMS WITH BALANCE, HX FALLS, THYROID CANCER.,MTHFR., UTI'S, FX ANKLE DECEMBER 2020, USING WALKER., STATES BULGING DISC AND PINCHED NERVE IN LOWER BACK. ALLERGIES: as per EMR. CHEMICAL DEPENDENCY HISTORY: as per HPI. FAMILY PSYCHIATRIC/SUBSTANCE USE HISTORY: denies SOCIAL HISTORY: Patient was born and raised in [place]. She states that she completed high school. 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 She has a who she lives this and has 3 kids. MENTAL STATUS EXAM: General Appearance: Patient appears to be overweight, stated age is alert, cooperative. Patient appears to have fair hygiene and grooming wearing hospital gown with fair eye contact. Behavior: Patient is calmly lying in bed without any agitated behavior. Operative. Speech: Patient's speech is fluent and nonpressured. Mood/Affect: Patient reports their mood is "fine", affect is congruent Suicidality/Homicidality: Patient denies having any suicidal or homicidal ideation intent or plan. Perceptions: Patient denies any visual hallucinations and denies any auditory hallucinations Though content/process: There is no evidence of any delusional thought content and thought process is linear and goal-directed. Future oriented. Memory and concentration: AOX3, grossly intact for the purposes of this session. Can spell "WORLD" backwards Judgment and insight: fair IMPRESSIONS: Adjustment disorder with disturbances in emotional conduct History of depression PLAN: -At this time patient DOES NOT meet criteria for inpatient psychiatric admission. -Delirium precautions recommended with patient including - avoiding use of narcotics and ORCHARD MANAGER sedatives, limit anticholinergic medications when possible, frequent re-orientation, minimize use of restraints, open window shades during the day and close them at night -Would recommend the following medication changes/additions: Continue with medications as currently prescribed. Unsure as to the reason why patient is taking Aricept at this time. -Communicated plan to patient's nurse -Psychiatry will sign off at this time -Please contact with any questions. 08/30/21 14:31 08/30/21 14:35
--- NOTE | 2021-08-30 14:41 | P.PN ---
Subjective Progress Note Date: 08/29/21 Maintained on IV fluid hydration, COVID cocktail, including Remdesivir, doing well. Maintaining O2 sats in the 90s on 2 L nasal cannula. Denies cough, congestion. Denies sputum production. Reports she is vaccinated and that she caught it from her . Afebrile. Hyperglycemic. Denies nausea vomiting or diarrhea. Objective - Vital Signs Vital signs: Vital Signs Temp 98.4 F 08/29/21 09:45 Pulse 66 08/29/21 11:00 Resp 16 08/29/21 11:00 BP 146/75 08/29/21 11:00 Pulse Ox 93 L 08/29/21 11:00 Intake & Output 08/28/21 08/29/21 08/29/21 18:59 06:59 18:59 Intake Total 750 420 Output Total 600 Balance 750 -600 420 Intake: IV 10 Invasive Line 2 10 Intake, IV Titration 500 Amount Remdesivir 100 mg In 250 Sodium Chloride 0.9% 250 ml @ 250 mls/hr IVPB DAILY@1100 VANE Rx#: [id number] Remdesivir 200 mg In 250 Sodium Chloride 0.9% 250 ml @ 250 mls/hr IVPB ONCE ONE Rx#:[id number] Oral 240 420 Output: Urine 600 Other: Voiding Method External Catheter External Catheter External Catheter - Exam PHYSICAL EXAM: VITAL SIGNS: [As above] GENERAL: Sitting up in bed, no acute distress HEENT: Conjunctivae normal. eyes normal. MMM. NECK: Supple, No JVD. CARDIOVASCULAR: S1, S2 regular. No murmur RESPIRATION: Breath sounds diminished in the bases. No rhonchi or crackles. No wheezing ABDOMEN: Soft, nontender . No guarding. no masses palpable. No guarding, no rigidity Bowel sounds heard. LEGS: No edema. no swelling PSYCHIATRY: Alert and oriented X3, mood and affect normal. NERVOUS SYSTEM: Cranial N 2-12 grossly normal. Moves all 4 limbs. Diffuse weakness,No focal deficits. Strength and sensation grossly intact. Skin: Warm and dry, no rash - Labs CBC & Chem 7: 08/28/21 08:56 08/28/21 08:56 Labs: Abnormal Lab Results - Last 24 Hours (Table) 08/28/21 08/28/21 08/28/21 Range/Units 08:56 08:56 16:20 POC Glucose (mg/dL) 378 H (75-99) mg/dL Hemoglobin A1c 7.5 H (0.0-6.0) % SARS-CoV-2 Ab,Total Positive A (Negative) 08/28/21 08/29/21 08/29/21 Range/Units 21:09 06:20 11:42 POC Glucose (mg/dL) 309 H 229 H 398 H (75-99) mg/dL Hemoglobin A1c (0.0-6.0) % SARS-CoV-2 Ab,Total (Negative) Microbiology - Last 24 Hours (Table) 08/26/21 12:35 Blood Culture - Preliminary Blood No Growth after 48 hours 08/26/21 12:55 Blood Culture - Preliminary Blood No Growth after 48 hours Assessment and Plan Assessment: Acute Covid infection, in a fully vaccinated patient Acute hypoxic respiratory failure secondary to the above Acute on chronic bilateral lower extremity weakness, multifactorial including possible neuropathy, secondary to the above, neuro workup in progress. Diabetes mellitus type 2, hyperglycemia, steroid-induced Hypertension Hyperlipidemia Hypothyroidism History of CVAs, involving MCA, brainstem History of thyroid cancer, status post thyroidectomy Osteoarthritis Gait dysfunction, history of falls History of MTHF gene mutation Plan: Continue on current medication regime ,monitoring and symptomatic treatment. Maintained on Covid cocktail,Remdesivir. Mild increase in long- acting insulin with close monitoring of Accu-Cheks. PT/OT. Speech therapy consulted regarding cognitive evaluation. Multiple consults following. The impression and plan of care has been dictated as directed. : I performed a history and examination of this patient, discussed the same with the dictator. I agree with the dictator's note ,documented as a scribe. Any additional findings or plans will be noted.
--- NOTE | 2021-08-30 14:55 | P.PN ---
Subjective Progress Note Date: 08/30/21 Maintained on IV fluid hydration, COVID cocktail, including Remdesivir, doing well. Maintaining O2 sats in the 90s on 2 L nasal cannula. Denies cough, congestion. Denies sputum production. Reports she is vaccinated and that she caught it from her . Afebrile. Hyperglycemic. Denies nausea vomiting or diarrhea. 08/30/2021 oxygen weaned off, maintaining O2 sats in the 90s on room air. Evaluated by PT recommending subacute rehab. Family expressing safety concerns with patient's decision making. Speech therapy consult in place regarding cognitive evaluation. Objective - Vital Signs Vital signs: Vital Signs Temp 98.2 F 08/30/21 08:00 Pulse 93 08/30/21 12:00 Resp 18 08/30/21 12:00 BP 126/69 08/30/21 12:00 Pulse Ox 94 L 08/30/21 12:00 Intake & Output 08/29/21 08/30/21 08/30/21 18:59 06:59 18:59 Intake Total 538 240 180 Output Total 300 750 Balance 238 -510 180 Intake: Oral 538 240 180 Output: Urine 300 750 Other: Voiding Method External Catheter External Catheter External Catheter - Exam PHYSICAL EXAM: VITAL SIGNS: [As above] GENERAL: Alert and oriented 3, Sitting up in bed, no acute distress HEENT: Conjunctivae normal. eyes normal. MMM. NECK: Supple, No JVD. CARDIOVASCULAR: S1, S2 regular. No murmur RESPIRATION: Breath sounds diminished in the bases. ABDOMEN: Soft, nontender . No guarding. Positive bowel sounds. LEGS: No edema. no swelling NERVOUS SYSTEM: Cranial N 2-12 grossly normal. Moves all 4 limbs. Generalized weakness,No focal deficits. Strength and sensation grossly intact. Skin: Warm and dry, no rash - Labs CBC & Chem 7: 08/28/21 08:56 08/28/21 08:56 Labs: Abnormal Lab Results - Last 24 Hours (Table) 08/29/21 08/29/21 08/30/21 Range/Units 16:48 20:04 06:12 POC Glucose (mg/dL) 397 H 356 H 158 H (75-99) mg/dL 08/30/21 Range/Units 11:30 POC Glucose (mg/dL) 267 H (75-99) mg/dL Microbiology - Last 24 Hours (Table) 08/26/21 12:55 Blood Culture - Preliminary Blood No Growth after 72 hours 08/26/21 12:35 Blood Culture - Preliminary Blood No Growth after 72 hours Assessment and Plan Assessment: Acute Covid infection, in a fully vaccinated patient Acute hypoxic respiratory failure secondary to the above Acute on chronic bilateral lower extremity weakness, multifactorial including possible neuropathy, secondary to the above, neuro workup in progress. Diabetes mellitus type 2, hyperglycemia, steroid-induced Hypertension Hyperlipidemia Hypothyroidism History of CVAs, involving MCA, brainstem History of thyroid cancer, status post thyroidectomy Osteoarthritis Gait dysfunction, history of falls History of MTHF gene mutation Plan: Continue on current medication regime ,monitoring and symptomatic treatment. Maintained on Covid cocktail,Remdesivir. Close monitoring of Accu-Cheks. PT/OT recommendations noted-JOSÉ MIGUEL, which patient currently is declining. Patient's is at home sick with Covid, and normally assists her with all her ADLs. Speech therapy consulted regarding cognitive evaluation. Psychiatry consulted regarding competency, and daughter Olivia indicated to social work program coordinator diet patient's decision making and memory worsening over the last 2 years, making poor judgment and decision making regarding her care. Discharge planning in progress for tomorrow. The impression and plan of care has been dictated as directed. : I performed a history and examination of this patient, discussed the same with the dictator. I agree with the dictator's note ,documented as a scribe. Any additional findings or plans will be noted.
[2021-08-30 16:28] LABS: Glucose,Whole Blood 401 mg/dL (75-99)
--- NOTE | 2021-08-30 17:25 | P.PN ---
Subjective Progress Note Date: 08/30/21 The patient seen at bedside and she feels her strength in the lower extremities are improving compared to initial presentation. She states that her brother has the same condition in which she has high arch f oot and hammertoes. She feels that she had her hammertoes that developed about a year ago possibly. She denies of any neurological problems. Objective - Vital Signs Vital signs: Vital Signs Temp 98.2 F 08/30/21 08:00 Pulse 93 08/30/21 12:00 Resp 18 08/30/21 12:00 BP 126/69 08/30/21 12:00 Pulse Ox 94 L 08/30/21 12:00 Intake & Output 08/29/21 08/30/21 08/30/21 18:59 06:59 18:59 Intake Total 538 240 180 Output Total 300 750 Balance 238 -510 180 Intake: Oral 538 240 180 Output: Urine 300 750 Other: Voiding Method External Catheter External Catheter External Catheter - Exam GENERAL: The patient is lying in bed and is not in acute distress. NEUROLOGICAL: Higher mental function: The patient is awake, alert, oriented to self, place and time. Patient is following commands. No aphasia and no neglect. Cranial nerves: The pupils are round, equal and reactive to light and accommodation. Visual mccloud are full to confrontation throughout. Extraocular movement is intact no nystagmus is noted. Facial sensation is normal to touch throughout. The facial strength is normal throughout. H Tongue is midline and moved [id number] without any difficulty. No dysarthria is noted. Shoulder shrug is normal bilaterally. Motor: Gait is deferred because of leg weakness. The strength is 5 over 5 throughout upper but lower is proximal is 5-, knee is 4+ and ankles are 4- to +. Normal tone and bulk. Has high arched foot and hammer toes. Cerebellum: Normal finger to nose bilaterally. Sensation: Sensation is normal to touch throughout. Reflexes (right/left): 3+ throughout except triceps are 2+ and ankles are 1+. Plantars are mute bilaterally. - Labs CBC & Chem 7: 08/28/21 08:56 08/28/21 08:56 Labs: Abnormal Lab Results - Last 24 Hours (Table) 08/29/21 08/30/21 08/30/21 Range/Units 20:04 06:12 11:30 POC Glucose (mg/dL) 356 H 158 H 267 H (75-99) mg/dL 08/30/21 Range/Units 16:27 POC Glucose (mg/dL) 401 H (75-99) mg/dL Microbiology - Last 24 Hours (Table) 08/26/21 12:55 Blood Culture - Preliminary Blood No Growth after 96 hours 08/26/21 12:35 Blood Culture - Preliminary Blood No Growth after 96 hours Assessment and Plan Assessment: * Acute on chronic bilateral lower extremity weakness: Patient has leg weakness for past 4 years and is intermittent in addition with chronic low back pain. On examination has high arched foot and hammer toes. Rule out Hereditary neuropathy vs [id number]-Yicgk-Ibems disease (she has brother with similar presentation). Cannot rule out in addition her Acute COVID-19 pneumonia e xacerbated her condition---her strength is improving. 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 She stated will consider it as outpatient. Recommend possibly genetic testing as outpatient/further work-up as outpatient. PT, OT are consulted Every 4 neuro checks She continues to be on vitamin B12 1000 g daily. As well as folic acid 1 mg daily. Infection disease team is on board Pulmonary team is on board We'll defer the rest of the medical management to the primary team Upon discharge recommend the patient to follow-up with a neurologist within 1-2 weeks. The plan is discussed with patient and her nurse. There is no further neurological work-up. Please notify neurology if any further concerns. Jose F Carroll M.D. Neuro-hospitalist Time with Patient: Less than 30
[2021-08-30] MEDS: SODIUM CHLORIDE 0.9% 1,000 ML IV SCH (17:42)
[2021-08-30] MEDS: NON FORMULARY DRUG (Mirabegron [Myrbetriq] 25 MG Tablet) PO SCH (19:50)
[2021-08-30 20:35] LABS: Glucose,Whole Blood 310 mg/dL (75-99)
[2021-08-30] MEDS: DONEPEZIL 5 MG TAB PO SCH (22:17)
[2021-08-30] MEDS: INSULIN DETEMIR (LEVEMIR) 100 UNIT/ML SYR SQ SCH (22:17)
[2021-08-30] MEDS: ATORVASTATIN 40 MG TAB PO SCH (22:17)
[2021-08-31] MEDS: SODIUM CHLORIDE 0.9% 1,000 ML IV SCH ×2 (04:04→15:48)
[2021-08-31 06:20] LABS: Glucose,Whole Blood 181 mg/dL (75-99)
[2021-08-31] MEDS: PANTOPRAZOLE 40 MG TABLET PO SCH ×2 (07:01→17:31)
[2021-08-31] MEDS: LEVOTHYROXINE 100 MCG TAB PO SCH (07:01)
[2021-08-31] MEDS: INSULIN ASPART (NovoLOG) 100 UNIT/ML VIAL SQ SCH ×4 (07:01→20:30)
[2021-08-31] MEDS: ENOXAPARIN 40 MG/0.4 ML SYRINGE SQ SCH (08:41)
[2021-08-31] MEDS: ASCORBIC ACID 500 MG TAB PO SCH ×2 (08:42→20:28)
[2021-08-31] MEDS: CYANOCOBALAMIN 500 MCG TAB PO SCH (08:42)
[2021-08-31] MEDS: CHOLECALCIFEROL 25 MCG (1000 IU) TABLET PO SCH (08:42)
[2021-08-31] MEDS: FOLIC ACID 1 MG TAB PO SCH (08:42)
[2021-08-31] MEDS: ASPIRIN 81 MG PO SCH (08:42)
[2021-08-31] MEDS: ESCITALOPRAM 5 MG TAB PO SCH (08:42)
[2021-08-31] MEDS: DEXAMETHASONE SOD PHOSPHATE 10 MG/ML 1 ML VIAL IVP SCH (08:42)
[2021-08-31] MEDS: ZINC SULFATE 220 MG CAP PO SCH (08:44)
[2021-08-31] MEDS: lisinopriL 20 MG TAB PO SCH (08:44)
--- NOTE | 2021-08-31 11:27 | P.PN ---
Subjective Progress Note Date: 08/30/21 Principal diagnosis: covid 19 pneumonia Patient is a 66 year old female presented to hospital with weakness shortness of breath or cough has been diagnosed with the Covid 19 pneumonia. On today's evaluation that is , the patient is afebrile, the patient is breathing comfortably on room air, patient denies chest pain, The patient cough has decreased in intensity mostly dry in nature the patient denies abdominal pain and no diarrhea Objective - Vital Signs Vital signs: Vital Signs Temp 98.2 F 08/30/21 08:00 Pulse 66 08/30/21 08:00 Resp 18 08/30/21 08:00 BP 116/68 08/30/21 08:00 Pulse Ox 93 L 08/30/21 08:00 Intake & Output 08/29/21 08/30/21 08/30/21 18:59 06:59 18:59 Intake Total 538 240 Output Total 300 750 Balance 238 -510 Intake: Oral 538 240 Output: Urine 300 750 Other: Voiding Method External Catheter External Catheter External Catheter - Exam GENERAL DESCRIPTION: An elderly female lying in bed in no distress RESPIRATORY SYSTEM: Unlabored breathing , decreased intensity of breath sounds no wheeze She HEART: S1 S2 regular rate and rhythm , ABDOMEN: Soft , no tenderness EXTREMITIES: No edema feet - Labs CBC & Chem 7: 08/28/21 08:56 08/28/21 08:56 Labs: Abnormal Lab Results - Last 24 Hours (Table) 08/29/21 08/29/21 08/29/21 Range/Units 11:42 16:48 20:04 POC Glucose (mg/dL) 398 H 397 H 356 H (75-99) mg/dL 08/30/21 Range/Units 06:12 POC Glucose (mg/dL) 158 H (75-99) mg/dL Microbiology - Last 24 Hours (Table) 08/26/21 12:55 Blood Culture - Preliminary Blood No Growth after 72 hours 08/26/21 12:35 Blood Culture - Preliminary Blood No Growth after 72 hours Assessment and Plan (1) COVID-19 Current Visit: Yes Status: Acute Code(s): U07.1 - COVID-19 SNOMED Code(s): 714457076 Plan: 1patient presented to hospital generalized weakness hypoxemia with evidence of pulmonary Infiltrate secondary to covid19 infection in this patient has not received the booster and high risk factor for progression to respiratory failure and no evidence of any secondary bacterial pneumonia. 2patient Is slowly clinically improving with the current treatment of remdesivi r , dexamethasone Lovenox zinc and ascorbic acid Which will be continued 3droplet isolation and respiratory support Time with Patient: Less than 30
[2021-08-31 11:28] VITALS: BMI 28.0
--- NOTE | 2021-08-31 11:47 | P.PN ---
Subjective Progress Note Date: 08/31/21 Principal diagnosis: Coronavirus infection, weakness This is a very pleasant 66-year-old female patient who follows with Dr. Ramires as her primary care provider. She has a history of CVA 4, unsteady gait and utilizes a walker, diabetes mellitus, hypertension, hyperlipidemia, hy pothyroidism status post thyroidectomy, MTHFR blood dyscrasia, nonsmoker. She presented to the emergency room yesterday with a 2 day history of generalized weakness, nausea, cough and congestion. She had become quite weak and was unable to ambulate without significant assistance from her and walker. Chest x-ray revealed mild cardiomegaly and low lung volumes with patchy left basilar opacity/atelectasis. EKG revealed normal sinus rhythm. Urinalysis was cloudy with positive nitrates. [place] virus by PCR detected. The patient is vaccinated and boosted. White count 8.0. Hemoglobin 12.9. Lymphocytes 0.9. Sodium 137. Potassium 4.3. Bicarb 28. BUN 19. Creatinine 0.64. Glucose 156. Free T4 1 0.69. She is seen today in consultation on the selective care unit. She had initially been on room air in the sun have hypoxemia with O2 saturation of 86 and was placed on 2 L nasal cannula with a O2 saturation currently at 94%. T-max of 99.7. She's been hemodynamically stable. He is currently resting fairly comfortably in bed. Awake and alert in no acute distress. Her main complaint currently is that of a sore throat. She had been initiated on 0.9 normal saline at 75 ML's per hour along with vitamin supplements. Reevaluated today on 08/28/2021, patient seems to be very comfortable, sitting in bed, in no distress. She is on 2 L nasal cannula, her O2 saturation is 96%. CT of the chest shows slight interstitial increased markings possibly related to COVID-19 pneumonia. Nonetheless the patient is doing well, she has no active pulmonary symptoms, remained generally weak, labs are unremarkable today. Renal profile is normal. Remains on the COVID-19 cocktail. Progress note dated 08/29/2021. Currently, the patient's doing well. She remains on O2 at 2 L. She doesn't think that she needs the oxygen. We mentioned this to the nurse, and she will attempt to wean the patient off of oxygen and possible. She has a history of coronavirus infection. She has been fully vaccinated. The patient really is not complaining much of respiratory issues. She was mostly admitted because of profound weakness. No new laboratory data today other than a glucose 398. Doppler studies of the lower extremities were negative. CT angiogram was negative for pulmonary embolism. Progress note dated 08/30/2021. The patient is again seen in room 370. She is currently on room air. The patient is not receiving any IV fluids. She is doing much better. She is hoping to be discharged soon. She was admitted with a diagnosis of coronavirus infection, and was very weak. She does have help at home should she be discharged. CT angiogram was negative for pulmonary embolism. No new laboratory data today. that the patient is seen today 08/31/2021 in follow-up on the regular medical floor. She is currently sitting up in bed. Awake and alert in no acute distress. She is maintaining good O2 saturations in the 90s on room air.She is continued on Decadron, Lovenox, vitamin supplements. Continued on Remdesivir. Day #5. She has remained afebrile. Hemodynamically stable. Blood cultures revealed no growth. Blood sugar 181. Objective - Vital Signs Vital signs: Vital Signs Temp 98.3 F 08/31/21 08:00 Pulse 66 08/31/21 08:00 Resp 16 08/31/21 08:00 BP 125/68 08/31/21 08:00 Pulse Ox 93 L 08/31/21 08:00 Intake & Output 08/30/21 08/31/21 08/31/21 18:59 06:59 18:59 Intake Total 420 240 Output Total 1150 500 Balance -730 -500 240 Weight 86.183 kg Intake: Oral 420 240 Output: Urine 1150 500 Other: Voiding Method External Catheter External Catheter # Bowel Movements 1 - Exam GENERAL EXAM: Alert, active, very pleasant 66-year-old female patient, on room air, comfortable in no apparent distress. HEAD: Normocephalic. EYES: Normal reaction of pupils, equal size. NOSE: Clear with pink turbinates. THROAT: No erythema or exudates. NECK: No masses, no JVD. CHEST: No chest wall deformity. LUNGS: Equal air entry with faint crackles in the posterior bases. CVS: S1 and S2 normal with no audible murmur, regular rhythm. ABDOMEN: No hepatosplenomegaly, normal bowel sounds, no guarding or rigidity. SPINE: No scoliosis or deformity SKIN: No rashes CENTRAL NERVOUS SYSTEM: Generalized weakness lower extremities, no focal deficits, tone is normal in all 4 extremities. EXTREMITIES: There is no peripheral edema. No clubbing, no cyanosis. Peripheral pulses are intact. - Labs CBC & Chem 7: 08/28/21 08:56 08/28/21 08:56 Labs: Abnormal Lab Results - Last 24 Hours (Table) 08/30/21 08/30/21 08/31/21 Range/Units 16:27 20:33 06:18 POC Glucose (mg/dL) 401 H 310 H 181 H (75-99) mg/dL Microbiology - Last 24 Hours (Table) 08/26/21 12:55 Blood Culture - Preliminary Blood No Growth after 96 hours 08/26/21 12:35 Blood Culture - Preliminary Blood No Growth after 96 hours Assessment and Plan Assessment: 1 Acute hypoxemic respiratory failure secondary to acute COVID-19 infection. The patient is vaccinated and boosted. Symptoms started 2 days prior to her arrival. Initiated on Remdesivir, Decadron, Lovenox, vitamin supplements 2 Acute urinary tract infection suspected 3 Generalized weakness and difficulty with ambulation secondary to above 4 Troponin leak 5 Diabetes mellitus 6 Hypothyroidism status post thyroidectomy 7 Hypertension 8 Hyperlipidemia 9 Underlying dementia 10 History of CVA 11 History of MTHFR blood dyscrasia Plan: The patient was seen and evaluated Stable and on room air Cleared for discharge from the pulmonary standpoint Completed Remdesivir Discontinue Decadron Continue vitamin supplements Follow-up in the office in 1-2 weeks' Discharge planning is in place I have personally seen and examined the patient, performed the documentation and the assessment and plan as written. Number of minutes spent on the visit: 10.
--- NOTE | 2021-08-31 11:58 | P.DS ---
Providers Date of admission: 08/26/21 15:00 Expected date of discharge: 08/31/21 Attending physician: Klaus Ramires Consults: 08/26/21 15:01 Consult Physician Urgent Consulting Provider: Mansoor Fraire Consult Reason/Comments: Covid-19 Do you want consulting provider notified?: Yes 08/26/21 15:47 Consult Physician Routine Consulting Provider: Elizabeth Singer Consult Reason/Comments: covid pneumonia? Do you want consulting provider notified?: Yes 08/28/21 13:27 Consult Physician Routine Consulting Provider: Sandy Marina Consult Reason/Comments: lower leg weakness Do you want consulting provider notified?: Yes 08/30/21 10:15 Consult Physician Routine Consulting Provider: Jorge Snyder Consult Reason/Comments: competency Do you want consulting provider notified?: Yes Primary care physician: Klaus Ramires [facility] Course: Final Diagnoses: Acute Covid infection, in a fully vaccinated patient Acute hypoxic respiratory failure secondary to the above, resolved. Acute on chronic bilateral lower extremity weakness, multifactorial including possible neuropathy, secondary to the above, neuro workup in progress. Diabetes mellitus type 2, hyperglycemia, steroid-induced Hypertension Hyperlipidemia Hypothyroidism History of CVAs, involving MCA, brainstem History of thyroid cancer, status post thyroidectomy Osteoarthritis Gait dysfunction, history of falls History of MTHF gene mutation Hospital course: This is a 58-year-old female with past medical history of multiple falls, possible neuropathy, chronic bilateral lower extremity weakness, CVAs involving MCA, brainstem admitted with acute covid infection, acute hypoxic respiratory failure and multiple other medical issues. Evaluated by both speech therapy and psychiatry regarding competency-limited exam. Evaluated by neurology, declining full neurology workup including lumbar spine MRI. Maintained on Covid cocktail including Remdesevir. Maintaining O2 sats in the 90s on room air. Denies chest pain, palpitations or increased shortness of breath. Cleared by pulmonary for discharge. Evaluated by PT, reporting patient required moderate assistance,recommending subacute rehab, Patient's is at home sick with Covid, whom patient states helps her. Patient declining subacute rehab. Family updated on plan for discharge. Social work assisting with discharge planning, home care with PT/OT has been arranged. Patient is at high risk for readmission.Recommend outpatient mental status exams, [employer] on outpatient basis for further assessment given the limited evaluation inpatient. Outpatient MRI spine as per neurology-patient refused inpatient. Patient will be discharged home today in a stable condition with guarded prognosis. The impression and plan of care has been dictated as directed. : I performed a history and examination of this patient, discussed the same with the dictator. I agree with the dictator's note ,documented as a scribe. Any additional findings or plans will be noted. Patient Condition at Discharge: Stable Plan - Discharge Summary Discharge Rx Participant: No New Discharge Prescriptions: New Zinc Sulfate [Orazinc] 220 mg PO DAILY #30 cap Cholecalciferol [Vitamin D3 (25 Mcg = 1000 Iu)] 25 mcg PO DAILY #30 tablet INSULIN LISPRO (HumaLOG) [humaLOG] 0 unit SQ ACHS #10 ml Ascorbic Acid [Vitamin C] 500 mg PO BID #60 tab Continue Aspirin 81 mg PO DAILY Memantine [Namenda] 10 mg PO BID Escitalopram [Lexapro] 5 mg PO DAILY Donepezil [Aricept] 5 mg PO HS tab Pantoprazole Sodium [Protonix] 40 mg PO DAILY #30 tablet. Folic Acid 1 mg PO DAILY Levothyroxine Sodium [Synthroid] 200 mcg PO DAILY Dextromethorphan HBr/Quinidine [Nuedexta 20-10 mg Capsule] 1 tab PO DAILY Atorvastatin [Lipitor] 40 mg PO HS tab lisinopriL [Zestril] 20 mg PO DAILY tab Cyanocobalamin (Vitamin B-12) [Vitamin B-12] 1,000 mcg PO DAILY #30 tablet Mirabegron [Myrbetriq] 25 mg PO HS Cranberry With Vit C 2 tab PO BID Jone/D3/Mag11/Zinc/Casing Tier/Tye/Bor [Caltrate 600+D Plus Tablet] 1 tab PO DAILY Acetaminophen [Tylenol Extra Strength] 1,000 mg PO Q6H PRN PRN Reason: Pain Changed Insulin Glargine,Hum.rec.anlog [Lantus Solostar Pen] 60 unit SQ HS #0 Discontinued INSULIN LISPRO (HumaLOG) [humaLOG] See Protocol SQ ACHS Discharge Medication List Aspirin 81 mg PO DAILY 02/12/18 [History] Escitalopram [Lexapro] 5 mg PO DAILY 05/05/20 [History] Memantine [Namenda] 10 mg PO BID 05/05/20 [History] Donepezil [Aricept] 5 mg PO HS tab 05/10/20 [Rx] Pantoprazole Sodium [Protonix] 40 mg PO DAILY #30 tablet. 05/10/20 [Rx] Atorvastatin [Lipitor] 40 mg PO HS tab 12/22/20 [Rx] Cyanocobalamin (Vitamin B-12) [Vitamin B-12] 1,000 mcg PO DAILY #30 tablet 12/22/20 [Rx] lisinopriL [Zestril] 20 mg PO DAILY tab 12/22/20 [Rx] Jone/D3/Mag11/Zinc/Casing Tier/Tye/Bor [Caltrate 600+D Plus Tablet] 1 tab PO DAILY 02/18/21 [History] Cranberry With Vit C 2 tab PO BID 02/18/21 [History] Folic Acid 1 mg PO DAILY 02/18/21 [History] Mirabegron [Myrbetriq] 25 mg PO HS 02/18/21 [History] Levothyroxine Sodium [Synthroid] 200 mcg PO DAILY 03/29/21 [History] Acetaminophen [Tylenol Extra Strength] 1,000 mg PO Q6H PRN 07/27/21 [History] Dextromethorphan HBr/Quinidine [Nuedexta 20-10 mg Capsule] 1 tab PO DAILY 08/26/21 [History] Ascorbic Acid [Vitamin C] 500 mg PO BID #60 tab 08/31/21 [Rx] Cholecalciferol [Vitamin D3 (25 Mcg = 1000 Iu)] 25 mcg PO DAILY #30 tablet 08/31/21 [Rx] INSULIN LISPRO (HumaLOG) [humaLOG] 0 unit SQ ACHS #10 ml 08/31/21 [Rx] Insulin Glargine,Hum.rec.anlog [Lantus Solostar Pen] 60 unit SQ HS #0 08/31/21 [Rx] Zinc Sulfate [Orazinc] 220 mg PO DAILY #30 cap 08/31/21 [Rx] Follow up Appointment(s)/Referral(s): Klaus Ramires DO [Primary Care Provider] - 3 Days Jef Fernandez DO [STAFF PHYSICIAN] - 2 Weeks Activity/Diet/Wound Care/Special Instructions: Recommend outpatient mental status exams, [employer] on outpatient basis for further assessment given the limited evaluation inpatient. Outpatient MRI spine as per neurology-patient refused inpatient. Discharge Disposition: HOME WITH HOME HEALTH SERVICES
--- NOTE | 2021-08-31 12:51 | P.PN ---
Subjective Progress Note Date: 08/31/21 Principal diagnosis: covid 19 pneumonia Patient is a 66 year old female presented to hospital with weakness shortness of breath or cough has been diagnosed with the Covid 19 pneumonia. On today's evaluation that is 08/31/2021, , The patient remains to be afebrile, the patient is breathing comfortably on room air, denies having any chest pain patient did have mild dry cough no nausea vomiting no abdominal pain no diarrhea Objective - Vital Signs Vital signs: Vital Signs Temp 98.3 F 08/31/21 08:00 Pulse 66 08/31/21 08:00 Resp 16 08/31/21 08:00 BP 125/68 08/31/21 08:00 Pulse Ox 93 L 08/31/21 08:00 Intake & Output 08/30/21 08/31/21 08/31/21 18:59 06:59 18:59 Intake Total 420 Output Total 1150 500 Balance -730 -500 Intake: Oral 420 Output: Urine 1150 500 Other: Voiding Method External Catheter External Catheter # Bowel Movements 1 - Exam GENERAL DESCRIPTION: An elderly female lying in bed in no distress RESPIRATORY SYSTEM: Unlabored breathing , decreased intensity of breath sounds no wheeze She HEART: S1 S2 regular rate and rhythm , ABDOMEN: Soft , no tenderness EXTREMITIES: No edema feet - Labs CBC & Chem 7: 08/28/21 08:56 08/28/21 08:56 Labs: Abnormal Lab Results - Last 24 Hours (Table) 08/30/21 08/30/21 08/30/21 Range/Units 11:30 16:27 20:33 POC Glucose (mg/dL) 267 H 401 H 310 H (75-99) mg/dL 08/31/21 Range/Units 06:18 POC Glucose (mg/dL) 181 H (75-99) mg/dL Microbiology - Last 24 Hours (Table) 08/26/21 12:55 Blood Culture - Preliminary Blood No Growth after 96 hours 08/26/21 12:35 Blood Culture - Preliminary Blood No Growth after 96 hours Assessment and Plan (1) COVID-19 Current Visit: Yes Status: Acute Code(s): U07.1 - COVID-19 SNOMED Code(s): 244759232 Plan: 1patient presented to hospital generalized weakness hypoxemia with evidence of pulmonary Infiltrate secondary to covid19 infection in this patient has not received the booster and high risk factor for progression to respiratory failure and no evidence of any secondary bacterial pneumonia. 2Patient has shown overall clinical improvement with remdesivir , dexamethasone Lovenox zinc and ascorbic acid And will finish therapy with short course of dexamethasone zinc and ascorbic acid and close outpatient follow-up Time with Patient: Less than 30
[2021-08-31 13:37] LABS: Glucose,Whole Blood 436 mg/dL (75-99)
[2021-08-31] MEDS: REMDESIVIR 100 MG in SODIUM CHLORIDE 0.9% 250 ML IVPB SCH (15:15)
[2021-08-31 16:46] LABS: Glucose,Whole Blood 316 mg/dL (75-99)
[2021-08-31 20:18] LABS: Glucose,Whole Blood 304 mg/dL (75-99)
[2021-08-31] MEDS: ATORVASTATIN 40 MG TAB PO SCH (20:28)
[2021-08-31] MEDS: INSULIN DETEMIR (LEVEMIR) 100 UNIT/ML SYR SQ SCH (20:28)
[2021-08-31] MEDS: DONEPEZIL 5 MG TAB PO SCH (20:28)
[2021-08-31] MEDS: NON FORMULARY DRUG (Mirabegron [Myrbetriq] 25 MG Tablet) PO SCH (22:23)
[2021-09-01] MEDS: LEVOTHYROXINE 100 MCG TAB PO SCH (06:11)
[2021-09-01 07:12] LABS: Glucose,Whole Blood 152 mg/dL (75-99)
[2021-09-01] MEDS: SODIUM CHLORIDE 0.9% 1,000 ML IV SCH (07:18)
[2021-09-01] MEDS: CYANOCOBALAMIN 500 MCG TAB PO SCH (08:51)
[2021-09-01] MEDS: ZINC SULFATE 220 MG CAP PO SCH (08:51)
[2021-09-01] MEDS: ASPIRIN 81 MG PO SCH (08:51)
[2021-09-01] MEDS: ASCORBIC ACID 500 MG TAB PO SCH (08:51)
[2021-09-01] MEDS: CHOLECALCIFEROL 25 MCG (1000 IU) TABLET PO SCH (08:51)
[2021-09-01] MEDS: PANTOPRAZOLE 40 MG TABLET PO SCH (08:51)
[2021-09-01] MEDS: lisinopriL 20 MG TAB PO SCH (08:52)
[2021-09-01] MEDS: FOLIC ACID 1 MG TAB PO SCH (08:52)
[2021-09-01] MEDS: ESCITALOPRAM 5 MG TAB PO SCH (08:53)
[2021-09-01] MEDS: ENOXAPARIN 40 MG/0.4 ML SYRINGE SQ SCH (08:53)
[2021-09-01] MEDS: INSULIN ASPART (NovoLOG) 100 UNIT/ML VIAL SQ SCH ×2 (08:54→13:06)
[2021-09-01 11:53] LABS: Glucose,Whole Blood 198 mg/dL (75-99)
--- NOTE | 2021-09-01 13:53 | P.PN ---
Subjective Progress Note Date: 09/01/21 Principal diagnosis: Coronavirus infection, weakness This is a very pleasant 66-year-old female patient who follows with Dr. Ramires as her primary care provider. She has a history of CVA 4, unsteady gait and utilizes a walker, diabetes mellitus, hypertension, hyperlipidemia, hy pothyroidism status post thyroidectomy, MTHFR blood dyscrasia, nonsmoker. She presented to the emergency room yesterday with a 2 day history of generalized weakness, nausea, cough and congestion. She had become quite weak and was unable to ambulate without significant assistance from her and walker. Chest x-ray revealed mild cardiomegaly and low lung volumes with patchy left basilar opacity/atelectasis. EKG revealed normal sinus rhythm. Urinalysis was cloudy with positive nitrates. [place] virus by PCR detected. The patient is vaccinated and boosted. White count 8.0. Hemoglobin 12.9. Lymphocytes 0.9. Sodium 137. Potassium 4.3. Bicarb 28. BUN 19. Creatinine 0.64. Glucose 156. Free T4 1 0.69. She is seen today in consultation on the selective care unit. She had initially been on room air in the sun have hypoxemia with O2 saturation of 86 and was placed on 2 L nasal cannula with a O2 saturation currently at 94%. T-max of 99.7. She's been hemodynamically stable. He is currently resting fairly comfortably in bed. Awake and alert in no acute distress. Her main complaint currently is that of a sore throat. She had been initiated on 0.9 normal saline at 75 ML's per hour along with vitamin supplements. Reevaluated today on 08/28/2021, patient seems to be very comfortable, sitting in bed, in no distress. She is on 2 L nasal cannula, her O2 saturation is 96%. CT of the chest shows slight interstitial increased markings possibly related to COVID-19 pneumonia. Nonetheless the patient is doing well, she has no active pulmonary symptoms, remained generally weak, labs are unremarkable today. Renal profile is normal. Remains on the COVID-19 cocktail. Progress note dated 08/29/2021. Currently, the patient's doing well. She remains on O2 at 2 L. She doesn't think that she needs the oxygen. We mentioned this to the nurse, and she will attempt to wean the patient off of oxygen and possible. She has a history of coronavirus infection. She has been fully vaccinated. The patient really is not complaining much of respiratory issues. She was mostly admitted because of profound weakness. No new laboratory data today other than a glucose 398. Doppler studies of the lower extremities were negative. CT angiogram was negative for pulmonary embolism. Progress note dated 08/30/2021. The patient is again seen in room 370. She is currently on room air. The patient is not receiving any IV fluids. She is doing much better. She is hoping to be discharged soon. She was admitted with a diagnosis of coronavirus infection, and was very weak. She does have help at home should she be discharged. CT angiogram was negative for pulmonary embolism. No new laboratory data today. that the patient is seen today 08/31/2021 in follow-up on the regular medical floor. She is currently sitting up in bed. Awake and alert in no acute distress. She is maintaining good O2 saturations in the 90s on room air.She is continued on Decadron, Lovenox, vitamin supplements. Continued on Remdesivir. Day #5. She has remained afebrile. Hemodynamically stable. Blood cultures revealed no growth. Blood sugar 181. The patient is seen today 09/01/2021 in follow-up on the regular medical floor. Currently sitting up in a chair at the bedside. Awake and alert in no acute distress. She is maintaining good O2 saturations in the 90s on room air. No wo rsening shortness of breath, cough or congestion. She's been afebrile. Hemodynamically stable. Complete her course of Remdesivir. She is continued on Lovenox, vitamin supplements. Objective - Vital Signs Vital signs: Vital Signs Temp 98.6 F 09/01/21 05:45 Pulse 68 09/01/21 05:45 Resp 18 09/01/21 05:45 BP 129/74 09/01/21 05:45 Pulse Ox 96 09/01/21 05:45 Intake & Output 08/31/21 09/01/21 09/01/21 18:59 06:59 18:59 Intake Total 720 Output Total 1600 Balance -880 Weight 86.183 kg Intake: Oral 720 Output: Urine 1600 Other: Voiding Method External Catheter External Catheter External Catheter # Voids 1 # Bowel Movements 1 - Exam GENERAL EXAM: Alert, very pleasant 66-year-old female patient, up in the chair at the bedside, on room air, comfortable in no apparent distress. HEAD: Normocephalic. EYES: Normal reaction of pupils, equal size. NOSE: Clear with pink turbinates. THROAT: No erythema or exudates. NECK: No masses, no JVD. CHEST: No chest wall deformity. LUNGS: Equal air entry with no crackles, wheeze, rhonchi. CVS: S1 and S2 normal with no audible murmur, regular rhythm. ABDOMEN: No hepatosplenomegaly, normal bowel sounds, no guarding or rigidity. SPINE: No scoliosis or deformity SKIN: No rashes CENTRAL NERVOUS SYSTEM: Generalized weakness lower extremities, no focal deficits, tone is normal in all 4 extremities. EXTREMITIES: There is no peripheral edema. No clubbing, no cyanosis. P eripheral pulses are intact. - Labs CBC & Chem 7: 08/28/21 08:56 08/28/21 08:56 Labs: Abnormal Lab Results - Last 24 Hours (Table) 08/31/21 08/31/21 09/01/21 Range/Units 16:43 20:17 07:10 POC Glucose (mg/dL) 316 H 304 H 152 H (75-99) mg/dL 09/01/21 Range/Units 11:51 POC Glucose (mg/dL) 198 H (75-99) mg/dL Microbiology - Last 24 Hours (Table) 08/26/21 12:35 Blood Culture - Preliminary Blood No Growth after 120 hours 08/26/21 12:55 Blood Culture - Preliminary Blood No Growth after 120 hours Assessment and Plan Assessment: 1 Acute hypoxemic respiratory failure secondary to acute COVID-19 infection. The patient is vaccinated and boosted. Symptoms started 2 days prior to her arrival. Initiated on Remdesivir, Decadron, Lovenox, vitamin supplements 2 Acute urinary tract infection suspected 3 Generalized weakness and difficulty with ambulation secondary to above 4 Troponin leak 5 Diabetes mellitus 6 Hypothyroidism status post thyroidectomy 7 Hypertension 8 Hyperlipidemia 9 Underlying dementia 10 History of CVA 11 History of MTHFR blood dyscrasia Plan: The patient was seen and evaluated Stable and on room air Cleared for discharge from the pulmonary standpoint I have personally seen and examined the patient, performed the documentation and the assessment and plan as written. Number of minutes spent on the visit: 10.
--- NOTE | 2021-09-01 14:22 | P.PN ---
Subjective Progress Note Date: 09/01/21 The patient is seen at bedside and feels she is doing better. She is pending to be discharged to rehab. Psychiatry is consulted for competency by primary team since patient initially refused to go to rehab. Psychiatry felt she had adjustment disorder and history of depression. Objective - Vital Signs Vital signs: Vital Signs Temp 98.6 F 09/01/21 05:45 Pulse 68 09/01/21 05:45 Resp 18 09/01/21 05:45 BP 129/74 09/01/21 05:45 Pulse Ox 96 09/01/21 05:45 Intake & Output 08/31/21 09/01/21 09/01/21 18:59 06:59 18:59 Intake Total 720 600 Output Total 1600 Balance -880 600 Weight 86.183 kg Intake: Intake, IV Titration 600 Amount Sodium Chloride 0.9% 1, 600 000 ml @ 75 mls/hr IV . [id number] VANE Rx#:[id number] Oral 720 Output: Urine 1600 Other: Voiding Method External Catheter External Catheter External Catheter # Voids 1 # Bowel Movements 1 - Exam GENERAL: The patient is lying in bed and is not in acute distress. NEUROLOGICAL: Higher mental function: The patient is awake, alert, oriented to self, place and time. Patient is following commands. No aphasia and no neglect. Cranial nerves: The pupils are round, equal and reactive to light and accommodation. Visual mccloud are full to confrontation throughout. Extraocular movement is intact no nystagmus is noted. Facial sensation is normal to touch throughout. The facial strength is normal throughout. H Tongue is midline and moved [id number] without any difficulty. No dysarthria is noted. Shoulder shrug is normal bilaterally. Motor: Gait is deferred because of leg weakness. The strength is 5 over 5 throughout upper but lower is proximal is 5-, knee is 4+ and ankles are 4- to +. Normal tone and bulk. Has high arched foot and hammer toes. Cerebellum: Normal finger to nose bilaterally. Sensation: Sensation is normal to touch throughout. Reflexes (right/left): 3+ throughout except triceps are 2+ and ankles are 1+. Plantars are mute bilaterally. - Labs CBC & Chem 7: 08/28/21 08:56 08/28/21 08:56 Labs: Abnormal Lab Results - Last 24 Hours (Table) 08/31/21 08/31/21 09/01/21 Range/Units 16:43 20:17 07:10 POC Glucose (mg/dL) 316 H 304 H 152 H (75-99) mg/dL 09/01/21 Range/Units 11:51 POC Glucose (mg/dL) 198 H (75-99) mg/dL Microbiology - Last 24 Hours (Table) 08/26/21 12:35 Blood Culture - Preliminary Blood No Growth after 120 hours 08/26/21 12:55 Blood Culture - Preliminary Blood No Growth after 120 hours Assessment and Plan Assessment: * Acute on chronic bilateral lower extremity weakness: Patient has leg weakness for past 4 years and is intermittent in addition with chronic low back pain. On examination has high arched foot and hammer toes. Rule out Hereditary peripheral neuropathy vs Racijls-[id number]-[id number] disease (she has brother with similar presentation). Cannot rule out in addition her Acute COVID-19 pneumonia exacerbated her condition---her strength is improving. 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 She stated will consider it as outpatient. Recommend possibly genetic testing as outpatient/further work-up as outpatient. PT, OT are consulted Every 4 neuro checks She continues to be on vitamin B12 1000 g daily. As well as folic acid 1 mg daily. Infection disease team is on board Pulmonary team is on board We'll defer the rest of the medical management to the primary team Upon discharge recommend the patient to follow-up with a neurologist within 1-2 weeks. The plan is discussed with patient and her nurse. There is no further neurological work-up. Please notify neurology if any further concerns. Jose F Carroll M.D. Neuro-hospitalist Time with Patient: Less than 30
[2021-09-01 15:59] VITALS: BP 138/66; PULSE 73; RESP 16; TEMP 98.4
== END 2021-09-01 15:58 | DRG 177 ==
LOC: EC 12:06 → 3SCARD 15:00 → 4SSUR 09-01 02:14
PROVIDERS: ADMIT Family Medicine; ATTEND Family Medicine
PROC: XW033E5 Introduction of Remdesivir Anti-infective into Peripheral Vein, Percutaneous Approach, New Technology Group 5 (ICD-10-PCS; principal; 2021-08-27)
DX: U07.1 COVID-19 (principal); J96.01 Acute respiratory failure with hypoxia; J12.82 Pneumonia due to coronavirus disease 2019; E87.1 Hypo-osmolality and hyponatremia; E72.12 Methylenetetrahydrofolate reductase deficiency; J98.11 Atelectasis; N39.0 Urinary tract infection, site not specified; F03.90 Unspecified dementia, unspecified severity, without behavioral disturbance, psychotic disturbance, mood disturbance, and anxiety; E11.40 Type 2 diabetes mellitus with diabetic neuropathy, unspecified; E11.65 Type 2 diabetes mellitus with hyperglycemia; D72.810 Lymphocytopenia; Z79.4 Long term (current) use of insulin; E86.0 Dehydration; K21.9 Gastro-esophageal reflux disease without esophagitis; E78.5 Hyperlipidemia, unspecified; E89.0 Postprocedural hypothyroidism; I10 Essential (primary) hypertension; T38.0X5A Adverse effect of glucocorticoids and synthetic analogues, initial encounter; Q66.70 Congenital pes cavus, unspecified foot; G89.29 Other chronic pain; M54.50 Low back pain, unspecified; R32 Unspecified urinary incontinence; R26.9 Unspecified abnormalities of gait and mobility; R29.6 Repeated falls; F43.29 Adjustment disorder with other symptoms; R77.8 Other specified abnormalities of plasma proteins; M19.90 Unspecified osteoarthritis, unspecified site; E66.3 Overweight; Z68.28 Body mass index [BMI] 28.0-28.9, adult; Z79.82 Long term (current) use of aspirin; Z79.890 Hormone replacement therapy; Z79.899 Other long term (current) drug therapy; Z91.81 History of falling; Z86.73 Personal history of transient ischemic attack (TIA), and cerebral infarction without residual deficits; Z85.850 Personal history of malignant neoplasm of thyroid; Z87.440 Personal history of urinary (tract) infections; Z90.710 Acquired absence of both cervix and uterus; Z87.42 Personal history of other diseases of the female genital tract; Z87.39 Personal history of other diseases of the musculoskeletal system and connective tissue; Z87.2 Personal history of diseases of the skin and subcutaneous tissue; Z86.31 Personal history of diabetic foot ulcer; Z86.59 Personal history of other mental and behavioral disorders; Z86.69 Personal history of other diseases of the nervous system and sense organs; Z98.890 Other specified postprocedural states; Z71.3 Dietary counseling and surveillance; Z88.6 Allergy status to analgesic agent; Z82.49 Family history of ischemic heart disease and other diseases of the circulatory system
CPT/HCPCS: 36415; 71045; 71275; 80053; 81001; 82728; 83036; 83605; 83615; 83735; 83880; 84439; 84443; 84484; 85025; 85379; 85610; 85652; 85730; 86140; 86769; 87040; 87635; 93005; 93308; 93970; 96374; 99285

== ENCOUNTER 2021-10-14 11:42 | Day surgery (SDC) | payer MEDICARE ==
[2021-10-12 15:29] VITALS: BMI 29.9
[~2021-10-14 11:42] MED LIST changes: +LIDOCAINE 1% (10MG/ML) FOR IV START INTRADERMA PRN
[2021-10-14 12:14] VITALS: TEMP 97.1
[2021-10-14] MEDS ORDERED: LACTATED RINGERS 1,000 ML IV ONE (12:30)
[2021-10-14 12:34] LABS: Glucose,Whole Blood 106 mg/dL (75-99)
[2021-10-14] MEDS ORDERED: methylPREDNISolone ACETATE 40 MG/ML 1 ML VIAL ONE (13:28)
[2021-10-14] MEDS ORDERED: ROPIVACAINE 5 MG/ML 30 ML VIAL ONE (13:28)
[2021-10-14 13:30] LABS: Glucose,Whole Blood 94 mg/dL (75-99)
[2021-10-14] MEDS ORDERED: MIDAZOLAM 2 MG/2 ML VIAL ONE (13:30)
[2021-10-14] MEDS ORDERED: fentaNYL (PF) 50 MCG/ML 2 ML AMP ONE (13:30)
--- NOTE | 2021-10-14 13:59 | P.PCN ---
Date of Procedure: 10/14/21 Procedure(s) Performed: PREOPERATIVE DIAGNOSIS: 1-Lumbar Spondylosis with Facet Arthropathy without myelopathy. 2- Lumber degenerative disc disease. POSTOPERATIVE DIAGNOSIS: 1- Lumbar Spondylosis with Facet Arthropathy without myelopathy. 2- Lumber degenerative disc disease. PROCEDURES : Bilateral Radiofrequency thermocoagulation, L3 , L4 , and L5 medial branch, with fluoroscopic guidance (fluoroscopy images available in the radiology department) ( to denervate the facet joint at bilateral L4-5 ,and L5-S1 levels ). ANESTHESIA: Monitored anesthesia care as per anesthesia department. EBL: Minimal PROCEDURE INDICATION: The patient with low back pain secondary to lumbar facet arthropathy who had more than 50% relief of her pain with previous diagnostic lumbar medial branch block with bupivacaine. PROCEDURE DESCRIPTION / TECHNIQUE: The patient was seen and identified in the preoperative area. Risks, benefits, complications, including but not limited to risk of infection ,bleeding , allergic reactions to the medications and no complete pain releife , and alternatives were discussed with the patient, the patient agreed to proceed with the procedure and signed the consent. IV was started. Vital signs remained stable throughout the procedure. Patient was taken to the OR and time out was completed. The patient was placed in the prone position on the procedure table. The lumber area was prepped and draped in the usual sterile fashion. . Vital signs were closely monitored during the procedure .IV sedation was used during the procedure to decrease patients anxiety. Using AP and then oblique fluoroscopy, the ``eye of the Oh dog corre sponding to the connection between the superior and transverse articular processes of right L3, L4, and L5 were identified, marked, and localized with 1% lidocaine. Subsequently, a 18 -pd radiofrequency cannula with a 10- mm active tip was advanced guided by fluoroscopy to each of the``eyes of the Oh dog at right L3, L4, and L5. Each site then underwent sensory testing at 50 Hz and 0 to 1 volt and motor testing at 2.5 Hz and 0 to 3 volt with local stimulation, but no radicular symptoms down the legs. Thereafter each sites underwent radiofrequency thermocoagulation at 80 degrees celsius for 90 seconds after injecting 0.5 ml of PF Ropivacaine 1ml, then after the thermocoagulation done , 1 ml of the block solution containing Depo-Medrol 20 mg and 3 ml of Ropivacaine 0.5% was injected at the right L3 , L4 , and L5 , levels after negative aspiration of CSF and blood and with no paresthesias. Cannulas were retracted while injecting lidocaine 1% until the needle is out. The same procedure was repeated at the level of Left L3, L4, and L5 levels. At the end of the procedure, the skin was cleansed and bandages were applied. COMPLICATIONS: No acute complications. DISPOSITION / PLANS: The patient was placed in a supine position and transferred to the recovery area in a stable condition for observation and was discharged from the recovery room after meeting discharge criteria. Home discharge instructions given to the patient by the staff. The patient was reexamined prior to discharge. The patient will schedule a follow up in the clinic in 2-4 weeks.
[2021-10-14] MEDS ORDERED: IV FLUID CONTINUATION 1,000 ML IV ONE (14:03)
[2021-10-14 14:07] VITALS: RESP 17
[2021-10-14 14:21] VITALS: BP 115/71; PULSE 86
--- NOTE | 2021-10-14 14:36 | FL ---
EXAMINATION TYPE: FL guided pain mgmt statistic DATE OF EXAM: 10/14/2021 HISTORY: Fluoroscopy time 47 seconds of fluoroscopy provided. IMPRESSION: 1. Fluoroscopy time.
== END 2021-10-14 14:40 | disposition home or self-care (01) ==
LOC: ORPAIN 11:42
PROVIDERS: ATTEND Specialist
DX: M47.816 Spondylosis without myelopathy or radiculopathy, lumbar region (principal)
CPT/HCPCS: 64635; 64636; J2250; J1030; J3010; J2795

== ENCOUNTER 2022-05-05 11:58 | Observation (INO) | payer MEDICARE, OTHER ==
--- NOTE | 2022-05-05 12:14 | ED ---
General Adult HPI - General Source: patient, RN notes reviewed, old records reviewed <Donny Case - Last Filed: 05/05/22 14:31> <Hernan Valdes - Last Filed: 05/05/22 22:56> - General Stated complaint: Weakness Time Seen by Provider: 05/05/22 12:00 - History of Present Illness Initial comments: This is a 66-year-old female who presents emergency department stating that she couldn't get off the toilet because of right knee and right ankle pain. Patient states she fell in the bathtub about 2 weeks ago and the pain in the knee and the ankle always been able to get worse over the last 2 days. Patient states she has not had any other trauma. Patient denies generalized weakness. Patient denies any headache patient denies any recent fever chills or cough per patient denies any chest pain palpitations difficulty breathing or shortness of breath per patient denies any abdominal pain. Patient denies any nausea vomiting. Patient's only complaint is that her stand on her left knee and left ankle (Donny Case) - Related Data Home Medications Medication Instructions Recorded Confirmed Aspirin 81 mg PO DAILY 02/12/18 05/05/22 Escitalopram [Lexapro] 5 mg PO DAILY 05/05/20 05/05/22 Memantine [Namenda] 10 mg PO BID 05/05/20 05/05/22 Jone/D3/Mag11/Zinc/Bearing Maker/Tye/Bor 1 tab PO DAILY 02/18/21 05/05/22 [Caltrate 600+D Plus Tablet] Cranberry With Vit C 2 tab PO BID 02/18/21 05/05/22 Mirabegron [Myrbetriq] 25 mg PO HS 02/18/21 05/05/22 Levothyroxine Sodium [Synthroid] 200 mcg PO AC-BRKFST 03/29/21 05/05/22 Acetaminophen [Tylenol Extra 1,000 mg PO Q6H PRN 07/27/21 05/05/22 Strength] Dextromethorphan HBr/Quinidine 1 tab PO DAILY 08/26/21 05/05/22 [Nuedexta 20-10 mg Capsule] Insulin Aspart [NovoLOG Flexpen] See Protocol SQ ACHS 10/17/21 05/05/22 Folic Acid 0.8 mg PO DAILY 05/05/22 05/05/22 Insulin Glargine,Hum.rec.anlog 65 unit SQ HS 05/05/22 05/05/22 [Lantus Solostar Pen] Previous Rx's Medication Instructions Recorded Donepezil [Aricept] 5 mg PO HS tab 05/10/20 Pantoprazole Sodium [Protonix] 40 mg PO DAILY #30 tablet. 05/10/20 Atorvastatin [Lipitor] 40 mg PO HS tab 12/22/20 Cyanocobalamin (Vitamin B-12) 1,000 mcg PO DAILY #30 tablet 12/22/20 [Vitamin B-12] lisinopriL [Zestril] 20 mg PO DAILY tab 12/22/20 Allergies Allergy/AdvReac Type Severity Reaction Status Date / Time ibuprofen [From Motrin] AdvReac "BLOOD Verified 05/05/22 14:18 THINS TOO MUCH" naproxen [From Aleve] AdvReac "BLOOD Verified 05/05/22 14:18 THINS TOO MUCH" NSAIDS (Non-Steroidal AdvReac Unknown Verified 05/05/22 14:18 Anti-Inflamma Review of Systems ROS Other: All systems not noted in ROS Statement are negative. <Donny Case - Last Filed: 05/05/22 14:31> ROS Other: All systems not noted in ROS Statement are negative. <Hernan Valdes - Last Filed: 05/05/22 22:56> ROS Statement: Those systems with pertinent positive or pertinent negative responses have been documented in the HPI. Past Medical History Past Medical History: Blood Disorder, Cancer, CVA/TIA, Diabetes Mellitus, GERD/Reflux, Hyperlipidemia, Hypertension, Memory Impairment, Musculoskeletal Disorder, Skin Disorder, Thyroid Disorder Additional Past Medical History / Comment(s): CVAs x4 with one being hemorrhagic and left pt with L arm weakness/balance issues, FALLS, MTHFR, thyroid cancer with surgery, recurrent UTIs, occasional urine incontinence, IDDM type II, neuropathy bilateral feet, past diabetic foot ulcer, cellulitis L great toe, chronic low back pain/pinched nerves. History of Any Multi-Drug Resistant Organisms: None Reported Past Surgical History: Hysterectomy, Orthopedic Surgery Additional Past Surgical History / Comment(s): thyroidectomy, parotid gland surgery, left shoulder (rotator cuff sx) X 2, PAIN CLINIC PROCEDURES Past Anesthesia/Blood Transfusion Reactions: Postoperative Nausea & Vomiting (PONV) Past Psychological History: No Psychological Hx Reported Additional Psychological History / Comment(s): Pt resides with her spouse in a ranch style home. She ambulates with a walker. She no longer drives, her spouse drives. Smoking Status: Never smoker Past Alcohol Use History: None Reported Past Drug Use History: None Reported - Past Family History Mother Family Medical History: No Reported History Additional Family Medical History / Comment(s): . Father Family Medical History: Cancer Additional Family Medical History / Comment(s): open heart surgery when he was 50, aortic aneurysm when he was around 65 <Donny Case - Last Filed: 05/05/22 14:31> General Exam <Donny Case - Last Filed: 05/05/22 14:31> - General Exam Comments Initial Comments: GENERAL: Patient is well-developed and well-nourished. Patient is nontoxic and well- hydrated and is in no acute distress. ENT: Neck is soft and supple. No significant lymphadenopathy is noted. Oropharynx is clear. Moist mucous membranes. Neck has full range of motion without eliciting any pain. EYES: The sclera were anicteric and conjunctiva were pink and moist. Extraocular movements were intact and pupils were equal round and reactive to light. Eyelids were unremarkable. PULMONARY: Unlabored respirations. Good breath sounds bilaterally. No audible rales rhonchi or wheezing was noted. CARDIOVASCULAR: There is a regular rate and rhythm without any murmurs gallops or rubs. ABDOMEN: Soft and nontender with normal bowel sounds. SKIN: Skin is clear with no lesions or rashes and otherwise unremarkable. NEUROLOGIC: Patient is alert and oriented x3. Cranial nerves II through XII are grossly intact. Motor and sensory are also intact. Normal speech, volume and content. Symmetrical smile. MUSCULOSKELETAL: Normal extremities with adequate strength and full range of motion. Patient has some lateral inferior knee pain on the right. I palpated the whole ankle and had no area of tenderness LYMPHATICS: No significant lymphadenopathy is noted PSYCHIATRIC: Normal psychiatric evaluation. (Donny Case) Course Vital Signs 05/05/22 11:59 Temperature 98.3 F Pulse Rate 87 Respiratory 16 Rate Blood Pressure 124/60 O2 Sat by Pulse 94 L Oximetry EKG Findings - EKG Comments: EKG Findings:: An EKG was obtained and was read by myself. EKG showed a rate of 82, WA interval 150, QR presybeterian 93 and QTC of 420. This EKG showed a normal sinus rhythm however there was some minor artifact secondary to patient movement. There was no ST segment elevations or depressions noted. <Hernan Valdes - Last Filed: 05/05/22 22:56> Medical Decision Making <Donny Case - Last Filed: 05/05/22 14:31> - Lab Data Result diagrams: 05/05/22 14:42 05/05/22 14:42 <Hernan Valdes - Last Filed: 05/05/22 22:56> - Medical Decision Making Patient and her stated that she couldn't stay at home because she's not safe if she is unable to ambulate. I spoke with Dr. Ramires he wanted the patient admitted and he would try to get her into rehab. I admitted the patient wrote admitting orders (Donny Case) Disposition Time of Disposition: 14:32 <Donny Case - Last Filed: 05/05/22 14:31> <Hernan Valdes - Last Filed: 05/05/22 22:56> Clinical Impression: Weakness Disposition: ADMITTED IP TO THIS HOSP
--- NOTE | 2022-05-05 12:43 | XR ---
EXAMINATION TYPE: XR ankle complete RT DATE OF EXAM: 05/05/2022 CLINICAL HISTORY: Pain after fall injury. TECHNIQUE: Frontal, lateral and oblique images of the right ankle are obtained. COMPARISON: Prior right leg x-ray April 27, 2015. FINDINGS: Osseous structures are demineralized which is noted to lower radiographic sensitivity. The re is no acute displaced fracture evident in the right ankle. The ankle mortise appears within reema l limits. [id number] diffuse subcutaneous edema is seen. Small to moderate-size superior and in ferior calcaneal spurs are noted. IMPRESSION: There is no acute displaced fracture in the right ankle.
--- NOTE | 2022-05-05 12:45 | XR ---
EXAMINATION TYPE: XR knee complete RT DATE OF EXAM: 05/05/2022 CLINICAL HISTORY: Fall injury with pain TECHNIQUE: Three views of the right knee are obtained. COMPARISON: None. FINDINGS: Demineralization is seen which is noted to lower radiographic sensitivity. There is no acut e displaced fracture evident in right knee. Mild tricompartment joint space loss greatest medial tibi ofemoral compartment. Bony projection anterior superior patellar distal quadriceps tendon insertion. Moderate to severe posterior arteriovascular calcification is present. IMPRESSION: There is no acute displaced fracture in the right knee.
[2022-05-05] MEDS ORDERED: ACETAMINOPHEN TAB 500 MG TAB PO STA (14:21)
[2022-05-05 17:02] LABS: ALT 13 U/L (4-34); AST 24 U/L (14-36); African American GFR (CKD) >90 (>60 ml/min/1.73 sqM); Albumin 4.4 g/dL (3.5-5.0); Alkaline Phosphatase 91 U/L (38-126); Anion Gap 8 mmol/L; Blood Urea Nitrogen 16 mg/dL (7-17); Calcium 8.7 mg/dL (8.4-10.2); Carbon Dioxide 30 mmol/L (22-30); Chloride 100 mmol/L (98-107); Glucose 129 mg/dL (74-99); Magnesium 1.9 mg/dL (1.6-2.3); Non-African American GFR(CKD) >90 (>60 ml/min/1.73 sqM); Potassium 4.5 mmol/L (3.5-5.1); Sodium 138 mmol/L (137-145); Total Bilirubin 1.3 mg/dL (0.2-1.3); Total Protein 7.3 g/dL (6.3-8.2)
[2022-05-05 17:13] LABS: Basophils # (A) 0.1 k/uL (0-0.2); Basophils % (A) 1 %; Eosinophils # (A) 0.3 k/uL (0-0.7); Eosinophils % (A) 3 %; HCT 40.1 % (34.0-46.0); HGB 13.3 gm/dL (11.4-16.0); Lymphocytes # (A) 2.1 k/uL (1.0-4.8); Lymphocytes % (A) 20 %; MCH 30.5 pg (25.0-35.0); MCHC 33.2 g/dL (31.0-37.0); MCV 91.7 fL (80.0-100.0); Mean Platelet Volume 9.7; Monocytes # (A) 0.7 k/uL (0-1.0); Monocytes % (A) 7 %; Neutrophils % (A) 68 %; Platelet Count 254 k/uL (150-450); RBC 4.37 m/uL (3.80-5.40); RDW 14.7 % (11.5-15.5); WBC 10.3 k/uL (3.8-10.6)
[2022-05-05 17:27] LABS: Glucose,Whole Blood 163 mg/dL (70-110)
[2022-05-05] MEDS ORDERED: DEXTROSE 50% SYRINGE 50 ML IVP PRN ×2 (18:17)
[2022-05-05 18:36] LABS: Appearance,Urine Cloudy (Clear); Bilirubin,Urine Negative (Negative); Blood,Urine Negative (Negative); Budding Yeast,Urine Moderate /hpf; Color,Urine Yellow; Glucose,Urine (UA) Negative (Negative); Ketones,Urine Trace (Negative); Leukocyte Esterase,Urine Moderate (Negative); Nitrite,Urine Positive (Negative); PH, Urine 5.5 (5.0-8.0); Protein,Urine 1+ (Negative); RBC,Urine 67 /hpf (0-5); Specific Gravity,Urine 1.043 (1.001-1.035); Squamous Epithelial Cell,Urine <1 /hpf (0-4); WBC,Urine 58 /hpf (0-5)
[2022-05-05] MEDS: ATORVASTATIN 40 MG TAB PO SCH (20:27)
[2022-05-05] MEDS: MEMANTINE 10 MG TAB PO SCH (20:27)
[2022-05-05] MEDS: DONEPEZIL 5 MG TAB PO SCH (20:27)
[2022-05-05] MEDS: ESCITALOPRAM 5 MG TAB PO SCH (20:27)
[2022-05-05] MEDS: ACETAMINOPHEN TAB 500 MG TAB PO PRN (20:28)
[2022-05-05] MEDS: INSULIN DETEMIR (LEVEMIR) 100 UNIT/ML SYR SQ SCH (20:28)
[2022-05-05 20:42] LABS: Glucose,Whole Blood 205 mg/dL (70-110)
[2022-05-05] MEDS ORDERED: CRANBERRY WITH VIT C PO SCH (21:00)
[2022-05-05] MEDS: INSULIN ASPART (NovoLOG) 100 UNIT/ML VIAL SQ SCH (22:31)
[2022-05-06 06:15] LABS: Glucose,Whole Blood 176 mg/dL (70-110)
[2022-05-06] MEDS: LEVOTHYROXINE 100 MCG TAB PO SCH (06:41)
[2022-05-06] MEDS: INSULIN ASPART (NovoLOG) 100 UNIT/ML VIAL SQ SCH ×4 (06:41→22:01)
[2022-05-06] MEDS: PANTOPRAZOLE 40 MG TABLET PO SCH (06:41)
[2022-05-06] MEDS: MEMANTINE 10 MG TAB PO SCH ×2 (09:31→20:52)
[2022-05-06] MEDS: CALCIUM CARB-VIT D 500 MG-5 MCG TAB PO SCH (09:32)
[2022-05-06] MEDS: CYANOCOBALAMIN 500 MCG TAB PO SCH (09:32)
[2022-05-06] MEDS: lisinopriL 20 MG TAB PO SCH (09:32)
[2022-05-06] MEDS: FOLIC ACID 1 MG TAB PO SCH (09:32)
[2022-05-06] MEDS: ASPIRIN 81 MG PO SCH (09:32)
[2022-05-06] MEDS: NON FORMULARY DRUG (Dextromethorphan Hbr/Quinidine [Nuedexta 20-10 Mg Capsule] 1 EACH Caps PO SCH (09:32)
[2022-05-06] MEDS: ESCITALOPRAM 5 MG TAB PO SCH (09:32)
[2022-05-06 11:41] LABS: Glucose,Whole Blood 257 mg/dL (70-110)
--- NOTE | 2022-05-06 11:55 | P.HPIM ---
History of Present Illness H&P Date: 05/06/22 History of present illness; patient is 66-year-old lady with past medical history significant for insulin-dependent diabetes mellitus, hypothyroidism who presented to the ER because of increasing weakness and pain in her right knee and ankle. Patient was apparently unable to get out of the toilet because she was so weak. Patient had a fall 2 weeks ago resulting in her having pain in right knee and ankles. noted that at home patient was more weaker and requiring more assistance. Because of this patient was brought to the ER, initial lab work showed white count of 10.3, hemoglobin of 13.3, sodium 13, potassium 4.5, glucose 129, UA was suspicious for UTI. X-ray of right knees show no acute displaced fracture of right knee X-ray of ankle shows no fractures Patient was admitted for further evaluation and treatment REVIEW OF SYSTEMS: CONSTITUTIONAL: No fever, no malaise, no fatigue. HEENT: No recent visual problems or hearing problems. Denied any sore throat. CARDIOVASCULAR: No chest pain, orthopnea, PND, no palpitations, no syncope. PULMONARY: No shortness of breath, no cough, no hemoptysis. GASTROINTESTINAL: No diarrhea, no nausea, no vomiting, no abdominal pain. NEUROLOGICAL: No headaches, no weakness, no numbness. HEMATOLOGICAL: Denies any bleeding or petechiae. GENITOURINARY: Denies any burning micturition, denies any foul odor MUSCULOSKELETAL/RHEUMATOLOGICAL: Complaining of pain in right knee and ankle ENDOCRINE: Denies any polyuria or polydipsia. The rest of the 14-point review of systems is negative. PHYSICAL EXAMINATION: GENERAL: The patient is alert and oriented x3, not in any acute distress. Well developed, well nourished. HEENT: Pupils are round and equally reacting to light. EOMI. No scleral icterus. No conjunctival pallor. Normocephalic, atraumatic. No pharyngeal erythema. No thyromegaly. CARDIOVASCULAR: S1 and S2 present. No murmurs, rubs, or gallops. PULMONARY: Chest is clear to auscultation, no wheezing or crackles. ABDOMEN: Soft, nontender, nondistended, normoactive bowel sounds. No palpable organomegaly. MUSCULOSKELETAL: No joint swelling or deformity. EXTREMITIES: No cyanosis, clubbing, or pedal edema. NEUROLOGICAL: Gross neurological examination did not reveal any focal deficits. SKIN: No rashes. Assessment and plan Fall Right knee pain UTI Insulin-dependent diabetes mellitus. 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 History of Any Multi-Drug Resistant Organisms: None Reported Past Surgical History: Hysterectomy, Orthopedic Surgery Additional Past Surgical History / Comment(s): thyroidectomy, parotid gland surgery, left shoulder (rotator cuff sx) X 2, PAIN CLINIC PROCEDURES Past Anesthesia/Blood Transfusion Reactions: Postoperative Nausea & Vomiting (PONV) Past Psychological History: No Psychological Hx Reported Additional Psychological History / Comment(s): Pt resides with her spouse in a ranch style home. She ambulates with a walker. She no longer drives, her spouse drives. Smoking Status: Never smoker Past Alcohol Use History: None Reported Past Drug Use History: None Reported - Past Family History Mother Family Medical History: No Reported History Additional Family Medical History / Comment(s): . Father Family Medical History: Cancer Additional Family Medical History / Comment(s): open heart surgery when he was 50, aortic aneurysm when he was around 63 Medications and Allergies Home Medications Medication Instructions Recorded Confirmed Type Aspirin 81 mg PO DAILY 02/12/18 05/05/22 History Escitalopram [Lexapro] 5 mg PO DAILY 05/05/20 05/05/22 History Memantine [Namenda] 10 mg PO BID 05/05/20 05/05/22 History Donepezil [Aricept] 5 mg PO HS tab 05/10/20 05/05/22 Rx Pantoprazole Sodium [Protonix] 40 mg PO DAILY #30 tablet. 05/10/20 05/05/22 Rx Atorvastatin [Lipitor] 40 mg PO HS tab 12/22/20 05/05/22 Rx Cyanocobalamin (Vitamin B-12) 1,000 mcg PO DAILY #30 tablet 12/22/20 05/05/22 Rx [Vitamin B-12] lisinopriL [Zestril] 20 mg PO DAILY tab 12/22/20 05/05/22 Rx Jone/D3/Mag11/Zinc/Manager Package/Tye/Bor 1 tab PO DAILY 02/18/21 05/05/22 History [Caltrate 600+D Plus Tablet] Cranberry With Vit C 2 tab PO BID 02/18/21 05/05/22 History Mirabegron [Myrbetriq] 25 mg PO HS 02/18/21 05/05/22 History Levothyroxine Sodium [Synthroid] 200 mcg PO AC-BRKFST 03/29/21 05/05/22 History Acetaminophen [Tylenol Extra 1,000 mg PO Q6H PRN 07/27/21 05/05/22 History Strength] Dextromethorphan HBr/Quinidine 1 tab PO DAILY 08/26/21 05/05/22 History [Nuedexta 20-10 mg Capsule] Insulin Aspart [NovoLOG Flexpen] See Protocol SQ ACHS 10/17/21 05/05/22 History Folic Acid 0.8 mg PO DAILY 05/05/22 05/05/22 History Insulin Glargine,Hum.rec.anlog 65 unit SQ HS 05/05/22 05/05/22 History [Lantus Solostar Pen] Allergies Allergy/AdvReac Type Severity Reaction Status Date / Time ibuprofen [From Motrin] AdvReac "BLOOD Verified 05/05/22 14:18 THINS TOO MUCH" naproxen [From Aleve] AdvReac "BLOOD Verified 05/05/22 14:18 THINS TOO MUCH" NSAIDS (Non-Steroidal AdvReac Unknown Verified 05/05/22 14:18 Anti-Inflamma Physical Exam Vitals: Vital Signs Temp Pulse Pulse Resp BP BP Pulse Ox 05/06/22 07:00 97.6 F 81 18 129/68 97 05/06/22 02:16 98.0 F 80 18 139/71 95 05/05/22 20:12 89 L 05/05/22 20:00 91 16 05/05/22 19:06 98.4 F 91 16 133/71 98 05/05/22 16:59 97.6 F 16 123/66 94 L 05/05/22 16:45 97.8 F 79 18 128/71 95 05/05/22 11:59 98.3 F 87 16 124/60 94 L FiO2 05/06/22 07:00 05/06/22 02:16 05/05/22 20:12 21 05/05/22 20:00 05/05/22 19:06 05/05/22 16:59 05/05/22 16:45 05/05/22 11:59 Intake and Output 05/05/22 05/06/22 05/06/22 22:59 06:59 14:59 Intake Total 200 Balance 200 Intake: Oral 200 Other: Voiding Method External Catheter Weight 95.254 kg Results CBC & Chem 7: 05/05/22 14:42 05/05/22 14:42 Labs: Abnormal Lab Results - Last 24 Hours (Table) 05/05/22 05/05/22 05/05/22 Range/Units 14:42 17:25 18:10 Glucose 129 H (74-99) mg/dL POC Glucose (mg/dL) 163 H (70-110) mg/dL Urine Appearance Cloudy H (Clear) Ur Specific [place] 1.043 H (1.001-1.035) Urine Protein 1+ H (Negative) Urine Ketones Trace H (Negative) Urine Nitrite Positive H (Negative) Ur Leukocyte Esterase Moderate H (Negative) Urine RBC 67 H (0-5) /hpf Urine WBC 58 H (0-5) /hpf Urine Yeast (Budding) Moderate H (None) /hpf 05/05/22 05/06/22 05/06/22 Range/Units 20:34 06:14 11:40 Glucose (74-99) mg/dL POC Glucose (mg/dL) 205 H 176 H 257 H (70-110) mg/dL Urine Appearance (Clear) Ur Specific [place] (1.001-1.035) Urine Protein (Negative) Urine Ketones (Negative) Urine Nitrite (Negative) Ur Leukocyte Esterase (Negative) Urine RBC (0-5) /hpf Urine WBC (0-5) /hpf Urine Yeast (Budding) (None) /hpf Microbiology - Last 24 Hours (Table) 05/05/22 18:10 Urine Culture - Preliminary Urine,Clean Catch
[2022-05-06] MEDS: ACETAMINOPHEN TAB 500 MG TAB PO PRN ×2 (12:54→20:52)
[2022-05-06 17:11] LABS: Glucose,Whole Blood 206 mg/dL (70-110)
[2022-05-06] MEDS: ATORVASTATIN 40 MG TAB PO SCH (20:51)
[2022-05-06] MEDS: DONEPEZIL 5 MG TAB PO SCH (20:51)
[2022-05-06] MEDS: INSULIN DETEMIR (LEVEMIR) 100 UNIT/ML SYR SQ SCH (20:52)
[2022-05-06 20:55] LABS: Glucose,Whole Blood 213 mg/dL (70-110)
[2022-05-07] MEDS: PANTOPRAZOLE 40 MG TABLET PO SCH (06:10)
[2022-05-07] MEDS: LEVOTHYROXINE 100 MCG TAB PO SCH (06:10)
[2022-05-07 06:35] LABS: Glucose,Whole Blood 183 mg/dL (70-110)
[2022-05-07] MEDS: INSULIN ASPART (NovoLOG) 100 UNIT/ML VIAL SQ SCH ×4 (06:37→21:07)
[2022-05-07] MEDS: MEMANTINE 10 MG TAB PO SCH ×2 (08:04→21:07)
[2022-05-07] MEDS: FOLIC ACID 1 MG TAB PO SCH (08:04)
[2022-05-07] MEDS: CYANOCOBALAMIN 500 MCG TAB PO SCH (08:04)
[2022-05-07] MEDS: CALCIUM CARB-VIT D 500 MG-5 MCG TAB PO SCH (08:04)
[2022-05-07] MEDS: ASPIRIN 81 MG PO SCH (08:04)
[2022-05-07] MEDS: ESCITALOPRAM 5 MG TAB PO SCH (08:05)
[2022-05-07] MEDS: NON FORMULARY DRUG (Dextromethorphan Hbr/Quinidine [Nuedexta 20-10 Mg Capsule] 1 EACH Caps PO SCH (08:05)
[2022-05-07] MEDS: lisinopriL 20 MG TAB PO SCH (08:05)
[2022-05-07] MEDS: ACETAMINOPHEN TAB 500 MG TAB PO PRN ×3 (08:18→21:13)
[2022-05-07 09:00] LABS: Basophils # (A) 0.06 X 10*3/uL (0.00-0.10); Basophils % (A) 0.6 %; Eosinophils # (A) 0.44 X 10*3/uL (0.04-0.35); Eosinophils % (A) 4.7 %; HCT 40.5 % (37.2-46.3); HGB 12.9 g/dL (12.0-15.0); Immature Grans, Automated 0.2 %; Lymphocytes # (A) 2.42 X 10*3/uL (0.90-5.00); Lymphocytes % (A) 25.7 %; MCH 29.9 pg (27.0-32.0); MCHC 31.9 g/dL (32.0-37.0); MCV 93.8 fL (80.0-97.0); Mean Platelet Volume 11.2 fL (9.5-12.2); Monocytes # (A) 0.74 X 10*3/uL (0.20-1.00); Monocytes % (A) 7.9 %; NRBC Per 100 WBC 0 /100 WBCS (0.0-0.0); Neutrophils # (A) 5.74 X 10*3/uL (1.80-7.70); Neutrophils % (A) 60.9 %; Platelet Count 247 X 10*3/uL (140-440); RBC 4.32 X 10*6/uL (4.10-5.20); RDW 14.7 % (11.5-14.5); WBC 9.42 X 10*3/uL (4.50-10.00)
[2022-05-07 09:07] LABS: African American GFR (CKD) 106.6 (60.0-200.0); Albumin 4.2 g/dL (3.8-4.9); Albumin/Globulin Ratio 1.69 (1.60-3.17); Anion Gap 10.9 mmol/L (10.00-18.00); BUN/Creat Ratio 24.29 Ratio (12.00-20.00); Blood Urea Nitrogen 15.4 mg/dL (9.0-27.0); Carbon Dioxide 29.5 mmol/L (20.0-27.5); Globulin 2.5 g/dL (1.6-3.3); Potassium 4.3 mmol/L (3.5-5.5); Total Bilirubin 1.2 mg/dL (0.30-1.20); Total Protein 6.7 g/dL (6.2-8.2)
--- NOTE | 2022-05-07 11:16 | P.PN ---
Subjective Progress Note Date: 05/07/22 patient is 66-year-old lady with past medical history significant for insulin- dependent diabetes mellitus, hypothyroidism who presented to the ER because of increasing weakness and pain in her right knee and ankle. Patient was apparently unable to get out of the toilet because she was so weak. Patient had a fall 2 weeks ago resulting in her having pain in right knee and ankles. noted that at home patient was more weaker and requiring more assistance. Because of this patient was brought to the ER, initial lab work showed white count of 10.3, hemoglobin of 13.3, sodium 13, potassium 4.5, g lucose 129, UA was suspicious for UTI. X-ray of right knees show no acute displaced fracture of right knee X-ray of ankle shows no fractures Patient was admitted for further evaluation and treatment 05/07. Patient seen and examined. Stated me pain has improved. Understands that she is very needs to go to rehab. Vital signs stable REVIEW OF SYSTEMS: CONSTITUTIONAL: No fever, no malaise,. CARDIOVASCULAR: No chest pain, no palpitations, no syncope. PULMONARY: No shortness of breath, no cough, GASTROINTESTINAL: No diarrhea, no nausea, no vomiting, no abdominal pain. NEUROLOGICAL: No headaches, no weakness, PHYSICAL EXAMINATION: GENERAL: The patient is alert and oriented x3, not in any acute distress. Well developed, well nourished. HEENT: Pupils are round and equally reacting to light. EOMI. No scleral icterus. No conjunctival pallor. Normocephalic, atraumatic. No pharyngeal erythema. No thyromegaly. CARDIOVASCULAR: S1 and S2 present. No murmurs, rubs, or gallops. PULMONARY: Chest is clear to auscultation, no wheezing or crackles. ABDOMEN: Soft, nontender, nondistended, normoactive bowel sounds. No palpable organomegaly. MUSCULOSKELETAL: No joint swelling or deformity. EXTREMITIES: No cyanosis, clubbing, or pedal edema. NEUROLOGICAL: Gross neurological examination did not reveal any focal deficits. SKIN: No rashes. Assessment and plan Fall Right knee pain UTI Insulin-dependent diabetes mellitus. Hypothyroidism Plan; Monitor vital signs Fall precautions Continue aspirin, Lipitor Continue IV Rocephin Follow-up on urine cultures Continue current insulin regimen PT and OT evaluation : Objective - Vital Signs Vital signs: Vital Signs Temp 98.1 F 05/07/22 07:00 Pulse 93 05/07/22 07:00 Resp 16 05/07/22 07:00 BP 153/97 05/07/22 07:00 Pulse Ox 94 L 05/07/22 07:00 FiO2 21 05/05/22 20:12 Intake & Output 05/06/22 05/07/22 05/07/22 18:59 06:59 18:59 Intake Total 236 100 118 Output Total 1075 Balance -839 100 118 Intake: Oral 236 100 118 Output: Urine 1075 Other: Voiding Method External Catheter External Catheter External Catheter - Labs CBC & Chem 7: 05/07/22 05:45 05/07/22 05:45 Labs: Abnormal Lab Results - Last 24 Hours (Table) 05/06/22 05/06/22 05/06/22 Range/Units 11:40 17:09 20:54 MCHC (32.0-37.0) g/dL RDW (11.5-14.5) % Eosinophils # (0.04-0.35) X 10*3/uL Carbon Dioxide (20.0-27.5) mmol/L BUN/Creatinine Ratio (12.00-20.00) Ratio Glucose (70-110) mg/dL POC Glucose (mg/dL) 257 H 206 H 213 H (70-110) mg/dL 05/07/22 05/07/22 05/07/22 Range/Units 05:45 05:45 06:33 MCHC 31.9 L (32.0-37.0) g/dL RDW 14.7 H (11.5-14.5) % Eosinophils # 0.44 H (0.04-0.35) X 10*3/uL Carbon Dioxide 29.5 H (20.0-27.5) mmol/L BUN/Creatinine Ratio 24.29 H (12.00-20.00) Ratio Glucose 185 H (70-110) mg/dL POC Glucose (mg/dL) 183 H (70-110) mg/dL Microbiology - Last 24 Hours (Table) 05/05/22 18:10 Urine Culture - Preliminary Urine,Clean Catch Gram Neg Bacilli
[2022-05-07 12:14] LABS: Glucose,Whole Blood 218 mg/dL (70-110)
[2022-05-07 16:44] LABS: Glucose,Whole Blood 205 mg/dL (70-110)
[2022-05-07 21:00] LABS: Glucose,Whole Blood 251 mg/dL (70-110)
[2022-05-07] MEDS: DONEPEZIL 5 MG TAB PO SCH (21:06)
[2022-05-07] MEDS: ATORVASTATIN 40 MG TAB PO SCH (21:06)
[2022-05-07] MEDS: INSULIN DETEMIR (LEVEMIR) 100 UNIT/ML SYR SQ SCH (21:07)
[2022-05-08 05:50] LABS: Glucose,Whole Blood 237 mg/dL (70-110)
[2022-05-08] MEDS: INSULIN ASPART (NovoLOG) 100 UNIT/ML VIAL SQ SCH ×4 (05:57→21:25)
[2022-05-08] MEDS: LEVOTHYROXINE 100 MCG TAB PO SCH (05:57)
[2022-05-08] MEDS: PANTOPRAZOLE 40 MG TABLET PO SCH (05:58)
[2022-05-08] MEDS: FOLIC ACID 1 MG TAB PO SCH (08:51)
[2022-05-08] MEDS: ESCITALOPRAM 5 MG TAB PO SCH (08:51)
[2022-05-08] MEDS: CYANOCOBALAMIN 500 MCG TAB PO SCH (08:51)
[2022-05-08] MEDS: MEMANTINE 10 MG TAB PO SCH ×2 (08:51→21:25)
[2022-05-08] MEDS: lisinopriL 20 MG TAB PO SCH (08:51)
[2022-05-08] MEDS: ASPIRIN 81 MG PO SCH (08:51)
[2022-05-08] MEDS: CALCIUM CARB-VIT D 500 MG-5 MCG TAB PO SCH (08:51)
[2022-05-08] MEDS: NON FORMULARY DRUG (Dextromethorphan Hbr/Quinidine [Nuedexta 20-10 Mg Capsule] 1 EACH Caps PO SCH (08:52)
[2022-05-08] MEDS: ACETAMINOPHEN TAB 500 MG TAB PO PRN (11:57)
[2022-05-08 12:21] LABS: Glucose,Whole Blood 268 mg/dL (70-110)
[2022-05-08 17:42] LABS: Glucose,Whole Blood 258 mg/dL (70-110)
[2022-05-08 19:29] LABS: Glucose,Whole Blood 248 mg/dL (70-110)
[2022-05-08] MEDS: ATORVASTATIN 40 MG TAB PO SCH (21:25)
[2022-05-08] MEDS: INSULIN DETEMIR (LEVEMIR) 100 UNIT/ML SYR SQ SCH (21:25)
[2022-05-08] MEDS: DONEPEZIL 5 MG TAB PO SCH (21:25)
[2022-05-09 06:16] LABS: Glucose,Whole Blood 221 mg/dL (70-110)
[2022-05-09] MEDS: INSULIN ASPART (NovoLOG) 100 UNIT/ML VIAL SQ SCH ×3 (06:24→17:51)
[2022-05-09] MEDS: PANTOPRAZOLE 40 MG TABLET PO SCH (06:24)
[2022-05-09] MEDS: LEVOTHYROXINE 100 MCG TAB PO SCH (06:24)
[2022-05-09] MEDS: ESCITALOPRAM 5 MG TAB PO SCH (08:41)
[2022-05-09] MEDS: lisinopriL 20 MG TAB PO SCH (08:41)
[2022-05-09] MEDS: CALCIUM CARB-VIT D 500 MG-5 MCG TAB PO SCH (08:41)
[2022-05-09] MEDS: ASPIRIN 81 MG PO SCH (08:41)
[2022-05-09] MEDS: MEMANTINE 10 MG TAB PO SCH (08:41)
[2022-05-09] MEDS: FOLIC ACID 1 MG TAB PO SCH (08:41)
[2022-05-09] MEDS: CYANOCOBALAMIN 500 MCG TAB PO SCH (08:41)
[2022-05-09] MEDS: NON FORMULARY DRUG (Dextromethorphan Hbr/Quinidine [Nuedexta 20-10 Mg Capsule] 1 EACH Caps PO SCH (08:42)
--- NOTE | 2022-05-09 10:18 | P.DS ---
Providers Date of admission: 05/05/22 14:33 Expected date of discharge: 05/09/22 Attending physician: Klaus Ramires Primary care physician: Klaus Ramires [facility] Course: Final Diagnoses: Recent fall, right knee pain in a patient with history of gait dysfunction and history of falls Acute UTI with E. coli Osteoarthritis History of bilateral radiofrequency thermal coagulation L3, L4 and L5 with steroids. chronic bilateral lower extremity weakness, multifactorial including suspected neuropathy in addition to chronic low back pain. Diabetes mellitus type 2, hyperglycemia, A1c 7.5(08/28/21), level repeated and pending. Hypertension Hyperlipidemia Hypothyroidism, status post thyroidectomy History of CVAs, involving MCA, brainstem History of thyroid cancer, status post thyroidectomy History of MTHF gene mutation History of low vitamin B12 Obesity, BMI 31 Hospital course:This is a 66-year-old female with past medical history of multiple falls, possible neuropathy, bilateral radiofrequency thermal coagulation L3, L4 and L5 with steroids,chronic bilateral lower extremity weakness, CVAs involving MCA, brainstem , diabetes mellitus admitted with increased weakness, right knee and ankle pain, requiring more assistance per significant other ,status post fall couple weeks prior to admission and acute UTI. Radiology studies reported negative for acute displaced fractures. Freddie precautions maintained. Evaluated by physical therapy recommending subacute rehab at discharge. Pain controlled with Tylenol, ice. Maintained on conservative, supportive care with IV ceftriaxone for acute UTI with E. coli. Afebrile, normal WBC Significant clinical improvement. Patient will be discharged to [facility] subacute rehab today in a stable condition with guarded prognosis. The impression and plan of care has been dictated as directed. : I performed a history and examination of this patient, discussed the same with the dictator. I agree with the dictator's note ,documented as a scribe. Any additional findings or plans will be noted. Patient Condition at Discharge: Stable Plan - Discharge Summary New Discharge Prescriptions: New cefUROXime axetiL [Ceftin] 500 mg PO BID 4 Days #8 tab Continue Aspirin 81 mg PO DAILY Memantine [Namenda] 10 mg PO BID Escitalopram [Lexapro] 5 mg PO DAILY Donepezil [Aricept] 5 mg PO HS tab Pantoprazole Sodium [Protonix] 40 mg PO DAILY #30 tablet. Levothyroxine Sodium [Synthroid] 200 mcg PO AC-BRKFST Dextromethorphan HBr/Quinidine [Nuedexta 20-10 mg Capsule] 1 tab PO DAILY Insulin Aspart [NovoLOG Flexpen] See Protocol SQ ACHS Insulin Glargine,Hum.rec.anlog [Lantus Solostar Pen] 65 unit SQ HS Atorvastatin [Lipitor] 40 mg PO HS tab lisinopriL [Zestril] 20 mg PO DAILY tab Cyanocobalamin (Vitamin B-12) [Vitamin B-12] 1,000 mcg PO DAILY #30 tablet Mirabegron [Myrbetriq] 25 mg PO HS Cranberry With Vit C 2 tab PO BID Jone/D3/Mag11/Zinc/Ripsaw Operator/Tye/Bor [Caltrate 600+D Plus Tablet] 1 tab PO DAILY Acetaminophen [Tylenol Extra Strength] 1,000 mg PO Q6H PRN PRN Reason: Pain Folic Acid 0.8 mg PO DAILY Discharge Medication List Aspirin 81 mg PO DAILY 02/12/18 [History] Escitalopram [Lexapro] 5 mg PO DAILY 05/05/20 [History] Memantine [Namenda] 10 mg PO BID 05/05/20 [History] Donepezil [Aricept] 5 mg PO HS tab 05/10/20 [Rx] Pantoprazole Sodium [Protonix] 40 mg PO DAILY #30 tablet. 05/10/20 [Rx] Atorvastatin [Lipitor] 40 mg PO HS tab 12/22/20 [Rx] Cyanocobalamin (Vitamin B-12) [Vitamin B-12] 1,000 mcg PO DAILY #30 tablet 12/22/20 [Rx] lisinopriL [Zestril] 20 mg PO DAILY tab 12/22/20 [Rx] Jone/D3/Mag11/Zinc/Ripsaw Operator/Tye/Bor [Caltrate 600+D Plus Tablet] 1 tab PO DAILY 02/18/21 [History] Cranberry With Vit C 2 tab PO BID 02/18/21 [History] Mirabegron [Myrbetriq] 25 mg PO HS 02/18/21 [History] Levothyroxine Sodium [Synthroid] 200 mcg PO AC-BRKFST 03/29/21 [History] Acetaminophen [Tylenol Extra Strength] 1,000 mg PO Q6H PRN 07/27/21 [History] Dextromethorphan HBr/Quinidine [Nuedexta 20-10 mg Capsule] 1 tab PO DAILY 08/26/21 [History] Insulin Aspart [NovoLOG Flexpen] See Protocol SQ ACHS 10/17/21 [History] Folic Acid 0.8 mg PO DAILY 05/05/22 [History] Insulin Glargine,Hum.rec.anlog [Lantus Solostar Pen] 65 unit SQ HS 05/05/22 [History] cefUROXime axetiL [Ceftin] 500 mg PO BID 4 Days #8 tab 05/09/22 [Rx] Follow up Appointment(s)/Referral(s): Klaus Ramires DO [Primary Care Provider] - 1-2 days
[2022-05-09 13:03] LABS: Glucose,Whole Blood 225 mg/dL (70-110)
[2022-05-09 14:31] VITALS: BP 128/72; PULSE 82; RESP 18; TEMP 97.5
[2022-05-09 17:49] LABS: Glucose,Whole Blood 221 mg/dL (70-110)
== END 2022-05-09 18:39 ==
LOC: EC 11:58 → 6NMEDSUR 14:33
PROVIDERS: ADMIT Family Medicine; ATTEND Family Medicine
DX: N39.0 Urinary tract infection, site not specified (principal); B96.20 Unspecified Escherichia coli [E. coli] as the cause of diseases classified elsewhere; R53.1 Weakness; K21.9 Gastro-esophageal reflux disease without esophagitis; E78.5 Hyperlipidemia, unspecified; I10 Essential (primary) hypertension; E11.40 Type 2 diabetes mellitus with diabetic neuropathy, unspecified; E11.621 Type 2 diabetes mellitus with foot ulcer; L97.509 Non-pressure chronic ulcer of other part of unspecified foot with unspecified severity; E89.0 Postprocedural hypothyroidism; M77.31 Calcaneal spur, right foot; E66.9 Obesity, unspecified; M54.50 Low back pain, unspecified; G89.29 Other chronic pain; Z79.82 Long term (current) use of aspirin; Z79.899 Other long term (current) drug therapy; Z79.890 Hormone replacement therapy; Z86.73 Personal history of transient ischemic attack (TIA), and cerebral infarction without residual deficits; Z85.850 Personal history of malignant neoplasm of thyroid; Z79.4 Long term (current) use of insulin; Z87.440 Personal history of urinary (tract) infections; Z90.710 Acquired absence of both cervix and uterus; Z80.9 Family history of malignant neoplasm, unspecified; Z68.31 Body mass index [BMI] 31.0-31.9, adult; Z91.81 History of falling
CPT/HCPCS: 96365; 96366 ×3; 99285; 94760 ×2; 97162; 97167; 80053 ×2; 83735; 84443; 85025 ×2; 81001; 87086; 87077; 87186; 83036; 73562; 73610; G0378 ×5; J0696 ×4

== ENCOUNTER 2022-11-03 16:28 | Emergency (ER) | payer MEDICARE, OTHER ==
[2022-11-03 16:33] VITALS: RESP 18; TEMP 97.9
[2022-11-03] MEDS ORDERED: MORPHINE SULFATE 2 MG/ML SYRINGE IVP ONE (16:42)
[2022-11-03] MEDS ORDERED: MORPHINE SULFATE 2 MG/ML SYRINGE IM STA (16:54)
--- NOTE | 2022-11-03 17:26 | XR ---
EXAMINATION TYPE: XR ankle complete LT DATE OF EXAM: 11/03/2022 COMPARISON: Left ankle radiograph the HISTORY: Pain TECHNIQUE: 3 views of the left ankle are submitted for evaluation. FINDINGS: Acute minimally displaced oblique fracture of the distal tibial diaphysis. Acute nondisplac ed oblique fracture of the fibula diaphysis. There is overlying soft tissue edema. No dislocation. IMPRESSION: 1. Acute minimally displaced fracture of the distal tibial. 2. Acute nondisplaced fracture of the distal fibula.
--- NOTE | 2022-11-03 17:27 | ED ---
General Adult HPI - General Chief complaint: Extremity Injury, Lower Stated complaint: Left foot injury Time Seen by Provider: 11/03/22 16:30 Source: patient, EMS, RN notes reviewed Mode of arrival: EMS Limitations: no limitations - History of Present Illness Initial comments: 67-year-old female with no significant past medical history presents the emergency department with a chief complaint of left ankle pain. Patient reports that she slipped and fell from ground level II days ago. She is complaining of left ankle pain. She did not want to be evaluated the time of injury. She reports worsening pain and swelling to the area. She denies any numbness or tingling in the area. Denies any injury proximal to the ankle. Denies hitting her head loss of consciousness or anticoagulant use - Related Data Home Medications Medication Instructions Recorded Confirmed Aspirin 81 mg PO DAILY 02/12/18 05/05/22 Escitalopram [Lexapro] 5 mg PO DAILY 05/05/20 05/05/22 Memantine [Namenda] 10 mg PO BID 05/05/20 05/05/22 Jone/D3/Mag11/Zinc/Worm Farmer/Tye/Bor 1 tab PO DAILY 02/18/21 05/05/22 [Caltrate 600+D Plus Tablet] Cranberry With Vit C 2 tab PO BID 02/18/21 05/05/22 Mirabegron [Myrbetriq] 25 mg PO HS 02/18/21 05/05/22 Levothyroxine Sodium [Synthroid] 200 mcg PO AC-BRKFST 03/29/21 05/05/22 Acetaminophen [Tylenol Extra 1,000 mg PO Q6H PRN 07/27/21 05/05/22 Strength] Dextromethorphan HBr/Quinidine 1 tab PO DAILY 08/26/21 05/05/22 [Nuedexta 20-10 mg Capsule] Insulin Aspart [NovoLOG Flexpen] See Protocol SQ ACHS 10/17/21 05/05/22 Folic Acid 0.8 mg PO DAILY 05/05/22 05/05/22 Insulin Glargine,Hum.rec.anlog 65 unit SQ HS 05/05/22 05/05/22 [Lantus Solostar Pen] Previous Rx's Medication Instructions Recorded Donepezil [Aricept] 5 mg PO HS tab 12/07/20 Pantoprazole Sodium [Protonix] 40 mg PO DAILY #30 tablet. 05/10/20 Atorvastatin [Lipitor] 40 mg PO HS tab 12/22/20 Cyanocobalamin (Vitamin B-12) 1,000 mcg PO DAILY #30 tablet 12/22/20 [Vitamin B-12] lisinopriL [Zestril] 20 mg PO DAILY tab 12/22/20 cefUROXime axetiL [Ceftin] 500 mg PO BID 4 Days #8 tab 05/09/22 HYDROcodone/APAP 5-325MG [Clifton 5] 1 each PO Q6HR PRN #12 tab 11/03/22 Allergies Allergy/AdvReac Type Severity Reaction Status Date / Time ibuprofen [From Motrin] AdvReac "BLOOD Verified 11/03/22 16:33 THINS TOO MUCH" naproxen [From Aleve] AdvReac "BLOOD Verified 11/03/22 16:33 THINS TOO MUCH" NSAIDS (Non-Steroidal AdvReac Unknown Verified 11/03/22 16:33 Anti-Inflamma Review of Systems ROS Statement: Those systems with pertinent positive or pertinent negative responses have been documented in the HPI. ROS Other: All systems not noted in ROS Statement are negative. 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 History of Any Multi-Drug Resistant Organisms: None Reported Past Surgical History: Hysterectomy, Orthopedic Surgery Additional Past Surgical History / Comment(s): thyroidectomy, parotid gland surgery, left shoulder (rotator cuff sx) X 2, PAIN CLINIC PROCEDURES Past Anesthesia/Blood Transfusion Reactions: Postoperative Nausea & Vomiting (PONV) Past Psychological History: No Psychological Hx Reported Smoking Status: Never smoker Past Alcohol Use History: None Reported Past Drug Use History: None Reported - Past Family History Mother Family Medical History: No Reported History Additional Family Medical History / Comment(s): . Father Family Medical History: Cancer Additional Family Medical History / Comment(s): open heart surgery when he was 50, aortic aneurysm when he was around 63 General Exam - General Exam Comments Initial Comments: General: Alert, in no acute distress Head: atraumatic normocephalic. Eyes PERRL, EOMI intact, mucous membranes moist Respiratory: Lungs clear to auscultation bilaterally Cardiovascular: Heart rate regular rate and rhythm Abdominal: Soft without guarding or rebound Extremities: Normal inspection with full range of motion and normal capillary refill, ankle with generalized swelling and tenderness. Limited range of motion secondary to pain. 2+ DP/PT pulses bilaterally. Distal NVI Neuroogic: alert and oriented 3, CN II-XII intact, able to ambulate with steady gait Skin: warm dry and intact with normal color Limitations: no limitations Course Vital Signs 11/03/22 16:30 Temperature 97.9 F Pulse Rate 98 Respiratory 18 Rate Blood Pressure 120/63 O2 Sat by Pulse 92 L Oximetry - Reevaluation(s) Reevaluation #1: 11/03/22 18:[address] goss does not accepts the admit the patient. Reevaluation #2: 11/03/22 19:00 case discussed with the patient and the patient's family member at length. Patient requesting EMS transport home at this time. EMS transport will be set up for the patient. She'll be transferred in stable condition. Medical Decision Making - Medical Decision Making Was pt. sent in by a medical professional or institution (, PA, CHEMISTRY QUALITY CONTROL TECHNICIAN, urgent care, hospital, or senior care...) When possible be specific @ -[No] Did you speak to anyone other than the patient for history (EMS, parent, family, police, friend...)? What history was obtained from this source @ -[No] Did you review nursing and triage notes (agree or disagree)? Why? @ -[I reviewed and agree with nursing and triage notes] Were old charts reviewed (outside hosp., previous admission, EMS record, old EKG, old radiological studies, urgent care reports/EKG's, senior care records)? Report findings @ -[No old charts were reviewed] Differential Diagnosis (chest pain, altered mental status, abdominal pain women, abdominal pain men, vaginal bleeding, weakness, fever, dyspnea, syncope, headache, dizziness, GI bleed, back pain, seizure, CVA, palpatations, mental health, musculoskeletal)? @ -[not applicable] EKG interpreted by me (3pts min.). @ -[As above] X-rays interpreted by me (1pt min.). @ -X-ray of left hip reveals mild displaced fractures of the distal tibia and fibula CT interpreted by me (1pt min.). @ -[None done] U/S interpreted by me (1pt. min.). @ -[None done] What testing was considered but not performed or refused? (CT, X-rays, U/S, labs)? Why? @ -[None] What meds were considered but not given or refused? Why? @ -[None] Did you discuss the management of the patient with other professionals (professionals i.e. , PA, CHEMISTRY QUALITY CONTROL TECHNICIAN, lab, RT, psych nurse, dialysis social worker, sales marketing, teacher, probation officer, case finisher)? Give summary @ -[No] Was smoking cessation discussed for >3mins.? @ -[No] Was critical care preformed (if so, how long)? @ -[No] Were there social determinants of health that impacted care today? How? (Homelessness, low income, unemployed, alcoholism, drug addiction, transportation, low edu. Level, literacy, decrease access to med. care, long-term, rehab)? @ -[No] Was there de-escalation of care discussed even if they declined (Discuss DNR or withdrawal of care, Hospice)? DNR status @ -[No] What co-morbidities impacted this encounter? (DM, HTN, Smoking, COPD, CAD, Cancer, CVA, ARF, Chemo, Hep., AIDS, mental health diagnosis, sleep apnea, morbid obesity)? @ -[None] Was patient admitted / discharged? Hospital course, mention meds given and route, prescriptions, significant lab abnormalities, going to OR and other pertinent info. @ Discharged. This is a 67-year-old female who presents the emergency department with L foot problem. Patient had a thorough history and physical exam performed in the ED. Physical exam essentially unremarkable. Heart rate regular rate and rhythm, lungs are to auscultation bilaterally, abdomen soft non-tender. Left ankle without rashes or lesions, erythema, edema. Limited ROM secondary to pain. 2+DP/PT pulses bilaterally. I discussed the results in detail at length with the patient and the patient's family member. They're very agreeable with the plan for discharge with assistance via EMS transport home. His family member reports that he has at home care They can help with caring for the patient. Return precautions were discussed at length. Patient discharged in stable condition. Case discussed with Dr. Silverman Joselo who agrees with plan of care Undiagnosed new problem with uncertain prognosis? @ -[No] Drug Therapy requiring intensive monitoring for toxicity (Heparin, Nitro, Insulin, Cardizem)? @ -[No] Were any procedures done? @ -[No] Diagnosis/symptom? @ -L tibia fracture - left fibular fracture Acute, or Chronic, or Acute on Chronic? @ -Acute Uncomplicated (without systemic symptoms) or Complicated (systemic symptoms)? @ -Uncomplicated Side effects of treatment? @ -[No] Exacerbation, Progression, or Severe Exacerbation? @ -[No] Poses a threat to life or bodily function? How? (Chest pain, [place], [place], pneumonia, PE, COPD, DKA, ARF, appy, cholecystitis, CVA, Diverticulitis, Homicidal, Suicidal, threat to staff... and all critical care pts) @ -Low likelihood Disposition Clinical Impression: Tibia fracture, Fibula fracture, Multiple falls Disposition: HOME SELF-CARE Condition: Stable Instructions (If sedation given, give patient instructions): Ankle Fracture (ED) Additional Instructions: Please return to the nearest emergency department symptoms worsen or persist Prescriptions: HYDROcodone/APAP 5-325MG [Clifton 5] 1 each PO Q6HR PRN #12 tab PRN Reason: Pain Is patient prescribed a controlled substance at d/c from ED?: No Referrals: Chacho Gatica MD [Primary Care Provider] - 1-2 days Efren Carlson DO [Doctor of Osteopathic Medicine] - 1-2 days Time of Disposition: 18:18
[2022-11-03] MEDS ORDERED: HYDROcodone/APAP 5-325MG 1 EACH TAB PO STA (21:40)
[2022-11-03 23:00] VITALS: BP 105/68; PULSE 63
== END 2022-11-03 23:13 | disposition home or self-care (01) ==
LOC: EC 16:28
DX: S82.202A Unspecified fracture of shaft of left tibia, initial encounter for closed fracture (principal); S82.402A Unspecified fracture of shaft of left fibula, initial encounter for closed fracture; E11.9 Type 2 diabetes mellitus without complications; K21.9 Gastro-esophageal reflux disease without esophagitis; E78.5 Hyperlipidemia, unspecified; I10 Essential (primary) hypertension; E07.9 Disorder of thyroid, unspecified; Z86.73 Personal history of transient ischemic attack (TIA), and cerebral infarction without residual deficits; Z88.5 Allergy status to narcotic agent; Z88.6 Allergy status to analgesic agent; Z88.8 Allergy status to other drugs, medicaments and biological substances; Z79.4 Long term (current) use of insulin; Z79.82 Long term (current) use of aspirin; Z79.890 Hormone replacement therapy; Z79.899 Other long term (current) drug therapy; W01.0XXA Fall on same level from slipping, tripping and stumbling without subsequent striking against object, initial encounter
CPT/HCPCS: 73610; 99284; 96372; J2270